=== PATIENT | female | born 1995 | race African-American/Black ===

== ENCOUNTER 2018-03-14 07:46 | Emergency (ER) | payer OTHER, SELFPAY ==
--- OUTSIDE RECORDS SUMMARY | 2018-03-14 07:48 | XMS REPORT ---
:1995 [facility] [address] [place] [address] Care Team Providers Name Role Phone Unavailable Unavailable Unavailable Problems This patient has no known problems. Allergies, Adverse Reactions, Alerts This patient has no known allergies or adverse reactions. Medications This patient has no known medications. Encounters Start End Encounter Admission Attending Care Care Encounter Date/Time Date/Time Type Type Clinicians Facility Department ID 2017-12-04 2017-12-06 Outpatient [facility] [id number] 00:00:00 00:00:00
[2018-03-14] MEDS ORDERED: NA CHLORIDE 0.9% 1,000 ML ONE (08:21)
[2018-03-14] MEDS ORDERED: ONDANSETRON 4 MG/2 ML VIAL ONE (08:21)
[2018-03-14 08:33] LABS: Absolute Monocytes 0.5 K/uL (0.1-1.3); Absolute Neutrophil 8.1 K/uL (1.8-8.0); Basophils % 0.2 % (0-1.3); Eosinophils % 1.1 % (0-4.4); Hematocrit 36.3 % (36.0-45.0); Lymphocytes % 10.2 % (15.3-44.8); MCH 26.4 pg (27.0-35.0); MCV 80.1 fL (80-100); MPV 8.8 fL (7.6-11.3); Monocytes % 5.1 % (3.3-12.3); RBC Red Blood Cell Count 4.53 M/uL (3.86-4.86)
[2018-03-14 08:47] LABS: ALT/SGPT 11 U/L (12-78); AST/SGOT 17 U/L (15-37); Albumin 3.8 g/dL (3.4-5.0); Alkaline Phosphatase 76 U/L (45-117); BUN Blood Urea Nitrogen 13 mg/dL (7-18); Bicarbonate 29 mmol/L (21-32); Bilirubin Direct 0.3 mg/dL (0-0.2); Bilirubin Total 1.1 mg/dL (0.2-1.0); Glucose Level 90 mg/dL (74-106); Lipase 113 U/L (73-393); Potassium 3.5 mmol/L (3.5-5.1); Protein, Total 8.2 g/dL (6.4-8.2); Sodium Level 139 mmol/L (136-145)
--- NOTE | 2018-03-14 10:40 | ER ---
Nurse's Notes [facility] Name: Roro Heredia Age: 22 yrs Sex: Female : 1995 Arrival Date: 03/14/2018 Time: 07:50 Bed 6 Private MD: None, None Diagnosis: Vomiting;Diarrhea, unspecified;Gastroenteritis Presentation: 03/14 08:05 Presenting complaint: Patient states: last night started vomiting, have vomited 3 times tw2 since, and 2 episodes of diarrhea, no abdominal pain. Transition of care: patient was not received from another setting of care. Onset of symptoms was March 14, 2018. Risk Assessment: Do you want to hurt yourself or someone else? Patient reports no desire to harm self or others. Initial Sepsis Screen: Does the patient meet any 2 criteria? No. Patient's initial sepsis screen is negative. Does the patient have a suspected source of infection? No. Patient's initial sepsis screen is negative. Care prior to arrival: None. 08:05 Method Of Arrival: Ambulatory tw2 08:05 Acuity: JULIET 3 tw2 Triage Assessment: 08:07 General: Appears in no apparent distress. Behavior is calm, cooperative, appropriate tw2 for age. Pain: Denies pain. GI: Reports dizziness Patient currently denies abdominal pain. 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 - Social history:: Smoking status: Patient/guardian denies using tobacco. - Ebola Screening: : Patient denies travel to an Ebola-affected area in the 21 days before illness onset. Screenin:07 Abuse screen: Denies threats or abuse. Nutritional screening: No deficits noted. tw2 Tuberculosis screening: No symptoms or risk factors identified. Fall Risk None identified. Assessment: 08:05 General: Appears in no apparent distress. uncomfortable, well developed, Behavior is sv calm, cooperative, appropriate for age. Pain: Denies pain. Neuro: Level of Consciousness is awake, alert, obeys commands, Oriented to person, place, time, situation, Moves all extremities. Full function Gait is steady, Speech is normal. Respiratory: Respiratory effort is even, unlabored, Respiratory pattern is regular, symmetrical. GI: Abdomen is flat, Patient currently denies abdominal pain. Derm: Skin is normal. Musculoskeletal: Range of motion: intact in all extremities. 09:07 Reassessment: Patient appears in no apparent distress at this time. No changes from tw2 previously documented assessment. Patient and/or family updated on plan of care and expected duration. Pain level reassessed. Patient is alert, oriented x 3, equal unlabored respirations, skin warm/dry/pink. 10:57 Reassessment: Patient appears in no apparent distress at this time. No changes from tw2 previously documented assessment. Patient and/or family updated on plan of care and expected duration. Pain level reassessed. Patient is alert, oriented x 3, equal unlabored respirations, skin warm/dry/pink. Vital Signs: 08:05 BP 106 / 76; Pulse 105; Resp 18; Temp 97.9(O); Pulse Ox 100% on R/A; Pain 0/10; tw2 09:07 BP 102 / 66; Pulse 74; Resp 18; Pulse Ox 99% on R/A; tw2 09:55 BP 105 / 78; Pulse 73; Resp 16; Pulse Ox 100% on R/A; tw2 10:57 BP 106 / 74; Pulse 85; Resp 17; Pulse Ox 100% on R/A; tw2 ED Course: 07:50 Patient arrived in ED. mr 07:50 None, None is Private Physician. mr 07:51 Dangelo Blair MD is Attending Physician. kdr 08:01 Shruti Concepcion, SARAH is Primary Nurse. sv 08:05 Triage completed. tw2 08:05 Arm band placed on. tw2 08:07 Placed in gown. Bed in low position. Pulse ox on. NIBP on. Warm blanket given. tw2 08:20 Initial lab(s) drawn, by de, sent to lab. Inserted saline lock: 20 gauge in right sv antecubital area, using aseptic technique. Blood collected. Flushed right antecubital with 5 ml normal saline. 08:22 Basic Metabolic Panel Sent. sv 10:57 No provider procedures requiring assistance completed. IV discontinued, intact, tw2 bleeding controlled, No redness/swelling at site. Pressure dressing applied. Administered Medications: 08:22 Drug: Zofran 4 mg Route: IVP; Site: right antecubital; sv 09:01 Follow up: Response: No adverse reaction sv 08:22 Drug: NS 0.9% 1000 ml Route: IV; Rate: 1 bolus; Site: right antecubital; sv 09:06 Follow up: Response: No adverse reaction; IV Status: Completed infusion; IV Intake: tw2 1000ml Intake: 09:06 IV: 1000ml; Total: 1000ml. tw2 Outcome: 10:39 Discharge ordered by . lizet 10:58 Discharged to home ambulatory. tw2 10:58 Condition: stable 10:58 Discharge instructions given to patient, Instructed on discharge instructions, follow up and referral plans. medication usage, Demonstrated understanding of instructions, follow-up care, medications, Prescriptions given X 2. 10:58 Patient left the ED. tw2 Signatures: Shruti Concepcion RN RN sv Rittger, Kevin, MD MD kdr Rivera, Mary mr Wise, Tara, RN RN tw2
--- NOTE | 2018-03-14 10:40 | EDPHYS ---
Physician Documentation [facility] Name: Roro Heredia Age: 22 yrs Sex: Female : 1995 Arrival Date: 03/14/2018 Time: 07:50 Bed 6 Private MD: None, None ED Physician Dangelo Blair HPI: 03/14 08:13 This 22 yrs old Black Female presents to ER via Ambulatory with complaints of Vomiting. kdr 08:13 The patient presents to the emergency department with nausea, that is mild, vomiting, kdr that is intermittent, described as undigested food, diarrhea, that is intermittent, abdominal pain, of the epigastric area and right upper quadrant, described as achy, dull, intermittent, and does not radiate. Onset: The symptoms/episode began/occurred last night. Possible causes: unknown. The symptoms are aggravated by food , The symptoms are alleviated by nothing. Associated signs and symptoms: Pertinent positives: abdominal pain, diarrhea, nausea, vomiting, Pertinent negatives: anorexia, belching, constipation, dysuria, fever, GI bleeding, hematuria, vaginal discharge. Severity of symptoms: At their worst the symptoms were mild moderate just prior to arrival, in the emergency department the symptoms have improved moderately. The patient has not experienced similar symptoms in the past. The patient has not recently seen a physician. 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 - Social history:: Smoking status: Patient/guardian denies using tobacco. - Ebola Screening: : Patient denies travel to an Ebola-affected area in the 21 days before illness onset. ROS: 08:13 Constitutional: Negative for fever, chills, and weight loss, Eyes: Negative for injury, kdr pain, redness, and discharge, ENT: Negative for injury, pain, and discharge, Neck: Negative for injury, pain, and swelling, Cardiovascular: Negative for chest pain, palpitations, and edema, Respiratory: Negative for shortness of breath, cough, wheezing, and pleuritic chest pain, Back: Negative for injury and pain, : Negative for injury, bleeding, discharge, and swelling, MS/Extremity: Negative for injury and deformity, Skin: Negative for injury, rash, and discoloration, Neuro: Negative for headache, weakness, numbness, tingling, and seizure activity. Psych: Negative for depression, anxiety, suicide ideation, homicidal ideation, and hallucinations, Allergy/Immunology: Negative for hives, rash, and allergies, Endocrine: Negative for neck swelling, polydipsia, polyuria, polyphagia, and marked weight changes, Hematologic/Lymphatic: Negative for swollen nodes, abnormal bleeding, and unusual bruising. 08:13 Abdomen/GI: Positive for abdominal pain, nausea, vomiting, and diarrhea, Negative for constipation, abdominal cramps, abdominal distension, anorexia, dysphagia, hematemesis, black/tarry stool, rectal pain, rectal bleeding, bowel incontinence. Exam: 08:13 Constitutional: This is a well developed, well nourished patient who is awake, alert, kdr and in no acute distress. Head/Face: Normocephalic, atraumatic. Eyes: Pupils equal round and reactive to light, extra-ocular motions intact. Lids and lashes normal. Conjunctiva and sclera are non-icteric and not injected. Cornea within normal limits. Periorbital areas with no swelling, redness, or edema. Neck: Trachea midline, no thyromegaly or masses palpated, and no cervical lymphadenopathy. Supple, full range of motion without nuchal rigidity, or vertebral point tenderness. No Meningismus. Chest/axilla: Normal chest wall appearance and motion. Nontender with no deformity. No lesions are appreciated. Cardiovascular: Regular rate and rhythm with a normal S1 and S2. No gallops, murmurs, or rubs. Normal PMI, no JVD. No pulse deficits. Respiratory: Lungs have equal breath sounds bilaterally, clear to auscultation and percussion. No rales, rhonchi or wheezes noted. No increased work of breathing, no retractions or nasal flaring. Abdomen/GI: Soft, non-tender, with normal bowel sounds. No distension or tympany. No guarding or rebound. No evidence of tenderness throughout. Back: No spinal tenderness. No costovertebral tenderness. Full range of motion. Skin: Warm, dry with normal turgor. Normal color with no rashes, no lesions, and no evidence of cellulitis. MS/ Extremity: Pulses equal, no cyanosis. Neurovascular intact. Full, normal range of motion. Neuro: Awake and alert, GCS 15, oriented to person, place, time, and situation. Cranial nerves II-XII grossly intact. Motor strength 5/5 in all extremities. Sensory grossly intact. Cerebellar exam normal. Normal gait. Psych: Awake, alert, with orientation to person, place and time. Behavior, mood, and affect are within normal limits. Vital Signs: 08:05 BP 106 / 76; Pulse 105; Resp 18; Temp 97.9(O); Pulse Ox 100% on R/A; Pain 0/10; tw2 09:07 BP 102 / 66; Pulse 74; Resp 18; Pulse Ox 99% on R/A; tw2 09:55 BP 105 / 78; Pulse 73; Resp 16; Pulse Ox 100% on R/A; tw2 10:57 BP 106 / 74; Pulse 85; Resp 17; Pulse Ox 100% on R/A; tw2 MDM: 08:13 Data reviewed: vital signs, nurses notes, lab test result(s). Counseling: I had a kdr detailed discussion with the patient and/or guardian regarding: the historical points, exam findings, and any diagnostic results supporting the discharge/admit diagnosis, lab results, the need for outpatient follow up. 10:39 Patient medically screened. kdr 03/14 08:12 Order name: Basic Metabolic Panel kdr 03/14 08:12 Order name: CBC with Diff; Complete Time: 10:05 kdr 03/14 08:12 Order name: Hepatic Function; Complete Time: 10:05 kdr 03/14 08:12 Order name: Lipase; Complete Time: 10:05 kdr 03/14 08:13 Order name: Basic Metabolic Panel; Complete Time: 10:05 EDMS 03/14 08:12 Order name: IV Saline Lock; Complete Time: 08:20 kdr 03/14 08:12 Order name: Labs collected and sent; Complete Time: 08:20 kdr Administered Medications: 08:22 Drug: Zofran 4 mg Route: IVP; Site: right antecubital; sv 09:01 Follow up: Response: No adverse reaction sv 08:22 Drug: NS 0.9% 1000 ml Route: IV; Rate: 1 bolus; Site: right antecubital; sv 09:06 Follow up: Response: No adverse reaction; IV Status: Completed infusion; IV Intake: tw2 1000ml Disposition: 03/14/18 10:39 Discharged to Home. Impression: Vomiting, Diarrhea, unspecified, Gastroenteritis. - Condition is Stable. - Discharge Instructions: Diarrhea, Adult, Nausea and Vomiting, Adult, [id number]. - Prescriptions for Zofran 4 mg Oral Tablet - take 1 tablet by ORAL route every 4-6 hours As needed; 16 tablet. Lomotil 2.5- 0.025 mg Oral Tablet - take 2 tablet by ORAL route once daily As needed; 20 tablet. - Medication Reconciliation Form, Thank You Letter, Work release form form. - Follow up: Private Physician; When: 2 - 3 days; Reason: If symptoms return, Further diagnostic work-up, Recheck today's complaints, Continuance of care, Re-evaluation by your physician. - Problem is new. - Symptoms are resolved. Signatures: Dispatcher [employer] Shruti Kay RN RN Dangelo Blair MD MD kdr Jo Ann Hernandez RN RN tw2 Corrections: (The following items were deleted from the chart) 10:58 10:39 03/14/2018 10:39 Discharged to Home. Impression: Vomiting; Diarrhea, unspecified; tw2 Gastroenteritis. Condition is Stable. Forms are Work release form, Medication Reconciliation Form, Thank You Letter, Antibiotic Education, Prescription Opioid Use. Follow up: Private Physician; When: 2 - 3 days; Reason: If symptoms return, Further diagnostic work-up, Recheck today's complaints, Continuance of care, Re-evaluation by your physician. Problem is new. Symptoms are resolved. kdr
== END 2018-03-14 10:58 | disposition home or self-care (01) ==
LOC: ER 07:46
DX: K52.9 Noninfective gastroenteritis and colitis, unspecified (principal)
CPT/HCPCS: 36415; 80048; 80076; 83690; 85025; 96361; 96374; 99284; J2405; J7030

== ENCOUNTER 2018-09-26 08:34 | Emergency (ER) | payer SELFPAY ==
--- OUTSIDE RECORDS SUMMARY | 2018-09-26 08:37 | XMS REPORT ---
:1995 [facility] Address [address] [place] [address] Care Team Providers Name Role Phone Unavailable Unavailable Unavailable Problems This patient has no known problems. Allergies, Adverse Reactions, Alerts This patient has no known allergies or adverse reactions. Medications This patient has no known medications. Encounters Start End Encounter Admission Attending Care Care Encounter Date/Time Date/Time Type Type Clinicians Facility Department ID 2017-12-04 2017-12-06 Outpatient [facility] [id number] 00:00:00 00:00:00
--- NOTE | 2018-09-26 08:51 | EDPHYS ---
Physician Documentation [facility] Name: Roro Heredia Age: 23 yrs Sex: Female : 1995 Arrival Date: 09/26/2018 Time: 08:39 Bed 19 Private MD: None, None ED Physician Omer Gross HPI: 09/26 09:05 This 23 yrs old Black Female presents to ER via Ambulatory with complaints of Eye kb Problem. 09:05 The patient is experiencing pain, The patient sustained None. to the right eye. Onset: kb The symptoms/episode began/occurred 2 day(s) ago. Duration: the symptoms are continuous. Aggravated by nothing. Alleviated by nothing. Associated signs and symptoms: Pertinent positives: None. Patient wears glasses. Severity of symptoms: At their worst the symptoms were mild moderate in the emergency department the symptoms are unchanged. The patient has not experienced similar symptoms in the past. The patient has not recently seen a physician. Pt reports stye to right lower eyelid that started 2 days ago. States it started draining yesterday. Reports she tried an old remedy using urine from a diaper to clear it up, but it hasn't worked yet. 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 tw2 Historical: - Allergies: 08:42 No Known Allergies; tw2 - Home Meds: 08:42 None [Active]; tw2 - PMHx: 08:42 None; tw2 - PSHx: 08:42 None; tw2 - Immunization history:: Adult Immunizations. - Social history:: Smoking status: . - Ebola Screening: : Patient denies travel to an Ebola-affected area in the 21 days before illness onset. ROS: 09:04 Constitutional: Negative for fever, chills, and weight loss, ENT: Negative for injury, kb pain, and discharge, Neck: Negative for injury, pain, and swelling, Cardiovascular: Negative for chest pain, palpitations, and edema, Respiratory: Negative for shortness of breath, cough, wheezing, and pleuritic chest pain, Abdomen/GI: Negative for abdominal pain, nausea, vomiting, diarrhea, and constipation, Back: Negative for injury and pain, MS/Extremity: Negative for injury and deformity, Skin: Negative for injury, rash, and discoloration, Neuro: Negative for headache, weakness, numbness, tingling, and seizure. 09:04 Eyes: Positive for pain, swelling, of the right lower eyelid. Exam: 09:04 Visual Acuity: I have reviewed the nursing documentation. Visual acuity is within kb normal limits. 09:04 Constitutional: This is a well developed, well nourished patient who is awake, alert, and in no acute distress. Head/Face: Normocephalic, atraumatic. Chest/axilla: Normal chest wall appearance and motion. Nontender with no deformity. No lesions are appreciated. Cardiovascular: Regular rate and rhythm with a normal S1 and S2. No gallops, murmurs, or rubs. Normal PMI, no JVD. No pulse deficits. Respiratory: Lungs have equal breath sounds bilaterally, clear to auscultation and percussion. No rales, rhonchi or wheezes noted. No increased work of breathing, no retractions or nasal flaring. Abdomen/GI: Soft, non-tender, with normal bowel sounds. No distension or tympany. No guarding or rebound. No evidence of tenderness throughout. Skin: Warm, dry with normal turgor. Normal color with no rashes, no lesions, and no evidence of cellulitis. MS/ Extremity: Pulses equal, no cyanosis. Neurovascular intact. Full, normal range of motion. Neuro: Awake and alert, GCS 15, oriented to person, place, time, and situation. Cranial nerves II-XII grossly intact. Motor strength 5/5 in all extremities. Sensory grossly intact. Cerebellar exam normal. Normal gait. 09:04 Eyes: Lids and lashes: stye, seen on the right lid. Vital Signs: 08:44 Pulse 89; Resp 14; Temp 97.9(TE); Pulse Ox 100% on R/A; Pain 6/10; ss 08:46 BP 108 / 72; tw2 Visual Acuity: 08:45 Left Eye Visual acuity 20/25, ; Right Eye Visual acuity 20/25, ; Both Eyes Visual tw2 acuity 20/15; With Lenses; MDM: 08:40 Patient medically screened. kb 08:49 Data reviewed: vital signs, nurses notes. Data interpreted: Pulse oximetry: on room air kb is 100 %. Interpretation: normal. Counseling: I had a detailed discussion with the patient and/or guardian regarding: the historical points, exam findings, and any diagnostic results supporting the discharge/admit diagnosis, the need for outpatient follow up, a family practitioner, to return to the emergency department if symptoms worsen or persist or if there are any questions or concerns that arise at home. 09/26 08:46 Order name: Visual Acuity; Complete Time: 08:46 tw2 Administered Medications: No medications were administered Disposition: 11:40 Co-signature as Attending Physician, Omer Gross MD. rn Disposition: 09/26/18 08:50 Discharged to Home. Impression: Hordeolum externum right lower eyelid. - Condition is Stable. - Discharge Instructions: Stye. - Prescriptions for Erythromycin 5 mg/gram (0.5 %) Ophthalmic Ointment - apply 1 centimeter by OPHTHALMIC route 2-3 times daily for 7 days; 1 tube. - Medication Reconciliation Form, Thank You Letter, Antibiotic Education, Prescription Opioid Use, Work release form, Family Work Release form. - Follow up: Emergency Department; When: As needed; Reason: Worsening of condition. Follow up: Private Physician; When: 2 - 3 days; Reason: Recheck today's complaints, Continuance of care, Re-evaluation by your physician. Signatures: Jenifer Hernandez, COIN PURSE ASSEMBLER-C COIN PURSE ASSEMBLER-Ckb Omer Gross MD MD rn Wise, Tara, RN RN tw2 Corrections: (The following items were deleted from the chart) 08:55 08:50 09/26/2018 08:50 Discharged to Home. Impression: Hordeolum externum right lower tw2 eyelid. Condition is Stable. Forms are Work release form, Family Work Release, Medication Reconciliation Form, Thank You Letter, Antibiotic Education, Prescription Opioid Use. Follow up: Emergency Department; When: As needed; Reason: Worsening of condition. Follow up: Private Physician; When: 2 - 3 days; Reason: Recheck today's complaints, Continuance of care, Re-evaluation by your physician. kb
--- NOTE | 2018-09-26 08:51 | ER ---
Nurse's Notes [facility] Name: Roro Heredia Age: 23 yrs Sex: Female : 1995 Arrival Date: 09/26/2018 Time: 08:39 Bed 19 Private MD: None, None Diagnosis: Hordeolum externum right lower eyelid Presentation: 09/26 08:43 Presenting complaint: Patient states: pain on my right eye lid that started 2 days ago. tw2 Transition of care: patient was not received from another setting of care. Onset of symptoms was September 26, 2018. Risk Assessment: Do you want to hurt yourself or someone else? Patient reports no desire to harm self or others. Initial Sepsis Screen: Does the patient meet any 2 criteria? No. Patient's initial sepsis screen is negative. Does the patient have a suspected source of infection? No. Patient's initial sepsis screen is negative. Care prior to arrival: None. 08:43 Acuity: JULIET 4 tw2 08:43 Method Of Arrival: Ambulatory tw2 Triage Assessment: 08:42 General: Appears in no apparent distress. Behavior is calm, cooperative, appropriate tw2 for age. Pain: Complains of pain in right eye. EENT: Reports pain in right eye. Neuro: Level of Consciousness is awake, alert, obeys commands, Oriented to person, place, time, situation. Cardiovascular: Patient's skin is warm and dry. Respiratory: Airway is patent Respiratory effort is even, unlabored, Respiratory pattern is regular, symmetrical. GI: No signs and/or symptoms were reported involving the gastrointestinal system. Musculoskeletal: Range of motion: intact in all extremities. 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 tw2 Historical: - Allergies: 08:42 No Known Allergies; tw2 - Home Meds: 08:42 None [Active]; tw2 - PMHx: 08:42 None; tw2 - PSHx: 08:42 None; tw2 - Immunization history:: Adult Immunizations. - Social history:: Smoking status: . - Ebola Screening: : Patient denies travel to an Ebola-affected area in the 21 days before illness onset. Screenin:41 Abuse screen: Denies threats or abuse. Nutritional screening: No deficits noted. tw2 Tuberculosis screening: No symptoms or risk factors identified. Fall Risk None identified. Assessment: 08:46 Reassessment: see triage assessment. tw2 08:55 Reassessment: Patient appears in no apparent distress at this time. tw2 Vital Signs: 08:44 Pulse 89; Resp 14; Temp 97.9(TE); Pulse Ox 100% on R/A; Pain 6/10; ss 08:46 BP 108 / 72; tw2 Visual Acuity: 08:45 Left Eye Visual acuity 20/25, ; Right Eye Visual acuity 20/25, ; Both Eyes Visual tw2 acuity 20/15; With Lenses; ED Course: 08:39 Patient arrived in ED. dp 08:39 None, None is Private Physician. dp 08:40 Jenifer Hernandez FNP-C [facility]. kb 08:40 Omer Gross MD is Attending Physician. kb 08:41 Jo Ann Hernandez, RN is Primary Nurse. tw2 08:42 Arm band placed on. tw2 08:43 Triage completed. tw2 08:43 Call light in reach. Adult w/ patient. tw2 08:55 No provider procedures requiring assistance completed. Patient did not have IV access tw2 during this emergency room visit. Administered Medications: No medications were administered Outcome: 08:50 Discharge ordered by MD. kb 08:55 Discharged to home ambulatory, with significant other. tw2 08:55 Condition: stable 08:55 Discharge instructions given to patient, significant other, Instructed on discharge instructions, follow up and referral plans. medication usage, Demonstrated understanding of instructions, follow-up care, medications, Prescriptions given X 1. 08:55 Patient left the ED. tw2 Signatures: Jenifer Hernandez FNP-C FNP-Ckb Smirch, Shelby, RN RN Jo Ann Hernandez RN RN tw2 Chandra Fisher
== END 2018-09-26 08:55 | disposition home or self-care (01) ==
LOC: ER 08:34
DX: H00.012 Hordeolum externum right lower eyelid (principal)
CPT/HCPCS: 99282

== ENCOUNTER 2018-10-17 09:12 | Emergency (ER) | payer SELFPAY ==
--- OUTSIDE RECORDS SUMMARY | 2018-10-17 09:15 | XMS REPORT ---
:1995 [facility] Address [address] [place] [address] Care Team Providers Name Role Phone Unavailable Unavailable Unavailable Problems This patient has no known problems. Allergies, Adverse Reactions, Alerts This patient has no known allergies or adverse reactions. Medications This patient has no known medications. Encounters Start End Encounter Admission Attending Care Care Encounter Date/Time Date/Time Type Type Clinicians Facility Department ID 2017-12-04 2017-12-06 Outpatient [facility] [id number] 00:00:00 00:00:00
[2018-10-17] MEDS ORDERED: ONDANSETRON 4 MG (ODT) TAB ONE (09:38)
--- NOTE | 2018-10-17 09:56 | ER ---
Nurse's Notes [facility] Name: Roro Heredia Age: 23 yrs Sex: Female : 1995 Arrival Date: 10/17/2018 Time: 09:13 Bed 13 Private MD: Diagnosis: Nausea with vomiting, unspecified;Diarrhea, unspecified Presentation: 10/17 09:16 Presenting complaint: Patient states: "I think I have a stomach virus. My kids had it ss so I think that is why I have it." Pt reports abd cramping, N/V/D that began last night. Transition of care: patient was not received from another setting of care. Onset of symptoms was October 16, 2018. Risk Assessment: Do you want to hurt yourself or someone else? Patient reports no desire to harm self or others. Initial Sepsis Screen: Does the patient meet any 2 criteria? No. Patient's initial sepsis screen is negative. Does the patient have a suspected source of infection? No. Patient's initial sepsis screen is negative. Care prior to arrival: None. 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 - Social history:: Smoking status: Patient/guardian denies using tobacco. - Ebola Screening: : Patient denies exposure to infectious person Patient denies travel to an Ebola-affected area in the 21 days before illness onset. Screenin:20 Abuse screen: Denies threats or abuse. Nutritional screening: No deficits noted. rb1 Tuberculosis screening: No symptoms or risk factors identified. Fall Risk None identified. Assessment: 09:20 General: Appears in no apparent distress. comfortable, Behavior is calm, cooperative. rb1 General: Pt. reports that her children have been sick with a stomach virus.. Pain: Complains of pain in abdomen. Neuro: Level of Consciousness is awake, alert, obeys commands, Oriented to person, place, time, situation. Cardiovascular: Capillary refill < 3 seconds is brisk in bilateral fingers. Respiratory: Airway is patent Respiratory effort is even, unlabored, Respiratory pattern is regular, symmetrical. GI: Abdomen is non-distended, Reports diarrhea, nausea, vomiting. : No signs and/or symptoms were reported regarding the genitourinary system. Derm: Skin is pink, warm \\T\\ dry. Musculoskeletal: Range of motion: intact in all extremities. 09:45 Reassessment: Patient appears in no apparent distress at this time. Gave the pt. a cup rb1 of water for the PO challenge. 10:06 Reassessment: Patient appears in no apparent distress at this time. Patient and/or rb1 family updated on plan of care and expected duration. Pain level reassessed. Patient is alert, oriented x 3, equal unlabored respirations, skin warm/dry/pink. Pt. tolerated PO challenge well. Vital Signs: 09:26 BP 114 / 79; Pulse 87; Resp 16; Temp 98.4(TE); Pulse Ox 100% on R/A; Height 5 ft. 3 in. ss (160.02 cm); Pain 6/10; 10:06 BP 110 / 75; Pulse 80; Resp 16; Temp 98.1(TE); Pulse Ox 100% on R/A; Pain 0/10; rb1 ED Course: 09:13 Patient arrived in ED. as 09:17 Jenifer Hernandez [facility]-C [facility]. kb 09:17 Omer Gross MD is Attending Physician. kb 09:20 Suzy Young, RN is Primary Nurse. rb1 09:20 Patient has correct armband on for positive identification. Bed in low position. Call rb1 light in reach. Side rails up X 1. Pulse ox on. NIBP on. 09:26 Triage completed. ss 09:26 Arm band placed on left wrist. ss 10:07 No provider procedures requiring assistance completed. Patient did not have IV access rb1 during this emergency room visit. Administered Medications: : Drug: Zofran 4 mg Route: PO; rb1 10:00 Follow up: Response: No adverse reaction; Nausea is decreased rb1 Outcome: :55 Discharge ordered by . kb 10:07 Discharged to home ambulatory. rb1 10:07 Condition: stable 10:07 Discharge instructions given to patient, Instructed on discharge instructions, follow up and referral plans. medication usage, Demonstrated understanding of instructions, follow-up care, medications, Prescriptions given X 2. 10:08 Patient left the ED. rb1 Signatures: Jenifer Hernandez, DARNELL-C DARNELL-Rosa Isela Sy Shelby, RN RN ss Suzy Young RN RN rb1
--- NOTE | 2018-10-17 09:56 | EDPHYS ---
Physician Documentation [facility] Name: Roro Heredia Age: 23 yrs Sex: Female : 1995 Arrival Date: 10/17/2018 Time: 09:13 Bed 13 Private MD: ED Physician Omer Gross HPI: 10/17 09:25 This 23 yrs old Black Female presents to ER via Unassigned with complaints of kb Nausea/Vomiting/Diarrhea, Abdominal Pain. 09:25 The patient presents to the emergency department with nausea, vomiting, diarrhea, kb abdominal pain. Onset: The symptoms/episode began/occurred yesterday. Possible causes: sick contacts, by family, daughter, son. The symptoms are aggravated by nothing. The symptoms are alleviated by nothing. Associated signs and symptoms: Pertinent positives: abdominal pain, diarrhea, nausea, vomiting. Severity of symptoms: At their worst the symptoms were moderate in the emergency department the symptoms are unchanged. The patient has not experienced similar symptoms in the past. The patient has not recently seen a physician. pt c/o n/v/d and generalized abd pain that started yesterday. States daughter started having the symptoms on Friday and was diagnosed with a virus on . Son started having same symptoms and was diagnosed with a virus on Friday.. 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 - Social history:: Smoking status: Patient/guardian denies using tobacco. - Ebola Screening: : Patient denies exposure to infectious person Patient denies travel to an Ebola-affected area in the 21 days before illness onset. ROS: 09:25 Constitutional: Negative for fever, chills, and weight loss, Neck: Negative for injury, kb pain, and swelling, Cardiovascular: Negative for chest pain, palpitations, and edema, Respiratory: Negative for shortness of breath, cough, wheezing, and pleuritic chest pain, Back: Negative for injury and pain, MS/Extremity: Negative for injury and deformity, Skin: Negative for injury, rash, and discoloration, Neuro: Negative for headache, weakness, numbness, tingling, and seizure. 09:25 Abdomen/GI: Positive for abdominal pain, nausea, vomiting, and diarrhea, Negative for abdominal distension, anorexia, dysphagia. Exam: 09:25 Constitutional: This is a well developed, well nourished patient who is awake, alert, kb and in no acute distress. Head/Face: Normocephalic, atraumatic. ENT: Nares patent. No nasal discharge, no septal abnormalities noted. Tympanic membranes are normal and external auditory canals are clear. Oropharynx with no redness, swelling, or masses, exudates, or evidence of obstruction, uvula midline. Mucous membranes moist. Neck: Trachea midline, no thyromegaly or masses palpated, and no cervical lymphadenopathy. Supple, full range of motion without nuchal rigidity, or vertebral point tenderness. No Meningismus. Chest/axilla: Normal chest wall appearance and motion. Nontender with no deformity. No lesions are appreciated. Cardiovascular: Regular rate and rhythm with a normal S1 and S2. No gallops, murmurs, or rubs. Normal PMI, no JVD. No pulse deficits. Respiratory: Lungs have equal breath sounds bilaterally, clear to auscultation and percussion. No rales, rhonchi or wheezes noted. No increased work of breathing, no retractions or nasal flaring. Abdomen/GI: Soft, non-tender, with normal bowel sounds. No distension or tympany. No guarding or rebound. No evidence of tenderness throughout. Skin: Warm, dry with normal turgor. Normal color with no rashes, no lesions, and no evidence of cellulitis. MS/ Extremity: Pulses equal, no cyanosis. Neurovascular intact. Full, normal range of motion. Neuro: Awake and alert, GCS 15, oriented to person, place, time, and situation. Cranial nerves II-XII grossly intact. Motor strength 5/5 in all extremities. Sensory grossly intact. Cerebellar exam normal. Normal gait. Vital Signs: 09:26 BP 114 / 79; Pulse 87; Resp 16; Temp 98.4(TE); Pulse Ox 100% on R/A; Height 5 ft. 3 in. ss (160.02 cm); Pain 6/10; 10:06 BP 110 / 75; Pulse 80; Resp 16; Temp 98.1(TE); Pulse Ox 100% on R/A; Pain 0/10; rb1 MDM: 09:17 Patient medically screened. kb 09:25 Data reviewed: vital signs, nurses notes. Data interpreted: Pulse oximetry: on room air kb is 100 %. Interpretation: normal. 09:42 Counseling: I had a detailed discussion with the patient and/or guardian regarding: the kb historical points, exam findings, and any diagnostic results supporting the discharge/admit diagnosis, the need for outpatient follow up, a family practitioner, to return to the emergency department if symptoms worsen or persist or if there are any questions or concerns that arise at home. 10/17 09:38 Order name: PO challenge; Complete Time: 09:45 kb Administered Medications: 09:26 Drug: Zofran 4 mg Route: PO; rb1 10:00 Follow up: Response: No adverse reaction; Nausea is decreased rb1 Disposition: 10:43 Co-signature as Attending Physician, Omer Gross MD. rn Disposition: 10/17/18 09:55 Discharged to Home. Impression: Nausea with vomiting, unspecified, Diarrhea, unspecified. - Condition is Stable. - Discharge Instructions: Food Choices to Help Relieve Diarrhea, Adult, Viral Gastroenteritis, Adult, Ypad-lf-Jeon. - Prescriptions for Bentyl 20 mg Oral Tablet - take 1 tablet by ORAL route every 6 hours As needed; 20 tablet. Zofran 4 mg Oral Tablet - take 1 tablet by ORAL route every 6 hours As needed; 20 tablet. - Medication Reconciliation Form, Thank You Letter, Antibiotic Education, Prescription Opioid Use, Work release form form. - Follow up: Private Physician; When: 2 - 3 days; Reason: Recheck today's complaints, Continuance of care, Re-evaluation by your physician. Follow up: Emergency Department; When: As needed; Reason: Worsening of condition. Signatures: Jenifer Hernandez, INSPECTOR FINISHING-C INSPECTOR FINISHING-Omer Vargas MD MD rn Smirch, Shelby, RN RN Suzy Beard RN RN rb1 Corrections: (The following items were deleted from the chart) 10:08 09:55 10/17/2018 09:55 Discharged to Home. Impression: Nausea with vomiting, rb1 unspecified; Diarrhea, unspecified. Condition is Stable. Discharge Instructions: Food Choices to Help Relieve Diarrhea, Adult, Viral Gastroenteritis, Adult, [id number]-Spyd. Prescriptions for Bentyl 20 mg Oral Tablet - take 1 tablet by ORAL route every 6 hours As needed; 20 tablet, Zofran 4 mg Oral Tablet - take 1 tablet by ORAL route every 6 hours As needed; 20 tablet. and Forms are Medication Reconciliation Form, Thank You Letter, Antibiotic Education, Prescription Opioid Use. Follow up: Private Physician; When: 2 - 3 days; Reason: Recheck today's complaints, Continuance of care, Re-evaluation by your physician. Follow up: Emergency Department; When: As needed; Reason: Worsening of condition. kb
== END 2018-10-17 10:08 | disposition home or self-care (01) ==
LOC: ER 09:12
DX: R11.2 Nausea with vomiting, unspecified (principal); R19.7 Diarrhea, unspecified
CPT/HCPCS: 99283

== ENCOUNTER 2018-12-19 07:46 | Emergency (ER) | payer SELFPAY ==
[2018-12-19] MEDS ORDERED: TETRACAINE HCL 0.5% 4ML OPTH ONE (08:10)
[2018-12-19] MEDS ORDERED: FLUORESCEIN SODIUM 1 MG/WRAP ONE (08:10)
--- NOTE | 2018-12-19 09:13 | ER ---
Nurse's Notes [facility] Name: Roro Heredia Age: 23 yrs Sex: Female : 1995 Arrival Date: 12/19/2018 Time: 07:48 Bed 19 Private MD: None, None Diagnosis: Conjunctivitis Presentation: 12/19 08:05 Presenting complaint: Patient states: left eye redness and drainage that began this aa5 morning. 08:05 Transition of care: patient was not received from another setting of care. Onset of aa5 symptoms was November 2018. Risk Assessment: Do you want to hurt yourself or someone else? Patient reports no desire to harm self or others. Initial Sepsis Screen: Does the patient meet any 2 criteria? No. Patient's initial sepsis screen is negative. Does the patient have a suspected source of infection? No. Patient's initial sepsis screen is negative. Care prior to arrival: None. 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 - Social history:: Smoking status: Patient/guardian denies using tobacco. - Ebola Screening: : No symptoms or risks identified at this time. - Family history:: not pertinent. Screenin:33 Abuse screen: Denies threats or abuse. Nutritional screening: No deficits noted. em Tuberculosis screening: No symptoms or risk factors identified. Fall Risk None identified. Assessment: 08:33 General: Appears in no apparent distress. comfortable, Behavior is calm, cooperative, em Denies fever. Pain: Denies pain. Neuro: Level of Consciousness is awake, alert, obeys commands, Oriented to person, place, time, situation. Cardiovascular: Capillary refill < 3 seconds Patient's skin is warm and dry. Respiratory: Airway is patent Respiratory effort is even, unlabored, Respiratory pattern is regular, symmetrical. GI: Abdomen is flat. EENT: Eyes with exudate noted from left eye Sclera/Cornea are reddened in left eye. Derm: Skin is intact, is healthy with good turgor, Skin is dry, Skin is normal, Skin temperature is warm. Musculoskeletal: Capillary refill < 3 seconds, Range of motion: intact in all extremities. 08:33 Reassessment: I agree with assessment completed by Trip Hanna LVN . aa5 Vital Signs: 08:07 BP 109 / 76; Pulse 76; Resp 18 S; Temp 98.1(O); Pulse Ox 100% on R/A; Pain 0/10; aa5 ED Course: 07:48 Patient arrived in ED. hb 07:49 None, None is Private Physician. mr 07:49 Triage completed. hb 07:50 John Sevilla MD is Attending Physician. bailee 08:05 Arm band placed on. aa5 08:10 Trip Hanna LVN is Primary Nurse. em 08:33 Patient has correct armband on for positive identification. Bed in low position. Call em light in reach. 08:59 Assist provider with eye exam of left eye. using slit lamp, Performed by John tang MD Patient tolerated well. 09:07 Tony Beard MD is Referral Physician. bailee 09:33 Patient did not have IV access during this emergency room visit. em Administered Medications: 08:59 Drug: Tetracaine Drops 0.5 % 1 drops Route: Ophthalmic; Site: left eye; hj 09:28 Drug: Tobramycin Ointment (0.3 %) 1 application Route: Ophthalmic; Site: left eye; em 09:32 Follow up: Response: No adverse reaction em 09:29 Drug: Motrin 600 mg Route: PO; em 09:32 Follow up: Response: No adverse reaction em Outcome: 09:07 Discharge ordered by . bailee 09:33 Discharged to home ambulatory. em 09:33 Condition: good 09:33 Discharge instructions given to patient, Instructed on discharge instructions, follow up and referral plans. medication usage, Demonstrated understanding of instructions, follow-up care, medications, Prescriptions given X 2. 09:35 Patient left the ED. em Signatures: John Sevilla MD MD cha Rivera, Mary mr HannaTrip LVN LVN em Kristie Taveras RN RN aa5 Dm Doran RN RN Rhiannon Mckeon RN RN Corrections: (The following items were deleted from the chart) 07:57 07:48 Presenting complaint: EMS states: Seizure x 2 since waking today at 0700. hb Caregiver administered 20 mg Valium OK prior to arrival. VS WNL, BGL 92 hb 07:57 07:48 Transition of care: patient was not received from another setting of care. [facility] 07:57 07:48 Onset of symptoms was December 19, 2018 [facility] 07:57 07:48 Risk Assessment: Do you want to hurt yourself or someone else? Patient reports no hb desire to harm self or others. hb 07:57 07:48 Initial Sepsis Screen: Does the patient meet any 2 criteria? No. Patient's hb initial sepsis screen is negative. Does the patient have a suspected source of infection? No. Patient's initial sepsis screen is negative. hb 07:57 07:48 Care prior to arrival: Medication(s) given: Valium 20 mg OK [facility] 07:57 07:48 Method Of Arrival: EMS: [facility] 07:57 07:48 Acuity: JULIET 3 hb hb 08:09 07:48 Arm band placed on aa5 aa5 14: 08:33 EENT: Eyes with exudate noted from left eye Reports em aa5 14:07 08:33 Derm: Skin is intact, is healthy with good turgor, Skin is pink, warm \T\ dry. em aa5
--- NOTE | 2018-12-19 09:15 | EDPHYS ---
Physician Documentation [facility] Name: Roro Heredia Age: 23 yrs Sex: Female : 1995 Arrival Date: 12/19/2018 Time: 07:48 Bed 19 Private MD: None, None ED Physician John Sevilla HPI: 12/19 09:04 This 23 yrs old Black Female presents to ER via Ambulatory with complaints of Eye bailee Problem. 09:04 This 23 yrs old Black Female presents to ER via Ambulatory with complaints of Eye bailee Problem. 09:04 Onset: The symptoms/episode began/occurred last night. Duration: the symptoms are bailee continuous. Aggravated by blinking, light, opening eye, pressure, Alleviated by covering eye. Associated signs and symptoms: Pertinent positives: None. Pertinent negatives: None. Severity of symptoms: At their worst the symptoms were mild moderate in the emergency department the symptoms are unchanged. The patient has not experienced similar symptoms in the past. 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 - Social history:: Smoking status: Patient/guardian denies using tobacco. - Ebola Screening: : No symptoms or risks identified at this time. - Family history:: not pertinent. ROS: 09:04 Constitutional: Negative for fever, chills, and weight loss, Eyes: Negative for injury, bailee pain, redness, and discharge, Neck: Negative for injury, pain, and swelling, Cardiovascular: Negative for chest pain, palpitations, and edema, Respiratory: Negative for shortness of breath, cough, wheezing, and pleuritic chest pain, Abdomen/GI: Negative for abdominal pain, nausea, vomiting, diarrhea, and constipation, Back: Negative for injury and pain, : Negative for injury, bleeding, discharge, and swelling, MS/Extremity: Negative for injury and deformity, Skin: Negative for injury, rash, and discoloration, Neuro: Negative for headache, weakness, numbness, tingling, and seizure, Psych: Negative for depression, anxiety, suicide ideation, homicidal ideation, and hallucinations, Allergy/Immunology: Negative for hives, rash, and allergies, Endocrine: Negative for neck swelling, polydipsia, polyuria, polyphagia, and marked weight changes, Hematologic/Lymphatic: Negative for swollen nodes, abnormal bleeding, and unusual bruising. 09:04 Eyes: Positive for discharge, itching, pain, redness. 09:04 ENT: Exam: 09:04 Constitutional: This is a well developed, well nourished patient who is awake, alert, bailee and in no acute distress. Head/Face: Normocephalic, atraumatic. ENT: Nares patent. No nasal discharge, no septal abnormalities noted. Tympanic membranes are normal and external auditory canals are clear. Oropharynx with no redness, swelling, or masses, exudates, or evidence of obstruction, uvula midline. Mucous membranes moist. Neck: Trachea midline, no thyromegaly or masses palpated, and no cervical lymphadenopathy. Supple, full range of motion without nuchal rigidity, or vertebral point tenderness. No Meningismus. Chest/axilla: Normal chest wall appearance and motion. Nontender with no deformity. No lesions are appreciated. Cardiovascular: Regular rate and rhythm with a normal S1 and S2. No gallops, murmurs, or rubs. Normal PMI, no JVD. No pulse deficits. Respiratory: Lungs have equal breath sounds bilaterally, clear to auscultation and percussion. No rales, rhonchi or wheezes noted. No increased work of breathing, no retractions or nasal flaring. Abdomen/GI: Soft, non-tender, with normal bowel sounds. No distension or tympany. No guarding or rebound. No evidence of tenderness throughout. Back: No spinal tenderness. No costovertebral tenderness. Full range of motion. Skin: Warm, dry with normal turgor. Normal color with no rashes, no lesions, and no evidence of cellulitis. MS/ Extremity: Pulses equal, no cyanosis. Neurovascular intact. Full, normal range of motion. Neuro: Awake and alert, GCS 15, oriented to person, place, time, and situation. Cranial nerves II-XII grossly intact. Motor strength 5/5 in all extremities. Sensory grossly intact. Cerebellar exam normal. Normal gait. Psych: Awake, alert, with orientation to person, place and time. Behavior, mood, and affect are within normal limits. 09:04 Eyes: Periorbital structures: appear normal, no acute changes, Pupils: no acute changes, equal, round, and reactive to light and accomodation, Extraocular movements: intact throughout, Conjunctiva: injected, Corneas: are normal, no acute changes, Sclera: injected, Anterior chamber: normal, no acute changes, Lids and lashes: appear normal, no acute changes. Vital Signs: 08:07 BP 109 / 76; Pulse 76; Resp 18 S; Temp 98.1(O); Pulse Ox 100% on R/A; Pain 0/10; aa5 MDM: 08:01 Patient medically screened. [facility] 09:07 Data reviewed: vital signs, nurses notes. [facility] 12/19 08:10 Order name: Eye Tray; Complete Time: 08:10 12/19 08:10 Order name: Fluoresene Opth strip; Complete Time: 08:59 Administered Medications: 08:59 Drug: Tetracaine Drops 0.5 % 1 drops Route: Ophthalmic; Site: left eye; 09:28 Drug: Tobramycin Ointment (0.3 %) 1 application Route: Ophthalmic; Site: left eye; em 09:32 Follow up: Response: No adverse reaction em 09:29 Drug: Motrin 600 mg Route: PO; em 09:32 Follow up: Response: No adverse reaction em Disposition: 12/19/18 09:07 Discharged to Home. Impression: Conjunctivitis. - Condition is Stable. - Discharge Instructions: Bacterial Conjunctivitis. - Prescriptions for Tobrex 0.3 % Ophthalmic ointment - apply 1 inch ribbon by OPHTHALMIC route 3 times per day; 3.5 gram. Ibuprofen 600 mg Oral Tablet - take 1 tablet by ORAL route every 6 hours As needed take with food; 20 tablet. - Medication Reconciliation Form, Thank You Letter, Antibiotic Education, Prescription Opioid Use, Work release form form. - Follow up: Tony Beard MD; When: 2 - 3 days; Reason: Recheck today's complaints, Continuance of care, Re-evaluation by your physician. - Problem is new. - Symptoms have improved. Signatures: John Sevilla MD MD cha Munoz, Edgar, AESTHETICS INSTRUCTOR AESTHETICS INSTRUCTOR em Kristie Taveras RN RN aa5 Dm Doran RN RN Corrections: (The following items were deleted from the chart) 09:35 09:07 12/19/2018 09:07 Discharged to Home. Impression: Conjunctivitis. Condition is em Stable. Forms are Medication Reconciliation Form, Thank You Letter, Antibiotic Education, Prescription Opioid Use. Follow up: Tony Beard; When: 2 - 3 days; Reason: Recheck today's complaints, Continuance of care, Re-evaluation by your physician. Problem is new. Symptoms have improved. bailee
[2018-12-19] MEDS ORDERED: IBUPROFEN 400 MG TAB ONE (09:24)
[2018-12-19] MEDS ORDERED: TOBRAMYCIN SULF 0.3% OPTH OINT ONE (09:24)
[2018-12-19] MEDS ORDERED: IBUPROFEN 200 MG TAB PO ONE (09:25)
== END 2018-12-19 09:35 | disposition home or self-care (01) ==
LOC: ER 07:46
DX: H10.9 Unspecified conjunctivitis (principal)
CPT/HCPCS: 99283

== ENCOUNTER 2019-03-12 15:30 | Emergency (ER) | payer SELFPAY ==
--- OUTSIDE RECORDS SUMMARY | 2019-03-12 15:32 | XMS REPORT ---
:1995 [facility] [address] [place] [address] Care Team Providers Name Role Phone Unavailable Unavailable Unavailable Problems This patient has no known problems. Allergies, Adverse Reactions, Alerts This patient has no known allergies or adverse reactions. Medications This patient has no known medications. Encounters Start End Encounter Admission Attending Care Care Encounter Date/Time Date/Time Type Type Clinicians Facility Department ID 2017-12-04 2017-12-06 Outpatient [facility] [id number] 00:00:00 00:00:00
[2019-03-12] MEDS ORDERED: HYDROCODONE/APAP 10/325 TAB ONE ×2 (16:34→18:59)
[2019-03-12] MEDS ORDERED: NA CHLORIDE 0.9% 500 ML ONE (16:50)
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
[2019-03-12 19:58] VITALS: O2SAT 100
[2019-03-12 20:01] VITALS: BP 104/70; TEMP 98.6
== END 2019-03-12 19:33 | disposition home or self-care (01) ==
LOC: ER 15:30
DX: S00.83XA Contusion of other part of head, initial encounter (principal); V49.40XA Driver injured in collision with unspecified motor vehicles in traffic accident, initial encounter
CPT/HCPCS: 36415; 70450; 70486; 71260; 72125; 74177; 76377; 84703; 96360; 99285; J7040; Q9967

== ENCOUNTER 2019-03-27 09:27 | Emergency (ER) | payer SELFPAY ==
--- OUTSIDE RECORDS SUMMARY | 2019-03-27 09:29 | XMS REPORT ---
:1995 [facility] Address [address] [place] [address] Care Team Providers Name Role Phone Unavailable Unavailable Unavailable Problems This patient has no known problems. Allergies, Adverse Reactions, Alerts This patient has no known allergies or adverse reactions. Medications This patient has no known medications. Encounters Start End Encounter Admission Attending Care Care Encounter Date/Time Date/Time Type Type Clinicians Facility Department ID 2017-12-04 2017-12-06 Outpatient [facility] [id number] 00:00:00 00:00:00
--- NOTE | 2019-03-27 09:58 | EDPHYS ---
Physician Documentation [facility] Name: Roro Heredia Age: 23 yrs Sex: Female : 1995 Arrival Date: 03/27/2019 Time: 09:29 Bed 7 Private MD: ED Physician Dangelo Blair HPI: 03/27 10:25 This 23 yrs old Black Female presents to ER via Ambulatory with complaints of Ear Pain. kdr 10:25 The patient presents with drainage, pain, mild, tenderness. The complaints affect the kdr left ear. Onset: The symptoms/episode began/occurred gradually, yesterday. Modifying factors: The symptoms are alleviated by nothing, the symptoms are aggravated by touching, The patient had some relief with a Q-tip but had a little drainage on the Q-tip and her pillow. Now still has mild discomfort and scant drainage. Associated signs and symptoms: The patient has no apparent associated signs or symptoms. Severity of symptoms: At their worst the symptoms were very mild in the emergency department the symptoms are unchanged. The patient has not experienced similar symptoms in the past. The patient has not recently seen a physician. 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 - Social history:: Smoking status: Patient/guardian denies using tobacco. - Ebola Screening: : No symptoms or risks identified at this time. ROS: 10:25 Constitutional: Negative for fever, chills, and weight loss, Eyes: Negative for injury, kdr pain, redness, and discharge, Neck: Negative for injury, pain, and swelling, Cardiovascular: Negative for chest pain, palpitations, and edema. 10:25 ENT: Positive for drainage from ear(s), ear pain, of the left ear, Negative for foreign body sensation, hearing loss, Teeth pain tinnitus, rhinorrhea, sinus congestion. Exam: 10:25 Constitutional: This is a well developed, well nourished patient who is awake, alert, kdr and in no acute distress. Head/Face: Normocephalic, atraumatic. Eyes: Pupils equal round and reactive to light, extra-ocular motions intact. Lids and lashes normal. Conjunctiva and sclera are non-icteric and not injected. Cornea within normal limits. Periorbital areas with no swelling, redness, or edema. Neck: Trachea midline, no thyromegaly or masses palpated, and no cervical lymphadenopathy. Supple, full range of motion without nuchal rigidity, or vertebral point tenderness. No Meningismus. 10:25 ENT: External ear(s): are unremarkable, Ear canal(s): bleeding, that is minimal, in the left canal, bloody discharge, is not appreciated, cerumen impaction, is not appreciated, erythema, that is minimal, of the left canal, purulent discharge, is not appreciated, swelling, that is minimal, TM's: are normal, no evidence of bulging, no dullness, no erythema, no hemotympanum, no rupture. Vital Signs: 09:41 BP 117 / 78; Pulse 80; Resp 16; Temp 97.4; Pulse Ox 100% ; Weight 71.67 kg; Height 5 hb ft. 2 in. (157.48 cm); Pain 5/10; 09:41 Body Mass Index 28.90 (71.67 kg, 157.48 cm) hb MDM: 09:56 Patient medically screened. kdr 10:25 Data reviewed: vital signs, nurses notes. Counseling: I had a detailed discussion with kdr the patient and/or guardian regarding: the historical points, exam findings, and any diagnostic results supporting the discharge/admit diagnosis, the need for outpatient follow up. Administered Medications: No medications were administered Disposition: 03/27/19 09:56 Discharged to Home. Impression: Otitis externa, Otitis media, unspecified, left ear. - Condition is Stable. - Discharge Instructions: Otitis Externa, [id number], Ear Drops, Adult, [id number]. - Prescriptions for Cortisporin- TC 3.3-3-10-0.5 mg/mL Otic Suspension - instill 4 drop by OTIC route every 6 hours; 1 bottle. - Medication Reconciliation Form, Thank You Letter, Antibiotic Education, Prescription Opioid Use, Work release form form. - Follow up: Private Physician; When: 2 - 3 days; Reason: If symptoms return, Further diagnostic work-up, Recheck today's complaints, Continuance of care, Re-evaluation by your physician. - Problem is new. - Symptoms have improved. Signatures: Ehsan Juan RN RN sg Dangelo Blair MD MD [facility] Rhiannon Mckeon RN RN Corrections: (The following items were deleted from the chart) 10:12 09:56 03/27/2019 09:56 Discharged to Home. Impression: Otitis externa; Otitis media, sg unspecified, left ear. Condition is Stable. Discharge Instructions: Otitis Externa, [id number]. Prescriptions for Cortisporin-TC 3.3-3-10-0.5 mg/mL Otic Suspension - instill 4 drop by OTIC route every 6 hours; 1 bottle. and Forms are Medication Reconciliation Form, Thank You Letter, Antibiotic Education, Prescription Opioid Use. Follow up: Private Physician; When: 2 - 3 days; Reason: If symptoms return, Further diagnostic work-up, Recheck today's complaints, Continuance of care, Re-evaluation by your physician. Problem is new. Symptoms have improved. kdr
--- NOTE | 2019-03-27 09:58 | ER ---
Nurse's Notes [facility] Name: Roro Heredia Age: 23 yrs Sex: Female : 1995 Arrival Date: 03/27/2019 Time: 09:29 Bed 7 Private MD: Diagnosis: Otitis externa;Otitis media, unspecified, left ear Presentation: 03/27 09:39 Presenting complaint: Left ear pain and bloody drainage from ear x 2 days. Denies hb fever/injury. Transition of care: patient was not received from another setting of care. Onset of symptoms was March 26, 2019. Risk Assessment: Do you want to hurt yourself or someone else? Patient reports no desire to harm self or others. Initial Sepsis Screen: Does the patient meet any 2 criteria? No. Patient's initial sepsis screen is negative. Does the patient have a suspected source of infection? No. Patient's initial sepsis screen is negative. Care prior to arrival: None. 09:39 Method Of Arrival: Ambulatory hb 09:39 Acuity: JULIET 4 hb Triage Assessment: 09:41 General: Appears in no apparent distress. Behavior is calm, cooperative. Pain: Pain hb currently is 5 out of 10 on a pain scale. EENT: Reports left ear pain + drainage . Neuro: Level of Consciousness is awake, alert, obeys commands, Oriented to person, place, time, situation. Cardiovascular: Capillary refill < 3 seconds Patient's skin is warm and dry. Respiratory: Airway is patent Respiratory effort is even, unlabored, Respiratory pattern is regular, symmetrical, Breath sounds are clear bilaterally. GI: No signs and/or symptoms were reported involving the gastrointestinal system. : No signs and/or symptoms were reported regarding the genitourinary system. Derm: Skin is pink, warm \T\ dry. Musculoskeletal: No signs and/or symptoms reported regarding the musculoskeletal system. 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 - Social history:: Smoking status: Patient/guardian denies using tobacco. - Ebola Screening: : No symptoms or risks identified at this time. Screenin:44 Abuse screen: Denies threats or abuse. Denies injuries from another. Nutritional hb screening: No deficits noted. Tuberculosis screening: No symptoms or risk factors identified. Fall Risk None identified. Assessment: :44 General: see triage assessment . hb Vital Signs: 09:41 BP 117 / 78; Pulse 80; Resp 16; Temp 97.4; Pulse Ox 100% ; Weight 71.67 kg; Height 5 hb ft. 2 in. (157.48 cm); Pain 5/10; 09:41 Body Mass Index 28.90 (71.67 kg, 157.48 cm) hb ED Course: 09:29 Patient arrived in ED. mr 09:37 Dangelo Blair MD is Attending Physician. kdr 09:39 Rhiannon Mckeon, RN is Primary Nurse. hb 09:40 Triage completed. hb 09:41 Arm band placed on. hb 09:44 Patient has correct armband on for positive identification. Bed in low position. Call hb light in reach. Side rails up X 1. 09:44 No provider procedures requiring assistance completed. Patient did not have IV access hb during this emergency room visit. Administered Medications: No medications were administered Outcome: 09:56 Discharge ordered by . kdr 10:09 Discharged to home ambulatory. hb 10:09 Condition: stable 10:09 Discharge instructions given to patient, Instructed on discharge instructions, follow up and referral plans. medication usage, Demonstrated understanding of instructions, follow-up care, medications, Prescriptions given X 1. 10:12 Patient left the ED. sg Signatures: Ehsan Juan RN RN Dangelo Blair MD MD kdr Rivera, Mary mr Rhiannon Mckeon, RN RN hb
[2019-03-27 10:19] VITALS: BP 117/78; TEMP 97.4; O2SAT 100
== END 2019-03-27 10:12 | disposition home or self-care (01) ==
LOC: ER 09:27
DX: H60.92 Unspecified otitis externa, left ear (principal); H66.92 Otitis media, unspecified, left ear
CPT/HCPCS: 99282

== ENCOUNTER 2019-05-20 10:04 | Emergency (ER) | payer SELFPAY ==
--- OUTSIDE RECORDS SUMMARY | 2019-05-20 10:05 | XMS REPORT ---
:1995 [facility] Address [address] [place] [address] Care Team Providers Name Role Phone Unavailable Unavailable Unavailable Problems This patient has no known problems. Allergies, Adverse Reactions, Alerts This patient has no known allergies or adverse reactions. Medications This patient has no known medications. Encounters Start End Encounter Admission Attending Care Care Encounter Date/Time Date/Time Type Type Clinicians Facility Department ID 2017-12-04 2017-12-06 [facility] [id number] 00:00:00 00:00:00
[2019-05-20] MEDS ORDERED: KETOROLAC 30 MG/ML INJ ONE (11:20)
[2019-05-20] MEDS ORDERED: AMOX/K CLAV 875 MG TAB ONE (11:20)
--- NOTE | 2019-05-20 11:42 | ER ---
Nurse's [facility] Name: Roro Heredia Age: 24 yrs Sex: Female : 1995 Arrival Date: 05/20/2019 Time: 10:05 Bed 11 Private MD: Diagnosis: Dental caries Presentation: 05/20 10:10 Presenting complaint: Patient states: dental pain x 2 days. Denies fever. Unable to get ss in with dentist until next Friday. Transition of care: patient was not received from another setting of care. Onset of symptoms was May 18, 2019. Risk Assessment: Do you want to hurt yourself or someone else? Patient reports no desire to harm self or others. Initial Sepsis Screen: Does the patient meet any 2 criteria? No. Patient's initial sepsis screen is negative. Does the patient have a suspected source of infection? No. Patient's initial sepsis screen is negative. Care prior to arrival: None. 10:10 Method Of Arrival: Ambulatory ss 10:10 Acuity: JULIET 5 ss Historical: - Allergies: 10:11 No Known Allergies; ss - Home Meds: 10:11 None [Active]; ss - PMHx: 10:11 None; ss - PSHx: 10:11 None; ss - Immunization history:: Adult Immunizations up to date. - Coronavirus screen:: The patient has NOT traveled to [place], [place], or [place] in the past 14 days. Proceed with normal triage process as indicated. - Social history:: Smoking status: Patient denies any tobacco usage or history of. - Ebola Screening: : Patient denies exposure to infectious person Patient denies travel to an Ebola-affected area in the 21 days before illness onset. Screenin:11 Abuse screen: Denies threats or abuse. Denies injuries from another. Nutritional ss screening: No deficits noted. Tuberculosis screening: Never had TB. Fall Risk None identified. No fall in past 12 months (0 pts). Assessment: 10:11 General: Appears uncomfortable, Behavior is calm, cooperative, Denies fever, feeling ss ill, fatigue, chills. Pain: Complains of pain in lower right second molar and lower right third molar Pain currently is 8 out of 10 on a pain scale. Quality of pain is described as aching, throbbing, Pain began 2-3 days ago. Is continuous. Neuro: Level of Consciousness is awake, alert, obeys commands, Oriented to person, place, time, situation. Cardiovascular: Pulses are palpable in right radial artery and left radial artery. Respiratory: Denies cough, shortness of breath. GI: Patient currently denies abdominal pain, diarrhea, nausea, vomiting. : No signs and/or symptoms were reported regarding the genitourinary system. EENT: Nares are clear Oral mucosa is moist. Throat is clear. Derm: Skin is intact, is healthy with good turgor, Skin is pink, warm \T\ dry. normal. Musculoskeletal: Circulation, motion, and sensation intact. Range of motion: intact in all extremities, Swelling absent. 11:45 Reassessment: Patient appears in no apparent distress at this time. Patient and/or ss family updated on plan of care and expected duration. Pain level reassessed. Patient is alert, oriented x 3, equal unlabored respirations, skin warm/dry/pink. Vital Signs: 10:09 BP 129 / 84; Pulse 97; Resp 14; Temp 97.9; Pulse Ox 100% on R/A; Weight 69.85 kg; ss Height 5 ft. 2 in. (157.48 cm); Pain 8/10; 10:09 Body Mass Index 28.17 (69.85 kg, 157.48 cm) ED Course: 10:05 Patient arrived in ED. ss 10:09 Arm band placed on left wrist. ss 10:10 Triage completed. ss 10:11 Patient has correct armband on for positive identification. Bed in low position. Call ss light in reach. 10:16 Saskia Vasquez FNP-C is [facility]. snw 10:16 Omer Gross MD is Attending Physician. snw 11:20 Leydi Dawson RN is Primary Nurse. ss 11:26 No provider procedures requiring assistance completed. Patient did not have IV access ss during this emergency room visit. Administered Medications: 11:20 Drug: TORadol 30 mg Route: IM; Site: left gluteus; ss 11:53 Follow up: Response: No adverse reaction; Pain is decreased; Medication administered at ss discharge. 11:20 Drug: Augmentin 875 mg Route: PO; ss 11:53 Follow up: Response: No adverse reaction; Medication administered at discharge. Outcome: 11:41 Discharge ordered by . snw 11:52 Discharged to home ambulatory. 11:52 Condition: good 11:52 Discharge instructions given to patient, family, Instructed on discharge instructions, follow up and referral plans. medication usage, Demonstrated understanding of instructions, follow-up care, medications, Prescriptions given X 2. 11:54 Patient left the ED. Signatures: Saskia Vasquez, BATTERY INSTALLER-C BATTERY INSTALLER-Csnw Leydi Dawson, RN RN
--- NOTE | 2019-05-20 11:42 | EDPHYS ---
Physician Documentation [facility] Name: Roro Heredia Age: 24 yrs Sex: Female : 1995 Arrival Date: 05/20/2019 Time: 10:05 Bed 11 Private MD: ED Physician Omer Gross HPI: 05/20 11:24 This 24 yrs old Black Female presents to ER via Ambulatory with complaints of Toothache.snw 11:24 The patient presents with pain, swelling. The problem is located in the lower right snw first molar (#30). Onset: The symptoms/episode began/occurred suddenly, 3 day(s) ago, and became worse today, using BC powder with initial relief. Duration: The symptoms are continuous, and are steadily getting worse. Associated signs and symptoms: The patient has no apparent associated signs or symptoms. Severity of symptoms: At their worst the symptoms were moderate. The patient has not experienced similar symptoms in the past. It is unknown whether or not the patient has recently seen a physician. will be seeing dentist Friday. Historical: - Allergies: 10:11 No Known Allergies; ss - Home Meds: 10:11 None [Active]; ss - PMHx: 10:11 None; ss - PSHx: 10:11 None; ss - Immunization history:: Adult Immunizations up to date. - Coronavirus screen:: The patient has NOT traveled to [place], [place], or [place] in the past 14 days. Proceed with normal triage process as indicated. - Social history:: Smoking status: Patient denies any tobacco usage or history of. - Ebola Screening: : Patient denies exposure to infectious person Patient denies travel to an Ebola-affected area in the 21 days before illness onset. ROS: 11:24 Constitutional: Negative for fever, chills, and weight loss, Eyes: Negative for injury, snw pain, redness, and discharge, Neck: Negative for injury, pain, and swelling, Cardiovascular: Negative for chest pain, palpitations, and edema, Respiratory: Negative for shortness of breath, cough, wheezing, and pleuritic chest pain, Abdomen/GI: Negative for abdominal pain, nausea, vomiting, diarrhea, and constipation, Back: Negative for injury and pain, : Negative for injury, bleeding, discharge, and swelling, MS/Extremity: Negative for injury and deformity, Skin: Negative for injury, rash, and discoloration, Neuro: Negative for headache, weakness, numbness, tingling, and seizure, Psych: Negative for depression, anxiety, suicide ideation, homicidal ideation, and hallucinations. 11:24 ENT: Positive for dental pain. Exam: 11:13 Constitutional: This is a well developed, well nourished patient who is awake, alert, snw and in no acute distress. Head/Face: Normocephalic, atraumatic. Eyes: Pupils equal round and reactive to light, extra-ocular motions intact. Lids and lashes normal. Conjunctiva and sclera are non-icteric and not injected. Cornea within normal limits. Periorbital areas with no swelling, redness, or edema. Neck: Trachea midline, no thyromegaly or masses palpated, and no cervical lymphadenopathy. Supple, full range of motion without nuchal rigidity, or vertebral point tenderness. No Meningismus. Chest/axilla: Normal chest wall appearance and motion. Nontender with no deformity. No lesions are appreciated. Cardiovascular: Regular rate and rhythm with a normal S1 and S2. No gallops, murmurs, or rubs. Normal PMI, no JVD. No pulse deficits. Respiratory: Lungs have equal breath sounds bilaterally, clear to auscultation and percussion. No rales, rhonchi or wheezes noted. No increased work of breathing, no retractions or nasal flaring. Abdomen/GI: Soft, non-tender, with normal bowel sounds. No distension or tympany. No guarding or rebound. No evidence of tenderness throughout. Back: No spinal tenderness. No costovertebral tenderness. Full range of motion. Skin: Warm, dry with normal turgor. Normal color with no rashes, no lesions, and no evidence of cellulitis. MS/ Extremity: Pulses equal, no cyanosis. Neurovascular intact. Full, normal range of motion. Neuro: Awake and alert, GCS 15, oriented to person, place, time, and situation. Cranial nerves II-XII grossly intact. Motor strength 5/5 in all extremities. Sensory grossly intact. Cerebellar exam normal. Normal gait. Psych: Awake, alert, with orientation to person, place and time. Behavior, mood, and affect are within normal limits. 11:13 ENT: External ear(s): are unremarkable, Nose: is normal, Mouth: Lips: normal, Oral mucosa: normal, Gums: normal with healthy appearance, Dental exam: dental caries, that is severe, diffusely, specifically in the lower right first molar (#30), cavity involves pulp. Vital Signs: 10:09 BP 129 / 84; Pulse 97; Resp 14; Temp 97.9; Pulse Ox 100% on R/A; Weight 69.85 kg; ss Height 5 ft. 2 in. (157.48 cm); Pain 8; 10:09 Body Mass Index 28.17 (69.85 kg, 157.48 cm) MDM: 10:47 Patient medically screened. snw 11:46 Data reviewed: vital signs, nurses notes. Data interpreted: Pulse oximetry: on room air snw is 100 %. Interpretation: normal. Counseling: I had a detailed discussion with the patient and/or guardian regarding: the historical points, exam findings, and any diagnostic results supporting the discharge/admit diagnosis, the presence of at least one elevated blood pressure reading (>120/80) during this emergency department visit, the need for outpatient follow up, to return to the emergency department if symptoms worsen or persist or if there are any questions or concerns that arise at home. Special discussion: I have referred the patient to see his PCP for further evaluation of high blood pressure. Based on the history and exam findings, there is no indication for further emergent testing or inpatient evaluation. I discussed with the patient/guardian the need to see a dentist for further evaluation of the symptoms. Administered Medications: 11:20 Drug: TORadol 30 mg Route: IM; Site: left gluteus; 11:53 Follow up: Response: No adverse reaction; Pain is decreased; Medication administered at discharge. 11:20 Drug: Augmentin 875 mg Route: PO; ss 11:53 Follow up: Response: No adverse reaction; Medication administered at discharge. Disposition: 15:51 Co-signature as Attending Physician, Omer Gross MD. rn Disposition: 05/20/19 11:41 Discharged to Home. Impression: Dental caries. - Condition is Stable. - Discharge Instructions: Dental Pain, Diet and Dental Disease. - Prescriptions for Augmentin 500- 125 mg Oral Tablet - take 1 tablet by ORAL route every 8 hours for 10 days; 30 tablet. Diclofenac Sodium 75 mg Oral Tablet Sustained Release - take 1 tablet by ORAL route 2 times per day; 30 tablet. - Work release form, Medication Reconciliation Form, Thank You Letter, Antibiotic Education, Prescription Opioid Use form. - Follow up: Emergency Department; When: As needed; Reason: Worsening of condition. Follow up: Private Physician; When: 2 - 3 days; Reason: Recheck today's complaints, Continuance of care, Re-evaluation by your physician. Signatures: Saskia Vasquez, DARNELL-C DORMITORY KEEPER-Csnw Omer Gross MD MD rn Leydi Dawson RN RN ss Corrections: (The following items were deleted from the chart) 11:54 11:41 05/20/2019 11:41 Discharged to Home. Impression: Dental caries. Condition is ss Stable. Forms are Medication Reconciliation Form, Thank You Letter, Antibiotic Education, Prescription Opioid Use. Follow up: Emergency Department; When: As needed; Reason: Worsening of condition. Follow up: Private Physician; When: 2 - 3 days; Reason: Recheck today's complaints, Continuance of care, Re-evaluation by your physician. snw
[2019-05-20 16:09] VITALS: BP 129/84; TEMP 97.9; O2SAT 100
== END 2019-05-20 11:54 | disposition home or self-care (01) ==
LOC: ER 10:04
DX: K02.9 Dental caries, unspecified (principal)
CPT/HCPCS: 96372; 99283

== ENCOUNTER 2019-06-19 12:42 | Emergency (ER) | payer SELFPAY ==
--- OUTSIDE RECORDS SUMMARY | 2019-06-19 12:45 | XMS REPORT ---
:1995 [facility] Address [address] [place] [address] Care Team Providers Name Role Phone Unavailable Unavailable Unavailable Problems This patient has no known problems. Allergies, Adverse Reactions, Alerts This patient has no known allergies or adverse reactions. Medications This patient has no known medications. Encounters Start End Encounter Admission Attending Care Care Encounter Date/Time Date/Time Type Type Clinicians Facility Department ID 2017-12-04 2017-12-06 [facility] [id number] 00:00:00 00:00:00
--- NOTE | 2019-06-19 13:55 | RAD REPORT ---
EXAM DESCRIPTION: RAD - Chest Single View - 06/19/2019 1:36 pm CLINICAL HISTORY: CHEST PAIN Chest pain. COMPARISON: CHEST PA AND LAT 2 VIEW dated 12/25/2006 FINDINGS: Portable technique limits examination quality. The lungs are grossly clear. The heart is normal in size. No displaced fractures. IMPRESSION: No acute intrathoracic process suspected.
--- NOTE | 2019-06-19 13:59 | ER ---
Nurse's Notes [facility] Name: Roro Heredia Age: 24 yrs Sex: Female : 1995 Arrival Date: 06/19/2019 Time: 12:46 Bed 28 Private MD: Diagnosis: Chest pain, unspecified Presentation: 12:51 Chief complaint: Patient states: pain in chest X 2 days, midsternal chest pain that iw causes nausea, intermittent, sharp and feels like there's something stuck. Coronavirus screen: The patient has NOT traveled to [place] in the past 14 days. Proceed with normal triage procedures. Ebola Screen: Patient negative for fever greater than or equal to 101.5 degrees Fahrenheit, and additional compatible Ebola Virus Disease symptoms Patient denies exposure to infectious person. Patient denies travel to an Ebola-affected area in the 21 days before illness onset. No symptoms or risks identified at this time. Initial Sepsis Screen: Does the patient meet any 2 criteria? No. Patient's initial sepsis screen is negative. Does the patient have a suspected source of infection? No. Patient's initial sepsis screen is negative. Risk Assessment: Do you want to hurt yourself or someone else? Patient reports no desire to harm self or others. 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 - Social history:: Smoking status: Patient denies any tobacco usage or history of. Screenin:15 Abuse screen: Denies threats or abuse. Denies injuries from another. Nutritional aj1 screening: No deficits noted. Tuberculosis screening: No symptoms or risk factors identified. 14:06 Fall Risk None identified. aj1 Assessment: 13:15 General: Appears in no apparent distress. comfortable, Behavior is calm, cooperative, aj1 appropriate for age. Pain: Complains of pain in chest Pain does not radiate. Pain currently is 5 out of 10 on a pain scale. Quality of pain is described as aching, Pain began today Alleviated by nothing. Aggravated by nothing. Neuro: Level of Consciousness is awake, alert, obeys commands, Oriented to person, place, time, situation. Cardiovascular: Reports chest pain, Heart tones S1 S2 present Patient's skin is warm and dry. Rhythm is sinus rhythm. Respiratory: Airway is patent Respiratory effort is even, unlabored, Respiratory pattern is regular, symmetrical, Breath sounds are clear bilaterally. GI: No signs and/or symptoms were reported involving the gastrointestinal system. : No signs and/or symptoms were reported regarding the genitourinary system. EENT: No signs and/or symptoms were reported regarding the EENT system. Derm: No signs and/or symptoms reported regarding the dermatologic system. Skin is pink, warm \T\ dry. normal. Musculoskeletal: No signs and/or symptoms reported regarding the musculoskeletal system. Circulation, motion, and sensation intact. 14:05 Reassessment: Patient appears in no apparent distress at this time. No changes from aj1 previously documented assessment. Patient and/or family updated on plan of care and expected duration. Pain level reassessed. Patient is alert, oriented x 3, equal unlabored respirations, skin warm/dry/pink. Vital Signs: 12:51 BP 119 / 89; Pulse 95; Resp 16; Pulse Ox 97% on R/A; Weight 73.48 kg; Height 5 ft. 2 iw in. (157.48 cm); Pain 0/10; 12:51 Body Mass Index 29.63 (73.48 kg, 157.48 cm) iw ED Course: 12:46 Patient arrived in ED. mr 12:48 Umesh Pacheco FNP-C is [facility]. la1 12:48 John Sevilla MD is Attending Physician. la1 12:53 Triage completed. iw 12:53 Arm band placed on. iw 13:07 Barbara Nicholas, SARAH is Primary Nurse. aj1 13:15 Patient has correct armband on for positive identification. Pulse ox on. NIBP on. aj1 13:15 No provider procedures requiring assistance completed. Patient maintains SpO2 aj1 saturation greater than 95% on room air. 13:37 Chest Single View XRAY In Process Unspecified. EDMS 14:05 Patient did not have IV access during this emergency room visit. aj1 Administered Medications: No medications were administered Outcome: 13:58 Discharge ordered by . la1 14:17 Discharged to home ambulatory. aj1 14:17 Condition: good 14:17 Discharge instructions given to patient, Instructed on discharge instructions, follow up and referral plans. Demonstrated understanding of instructions, follow-up care. 14:17 Patient left the ED. aj1 Signatures: Dispatcher [employer] Barbara Bar RN RN aj1 Mag Tucker Irene, RN RN iw Umesh Pacheco, CERTIFIED NUTRITIONIST-C CERTIFIED NUTRITIONIST-Cla1
--- NOTE | 2019-06-19 13:59 | EDPHYS ---
Physician Documentation [facility] Name: Roro Heredia Age: 24 yrs Sex: Female : 1995 Arrival Date: 06/19/2019 Time: 12:46 Bed 28 Private MD: GURPREET Physician John Sevilla HPI: 13:19 This 24 yrs old Black Female presents to ER via Ambulatory with complaints of Chest la1 Pain. 13:19 The patient or guardian reports chest pain that is located primarily in the substernal la1 area. The pain does not radiate. Associated signs and symptoms: Pertinent negatives: abdominal pain, cough. The chest pain is described as aching. Duration: The patient or guardian reports multiple episodes, that have now resolved, that are intermittent. Modifying factors: The symptoms are alleviated by nothing. the symptoms are aggravated by nothing. Severity of pain: At its worst the pain was mild. The patient has not experienced similar symptoms in the past. 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 - Social history:: Smoking status: Patient denies any tobacco usage or history of. ROS: 13:20 Constitutional: Negative for fever, chills, and weight loss, Eyes: Negative for injury, la1 pain, redness, and discharge, ENT: Negative for injury, pain, and discharge, Neck: Negative for injury, pain, and swelling. 13:20 Respiratory: Negative for shortness of breath, cough, wheezing, and pleuritic chest pain, Abdomen/GI: Negative for abdominal pain, nausea, vomiting, diarrhea, and constipation, Back: Negative for injury and pain, MS/Extremity: Negative for injury and deformity, Skin: Negative for injury, rash, and discoloration, Neuro: Negative for headache, weakness, numbness, tingling, and seizure, Endocrine: Negative for neck swelling, polydipsia, polyuria, polyphagia, and marked weight changes. 13:20 Cardiovascular: Positive for chest pain. Exam: 13:20 Constitutional: This is a well developed, well nourished patient who is awake, alert, la1 and in no acute distress. Head/Face: Normocephalic, atraumatic. Eyes: Pupils equal round and reactive to light, extra-ocular motions intact. Lids and lashes normal. Conjunctiva and sclera are non-icteric and not injected. Cornea within normal limits. Periorbital areas with no swelling, redness, or edema. ENT: Mucous membranes moist. Neck: Trachea midline, no thyromegaly or masses palpated, and no cervical lymphadenopathy. Supple, full range of motion without nuchal rigidity, or vertebral point tenderness. No Meningismus. Chest/axilla: Normal chest wall appearance and motion. Nontender with no deformity. No lesions are appreciated. Cardiovascular: Regular rate and rhythm with a normal S1 and S2. No gallops, murmurs, or rubs. Normal PMI, no JVD. No pulse deficits. Respiratory: Lungs have equal breath sounds bilaterally, clear to auscultation Back: No spinal tenderness. No costovertebral tenderness. Full range of motion. Skin: Warm, dry with normal turgor. Normal color with no rashes, no lesions, and no evidence of cellulitis. Vital Signs: 12:51 BP 119 / 89; Pulse 95; Resp 16; Pulse Ox 97% on R/A; Weight 73.48 kg; Height 5 ft. 2 iw in. (157.48 cm); Pain 0/10; 12:51 Body Mass Index 29.63 (73.48 kg, 157.48 cm) iw MDM: 12:55 Patient medically screened. la1 13:59 Data reviewed: nurses notes, EKG, radiologic studies, I have discussed the patient's la1 presentation/case with the attending Emergency Department Physician; and as a result, I will discharge patient. Data interpreted: Pulse oximetry: on room air is 97 %. Interpretation: normal. Counseling: I had a detailed discussion with the patient and/or guardian regarding: the historical points, exam findings, and any diagnostic results supporting the discharge/admit diagnosis, lab results, radiology results, the need for outpatient follow up, a family practitioner, to return to the emergency department if symptoms worsen or persist or if there are any questions or concerns that arise at home. 13:05 Order name: Chest Single View XRAY; Complete Time: 13:58 la1 13:05 Order name: EKG; Complete Time: 13:06 la1 13:05 Order name: EKG - Nurse/Tech; Complete Time: 13:58 la Administered Medications: No medications were administered Disposition: 06/19/19 13:58 Discharged to Home. Impression: Chest pain, unspecified. - Condition is Stable. - Discharge Instructions: Nonspecific Chest Pain, Chest Wall Pain. - Medication Reconciliation Form, Thank You Letter, Work release form form. - Follow up: Private Physician; When: 2 - 3 days; Reason: Recheck today's complaints, Re-evaluation by your physician. - Problem is new. - Symptoms are unchanged. Addendum: 06/20/2019 18:00 Co-signature as Attending Physician, John Sevilla MD I agree with the assessment and c latham plan of care. Signatures: Dispatcher [employer] EDBarbara Quintero RN RN aj1 John Sevilla MD MD cha Williams, Irene, RN RN iw Umesh Pacheco, RN EMBEDDED-C RN EMBEDDED-Cla1 Corrections: (The following items were deleted from the chart) 14:17 13:58 06/19/2019 13:58 Discharged to Home. Impression: Chest pain, unspecified. aj1 Condition is Stable. Forms are Medication Reconciliation Form, Thank You Letter, Antibiotic Education, Prescription Opioid Use. Follow up: Private Physician; When: 2 - 3 days; Reason: Recheck today's complaints, Re-evaluation by your physician. Problem is new. Symptoms are unchanged. la1
[2019-06-19 14:42] VITALS: BP 119/89; O2SAT 97
--- NOTE | 2019-06-21 15:39 | EKG ---
Test Date: 2019-06-19 Test Time: 13:38:26 Cash Van Salesperson: MARYT MEASUREMENT RESULTS: Intervals: Rate: 75 AR: 130 QRSD: 84 QT: 370 QTc: 413 [place]: P: 31 AR: 130 QRS: 37 T: 43 INTERPRETIVE STATEMENTS: Normal sinus rhythm Normal ECG No previous ECG available for comparison Electronically Signed On 06-21-19 15:38:13 HEATER HELPER by Mendez Graham
== END 2019-06-19 14:17 | disposition home or self-care (01) ==
LOC: ER 12:42
DX: R07.9 Chest pain, unspecified (principal)
CPT/HCPCS: 71045; 93005; 99284

== ENCOUNTER 2020-09-10 17:26 | Emergency (ER) | payer SELFPAY ==
--- OUTSIDE RECORDS SUMMARY | 2020-09-10 17:31 | XMS REPORT | Continuity of Care Document ---
:1995 Author Organization [facility] t Address [address] [place] [address] Care Team Providers Name Role Phone Unavailable Unavailable Unavailable Problems This patient has no known problems. Allergies, Adverse Reactions, Alerts This patient has no known allergies or adverse reactions. Medications This patient has no known medications. Procedures This patient has no known procedures. Encounters Start End Encounter Admission Attending Care Care Encounter Source Date/Time Date/Time Type Type Clinicians Facility Department ID 2017-12-04 2017-12-[address] [facility] [id number] [address] [place] [address] 00:00:00 00:00:00 [facility] Results This patient has no known results.
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
[2020-09-10] MEDS ORDERED: ACETAMINOPHEN 500 MG TAB ONE (18:01)
[2020-09-10 18:03] VITALS: BP 113/87; TEMP 98.7; O2SAT 100
== END 2020-09-10 17:50 | disposition home or self-care (01) ==
LOC: ER 17:26
DX: R51.9 Headache, unspecified (principal); V49.40XA Driver injured in collision with unspecified motor vehicles in traffic accident, initial encounter
CPT/HCPCS: 99283

== ENCOUNTER 2021-02-05 13:08 | Emergency (ER) | payer SELFPAY ==
[2021-02-05 14:20] LABS: Absolute Lymphocytes (CBC) 2.5 K/uL (0.7-4.9); Basophils % 0.5 % (0-1.3); Hematocrit 34.1 % (36.0-45.0); Lymphocytes % 20.1 % (15.3-44.8); MPV 8.8 fL (7.6-11.3); RBC Red Blood Cell Count 4.23 M/uL (3.86-4.86)
[2021-02-05 14:48] LABS: BUN Blood Urea Nitrogen 6 mg/dL (7-18); Bicarbonate 30 mmol/L (21-32); Glucose Level 90 mg/dL (74-106); HCG, Quantitative 48090 mIU/mL (1-3); Potassium 3.4 mmol/L (3.5-5.1); Sodium Level 137 mmol/L (136-145)
--- NOTE | 2021-02-05 15:02 | RAD REPORT ---
EXAM DESCRIPTION: US - Transvaginal OB - 02/05/2021 2:40 pm CLINICAL HISTORY: VAGINAL BLEEDING, COMPARISON: TRANSVAGINALOB dated 03/11/2010 FINDINGS: Uterine size is normal. Cervical canal appears closed. A single normal shaped gestational sac is present in the fundal portion of the endometrial cavity. Yolk sac is present. No intrauterine hematoma or mass. pole is identifiable. Yolk sac and crown-rump length measurements correspond to an 8 week 5 day age. Calculated PIEDAD is 09/12/2021. Heart rate is 166 BPM. Neither ovary was identifiable. No adnexal abnormality. IMPRESSION: Single 8 week 5 day IUP with heart rate 166 BPM. Cervical canal appears closed. No intrauterine hematoma, mass or other suspicious finding.
[2021-02-05 15:10] LABS: Urine Blood Trace-intact (Negative); Urine Glucose Negative (Negative); Urine Protein Negative (Negative); Urine Specific Gravity 1.015 (1.005-1.030); Urine pH 5.5 (5.0-7.0)
--- NOTE | 2021-02-05 15:17 | ER ---
Nurse's Notes [facility] Name: Roro Heredia Age: 25 yrs Sex: Female : 1995 Arrival Date: 02/05/2021 Time: 13:11 Bed 13 Private MD: Diagnosis: Threatened Presentation: 02/05 13:27 Chief complaint: Patient states: 8 weeks and vaginal spotting 3 days ago that aa5 resolved and came back today. Pt denies pain. Pt denies urinary symptoms. Coronavirus screen: At this time, the client does not indicate any symptoms associated with coronavirus-19. Ebola Screen: No symptoms or risks identified at this time. Initial Sepsis Screen: Does the patient meet any 2 criteria? No. Patient's initial sepsis screen is negative. Does the patient have a suspected source of infection? No. Patient's initial sepsis screen is negative. Risk Assessment: Do you want to hurt yourself or someone else? Patient reports no desire to harm self or others. Onset of symptoms was January 2021. 13:27 Method Of Arrival: Ambulatory aa5 13:27 Acuity: JULIET 3 aa5 Triage Assessment: 15:32 General: Appears in no apparent distress. Behavior is calm, cooperative, appropriate tc5 for age. Pain: Denies pain. : No deficits noted. 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 - Social history:: Smoking status: Patient denies any tobacco usage or history of. Screenin:32 Abuse screen: Denies threats or abuse. Denies injuries from another. Nutritional tc5 screening: No deficits noted. Tuberculosis screening: No symptoms or risk factors identified. Fall Risk None identified. Assessment: 15:32 Obstetrical Assessment: preg, spotting Friday and today, denies pain.. tc5 Vital Signs: 13:27 BP 100 / 76; Pulse 83; Resp 16 S; Temp 97.5(TE); Pulse Ox 100% on R/A; Weight 81.65 kg aa5 (R); 15:33 BP 120 / 71; Pulse 82; Resp 18; Pulse Ox 99% ; Pain 0/10; tc5 ED Course: 13:11 Patient arrived in ED. mr 13:27 Arm band placed on. aa5 13:28 Triage completed. aa5 13:33 Derik Rosario PA is PHCP. jr8 13:33 Everardo Crespo MD is Attending Physician. 8 13:41 Nel Vasquez, RN is Primary Nurse. tc5 13:55 Abo/rh Typing Sent. tc5 13:56 Inserted saline lock: 20 gauge in right antecubital area, using aseptic technique. tc5 Blood collected. 14:35 US Transvaginal Ob In Process Unspecified. EDMS 15:33 No provider procedures requiring assistance completed. tc5 15:33 IV discontinued, intact, bleeding controlled, No redness/swelling at site. Pressure tc5 dressing applied. Administered Medications: No medications were administered Point of Care Testing: Urine : 15:34 hCG Reading: Positive; Control Reading: Positive; tc5 Outcome: 15:16 Discharge ordered by . [facility] 15:33 Discharged to home ambulatory. tc5 15:33 Condition: stable 15:33 Discharge instructions given to patient. 15:34 Patient left the ED. tc5 Signatures: Dispatcher [employer] Mag Calderon mr TaverasKristie, RN RN aa5 Derik Rosario PA PA jr8 Nel Vasquez, SARAH RN tc5
--- NOTE | 2021-02-05 15:17 | EDPHYS ---
Physician Documentation [facility] Name: Roro Heredia Age: 25 yrs Sex: Female : 1995 Arrival Date: 02/05/2021 Time: 13:11 Bed 13 Private MD: ED Physician Everardo Crespo HPI: 02/05 14:34 This 25 yrs old Black Female presents to ER via Ambulatory with complaints of Vaginal jr8 Bleeding, + Preg <12wks. 14:34 The patient presents to the emergency department with vaginal bleeding, described as jr8 spotting. The estimated gestational age is 8 weeks. course: care: at a clinic, Leakage of Fluid: none appreciated, Ultrasound: the patient had an ultrasound, which was normal, Risk/complications: no obvious risks or complications are appreciated. Previous pregnancies: in previous pregnancies patient has had vaginal delivery, no complications. Associated signs and symptoms: The patient has no apparent associated signs or symptoms. The patient has experienced a previous episode. The patient has been recently seen by a physician:. Patient stated that she had light spotting that started a couple of days ago but had resolved. Now saw some mild spotting again today with wiping. Denies abdominal cramping/pain or urinary complaints . 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 - Social history:: Smoking status: Patient denies any tobacco usage or history of. ROS: 14:34 Eyes: Negative for injury, pain, redness, and discharge, ENT: Negative for injury, jr8 pain, and discharge, Neck: Negative for injury, pain, and swelling, Cardiovascular: Negative for chest pain, palpitations, and edema, Respiratory: Negative for shortness of breath, cough, wheezing, and pleuritic chest pain, Abdomen/GI: Negative for abdominal pain, nausea, vomiting, diarrhea, and constipation, Back: Negative for injury and pain, MS/Extremity: Negative for injury and deformity, Skin: Negative for injury, rash, and discoloration, Neuro: Negative for headache, weakness, numbness, tingling, and seizure. 14:34 : Positive for vaginal bleeding. Exam: 14:34 Constitutional: This is a well developed, well nourished patient who is awake, alert, jr8 and in no acute distress. Cardiovascular: Regular rate and rhythm with a normal S1 and S2. No gallops, murmurs, or rubs. Normal PMI, no JVD. No pulse deficits. Respiratory: Lungs have equal breath sounds bilaterally, clear to auscultation and percussion. No rales, rhonchi or wheezes noted. No increased work of breathing, no retractions or nasal flaring. Abdomen/GI: Soft, non-tender, with normal bowel sounds. No distension or tympany. No guarding or rebound. No evidence of tenderness throughout. Back: No spinal tenderness. No costovertebral tenderness. Full range of motion. Skin: Warm, dry with normal turgor. Normal color with no rashes, no lesions, and no evidence of cellulitis. MS/ Extremity: Pulses equal, no cyanosis. Neurovascular intact. Full, normal range of motion. Neuro: Awake and alert, GCS 15, oriented to person, place, time, and situation. Cranial nerves II-XII grossly intact. Motor strength 5/5 in all extremities. Sensory grossly intact. Vital Signs: 13:27 BP 100 / 76; Pulse 83; Resp 16 S; Temp 97.5(TE); Pulse Ox 100% on R/A; Weight 81.65 kg aa5 (R); 15:33 BP 120 / 71; Pulse 82; Resp 18; Pulse Ox 99% ; Pain 0/10; tc5 MDM: 13:34 Patient medically screened. [facility] 14:34 Data reviewed: vital signs, nurses notes, lab test result(s), radiologic studies, [facility] ultrasound. Data interpreted: Pulse oximetry: on room air is 100 %. Interpretation: normal. Counseling: I had a detailed discussion with the patient and/or guardian regarding: the historical points, exam findings, and any diagnostic results supporting the discharge/admit diagnosis, lab results, radiology results, the need for outpatient follow up, an OB/Gyne specialist. 02/05 13:33 Order name: Abo/rh Typing [facility] 02/05 13:33 Order name: Basic Metabolic Panel; Complete Time: 14:49 jr8 02/05 13:33 Order name: CBC with Diff; Complete Time: 14:33 jr8 02/05 13:33 Order name: Quantitative Hcg; Complete Time: 14:49 jr8 02/05 13:34 Order name: ABO/RH typing; Complete Time: 14:33 EDMS 02/05 15:09 Order name: Urine Dipstick-Ancillary; Complete Time: 15:15 EDMS 02/05 13:33 Order name: IV Saline Lock; Complete Time: 13:55 jr8 02/05 13:33 Order name: Labs collected and sent; Complete Time: 13:55 jr8 02/05 13:33 Order name: NPO; Complete Time: 13:56 jr8 02/05 13:33 Order name: Urine Dipstick-Ancillary (obtain specimen); Complete Time: 15:34 jr8 02/05 13:33 Order name: Urine Test (obtain specimen); Complete Time: 15:34 8 02/05 14:07 Order name: US Transvaginal Ob; Complete Time: 15:04 jr8 02/05 15:13 Order name: Urine --Ancillary (enter results); Complete Time: 15:32 bd 02/05 15:13 Order name: ABO/RH no charge; Complete Time: 15:15 EDMS Administered Medications: No medications were administered Point of Care Testing: Urine : 15:34 hCG Reading: Positive; Control Reading: Positive; tc5 Disposition: 02/06 14:21 Co-signature as Attending Physician, Everardo Crespo MD I agree with the assessment and sp3 plan of care. Disposition Summary: 02/05/21 15:16 Discharge Ordered Location: Home jr8 Problem: new jr8 Symptoms: have improved jr8 Condition: Stable jr8 Diagnosis - Threatened jr8 Followup: jr8 - With: Private Physician - When: 2 - 3 days - Reason: Recheck today's complaints, Continuance of care, Re-evaluation by your physician Discharge Instructions: - Discharge Summary Sheet jr8 - Threatened Miscarriage jr8 - Vaginal Bleeding During , First Trimester jr8 Forms: - Medication Reconciliation Form jr8 - Thank You Letter jr8 - Antibiotic Education jr8 - Prescription Opioid Use jr8 Signatures: Dispatcher [employer] EDKristie Callejas RN RN aa5 Derik Rosario PA PA jr8 Everardo Crespo, MD sp3
[2021-02-05 15:27] LABS: Urine Specific Gravity/Preg 1.015 (1.005-1.030)
[2021-02-05 15:47] VITALS: TEMP 97.5
[2021-02-05 15:48] VITALS: BP 120/71; O2SAT 99
== END 2021-02-05 15:34 | disposition home or self-care (01) ==
LOC: ER 13:08
DX: O20.0 Threatened abortion (principal)
CPT/HCPCS: 36415; 76817; 80048; 81003; 81025; 84702; 85025; 86900; 86901; 99284

== ENCOUNTER 2021-04-18 11:09 | Emergency (ER) | payer OTHER ==
--- OUTSIDE RECORDS SUMMARY | 2021-04-18 11:12 | XMS REPORT | Continuity of Care Document ---
:1995 Author Organization [facility] t Address [address] [place] [address] Care Team Providers Name Role Phone Srinath MARTINEZ Primary Care Physician Unavailable TED Attending Clinician Unavailable Ted ESPANA Attending Clinician Payers Payer Name Policy Type Policy Number Effective Date Expiration Date S christ[place] [employer] [id number] 2021 HEALTH 00:00:00 Advance Directives Directive Decision Effective Termination Comments Source Date Date Healthcare Agents on N/A Univ ersity FileNameRelationshipHealthcare [facility] Agent Medical RelationshipCommunicationElita Branch [facility] [phone] (Home) Problems Condition Condition Condition Status Onset Resolution Last Treating Co mments Source Name Details Category Date Date Treatment Clinician Date Obesity Obesity Disease Active 2020-04 Univers (BMI (BMI 1-05 ity of 30-39.9) 30-39.9) 00:00: [address] Anxiety Anxiety Disease Active 2018-04 Univers 1-25 ity of 00:00: [address] Branch Atypical Atypical Disease Active 2016-04 Overview: Un baldemar squamous squamous 0-06 Formattin ity of cells of cells of 00:00: g of this Jaden as undetermin undetermin 00 note Me dical ed ed might be Branch significan significan different ce (ASCUS) ce (ASCUS) from the on on original. Papanicola Papanicola Needs ou smear ou smear repeat of cervix of cervix colpo PP-see Shawanda note on 01/17/16 Sickle Sickle Disease Active Univers cell trait cell trait 7-13 it y of 00:00: [address] Multiparit Multiparit Disease Active 2016-0 U nivers y y 8-02 ity of 00:00: [address] Allergies, Adverse Reactions, Alerts Allergy Allergy Status Severity Reaction(s) Onset Inactive Treating Comm ents Source Name Type Date Date Clinician NO KNOWN Drug Active Univers ALLERGIE Class ity of S [facility] Social History Social Habit Start Date Stop Date Quantity Comments Source ASSERTION 2020-12-22 [facility] 00:00:[address] [facility] Exposure to Not sure [facility] SARS-CoV-2 [facility] (event) Branch Alcohol intake 2021-03-30 2021-03-30 Current [facility] 00:00:00 00:00:00 non-drinker of [facility] alcohol [place] (finding) Tobacco use and 2012-09-08 2012-09-08 Never used Universit y of exposure 00:00:00 00:00:[address] [facility] Sex Assigned At [birth year] Universit y of 00:00:00 00:00:[address] [facility] Smoking Status Start Date Stop Date Source Never smoker [facility] Medications Ordered Filled Start Stop Current Ordering Indication Dosage Frequency Signature Comments Components Source Medication Medication Date Date Medication? Clinician (SIG) Name Name metroNIDAZO 2020-04- Yes [id number] 500mg Take 1 Univers LE 500 mg 05-30 9109 tablet by ity of tablet 00:00: 05:59 mouth [place] 00 :00 every 12 Medical (twelve) Branch hours for 7 days. Do not drink alcohol while taking this medication . cephALEXin 2020-04- Yes [id number] 500mg Take 1 Univers 500 mg 05-30 capsule by ity of capsule 00:00: 05:59 mouth [place] 00 :00 every 6 Medical (six) Branch hours for 7 days. PNV 2020-04 Yes Take by Univers NO.95/FLYNN 0-21 mouth. ity of [place] 15:01: [place] FUM/FOLIC 29 Medical AC Branch ( ORAL) PNV 2020-04 Yes Take by Univers NO.95/FLYNN 0-21 mouth. ity of [place] 15:01: [place] FUM/FOLIC 29 Medical AC Branch ( ORAL) PNV 2020-04 Yes Take by Univers NO.95/FLYNN 0-21 mouth. ity of [place] 15:01: [place] FUM/FOLIC 29 Medical AC Branch ( ORAL) Immunizations Ordered Filled Immunization Date Status Comments Sourc e Immunization Name Name TDAP 2016-03-13 Completed University of 00:00:00 [place] [facility] TDAP 2016-03-13 Completed University of 00:00:00 [facility] [place] [facility] TDAP 2016-03-13 Completed University of 00:00:00 [facility] [place] [facility] TDAP 2013-10-21 Completed University of 00:00:00 [facility] [place] [facility] TDAP 2013-10-21 Completed University of 00:00:00 [facility] [place] [facility] TDAP 2013-10-21 Completed University of 00:00:[address] [facility] Influenza Virus 2013-01-06 Completed Universit y of Vaccine 00:00:[address] [facility] Influenza Virus 2013-01-06 Completed Universit y of Vaccine 00:00:00 [facility] Branch Influenza Virus 2013-01-06 Completed Universit y of Vaccine 00:00:00 [facility] [place] [facility] TDAP 2012-11-24 Completed University of 00:00:00 [facility] [place] [facility] TDAP 2012-11-24 Completed University of 00:00:00 [facility] Branch TDAP 2012-11-24 Completed University of 00:00:00 [facility] Branch Rubella 2012-09-08 Completed University of 00:00:00 [facility] Branch Rubella 2012-09-08 Completed University of 00:00:00 [facility] Branch Rubella 2012-09-08 Completed University of 00:00:00 [facility] Branch TDAP 2012-01-10 Completed University of 00:00:00 [facility] Branch TDAP 2012-01-10 Completed University of 00:00:[address] [facility] TDAP 2012-01-10 Completed University of 00:00:[address] [facility] Vital Signs Vital Name Observation Time Observation Value Comments Source Systolic blood 2021-03-29 22:17:00 111 mm[Hg] Univer sity of pressure [facility] Diastolic blood 2021-03-29 22:17:00 75 mm[Hg] Unive rsity of pressure [facility] Heart rate 2021-03-29 22:17:00 90 /min [facility] Body temperature 2021-03-29 22:17:00 36.72 Ocri [facility] Respiratory rate 2021-03-29 22:17:00 18 /min [facility] Body height 2021-03-29 22:17:00 162.6 cm [facility] Body weight 2021-03-29 22:17:00 77.168 kg [facility] BMI 2021-03-29 22:17:00 29.20 kg/m2 [facility] Procedures Procedure Date / Time Performed Performing Clinician Sourc e POCT URINALYSIS W/O 2021-03-29 00:00:00 Abbey Neff [facility] SPECIFIC GRAVITY [facility] Encounters Start End Encounter Admission Attending Care Care Encounter Source Date/Time Date/Time Type Type Clinicians Facility Department ID 2021-05-02 2021-05-02 Outpatient R [facility] [id number] Univers 13:30:00 13:30:00 [id number] ity [facility] 2021-05-02 2021-05-02 Outpatient P [facility] [id number] Univers 13:30:00 13:30:00 ity [facility] 2021-05-01 2021-05-01 Outpatient R FRANCK NEFFN [facility] [id number] Univers 16:00:00 16:00:00 [id number] ity [facility] 2021-05-01 2021-05-01 Outpatient R ABBEY NEFF [facility] [id number] Univers 16:00:00 16:00:00 ity [facility] 2021-04-16 2021-04-16 Telephone Abbey Neff [place] [id number] Univers 00:00:00 00:00:00 VENITA [id number] it y of WOMEN'S [id number] [facility] [id number] [place] [address] Branch 2021-03-29 2021-03-29 Outpatient R ABBEY NEFF [facility] [id number] Univers 16:00:00 16:56:21 ity [facility] 2021-03-29 2021-03-29 Routine Abbey Neff [facility] [id number] Univers 15:55:48 16:56:21 VENITA [id number] i ty of Visit WOMEN'S [id number] [facility] [id number] [address] 2021-03-07 2021-03-07 Telephone Abbey Neff [id number] [facility] 00:00:00 00:00:00 VENITA [id number] it y of WOMEN'S [id number] [facility] [id number] [address] 2017-12-04 2017-12-06 Outpatient [facility] [id number] [address] [place] [address] 00:00:00 00:00:00 [facility] Results Test Description Test Time Test Comments Results Result Comments Source POCT URINALYSIS W/O SPECIFIC GRAVITY 2021-03-29 22:16:00 Test Item Value Reference Range Interpretation Comme nts POCT PH U (test code = 3254) n/a 5-8 POCT U LEUK EST (test code = 3263) n/a Negative - Negative POCT U NIT (test code = 3262) n/a Negative - Negative POCT U PROT (test code = 3259) negative Negative - Negative POCT U GLU (test code = 3256) negative Negative - Negative POCT U KETONE (test code = 3258) n/a Negative - Negative POCT U BLD (test code = 3257) n/a Negative - Negative [facility]
--- NOTE | 2021-04-18 13:39 | EDPHYS ---
Physician Documentation [facility] Name: Roro Heredia Age: 26 yrs Sex: Female : 1995 Arrival Date: 04/18/2021 Time: 11:18 Bed Waiting Private MD: ED Physician Dangelo Blair HPI: 04/18 13:35 This 26 yrs old Black Female presents to ER via Unassigned with complaints of Cough, kb Sore Throat, 18 wks preg. 13:35 The patient or guardian reports cough. Onset: The symptoms/episode began/occurred 1 kb week(s) ago. Severity of symptoms: At their worst the symptoms were mild, in the emergency department the symptoms are unchanged. Modifying factors: The symptoms are alleviated by nothing, the symptoms are aggravated by nothing. Associated signs and symptoms: Pertinent positives: sore throat, Pertinent negatives: chest pain, diarrhea, ear ache, fever, nausea, rhinorrhea, vomiting. The patient has not experienced similar symptoms in the past. The patient has not recently seen a physician. Pt reports cough, sore throat and headache for a week. Denies fever. Everyone in household has similar symptoms. +covid exposure. 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 - Social history:: Smoking status: unknown. ROS: 13:35 Constitutional: Negative for fever, chills, and weight loss. kb 13:35 ENT: Positive for sore throat. 13:35 Respiratory: Positive for cough. 13:35 Neuro: Positive for headache. 13:35 All other systems are negative. Exam: 13:35 Constitutional: This is a well developed, well nourished patient who is awake, alert, kb and in no acute distress. Head/Face: Normocephalic, atraumatic. ENT: Moist Mucous membranes Cardiovascular: Regular rate and rhythm with a normal S1 and S2. No gallops, murmurs, or rubs. No pulse deficits. Respiratory: Respirations even and unlabored. No increased work of breathing. Talking in full sentences Skin: Warm, dry with normal turgor. Normal color. MS/ Extremity: Pulses equal, no cyanosis. Neurovascular intact. Full, normal range of motion. Neuro: Awake and alert, GCS 15, oriented to person, place, time, and situation. Moves all extremities. Normal gait. Psych: Awake, alert, with orientation to person, place and time. Behavior, mood, and affect are within normal limits. 13:35 ENT: External ear(s): are unremarkable, Ear canal(s): are normal, TM's: are normal, Posterior pharynx: is normal. Vital Signs: 13:35 BP 94 / 78; Pulse 85; Resp 18; Temp 98.4; Pulse Ox 100% ; Weight 77.11 kg; Height 5 ft. kb 4 in. (162.56 cm); 14:18 BP 94 / 78; Pulse 85; Resp 18; Temp 98.4; Pulse Ox 100% on R/A; Weight 77.11 kg (R); jl7 Height 5 ft. 4 in. (162.56 cm); 14:18 Body Mass Index 29.18 (77.11 kg, 162.56 cm) jl7 MDM: 13:37 Data reviewed: vital signs, nurses notes. Data interpreted: Pulse oximetry: on room air kb is 100 %. Interpretation: normal. Counseling: I had a detailed discussion with the patient and/or guardian regarding: the historical points, exam findings, and any diagnostic results supporting the discharge/admit diagnosis, the need for outpatient follow up, a family practitioner, to return to the emergency department if symptoms worsen or persist or if there are any questions or concerns that arise at home. ED course: Pt does not want to be tested for covid at this time due to delay in results. 13:38 Patient medically screened. kb 13:49 ED course: Pt changed her mind and would like to be swabbed for covid today. kb 04/18 13:49 Order name: COVID-19 SARS RT PCR (Document "Date of Onset" if Symptomatic); Complete kb Time: 15:29 Administered Medications: No medications were administered Disposition: 15:35 Co-signature as Attending Physician, aDngelo Blair MD I agree with the assessment and kdr plan of care. Disposition Summary: 04/18/21 13:38 Discharge Ordered Location: Home kb Condition: Stable kb Diagnosis - Acute upper respiratory infection, unspecified kb Followup: kb - With: Emergency Department - When: As needed - Reason: Worsening of condition Followup: kb - With: Private Physician - When: 2 - 3 days - Reason: Recheck today's complaints, Continuance of care, Re-evaluation by your physician Discharge Instructions: - Discharge Summary Sheet kb - Upper Respiratory Infection, Adult, [id number] kb - Viral Respiratory Infection, [id number] kb Forms: - Medication Reconciliation Form kb - Thank You Letter kb - Antibiotic Education kb - Prescription Opioid Use kb Signatures: Dispatcher [employer] EDMS Jenifer Hernandez, WOOD HEEL FLAP RUBBER-C WOOD HEEL FLAP RUBBER-Dangelo Rojas MD MD kdr Leal, Jahala RN RN jl7
--- NOTE | 2021-04-18 14:41 | ER ---
Nurse's Notes [facility] Name: Roro Heredia Age: 26 yrs Sex: Female : 1995 Arrival Date: 04/18/2021 Time: 11:18 Bed Waiting Private MD: Diagnosis: Acute upper respiratory infection, unspecified Presentation: 04/18 14:18 Chief complaint: Patient states: cough, sore throat x 1 week. Coronavirus screen: [facility] Vaccine status: Patient reports being unvaccinated. cough unrelated to allergies. Ebola Screen: No symptoms or risks identified at this time. Initial Sepsis Screen: Does the patient meet any 2 criteria? No. Patient's initial sepsis screen is negative. Does the patient have a suspected source of infection? No. Patient's initial sepsis screen is negative. Risk Assessment: Do you want to hurt yourself or someone else? Patient reports no desire to harm self or others. Onset of symptoms was April 11, 2021. 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 - Social history:: Smoking status: unknown. Vital Signs: 13:35 BP 94 / 78; Pulse 85; Resp 18; Temp 98.4; Pulse Ox 100% ; Weight 77.11 kg; Height 5 ft. kb 4 in. (162.56 cm); 14:18 BP 94 / 78; Pulse 85; Resp 18; Temp 98.4; Pulse Ox 100% on R/A; Weight 77.11 kg (R); jl7 Height 5 ft. 4 in. (162.56 cm); 14:18 Body Mass Index 29.18 (77.11 kg, 162.56 cm) jl7 ED Course: 11:18 Patient arrived in ED. as 13:35 [facility] kb 13:35 Dangelo Blair MD is Attending Physician. kb 14:20 Triage completed. jl7 14:20 Arm band placed on right wrist. jl7 14:21 COVID swab sent to lab. jl7 14:39 Walter Thomson, RN is Primary Nurse. jl7 14:40 Patient did not have IV access during this emergency room visit. jl7 Administered Medications: No medications were administered Outcome: 13:38 Discharge ordered by . kb 14:40 Discharged to home ambulatory. jl7 14:40 Condition: stable 14:40 Discharge instructions given to patient, family, Instructed on discharge instructions, follow up and referral plans. Demonstrated understanding of instructions, follow-up care. 14:40 Patient left the ED. jl7 Signatures: Jenifer Hernandez, OIL FIELD EQUIPMENT MECHANIC SUPERVISOR-C OIL FIELD EQUIPMENT MECHANIC SUPERVISOR-Rosa Isela Sy as Walter Thomson, RN RN jl7
[2021-04-18 14:51] VITALS: BP 94/78; TEMP 98.4; O2SAT 100
== END 2021-04-18 14:40 | disposition home or self-care (01) ==
LOC: ER 11:09
DX: O98.512 Other viral diseases complicating pregnancy, second trimester (principal); U07.1 COVID-19; O99.512 Diseases of the respiratory system complicating pregnancy, second trimester; J98.8 Other specified respiratory disorders
CPT/HCPCS: 99281; U0003

== ENCOUNTER 2022-01-03 12:01 | Emergency (ER) | payer OTHER ==
--- OUTSIDE RECORDS SUMMARY | 2022-01-03 12:09 | XMS REPORT | Continuity of Care Document ---
:1995 Author Organization [facility] t Address [address] [place] [address] Care Team Providers Name Role Phone MARTINEZNAVEED Primary Care Physician Unavailable ABBEY NEFF Attending Clinician Unavailable TALHA SOMERS Attending Clinician Unavailable Talha Somers MD Attending Clinician Manolo Dixon NP Attending Clinician MANOLO DIXON Attending Clinician Unavailable Abbey Neff MD Attending Clinician Pob, [facility] Attending Clinician Unavailable Doctor Unassigned, [place] Attending Clinician Unavailable TALHA SOMERS Admitting Clinician Unavailable Talha Somers MD Admitting Clinician Payers Payer Name Policy Type Policy Number Effective Date Expiration Date Norberto LIGHTS [id number] 2015 HEALTH 00:00:00 Problems Condition Condition Condition Status Onset Resolution Last Treating Co mments Source Name Details Category Date Date Treatment Clinician Date Normal Normal Disease Active Univers labor labor 5-15 ity of 00:00: [place] [address] Medical Branch Positive Positive Disease Active Unive rs GBS test GBS test 5-15 ity of 00:00: [place] [address] Medical Branch Depression Depression Disease Active U nivers affecting affecting 4-28 [place] third 00 Medica l trimester, trimester, Br anch antepartum antepartum Noncomplia Noncomplia Disease Active 2022-0 U nivers nt nt 4-04 ity of 00:00: [place] patient in patient in 00 Me dical third third Branch trimester trimester Anxiety Anxiety Disease Active 2018-04 Univers 1-25 ity of 00:00: [place] 00 [facility] 38 weeks 38 weeks Disease Active 2017-0 Unive rs gestation gestation 1-28 ity of of of 00:00: [place] 00 [facility] 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 hospital by vaginal by vaginal delivery delivery Multiparit Multiparit Disease Active 2015-0 U nivers y y 8-02 ity of 00:00: [place] 00 [facility] Supervisio Supervisio Disease Active 2015-0 U nivers n of high n of high 8-02 ity of risk risk 00:00: [place] 00 [facility] in second in second Bran ch trimester trimester Allergies, Adverse Reactions, Alerts Allergy Allergy Status Severity Reaction(s) Onset Inactive Treating Comm ents Source Name Type Date Date Clinician NO KNOWN Drug Active Univers ALLERGIE Class ity of S [facility] Social History Social Habit Start Date Stop Date Quantity Comments Source ASSERTION 2020-12-22 University of 00:00:00 [facility] Alcohol intake 2021-09-04 2021-09-04 Current University of 00:00:00 00:00:00 non-drinker of [facility] alcohol Branch (finding) Exposure to 2021-08-23 2021-09-02 Not sure [facility] SARS-CoV-2 00:00:00 05:11:00 [facility] (event) [place] Tobacco use and 2012-09-08 2012-09-08 Never used Universit y of exposure 00:00:00 00:00:00 [facility] Sex [birth year] Universit y of 00:00:00 00:00:00 [facility] Smoking Status Start Date Stop Date Source Never smoker [facility] Medications Ordered Filled Start Stop Current Ordering Indication Dosage Frequency Signature Comments Components Source Medication Medication Date Date Medication? Clinician (SIG) Name Name Yes [id number] 1{tbl} Take 1 U nivers vitamin 5-16 tablet by ity of w/FA tablet 00:00: mouth [place] 00 daily. Medical Branch docusate Yes [id number] 200mg Take 2 Un bal[place] 100 mg 5-16 capsules ity of capsule 00:00: by mouth [place] 00 once daily Medical as needed Branch for Constipati on. ferrous Yes [id number] 325mg Take 1 Uni vers sulfate 325 5-16 tablet by ity of mg (65 mg 00:00: mouth 2 [place] iron) 00 (two) Medical tablet times Branch daily. ibuprofen Yes [id number] 600mg Take 1 U nivers 600 mg 5-16 tablet by ity of tablet 00:00: mouth [place] 00 every 6 Medical (six) Branch hours as needed (Pain). Take with food or milk. Yes [id number] 1{tbl} Take 1 U nivers vitamin 5-16 tablet by ity of w/FA tablet 00:00: mouth [place] 00 daily. Medical Branch docusate Yes [id number] 200mg Take 2 Un [place] 100 mg 5-16 capsules ity of capsule 00:00: by mouth [place] 00 once daily Medical as needed Branch for Constipati on. ferrous Yes [id number] 325mg Take 1 Uni vers sulfate 325 5-16 tablet by ity of mg (65 mg 00:00: mouth 2 [place] iron) 00 (two) Medical tablet times Branch daily. ibuprofen Yes [id number] 600mg Take 1 U nivers 600 mg 5-16 tablet by ity of tablet 00:00: mouth [place] 00 every 6 Medical (six) Branch hours as needed (Pain). Take with food or milk. rho(D) Yes 300ug 300 mcg, Univer s immune 5-15 Intramuscu ity of globulin 08:56: lar, ONCE, [place] (RHOGAM) 41 For 1 Medical syringe 300 dose, Branch mcg Conditiona l, Routine witch Gasper 0 Yes Topical, Un [place] (TUCKS) 50 5-15 Q4HPRN, ity of % topical 08:56: [place] pad 40 on [place] [facility] 09/02/21 at Branch 0356, Until Discontinu ed, Routine, rectal/hem orrhoidal pain HYDROcodone 0 Yes 1{tbl} 1 tablet, Univers -acetaminop 5-15 Oral, ity of hen (NORCO 08:56: Q6HPRN, [place] 5) 5-325 mg 40 Starting Medi jayleen tablet 1 on [place] [facility] tablet 09/02/21 at 0356, Until Discontinu ed, Routine, Pain (scale 7-10) ibuprofen Yes 600mg 600 mg, Univ ers (IBU) 5-15 Oral, ity of tablet 600 08:56: Q6HPRN, [place] mg 40 Starting Medical on [place] [facility] 09/02/21 at 0356, Until Discontinu ed, Routine, Pain (scale 4-6) acetaminoph 0 Yes 650mg 650 mg, Un baldem[place] en 5-15 Oral, ity of (TYLENOL) 08:56: Q6HPRN, [place] tablet 650 40 Starting Medic al mg on [place] [facility] 09/02/21 at 0356, Until Discontinu ed, Routine, Pain (scale 1-3) diphenhydrA Yes 25mg 25 mg, Univ ers MINE 5-15 Oral, ity of (BENADRYL) 08:56: Q6HPRN, [place] tablet 25 40 Starting Medica l mg on [place] [facility] 09/02/21 at 0356, Until Discontinu ed, Routine, Sleep, Itching ondansetron 0 Yes 4mg 4 mg, Slow Univers (ZOFRAN 5-15 IV Push, ity of (PF)) 08:56: Q8HPRN, [place] injection 4 40 Starting Medi jayleen mg on [place] [facility] 09/02/21 at 0356, Until Discontinu ed, Routine, Nausea and Vomiting (N/V) simethicone 2022-0 Yes 160mg 160 mg, Un [place] (GAS RELIEF 5-15 Oral, ity of (SIMETHICON 08:56: PC+HSPRN, [place] E)) 40 Starting Medical chewable on [place] tablet 160 09/02/21 at mg 0356, Until Discontinu ed, Routine, Gas docusate Yes 200mg 200 mg, Unive rs (COLACE) 5-15 Oral, ity of capsule 200 08:56: QDAILYPRN, [place] mg 40 Starting Medical on [place] [facility] 09/02/21 at 0356, Until Discontinu ed, Routine, Constipati on magnesium Yes 30mL 30 mL, Univer s hydroxide 5-15 Oral, ity of (MILK OF 08:56: QDAILYPRN, [place] MAGNESIA) 40 Starting Medica l 400 mg/5 mL on [place] [facility] suspension 09/02/21 at 30 mL 0356, Until Discontinu ed, Routine, Constipati on benzocaine- Yes Topical, Un [place] menthol 5-15 PRN, ity of (DERMOPLAST 08:56: [place] 20-0.5 % 40 on [place] [facility] topical 09/02/21 at Branch spray 0356, Until Discontinu ed, Routine, Perineum discomfort oxytocin 2021- No 300mL/h 300 mL/hr, Univers (PITOCIN) 09-02-15 IV ity of 30 units in 08:28: 08:56 Infusion, [place] NS 500 mL 55 :42 SEE-INSTRU Medi jayleen IV infusion CTIONS, Branc h Starting on 09/02/[address] at 300 mL/hr for 1 hr then 150 mL/hr for 1 hr. & nbsp; For post delivery uterotonic
D5W-LR IV 2021- No 1000mL at 125 Uni vers infusion 09-02 05-15 mL/hr, IV ity o f 1,000 mL 08:15: 08:56 Infusion, [place] 00 :42 CONTINUOUS Medical , Starting Branch on 09/02/21 at 0315, Until 09/02/21 at 0356, Routine FENTanyl PF 2021- No 50ug 50 mcg, Un [place] (SUBLIMAZE 5-15 05-15 Slow IV ity o f (PF)) 08:10: 08:12 Push, [place] injection 00 :00 ONCE, 1 Medical 50 mcg dose, On Branch 09/02/21 at 0315, Routine Yes 1{packe Take 1 Univers vit 4-07 t} Packet by ity of 33-iron-fol 00:00: mouth [place] ic-dha 00 daily. Medical (SELECT-OB Branch + DHA) 29 mg iron-1 mg -250 mg combo pack ferrous Yes 1{capsu Take 1 Univers fumarate-b1 4-07 le} capsule by it y of 2-vitamic 00:00: mouth [place] C-folic 00 daily with Medica l acid breakfast. Branch (FEROCON) 110-0.5 mg capsule Yes [id number] 1{packe Take 1 Univers vit 4-07 t} Packet by ity of 33-iron-fol 00:00: mouth [place] ic-dha 00 daily. Medical (SELECT-OB Branch + DHA) 29 mg iron-1 mg -250 mg combo pack ferrous Yes 1{capsu Take 1 Univers fumarate-b1 4-07 le} capsule by it y of 2-vitamic 00:00: mouth [place] C-folic 00 daily with Medica l acid breakfast. Branch (FEROCON) 110-0.5 mg capsule Yes [id number] 1{packe Take 1 Univers vit 4-07 t} Packet by ity of 33-iron-fol 00:00: mouth [place] ic-dha 00 daily. Medical (SELECT-OB Branch + DHA) 29 mg iron-1 mg -250 mg combo pack ferrous Yes 1{capsu Take 1 Univers fumarate-b1 4-07 le} capsule by it y of 2-vitamic 00:00: mouth [place] C-folic 00 daily with Medica l acid breakfast. Branch (FEROCON) 110-0.5 mg capsule Yes [id number] 1{packe Take 1 Univers vit 4-07 t} Packet by ity of 33-iron-fol 00:00: mouth [place] ic-dha 00 daily. Medical (SELECT-OB Branch + DHA) 29 mg iron-1 mg -250 mg combo pack ferrous Yes [id number] 1{capsu Take 1 Univers fumarate-b1 4-07 le} capsule by it y of 2-vitamic 00:00: mouth [place] C-folic 00 daily with Medica l acid breakfast. Branch (FEROCON) 110-0.5 mg capsule Yes [id number] 1{packe Take 1 Univers vit 4-07 t} Packet by ity of 33-iron-fol 00:00: mouth [place] ic-dha 00 daily. Medical (SELECT-OB Branch + DHA) 29 mg iron-1 mg -250 mg combo pack ferrous Yes [id number] 1{capsu Take 1 Univers fumarate-b1 4-07 le} capsule by it y of 2-vitamic 00:00: mouth [place] C-folic 00 daily with Medica l acid breakfast. Branch (FEROCON) 110-0.5 mg capsule Yes [id number] 1{packe Take 1 Univers vit 4-07 t} Packet by ity of 33-iron-fol 00:00: mouth [place] ic-dha 00 daily. Medical (SELECT-OB Branch + DHA) 29 mg iron-1 mg -250 mg combo pack ferrous Yes [id number] 1{capsu Take 1 Univers fumarate-b1 4-07 le} capsule by it y of 2-vitamic 00:00: mouth [place] C-folic 00 daily with Medica l acid breakfast. Branch (FEROCON) 110-0.5 mg capsule Yes [id number] 1{packe Take 1 Univers vit 4-07 t} Packet by ity of 33-iron-fol 00:00: mouth [place] ic-dha 00 daily. Medical (SELECT-OB Branch + DHA) 29 mg iron-1 mg -250 mg combo pack ferrous Yes [id number] 1{capsu Take 1 Univers fumarate-b1 4-07 le} capsule by it y of 2-vitamic 00:00: mouth [place] C-folic 00 daily with Medica l acid breakfast. Branch (FEROCON) 110-0.5 mg capsule 2021- No [id number] 1{packe Take 1 Univers vit 4-07 05-16 t} Packet by ity of 33-iron-fol 00:00: 00:00 [place] ic-dha 00 :00 daily. Medical (SELECT-OB Branch + DHA) 29 mg iron-1 mg -250 mg combo pack ferrous 2021- No [id number] 1{capsu Take 1 Univers fumarate-b1 07-26-16 le} capsule by i ty of 2-vitamic 00:00: 00:00 mouth [place] C-folic 00 :00 daily with Medica l acid breakfast. Branch (FEROCON) 110-0.5 mg capsule cephALEXin 2021- No [id number] 500mg Take 1 Univers 500 mg 07-26 capsule by ity of capsule 00:00: 04:59 mouth [place] 00 :00 every 6 Medical (six) Branch hours for 7 days. cephALEXin 2021- No [id number] 500mg Take 1 Univers 500 mg 07-26 capsule by ity of capsule 00:00: 04:59 mouth [place] 00 :00 every 6 Medical (six) Branch hours for 7 days. cephALEXin 2021- No [id number] 500mg Take 1 Univers 500 mg 07-26 capsule by ity of capsule 00:00: 04:59 mouth [place] 00 :00 every 6 Medical (six) Branch hours for 7 days. PNV 2021- No Take by Univers [email or web address] 2-11 02-11 mouth. ity o f US 15:45: 00:00 [place] FUM/FOLIC 54 :00 Medical AC Branch ( ORAL) PNV 2021- No Take by Univers [email or web address] 2-11 02-11 mouth. ity o f US 15:45: 00:00 [place] FUM/FOLIC 54 :00 Medical AC Branch ( ORAL) PNV 2021- No Take by Univers [email or web address] 2-11 02-11 mouth. ity o f US 15:45: 00:00 [place] FUM/FOLIC 54 :00 Medical AC Branch ( ORAL) Yes [id number] 1{tbl} Take 1 U nivers 78-iron-fol 2-11 tablet by ity of ate 1-dha 00:00: mouth [place] 18 mg 00 daily. Medical iron-1 mg Branch -300 mg Cap Yes [id number] 1{tbl} Take 1 U nivers 78-iron-fol 2-11 tablet by ity of ate 00:00: mouth [place] 18 mg 00 daily. Medical iron-1 mg Branch -300 mg Cap Yes [id number] 1{tbl} Take 1 U nivers 78-iron-fol 2-11 tablet by ity of ate 00:00: mouth [place] 18 mg 00 daily. Medical iron-1 mg Branch -300 mg Cap Yes [id number] 1{tbl} Take 1 U nivers 78-iron-fol 2-11 tablet by ity of ate 00:00: mouth [place] 18 mg 00 daily. Medical iron-1 mg Branch -300 mg Cap Yes [id number] 1{tbl} Take 1 U nivers 78-iron-fol 2-11 tablet by ity of ate 00:00: mouth [place] 18 mg 00 daily. Medical iron-1 mg Branch -300 mg Cap Yes [id number] 1{tbl} Take 1 U nivers 78-iron-fol 2-11 tablet by ity of ate 00:00: mouth [place] 18 mg 00 daily. Medical iron-1 mg Branch -300 mg Cap 2021- No [id number] 1{tbl} Take 1 Univers 78-iron-fol 2-11 08-03 tablet by it y of ate 00:00: 00:00 mouth [place] 18 mg 00 :00 daily. Medical iron-1 mg Branch -300 mg Cap terconazole 2021- No [id number] 1{appli Insert 1 Univers 0.8 % 2-06-05 cator} Applicator ity o f vaginal 00:00: 05:59 into [place] cream 00 :00 vagina at Medical bedtime Branch for 3 days. cephALEXin Yes 500mg Take 500 Un baldemar 500 mg 2-09 mg by ity of capsule 00:00: mouth [place] 00 every 6 Medical (six) Branch hours. metroNIDAZO Yes TAKE 1 Univ ers LE 500 mg 2-09 TABLET BY ity o f tablet 00:00: MOUTH 00 EVERY 12 Medical HOURS FOR Branch 7 DAYS. DO NOT DRINK ALCOHOL WHILE TAKING THIS MEDICATION cephALEXin 2022-0 Yes 500mg Take 500 Un [place]dem[place] 500 mg 2-09 mg by ity of capsule 00:00: mouth [place] 00 every 6 Medical (six) Branch hours. metroNIDAZO 2021-0 Yes TAKE 1 Univ ers LE 500 mg 2-09 TABLET BY ity o f tablet 00:00: MOUTH [place] 00 EVERY 12 Medical HOURS FOR Branch 7 DAYS. DO NOT DRINK ALCOHOL WHILE TAKING THIS MEDICATION cephALEXin 2021-0 Yes 500mg Take 500 Un [place] 500 mg 2-09 mg by ity of capsule 00:00: mouth [place] 00 every 6 Medical (six) Branch hours. metroNIDAZO 0 Yes TAKE 1 Univ ers LE 500 mg 2-09 TABLET BY ity o f tablet 00:00: MOUTH [place] 00 EVERY 12 Medical HOURS FOR Branch 7 DAYS. DO NOT DRINK ALCOHOL WHILE TAKING THIS MEDICATION cephALEXin 0 Yes 500mg Take 500 Un [place]dem[place] 500 mg 2-09 mg by ity of capsule 00:00: mouth [place] 00 every 6 Medical (six) Branch hours. metroNIDAZO 2021-0 Yes TAKE 1 Univ ers LE 500 mg 2-09 TABLET BY ity o f tablet 00:00: MOUTH [place] 00 EVERY 12 Medical HOURS FOR Branch 7 DAYS. DO NOT DRINK ALCOHOL WHILE TAKING THIS MEDICATION cephALEXin 2021- No 500mg Take 500 U nivers 500 mg - 04-07 mg by ity of capsule 00:00: 00:00 mouth [place] 00 :00 every 6 Medical (six) Branch hours. metroNIDAZO 2021-2021- No TAKE 1 Uni vers LE 500 mg - 04-07 TABLET BY ity of tablet 00:00: 00:00 MOUTH [place] 00 :00 EVERY 12 Medical HOURS FOR Branch 7 DAYS. DO NOT DRINK ALCOHOL WHILE TAKING THIS MEDICATION cephALEXin 2020-04- No [id number] 500mg Take 1 Univers 500 mg 04-29 capsule by ity of capsule 00:00: 05:59 mouth [place] 00 :00 every 6 Medical (six) Branch hours for 7 days. metroNIDAZO 2020-04- No [id number] 500mg Take 1 Univers LE 500 mg 04-25 tablet by ity of tablet 00:00: 05:59 mouth [place] 00 :00 every 12 Medical (twelve) Branch hours for 7 days. metroNIDAZO 2020-04- No [id number] 500mg Take 1 Univers LE 500 mg 04-25 tablet by ity of tablet 00:00: 05:59 mouth [place] 00 :00 every 12 Medical ([facility]) Branch hours for 7 days. Immunizations Ordered Filled Immunization Date Status Comments [facility] Immunization Name Name TD 2016-03-13 Completed University of 00:00:00 [facility] TDAP 2016-03-13 Completed University of 00:00:00 [facility] TDAP 2016-03-13 Completed University of 00:00:00 [facility] TDAP 2016-03-13 Completed University of 00:00:00 [facility] TDAP 2016-03-13 Completed University of 00:00:00 [facility] TDAP 2016-03-13 Completed University of 00:00:00 [facility] TDAP 2016-03-13 Completed University of 00:00:00 [facility] TDAP 2016-03-13 Completed University of 00:00:00 [facility] TDAP 2016-03-13 Completed University of 00:00:00 [facility] TDAP 2016-03-13 Completed University of 00:00:00 [facility] TDAP 2016-03-13 Completed University of 00:00:00 [facility] TDAP 2016-03-13 Completed University of 00:00:00 [facility] TDAP 2016-03-13 Completed University of 00:00:00 [facility] TDAP 2016-03-13 Completed University of 00:00:00 [facility] TDAP 2016-03-13 Completed University of 00:00:00 [facility] TDAP 2013-10-21 Completed University of 00:00:00 [facility] TDAP 2013-10-21 Completed University of 00:00:00 [facility] TDAP 2013-10-21 Completed University of 00:00:00 [facility] TDAP 2013-10-21 Completed University of 00:00:00 [facility] TDAP 2013-10-21 Completed University of 00:00:00 [facility] TDAP 2013-10-21 Completed University of 00:00:00 [facility] TDAP 2013-10-21 Completed University of 00:00:00 [facility] TDAP 2013-10-21 Completed University of 00:00:00 [facility] TDAP 2013-10-21 Completed University of 00:00:00 [facility] TDAP 2013-10-21 Completed University of 00:00:00 [facility] TDAP 2013-10-21 Completed University of 00:00:00 [facility] TDAP 2013-10-21 Completed University of 00:00:00 [facility] Branch TDAP 2013-10-21 Completed University of 00:00:00 [facility] Branch TDAP 2013-10-21 Completed University of 00:00:00 [facility] TDAP 2013-10-21 Completed University of 00:00:00 [facility] Influenza Virus 2013-01-06 Completed Universit y of Vaccine 00:00:00 [facility] Influenza Virus 2013-01-06 Completed Universit y of Vaccine 00:00:00 [facility] Influenza Virus 2013-01-06 Completed Universit y of Vaccine 00:00:00 [facility] Influenza Virus 2013-01-06 Completed Universit y of Vaccine 00:00:00 [facility] Influenza Virus 2013-01-06 Completed Universit y of Vaccine 00:00:00 [facility] Influenza Virus 2013-01-06 Completed Universit y of Vaccine 00:00:00 [facility] Influenza Virus 2013-01-06 Completed Universit y of Vaccine 00:00:00 [facility] Influenza Virus 2013-01-06 Completed Universit y of Vaccine 00:00:00 [facility] Influenza Virus 2013-01-06 Completed Universit y of Vaccine 00:00:00 [facility] Influenza Virus 2013-01-06 Completed Universit y of Vaccine 00:00:00 [facility] Influenza Virus 2013-01-06 Completed Universit y of Vaccine 00:00:00 [facility] Influenza Virus 2013-01-06 Completed Universit y of Vaccine 00:00:00 [facility] Influenza Virus 2013-01-06 Completed Universit y of Vaccine 00:00:00 [facility] Influenza Virus 2013-01-06 Completed Universit y of Vaccine 00:00:00 [facility] Influenza Virus 2013-01-06 Completed Universit y of Vaccine 00:00:00 [facility] TDAP 2012-11-24 Completed University of 00:00:00 [facility] TDAP 2012-11-24 Completed University of 00:00:00 [facility] TDAP 2012-11-24 Completed University of 00:00:00 [facility] TDAP 2012-11-24 Completed University of 00:00:00 [facility] TDAP 2012-11-24 Completed University of 00:00:00 [facility] TDAP 2012-11-24 Completed University of 00:00:00 [place] [facility] TDAP 2012-11-24 Completed University of 00:00:00 [place] [facility] TDAP 2012-11-24 Completed University of 00:00:00 [place] [facility] TDAP 2012-11-24 Completed University of 00:00:00 [place] [facility] TDAP 2012-11-24 Completed University of 00:00:00 [place] [facility] TDAP 2012-11-24 Completed University of 00:00:00 [place] [facility] TDAP 2012-11-24 Completed University of 00:00:00 [place] [facility] TDAP 2012-11-24 Completed University of 00:00:00 [place] [facility] TDAP 2012-11-24 Completed University of 00:00:00 [place] [facility] TDAP 2012-11-24 Completed University of 00:00:00 [place] [facility] Rubella 2012-09-08 Completed University of 00:00:00 [place] [facility] Rubella 2012-09-08 Completed University of 00:00:00 [place] [facility] Rubella 2012-09-08 Completed University of 00:00:00 [place] [facility] Rubella 2012-09-08 Completed University of 00:00:00 [place] [facility] Rubella 2012-09-08 Completed University of 00:00:00 [place] [facility] Rubella 2012-09-08 Completed University of 00:00:00 [place] [facility] Rubella 2012-09-08 Completed University of 00:00:00 [place] [facility] Rubella 2012-09-08 Completed University of 00:00:00 [place] [facility] Rubella 2012-09-08 Completed University of 00:00:00 [place] [facility] Rubella 2012-09-08 Completed University of 00:00:00 [place] [facility] Rubella 2012-09-08 Completed University of 00:00:00 [place] [facility] Rubella 2012-09-08 Completed University of 00:00:00 [place] [facility] Rubella 2012-09-08 Completed University of 00:00:00 [place] [facility] Rubella 2012-09-08 Completed University of 00:00:00 [place] [facility] Rubella 2012-09-08 Completed University of 00:00:00 [place] [facility] TDAP 2012-01-10 Completed University of 00:00:00 [place] [facility] TDAP 2012-01-10 Completed University of 00:00:00 [place] [facility] TDAP 2012-01-10 Completed University of 00:00:00 [facility] TDAP 2012-01-10 Completed University of 00:00:00 [place] [facility] TDAP 2012-01-10 Completed University of 00:00:00 [place] [facility] TDAP 2012-01-10 Completed University of 00:00:00 [place] [facility] TDAP 2012-01-10 Completed University of 00:00:00 [place] [facility] TDAP 2012-01-10 Completed University of 00:00:00 [place] [facility] TDAP 2012-01-10 Completed University of 00:00:00 [place] [facility] TDAP 2012-01-10 Completed University of 00:00:00 [place] [facility] TDAP 2012-01-10 Completed University of 00:00:00 [place] [facility] TDAP 2012-01-10 Completed University of 00:00:00 [place] [facility] TDAP 2012-01-10 Completed University of 00:00:00 [place] [facility] TDAP 2012-01-10 Completed University of 00:00:00 [facility] TDAP 2012-01-10 Completed University of 00:00:00 [facility] Vital Signs Vital Name Observation Time Observation Value Comments Source Systolic blood 2021-09-03 12:23:00 121 mm[Hg] Univer sity of pressure [facility] Diastolic blood 2021-09-03 12:23:00 80 mm[Hg] Unive rsity of [facility] Heart rate 2021-09-03 12:23:00 83 /min [facility] Body temperature 2021-09-03 12:23:00 36.56 Cori [facility] Respiratory rate 2021-09-03 12:23:00 18 /min [facility] Oxygen saturation in 2021-09-03 12:23:00 100 /min [facility] Arterial blood by [facility] Pulse oximetry Branch Body height 2021-09-02 10:12:00 157.5 cm [facility] Body weight 2021-09-02 10:12:00 76.295 kg [facility] BMI 2021-09-02 10:12:00 30.76 kg/m2 [facility] Systolic blood 2021-08-27 19:39:00 109 mm[Hg] Univer sity of pressure [facility] Diastolic blood 2021-08-27 19:39:00 75 mm[Hg] Unive rsity of pressure [place] [facility] Heart rate 2021-08-27 19:39:00 86 /min [facility]i ty [facility] [place] [facility] Body temperature 2021-08-27 19:39:00 36.78 Cori Univ ersity of [place] [facility] Respiratory rate 2021-08-27 19:39:00 16 /min Univ ersity of [place] [facility] Body height 2021-08-27 19:39:00 157.5 cm [facility] [place] [facility] Body weight 2021-08-27 19:39:00 79.742 kg [facility] [place] [facility] BMI 2021-08-27 19:39:00 32.15 kg/m2 [facility] [place] [facility] Systolic blood 2021-08-16 19:34:00 120 mm[Hg] Univer sity of pressure [place] [facility] Branch Diastolic blood 2021-08-16 19:34:00 80 mm[Hg] [facility] Heart rate 2021-08-16 19:34:00 100 /min [facility] Body temperature 2021-08-16 19:34:00 36.83 Cori [facility] Respiratory rate 2021-08-16 19:34:00 18 /min [facility] Body height 2021-08-16 19:34:00 162.6 cm [facility] Body weight 2021-08-16 19:34:00 79.153 kg [facility] BMI 2021-08-16 19:34:00 29.95 kg/m2 [facility] Systolic blood 2021-08-02 20:47:00 105 mm[Hg] [facility] Diastolic blood 2021-08-02 20:47:00 69 mm[Hg] [facility] Heart rate 2021-08-02 20:47:00 99 /min [facility] Body temperature 2021-08-02 20:47:00 36.72 Cori [facility] Respiratory rate 2021-08-02 20:47:00 18 /min [facility] Body height 2021-08-02 20:47:00 157.5 cm [facility] Body weight 2021-08-02 20:47:00 78.16 kg [facility] BMI 2021-08-02 20:47:00 31.52 kg/m2 [facility] Heart rate 2021-07-26 17:00:00 86 /min [facility] Branch Oxygen saturation in 2021-07-26 17:00:00 99 /min [facility] of Arterial blood by [facility] Pulse oximetry Branch Systolic blood 2021-07-26 15:12:00 120 mm[Hg] [facility] Diastolic blood 2021-07-26 15:12:00 72 mm[Hg] [facility] Body temperature 2021-07-26 15:12:00 36.78 Cori [facility] Respiratory rate 2021-07-26 15:12:00 16 /min [facility] Body weight 2021-07-26 14:59:00 78.926 kg [facility] BMI 2021-07-26 14:59:00 31.83 kg/m2 [facility] Systolic blood 2021-07-20 21:40:00 113 mm[Hg] [facility] Diastolic blood 2021-07-20 21:40:00 74 mm[Hg] [facility] Heart rate 2021-07-20 21:40:00 128 /min [facility] Respiratory rate 2021-07-20 21:40:00 18 /min Univ [facility] Branch Body height 2021-07-20 21:40:00 157.5 cm [facility] Body weight 2021-07-20 21:40:00 78.926 kg [facility] BMI 2021-07-20 21:40:00 31.83 kg/m2 [facility] Branch Systolic blood 2021-06-01 21:23:00 107 mm[Hg] [facility] Diastolic blood 2021-06-01 21:23:00 69 mm[Hg] [facility]ity [facility] Branch Heart rate 2021-06-01 21:23:00 97 /min [facility] Body temperature 2021-06-01 21:23:00 36.89 Cori [facility] Respiratory rate 2021-06-01 21:23:00 18 /min [facility] Body height 2021-06-01 21:23:00 162.6 cm [facility] Body weight 2021-06-01 21:23:00 76.204 kg [facility] BMI 2021-06-01 21:23:00 28.84 kg/m2 [facility] Procedures Procedure Date / Time Performing Clinician Source Performed CBC WITH DIFF 2021-09-03 08:39:00 Talha Somers [facility] VENOUS CORD GAS 2021-09-02 08:28:00 Talha Somers [facility] CBC WITH DIFF 2021-09-02 08:24:00 Talha Somers [facility] RUBELLA SCREEN IGG 2021-09-02 08:23:00 Talha Somers [facility] HEPATITIS B SURFACE 2021-09-02 08:23:00 Talha Somers [facility] ADC OR ABEL ONLY - RPR 2021-09-02 08:23:00 Talha Somers Un [facility] HIV 1/2 AG-AB WITH REFLEX 2021-09-02 08:23:00 Talha Somers Un [facility] COVID-19 (ID NOW RAPID 2021-09-02 08:23:00 Talha Somers [facility] TESTING) Medical [place] [facility] ONLY COVID 2021-09-02 08:23:00 Talha Somers [facility] HB ABO GROUPING 2021-09-02 08:00[facility] IMMUNE GLOBULIN 2021-09-02 08:00:00 Talha Somers [facility] POCT URINALYSIS W/O 2021-08-27 00:00:00 Manolo Dixon [facility] SPECIFIC GRAVITY [facility] ASSIGNMENT OF BENEFITS 2021-08-10 16:45:24 Doctor [facility], [facility] POCT URINALYSIS W/O 2021-08-02 00:00:00 Abbey Neff [facility] HIV 1/2 AG-AB WITH REFLEX 2021-07-26 16:16:00 Abbey Neff [facility] COVID-19 (ID NOW RAPID 2021-07-26 16:16:00 Abbey Neff [facility] TESTING) Medical Branch CBC WITH DIFF 2021-07-26 16:15:00 Fish Abbey [facility] URINALYSIS 2021-07-26 16:15:00 Fish [facility] HB ABO GROUPING 2021-07-26 16:15:00 Ted [facility] ADC CLC OR LCC ONLY - WET 2021-07-26 16:15:00 Abbey Neff [facility] POCT URINALYSIS W/O 2021-07-20 21:41:00 Manolo Dixon [facility] POCT URINALYSIS W/O 2021-06-01 00:00:00 Abbey Neff [facility] Encounters Start End Encounter Admission Attending Care Care Encounter Source Date/Time Date/Time Type Type Clinicians Facility Department ID 2021-07-26 Outpatient P [facility] NEL [id number] Univers 13:44:50 ity of [facility] 2021-09-06 2021-09-06 Outpatient R TED ABBEY [facility] [id number] Univers 13:00:00 13:00:00 [id number] it[facility] of [facility] 2021-09-06 2021-09-06 Outpatient R ABBEY NEFF [facility] [id number] Univers 13:00:00 13:00:00 it[facility] of [facility] 2021-09-06 2021-09-06 1.2.840.1 1.2.840.114 [id number] Univers 00:00:00 00:00:00 Encounter [id number] ity of 3[place]104.2.[place][id number] [facility] 2021-09-02 2021-09-03 Inpatient X TALHA SOMERS [facility] NEL [id number] Univers 02:41:00 18:05:00 ity [facility] 2021-09-02 2021-09-03 [facility] Talha Somers [facility] 1.2.840.114 [id number] Univers 02:41:00 18:05:00 Encounter Ar DOSS 350.1.13.10 ity [facility] 4.2.7.2.686 [facility] [id number] [place] [id number] Branch 2021-08-27 2021-08-27 Routine Trirachel [facility] 1.2.840.114 [id number] Univers 14:00:00 14:54:41 Manolo NATHAN 350.1.13.10 i ty of Visit [facility]OMEN'S 4.2.7.[address] [facility] [id number] [facility] CLINIC 134 Branch 2021-08-27 2021-08-27 Outpatient R MANOLO DIXON [facility] [place] [facility] [id number] Univers 14:00:00 14:54:41 MANOLO DIXON marielle [facility] 2021-08-27 2021-08-27 Outpatient R MANOLO DIXON [facility] B [id number] Univers 14:00:00 14:00:00 [facility] 2021-08-22 2021-08-22 Outpatient R MANOLO DIXON [facility] B [id number] Univers 11:00:00 11:00:00 [facility]IXON 22 0504 [facility] 2021-08-22 2021-08-22 Outpatient R MANOLO DIXON [facility] [place] B [id number] Univers 11:00:00 11:00:[address] [facility] 2021-08-16 2021-08-16 Outpatient R ABBEY NEFF [facility] [id number] Univers 13:45:00 14:47:34 [facility] 2021-08-16 2021-08-16 Routine Abbey Neff 1.2.840.114 [id number] Univers 13:45:00 14:47:34 VENITA 350.1.13.10 i ty [place] [id number] [address] 2021-08-16 2021-08-16 Outpatient R ABBEY NEFF [facility] [id number] Univers 13:45:00 13:45:00 [id number] ity of [facility] 2021-08-10 2021-08-10 Transfer Knitter Milvia, Heather Lab Main [facility] 1.2.8 40.114 [id number] Univers 11:45:00 12:00:00 Visit Abbey Neff 350.1.13.10 ity [facility] [place] [id number] [address] 2021-08-10 2021-08-10 Outpatient R [facility] [id number] Univers 11:45:00 11:45:00 [id number] ity of [facility] 2021-08-10 2021-08-10 Outpatient R ABBEY NEFF [facility] [id number] Univers 11:45:00 11:45:00 ity [facility] 2021-08-10 2021-08-10 Orders Doctor NITHYA 1.2.840.114 [id number] Univers 00:00:00 00:00:00 Only Unassigned, ADA 350.1.13.10 ity [facility] [place] [facility] 4.2.7.2.686 Jaden as [id number] [address] 2021-08-02 2021-08-02 Outpatient R ABBEY NEFF [facility] [id number] Univers 15:15:00 16:09:15 ity of [facility] 2021-08-02 2021-08-02 Routine Abbey Neff [facility] KALYN 1.2.840.114 [id number] Univers 15:15:00 16:09:15 VENITA 350.1.13.10 i ty [place] [id number] [address] 2021-08-02 2021-08-02 Outpatient R ABBEY NEFF [facility] [id number] Univers 15:15:00 15:15:00 [id number] ity of [facility] 2021-07-27 2021-07-27 Telephone Abbey Neff [facility] 1.2.840.11 [id number] Univers 00:00:00 00:00:00 VENITA 350.1.13.10 it y [place]2.[place] [facility] [id number] [address] 2021-07-26 2021-07-26 Outpatient P ABBEY NEFF [facility] NEL [id number] Univers 10:08:00 12:30:00 ity of [facility] 2021-07-26 2021-07-26 [facility] Talha Somers Ar [facility] 1.2.840.114 [id number] Univers 10:08:00 12:30:00 Encounter Abbey Neff SELAM 350.1.13.10 ity [facility] 4.2.7.2.686 [facility] [id number] [address] 2021-07-26 2021-07-26 Telephone Abbey Neff [facility] 1.2.840.11 [id number] Univers 00:00:00 00:00:00 VENITA 350.1.13.10 it [place] [id number] [address] 2021-07-20 2021-07-20 Outpatient R MANOLO DIXON [facility] B [id number] Univers 16:30:00 16:51:55 MANOLO DIXON ity [facility] 2021-07-20 2021-07-20 Routine Sebastian NYSORIN [facility]C[place] 1.2.840.114 [id number] Univers 16:30:00 16:51:55 Manolo NATHAN 350.1.13.10 i ty of Visit [place] 4[place]2.7.2.686 [place] [facility] [id number] [address] 2021-07-20 2021-07-20 Outpatient R MANOLO DIXON [facility] B [id number] Univers 16:30:00 16:30:00 KATELYNMARKO MANOLO 22 0401 ity [facility] 2021-07-18 2021-07-18 Outpatient R MANOLO DIXON [facility] B [id number] Univers 14:30:00 14:30:00 KATELYNMARKO MANOLO 22 0330 ity [facility] 2021-07-18 2021-07-18 Outpatient R MANOLO DIXON [facility] B [id number] Univers 14:30:00 14:30:00 CARLOSLAWGALMANOLO ZHU [facility] 2021-06-27 2021-06-27 Outpatient R MANOLO DIXON [facility] B [id number] Univers 14:00:00 14:00:00 KATELYNMARKOMANOLO 22 0309 [facility] 2021-06-27 2021-06-27 Outpatient R MANOLO DIXON [facility] B [id number] Univers 14:00:00 14:00:00 CARLOSLAWGALMANOLO ZHU [facility] 2021-06-26 2021-06-26 Outpatient R ABBEY NEFF [facility] [id number] Univers 16:15:00 16:15:00 ity [facility] 2021-06-06 2021-06-06 [facility] 1.2.840.11 [id number] Univers 00:00:00 00:00:00 VENITA 350.1.13.10 it [place] [id number] [address] 2021-06-01 2021-06-01 Routine TdeAbbey [facility] 1.2.840.114 [id number] Univers 15:00:00 15:53:36 [place] 350.1.13.10 ity of [place].2.[place] [id number] [place] dical [address] 2021-02-27 2021-02-27 Case Abbey Neff [facility] 1.2.840.114 [id number] Univers 00:00:00 00:00:00 Management VENITA 350.1.13.10 [place] [id number] [facility] jayleen [address] Branch 2021-02-23 2021-02-23 Case Abbey Neff [facility] 1.2.840.114 [id number] Univers 00:00:00 00:00:00 Management SELAM 350.1.13.10 ity of [place] 4.2.7.2.686 Jadencarroll butcher [facility] [id number] [place] dical NAL 134 Branch [facility] 2017-12-04 2017-12-06 Outpatient [facility] [id number] [address] [place] [address] 00:00:00 00:00:00 [facility] Results Test Description Test Time Test Comments Results Result Comments Source CBC with Differential 2021-09-03 09:17:16 Test Item Value Reference Range Interpretation Comme nts WBC (test code = 6690-2) See_Comment H [A utomated message] The system which ge nerated this result transmit tato reference range: 4.30 - 1 1.10 10*3/?L. The reference r zoltan was not used to interpr et this result as normal/abnor mal. RBC (test code = 789-8) See_Comment [Au tomated message] The system which ge nerated this result transmit tato reference range: 3.93 - 5 .25 10*6/?L. The reference r zoltan was not used to interpr et this result as normal/abnor mal. HGB (test code = 718-7) 10.1 g/dL 11.6-15.0 L HCT (test code = 4544-3) 31.3 % 35.7-45.2 L MCV (test code = 787-2) 79.4 fL 80.6-95.5 L MCH (test code = 785-6) 25.6 pg 25.9-32.8 L MCHC (test code = 786-4) 32.3 g/dL 31.6-35.1 RDW-SD (test code = 45841-9) 50.6 fL 39.0-49.9 H RDW-CV (test code = 788-0) 17.5 % 12.0-15.5 H PLT (test code = 777-3) See_Comment [Au tomated message] The system which ge nerated this result transmit tato reference range: 166 - 35 8 10*3/?L. The reference range was not used to interpret th is result as normal/abnormal . MPV (test code = 80711-7) 11.7 fL 9.5-12.9 NRBC/100 WBC (test code = See_Comment [ Automated message] The 4015551100) system which ge nerated this result transmit tato reference range: 0.0 - 10 .0 /100 WBCs. The reference r zoltan was not used to interpr et this result as normal/abnor mal. NRBC x10^3 (test code = <0.01 See_Comment [Au tomated message] The 7098727708) system which ge nerated this result transmit tato reference range: 10*3/?L. The reference range was not u sed to interpret this result as normal/abnormal . GRAN MAT (NEUT) % (test code 64.6 % = 770-8) IMM GRAN % (test code = 0.40 % 7903012482) LYMPH % (test code = 736-9) 25.3 % MONO % (test code = 5905-5) 7.5 % EOS % (test code = 713-8) 1.7 % BASO % (test code = 706-2) 0.5 % GRAN MAT x10^3(ANC) (test 7.51 10*3/uL 1.88-7.09 H code = 7362705020) IMM GRAN x10^3 (test code = 0.05 10*3/uL 0.00-0.06 5607535531) LYMPH x10^3 (test code = 2.95 10*3/uL 1.32-3.29 731-0) MONO x10^3 (test code = 0.87 10*3/uL 0.33-0.92 742-7) EOS x10^3 (test code = 0.20 10*3/uL 0.03-0.39 711-2) BASO x10^3 (test code = 0.06 10*3/uL 0.01-0.07 704-7) Lab Interpretation (test Abnormal code = 82606-0) [facility] - [id number] 03:59:13 Test Item Value Reference Range Interpretation Comments RPR (Qualitative) (test code = Nonreactive Nonreactive 94994-4) Lab Interpretation (test code = Normal 48161-4) [facility] System[facility] Screen (JERSON) [id number] 18:51:00 Test Item Value Reference Range Interpretation Comments Rubella screen IgG Positive Negative (test code = 3506684148) GLADYS (test code = GLADYS) Positive - Indicates the patient was exposed to Rubella through infection or vaccination.Negative - Indicates the patient could be susceptible to Rubella infection.Equivocal - A second specimen should be sent. [facility] System[facility]atitis B Surface [id number] 17:05:37 Test Item Value Reference Range Interpretation Comments HBsAg Semi-Quantitative (test code = Negative Negative 5195-3) [facility]2 AG-AB WITH [id number] 11:27:21 Test Item Value Reference Range Interpretation Comments HIV Negative Negative Semi-quantitative (test code = 70906-5) GLADYS (test code = Non-reactive for HIV-1 GLADYS) antigen and HIV-1/HIV-2 antibodies. ?No laboratory evidence of HIV infection. ?Repeat in 2-4 weeks if acute HIV infection is suspected. [facility] System[facility] (D) IMMUNE [id number] 09:09:42 Test Item Value Reference Range Interpretation Comments RHIG CANDIDATE? No- see comment Patient i s not a (test code = candidate for R [facility]- 5055) Patient is Rh Positive.Perfor med at [facility] Laboratory Services - [facility] Blood Vdrg765 [address]Toll Free: [phone] A No. [id number] [facility] SystemType and Screen - ONCE [id number] 09:08:33 Test Item Value Reference Range Interpretation Comments ABO & RH (test code B Positive Performe d at [facility] = 20) Laboratory Serv ices - [facility] Blood Bank1 [address] [id number] Free: [phone] A No. [id number] IAT (test code = Negative Performed a t [facility] 1185) Laboratory Serv [facility] Blood Bank[address] [place] [address]Ynoh Free: [phone] A No. [id number] [facility] SystemVENOUS CORD [id number] 08:51:38 Test Item Value Reference Range Interpretation Comments VENOUS BASE EXCESS, CORD mEq/L (test code = 7747044334) VENOUS PH, CORD (test 7.25-7.45 L code = 7045345478) VENOUS PC02, CORD (test See_Comment H [Au tomated message] code = 7899404661) The syste m which generated this result transmitted ref erence range: 27 - 49 mmHg. The reference r zoltan was not used to interpret this result as normal/abnor mal. VENOUS PO2, CORD (test See_Comment [Aut omated message] code = 0423277590) The syste m which generated this result transmitted ref erence range: 17 - 41 mmHg. The reference r zoltan was not used to interpret this result as normal/abnor mal. VENOUS BICARBONATE, CORD See_Comment [A utomated message] (test code = 2330690891) The system which generated this result transmitted ref erence range: 12 - 29 mEq/L. The reference r zoltan was not used to interpret this result as normal/abnor mal. Lab Interpretation (test Abnormal code = 87393-9) [facility] SystemARTERIAL CORD [id number] 08:48:28 Test Item Value Reference Range Interpretation Comments BASE EXCESS, CORD mEq/L (test code = 2184338298) AC PH, CORD (BEAKER) 7.18-7.38 (test code = 8605548474) PC02, CORD (test code See_Comment [Auto mated message] The = 3084033161) system which g enerated this result transmit tato reference range : 32 - 66 mmHg. The refer ence range was not used to interpret this result as normal/abnormal . PO2, CORD (test code See_Comment [Autom ated message] The = 9468138130) system which g enerated this result transmit tato reference range : 10 - 30 mmHg. The refer ence range was not used to interpret this result as normal/abnormal . BICARBONATE, CORD See_Comment [Automate d message] The (test code = system which ge nerated this 0124711814) result transmit tato reference range : 17 - 27 mEq/L. The refe rence range was not used to interpret this result as normal/abnormal . [facility] with [id number] 08:33:11 Test Item Value Reference Range Interpretation Comments WBC (test code = See_Comment H [Automated 6690-2) message] The sy stem which generated this result transmitted reference range : 4.30 - 11.10 10*3/?L. The reference range was not used to interpret this result as normal/abnormal . RBC (test code = See_Comment [Automated 789-8) message] The sy stem which generated this result transmitted reference range : 3.93 - 5.25 10*6/?L. The reference range was not used to interpret this result as normal/abnormal . HGB (test code = 10.9 g/dL 11.6-15.0 L 718-7) HCT (test code = 34.1 % 35.7-45.2 L 4544-3) MCV (test code = 78.8 fL 80.6-95.5 L 787-2) MCH (test code = 25.2 pg 25.9-32.8 L 785-6) MCHC (test code = 32.0 g/dL 31.6-35.1 786-4) RDW-SD (test code = 49.8 fL 39.0-49.9 73486-4) RDW-CV (test code = 17.4 % 12.0-15.5 H 788-0) PLT (test code = See_Comment [Automated 777-3) message] The sy stem which generated this result transmitted reference range : 166 - 358 10*3/ ?L. The reference r zoltan was not used to interpret this result as normal/abnormal . MPV (test code = 11.3 fL 9.5-12.9 27903-9) NRBC/100 WBC (test See_Comment [Automat ed code = 7331832981) message] The system which generated this result transmitted reference range : 0.0 - 10.0 /100 WBCs. The refer ence range was not u sed to interpret th is result as normal/abnormal . NRBC x10^3 (test code <0.01 See_Comment [Auto mated = 3957765589) message] The s ystem which generated this result transmitted reference range : 10*3/?L. The reference range was not used to interpret this result as normal/abnormal . GRAN MAT (NEUT) % 72.5 % (test code = 770-8) IMM GRAN % (test code 0.40 % = 4447962824) LYMPH % (test code = 16.7 % 736-9) MONO % (test code = 9.4 % 5905-5) EOS % (test code = 0.8 % 713-8) BASO % (test code = 0.2 % 706-2) GRAN MAT x10^3(ANC) 8.85 10*3/uL 1.88-7.09 H (test code = 4110706387) IMM GRAN x10^3 (test 0.05 10*3/uL 0.00-0.06 code = 7121266805) LYMPH x10^3 (test code 2.03 10*3/uL 1.32-3.29 = 731-0) MONO x10^3 (test code 1.14 10*3/uL 0.33-0.92 H = 742-7) EOS x10^3 (test code = 0.10 10*3/uL 0.03-0.39 711-2) BASO x10^3 (test code <0.03 0.01-0.07 = 704-7) Lab Interpretation Abnormal (test code = 86023-2) [facility] URINALYSIS W/O SPECIFIC [id number] 19:39:00 Test Item Value Reference Range Interpretation Comments POCT PH U (test code = 3254) n/a 5-8 POCT U LEUK EST (test code = n/a Negative - Negative 3263) POCT U NIT (test code = 3262) N/A Negative - Negative POCT U PROT (test code = 3259) negative Negative - Negative POCT U GLU (test code = 3256) negative Negative - Negative POCT U KETONE (test code = 3258) n/a Negative - Negative POCT U BLD (test code = 3257) n/a Negative - Negative [facility] URINALYSIS W/O SPECIFIC [id number] 20:47:00 Test Item Value Reference Range Interpretation Comments POCT PH U (test code = 3254) n/a 5-8 POCT U LEUK EST (test code = n/a Negative - Negative 3263) POCT U NIT (test code = 3262) n/a Negative - Negative POCT U PROT (test code = 3259) negative Negative - Negative POCT U GLU (test code = 3256) negative Negative - Negative POCT U KETONE (test code = 3258) n/a Negative - Negative POCT U BLD (test code = 3257) n/a Negative - Negative [facility] AG-AB WITH [id number] 17:26:44 Test Item Value Reference Range Interpretation Comments HIV Negative Negative Semi-quantitative (test code = 95780-2) GLADYS (test code = Non-reactive for HIV-1 GLADYS) antigen and HIV-1/HIV-2 antibodies. ?No laboratory evidence of HIV infection. ?Repeat in 2-4 weeks if acute HIV infection is suspected. [facility] SystemPRENATAL WORKUP, BLOOD [id number] 17:01:59 Test Item Value Reference Range Interpretation Comments ABO & RH (test code B Positive Performe d at [facility] = 20) Laboratory Serv [facility] Blood Bank1 [address] [place] [address] Free: [phone] A No. [id number] IAT (test code = Negative Performed a t [facility] 1185) Laboratory [facility] Blood Bank1 [address] [place] [address] Free: [phone] A No. [id number] [facility] SystemCBC WITH [id number] 16:30:16 Test Item Value Reference Range Interpretation Comments WBC (test code = See_Comment [Automated 8690-2) message] The sy stem which generated this result transmitted reference range : 4.30 - 11.10 10*3/?L. The reference range was not used to interpret this result as normal/abnormal . RBC (test code = See_Comment L [Automated 059-8) message] The sy stem which generated this result transmitted reference range : 3.93 - 5.25 10*6/?L. The reference range was not used to interpret this result as normal/abnormal . HGB (test code = 9.1 g/dL 11.6-15.0 L 718-7) HCT (test code = 28.8 % 35.7-45.2 L 4544-3) MCV (test code = 77.4 fL 80.6-95.5 L 787-2) MCH (test code = 24.5 pg 25.9-32.8 L 785-6) MCHC (test code = 31.6 g/dL 31.6-35.1 786-4) RDW-SD (test code = 38.5 fL 39.0-49.9 L 41887-9) RDW-CV (test code = 13.7 % 12.0-15.5 788-0) PLT (test code = See_Comment [Automated 777-3) message] The sy stem which generated this result transmitted reference range : 166 - 358 10*3/ ?L. The reference r zoltan was not used to interpret this result as normal/abnormal . MPV (test code = 10.3 fL 9.5-12.9 14522-2) NRBC/100 WBC (test See_Comment [Automat ed code = [id number]) message] The system which generated this result transmitted reference range : 0.0 - 10.0 /100 WBCs. The refer ence range was not u sed to interpret th is result as normal/abnormal . NRBC x10^3 (test code <0.01 See_Comment [Auto mated = [id number]) message] The s ystem which generated this result transmitted reference range : 10*3/?L. The reference range was not used to interpret this result as normal/abnormal . GRAN MAT (NEUT) % 73.8 % (test code = 770-8) IMM GRAN % (test code 0.70 % = 6149526273) LYMPH % (test code = 16.9 % 736-9) MONO % (test code = 6.7 % 5905-5) EOS % (test code = 1.6 % 713-8) BASO % (test code = 0.3 % 706-2) GRAN MAT x10^3(ANC) 7.66 10*3/uL 1.88-7.09 H (test code = 4474087492) IMM GRAN x10^3 (test 0.07 10*3/uL 0.00-0.06 H code = 0837705271) LYMPH x10^3 (test code 1.75 10*3/uL 1.32-3.29 = 731-0) MONO x10^3 (test code 0.69 10*3/uL 0.33-0.92 = 742-7) EOS x10^3 (test code = 0.17 10*3/uL 0.03-0.39 711-2) BASO x10^3 (test code 0.03 10*3/uL 0.01-0.07 = 704-7) Lab Interpretation Abnormal (test code = 97449-4) [facility] URINALYSIS W/O SPECIFIC [id number] 21:41:00 Test Item Value Reference Range Interpretation Comments POCT PH U (test code = 3254) n/a 5-8 POCT U LEUK EST (test code = n/a Negative - Negative 3263) POCT U NIT (test code = 3262) n/a Negative - Negative POCT U PROT (test code = 3259) negative Negative - Negative POCT U GLU (test code = 3256) negative Negative - Negative POCT U KETONE (test code = 3258) n/a Negative - Negative POCT U BLD (test code = 3257) n/a Negative - Negative Lab Interpretation (test code = Normal 34856-0) [facility] URINALYSIS W/O SPECIFIC [id number] 21:23:00 Test Item Value Reference Range Interpretation Comments POCT PH U (test code = 3254) N/A 5-8 POCT U LEUK EST (test code = N/A Negative - Negative 3263) POCT U NIT (test code = 3262) N/A Negative - Negative POCT U PROT (test code = 3259) Negative Negative - Negative POCT U GLU (test code = 3256) Negative Negative - Negative POCT U KETONE (test code = 3258) N/A Negative - Negative POCT U BLD (test code = 3257) N/A Negative - Negative [facility]
[2022-01-03 15:03] LABS: Urine Blood 2+ (Negative); Urine Glucose Negative (Negative); Urine Protein Negative (Negative); Urine pH 5.5 (5.0-7.0)
--- NOTE | 2022-01-03 15:31 | ER ---
Nurse's Notes [facility] Name: Roro Heredia Age: 26 yrs Sex: Female : 1995 Arrival Date: 01/03/2022 Time: 12:03 Bed 10 Private MD: Diagnosis: Diarrhea, unspecified Presentation: 01/03 12:12 Chief complaint: Patient states: last night i started having real bad diarrhea and tw2 today if i try to drink it upsets my stomach. when i tried to get my kids up for school this morning i started feeling week and my head started hurting. Coronavirus screen: diarrhea, fatigue, Client presents with at least one sign or symptom that may indicate coronavirus-19. Standard/surgical mask placed on the client. Provider contacted for isolation considerations. Ebola Screen: Patient denies travel to an Ebola-affected area in the 21 days before illness onset. Initial Sepsis Screen: Does the patient meet any 2 criteria? HR > 90 bpm. No. Patient's initial sepsis screen is negative. Does the patient have a suspected source of infection? No. Patient's initial sepsis screen is negative. Risk Assessment: Do you want to hurt yourself or someone else? Patient reports no desire to harm self or others. Onset of symptoms was January 03, 2022. 12:12 Method Of Arrival: Ambulatory tw2 12:12 Acuity: JULIET 3 tw2 Triage Assessment: 12:16 General: Appears in no apparent distress. Behavior is calm, cooperative, appropriate tw2 for age. Pain: Denies pain. Neuro: Reports headache. Respiratory: Airway is patent Respiratory effort is even, unlabored, Respiratory pattern is regular, symmetrical. GI: Reports diarrhea. 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 - Social history:: Smoking status: . Screenin:17 Abuse screen: Denies threats or abuse. Nutritional screening: No deficits noted. tw2 Tuberculosis screening: No symptoms or risk factors identified. Fall Risk None identified. Assessment: 14:30 General: Appears in no apparent distress. comfortable, Behavior is calm, cooperative, kb3 Received care of pt from [facility]. Pt is aAO x4. Reports diarrhea x4 episodes that began last night with associated nausea after eating. Denies abdominal pain. Denies vomiting.. 14:30 Pain: Denies pain. GI: Bowel sounds present X 4 quads. Abd is soft and non tender kb3 Reports diarrhea. Vital Signs: 12:12 BP 117 / 75; Pulse 96; Resp 17; Temp 98.2(TE); Pulse Ox 98% on R/A; Weight 77.11 kg tw2 (R); Height 5 ft. 2 in. (157.48 cm); Pain 0/10; 12:12 Body Mass Index 31.09 (77.11 kg, 157.48 cm) tw2 ED Course: 12:03 Patient arrived in ED. mr 12:15 Triage completed. tw2 12:16 Arm band placed on. tw2 12:23 Simon High is PHCP. jl9 12:23 John Sevilla MD is Attending Physician. jl9 14:30 Patient has correct armband on for positive identification. Bed in low position. Call kb3 light in reach. Side rails up X 1. 14:30 No provider procedures requiring assistance completed. Patient did not have IV access kb3 during this emergency room visit. 14:48 Vania Leone, RN is Primary Nurse. kb3 15:20 SARS-COV-2 RT PCR (Document "Date of Onset" if Symptomatic) Sent. kb3 Administered Medications: No medications were administered Medication: 14:30 VIS not applicable for this client. kb3 Outcome: 15:30 Discharge ordered by . [email or web address] 15:55 Discharged to home ambulatory. kb3 15:55 Condition: stable 15:55 Discharge instructions given to patient, Instructed on discharge instructions, follow up and referral plans. medication usage, Demonstrated understanding of instructions, follow-up care, medications, Prescriptions given X 2. 15:56 Patient left the ED. kb3 Signatures: Mag Tucker Jo Ann Hernandez RN RN tw2 Simon High jl9 Vania Leone, RN RN kb3
--- NOTE | 2022-01-03 15:31 | EDPHYS ---
Physician Documentation [facility] Name: Roro Heredia Age: 26 yrs Sex: Female : 1995 Arrival Date: 01/03/2022 Time: 12:03 Bed 10 Private MD: ED Physician John Sevilla HPI: 01/03 15:09 This 26 yrs old Black Female presents to ER via Ambulatory with complaints of weakness jl9 and nausea only when eating. Patient reports 4 episoded of diarrhea since yesterday. . 15:09 Onset: The symptoms/episode began/occurred yesterday. The symptoms do not radiate. jl9 Associated signs and symptoms: Pertinent positives: nausea. Modifying factors: the symptoms are aggravated by food. The patient has not experienced similar symptoms in the past. 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 - Social history:: Smoking status: . ROS: 15:10 Constitutional: Negative for fever, chills, and weight loss, Eyes: Negative for injury, jl9 pain, redness, and discharge, ENT: Negative for injury, pain, and discharge, Neck: Negative for injury, pain, and swelling, Cardiovascular: Negative for chest pain, palpitations, and edema, Respiratory: Negative for shortness of breath, cough, wheezing, and pleuritic chest pain. 15:10 Back: Negative for injury and pain, : Negative for injury, bleeding, discharge, and swelling, MS/Extremity: Negative for injury and deformity, Skin: Negative for injury, rash, and discoloration, Neuro: Negative for headache, weakness, numbness, tingling, and seizure, Psych: Negative for depression, anxiety, suicide ideation, homicidal ideation, and hallucinations, Allergy/Immunology: Negative for hives, rash, and allergies, Endocrine: Negative for neck swelling, polydipsia, polyuria, polyphagia, and marked weight changes, Hematologic/Lymphatic: Negative for swollen nodes, abnormal bleeding, and unusual bruising. 15:10 Abdomen/GI: Positive for nausea. Exam: 15:11 Constitutional: This is a well developed, well nourished patient who is awake, alert, jl9 and in no acute distress. Head/Face: Normocephalic, atraumatic. Eyes: Pupils equal round and reactive to light, extra-ocular motions intact. Lids and lashes normal. Conjunctiva and sclera are non-icteric and not injected. Cornea within normal limits. Periorbital areas with no swelling, redness, or edema. ENT: Mucous membranes moist. Neck: Trachea midline, no thyromegaly or masses palpated, and no cervical lymphadenopathy. Supple, full range of motion without nuchal rigidity, or vertebral point tenderness. No Meningismus. Chest/axilla: Normal chest wall appearance and motion. Nontender with no deformity. No lesions are appreciated. Cardiovascular: Regular rate and rhythm with a normal S1 and S2. No gallops, murmurs, or rubs. Normal PMI, no JVD. No pulse deficits. Respiratory: Lungs have equal breath sounds bilaterally, clear to auscultation and percussion. No rales, rhonchi or wheezes noted. No increased work of breathing, no retractions or nasal flaring. Abdomen/GI: Soft, non-tender, with normal bowel sounds. No distension or tympany. No guarding or rebound. No evidence of tenderness throughout. Back: No spinal tenderness. No costovertebral tenderness. Full range of motion. Skin: Warm, dry with normal turgor. Normal color with no rashes, no lesions, and no evidence of cellulitis. MS/ Extremity: Pulses equal, no cyanosis. Neurovascular intact. Full, normal range of motion. Neuro: Awake and alert, GCS 15, oriented to person, place, time, and situation. Cranial nerves II-XII grossly intact. Motor strength 5/5 in all extremities. Sensory grossly intact. Cerebellar exam normal. Normal gait. Psych: Awake, alert, with orientation to person, place and time. Behavior, mood, and affect are within normal limits. Vital Signs: 12:12 BP 117 / 75; Pulse 96; Resp 17; Temp 98.2(TE); Pulse Ox 98% on R/A; Weight 77.11 kg tw2 (R); Height 5 ft. 2 in. (157.48 cm); Pain 0/10; 12:12 Body Mass Index 31.09 (77.11 kg, 157.48 cm) tw2 MDM: 14:13 Patient medically screened. jl9 15:11 Data reviewed: vital signs, nurses notes. jl9 15:32 Counseling: I had a detailed discussion with the patient and/or guardian regarding: the jl9 historical points, exam findings, and any diagnostic results supporting the discharge/admit diagnosis, lab results, the need for outpatient follow up, to return to the emergency department if symptoms worsen or persist or if there are any questions or concerns that arise at home, Patient states she would not like to wait for her other diagnostics and would like to leave. Patient agrees to follow up with PCP in 1-2 days. Patient non-toxic appearing and denies any current pain. . 01/03 12:24 Order name: SARS-COV-2 RT PCR (Document "Date of Onset" if Symptomatic) [facility] 01/03 15:03 Order name: Urine Dipstick-Ancillary; Complete Time: 15:09 [facility] 01/03 12:24 Order name: Urine Dipstick-Ancillary (obtain specimen); Complete Time: 15:07 [facility] 01/03 12:24 Order name: Urine Test (obtain specimen); Complete Time: 15:07 [facility] 01/03 15:04 Order name: Urine --Ancillary (enter results) eb Administered Medications: No medications were administered Disposition Summary: 01/03/22 15:30 Discharge Ordered Location: Home jl9 Condition: Stable jl9 Diagnosis - Diarrhea, unspecified jl9 Followup: jl9 - With: Private Physician - When: 1 - 2 days - Reason: Recheck today's complaints, Continuance of care, Re-evaluation by your physician Discharge Instructions: - Discharge Summary Sheet jl9 - Diarrhea, Adult, [id number] jl9 Forms: - Medication Reconciliation Form jl9 - Thank You Letter jl9 - Antibiotic Education jl9 - Prescription Opioid Use jl9 Prescriptions: - dicyclomine 10 mg Oral Capsule - take 1 capsule by ORAL route 4 times per day As needed; 12 capsule; Refills: 0, jl9 Product Selection Permitted - ondansetron 8 mg Oral tablet,disintegrating - take 1 tablet by ORAL route every 8 hours As needed; 20 tablet; Refills: 0, jl9 Product Selection Permitted Signatures: Dispatcher [employer] Jo Ann Krishna RN RN tw2 Simon High jl9 Corrections: (The following items were deleted from the chart) 15:33 15:09 This 26 yrs old Black Female presents to ER via Ambulatory with complaints of jl9 weakness and naseaa only when eating. . jl9
[2022-01-04 18:10] VITALS: BP 117/75; TEMP 98.2; O2SAT 98
== END 2022-01-03 15:56 | disposition home or self-care (01) ==
LOC: ER 12:01
DX: R19.7 Diarrhea, unspecified (principal); R53.1 Weakness; Z20.822 Contact with and (suspected) exposure to COVID-19
CPT/HCPCS: 81025; 81003; 99283; U0003

== ENCOUNTER 2022-07-04 08:08 | Emergency (ER) | payer OTHER ==
[2022-07-04 08:26] LABS: Urine Blood Negative (Negative); Urine Glucose Negative (Negative); Urine Protein Negative (Negative); Urine Specific Gravity 1.015 (1.005-1.030); Urine pH 6.5 (5.0-7.0)
[2022-07-04] MEDS ORDERED: NA CHLORIDE 0.9% 1,000 ML ONE (08:34)
[2022-07-04] MEDS ORDERED: ACETAMINOPHEN 500 MG TAB ONE (08:34)
[2022-07-04 08:36] LABS: Urine Bacteria <20 /HPF (<20); Urine Mucus Slight /HPF (None Seen); Urine RBC <5 /HPF (None Seen)
[2022-07-04 08:37] LABS: Absolute Lymphocytes (CBC) 2.2 K/uL (0.7-4.9); Hematocrit 33.1 % (36.0-45.0); MCV 79.8 fL (80-100); MPV 8.7 fL (7.6-11.3); RBC Red Blood Cell Count 4.14 M/uL (3.86-4.86)
[2022-07-04 08:40] LABS: Urine Specific Gravity/Preg 1.015 (1.005-1.030)
[2022-07-04 08:49] LABS: Potassium 3.5 mmol/L (3.5-5.1)
--- NOTE | 2022-07-04 11:19 | ER ---
Nurse's Notes [facility] Name: Roro Heredia Age: 27 yrs Sex: Female : 1995 Arrival Date: 07/04/2022 Time: 08:11 Bed 5 Private MD: Diagnosis: Headache Presentation: 07/04 08:20 Chief complaint: Patient states: intermittent headache x 2 days, sensitivity to light ph and sound. Pt reports that she is approx 20 weeks . Denies N/V. Coronavirus screen: Vaccine status: Patient reports being unvaccinated. Ebola Screen: No symptoms or risks identified at this time. Initial Sepsis Screen: Does the patient meet any 2 criteria? No. Patient's initial sepsis screen is negative. Does the patient have a suspected source of infection? No. Patient's initial sepsis screen is negative. Risk Assessment: Do you want to hurt yourself or someone else? Patient reports no desire to harm self or others. Onset of symptoms was July 04, 2022. 08:20 Method Of Arrival: Ambulatory ph 08:20 Acuity: JULIET 3 ph Triage Assessment: 08:24 General: Appears in no apparent distress. comfortable, well groomed, Behavior is calm, ph cooperative, appropriate for age, Denies fever, chills. Pain: Complains of pain in top of head, left side of the back of head and right side of the back of head. Neuro: Level of Consciousness is awake, alert, obeys commands, Oriented to person, place, time, situation, Reports headache. Cardiovascular: Capillary refill < 3 seconds in bilateral fingers Patient's skin is warm and dry. Respiratory: Airway is patent Respiratory effort is even, unlabored. Derm: Skin is intact, is healthy with good turgor, Skin is pink, warm \T\ dry. Musculoskeletal: Circulation, motion, and sensation intact. Range of motion: intact in all extremities. ORDER TRACER: 08:27 Verified ph Historical: - Allergies: 08:22 No Known Allergies; ph - Home Meds: 08:22 None [Active]; ph - PMHx: 08:22 None; ph - Immunization history:: Adult Immunizations unknown. - Social history:: Smoking status: Patient denies any tobacco usage or history of. Patient/guardian denies using alcohol. Screenin:25 [facility] ED Fall Risk Assessment (Adult) History of falling in the last 3 months, ph including since admission No falls in past 3 months (0 pts) Confusion or Disorientation No (0 pts) Intoxicated or Sedated No (0 pts) Impaired Gait No (0 pts) Mobility Assist Device Used No (0 pt) Altered Elimination No (0 pt). [facility] ED Fall Risk Assessment (Adult) Score/Fall Risk Level 0 - 2 = Low Risk Oriented to surroundings, Maintained a safe environment, Hourly rounding (assess needs \T\ fall precautionary measures) done. Abuse screen: Denies threats or abuse. Denies injuries from another. Nutritional screening: No deficits noted. Tuberculosis screening: No symptoms or risk factors identified. Assessment: 08:30 General: SEE TRIAGE ASSESSMENT. ph 09:24 Reassessment: Patient appears in no apparent distress at this time. Patient and/or ph family updated on plan of care and expected duration. Pain level reassessed. Patient is alert, oriented x 3, equal unlabored respirations, skin warm/dry/pink. Pt states that headache is improving, VSS. Vital Signs: 08:20 BP 94 / 71; Pulse 61; Resp 18; Temp 97.9; Pulse Ox 97% on R/A; Weight 83.46 kg; Height ph 5 ft. 5 in. ; 08:37 BP 93 / 63; Pulse 80; Resp 18; Pulse Ox 99% ; ko1 09:23 BP 93 / 75; Pulse 76; Resp 18; Pulse Ox 100% on R/A; ph 09:54 BP 94 / 57; Pulse 85; Pulse Ox 100% ; ko1 10:58 BP 106 / 56; Pulse 78; Pulse Ox 100% ; ko1 08:20 Body Mass Index 30.62 (83.46 kg, 165.1 cm) ph Vitals: 09:23 Heart Tones 146 bpm. ED Course: 08:11 Patient arrived in ED. rg4 08:13 Jenifer Hernandez FNP-C [facility]. kb 08:13 Dangelo Blair MD is Attending Physician. kb 08:19 Shannon Monk, SARAH is Primary Nurse. ph 08:22 Triage completed. ph 08:22 Arm band placed on Patient placed in an exam room, on a stretcher. ph 08:23 Patient has correct armband on for positive identification. Bed in low position. Call ph light in reach. Pulse ox on. NIBP on. Door closed. Noise minimized. Lights dimmed. Warm blanket given. 08:25 Inserted saline lock: 20 gauge in right antecubital area, using aseptic technique. ko1 Blood collected. 08:28 Urine Microscopic Only Sent. ko1 08:28 Basic Metabolic Panel Sent. ko1 08:28 CBC with Diff Sent. ko1 08:36 Urine --Ancillary (enter results) Sent. ko1 09:25 No provider procedures requiring assistance completed. ph Administered Medications: :32 Drug: NS 0.9% IV 1000 ml Route: IV; Rate: 1000 ml; Site: right antecubital; ph 08:32 Drug: Acetaminophen PO 1000 mg Route: PO; ph Medication: 08: VIS not applicable for this client. ph Outcome: 11:19 Discharge ordered by . kb Signatures: Jenifer Hernandez, EXTRUSION PRESS SUPERVISOR-C EXTRUSION PRESS SUPERVISOR-Shannon Martin RN RN Kym Ramirez rg4 Marlena Carrillo, SARAH RN ko1
--- NOTE | 2022-07-04 11:19 | EDPHYS ---
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 - Social history:: Smoking status: Patient denies any tobacco usage or history of. Patient/guardian denies using alcohol. ROS: 08:33 Constitutional: Negative for fever, chills, and weight loss. kb 08:33 Abdomen/GI: Positive for nausea. 08:33 Neuro: Positive for headache. 08:33 All other systems are negative. Exam: 08:33 Constitutional: This is a well developed, well nourished patient who is awake, alert, kb and in no acute distress. Head/Face: Normocephalic, atraumatic. Eyes: Pupils equal round and reactive to light, extra-ocular motions intact. Lids and lashes normal. Conjunctiva and sclera are non-icteric and not injected. Cornea within normal limits. Periorbital areas with no swelling, redness, or edema. ENT: Moist Mucous membranes Cardiovascular: Regular rate and rhythm with a normal S1 and S2. No gallops, murmurs, or rubs. No pulse deficits. Respiratory: Respirations even and unlabored. No increased work of breathing. Talking in full sentences Abdomen/GI: Soft, non-tender. No distention Skin: Warm, dry with normal turgor. Normal color. MS/ Extremity: Pulses equal, no cyanosis. Neurovascular intact. Full, normal range of motion. Neuro: Awake and alert, GCS 15, oriented to person, place, time, and situation. Moves all extremities. Normal gait. Vital Signs: 08:20 BP 94 / 71; Pulse 61; Resp 18; Temp 97.9; Pulse Ox 97% on R/A; Weight 83.46 kg; Height ph 5 ft. 5 in. ; 08:37 BP 93 / 63; Pulse 80; Resp 18; Pulse Ox 99% ; ko1 09:23 BP 93 / 75; Pulse 76; Resp 18; Pulse Ox 100% on R/A; ph 09:54 BP 94 / 57; Pulse 85; Pulse Ox 100% ; ko1 10:58 BP 106 / 56; Pulse 78; Pulse Ox 100% ; ko1 08:20 Body Mass Index 30.62 (83.46 kg, 165.1 cm) ph MDM: 08:14 Patient medically screened. kb 08:34 Data reviewed: vital signs, nurses notes. kb 07/04 08:22 Order name: Urine Dipstick-Ancillary (obtain specimen); Complete Time: 08:28 kb 07/04 08:22 Order name: IV Start; Complete Time: 08:28 kb 07/04 08:22 Order name: Urine Microscopic Only; Complete Time: 08:43 kb 07/04 08:33 Order name: Urine --Ancillary (enter results); Complete Time: 08:43 bd 07/04 08:22 Order name: CBC with Diff; Complete Time: 08:51 kb 07/04 08:22 Order name: Basic Metabolic Panel; Complete Time: 08:51 kb 07/04 08:22 Order name: FHT's; Complete Time: 09:22 kb 07/04 08:26 Order name: Urine Dipstick-Ancillary; Complete Time: 08:31 EDMS Administered Medications: 08:32 Drug: NS 0.9% IV 1000 ml Route: IV; Rate: 1000 ml; Site: right antecubital; ph 08:32 Drug: Acetaminophen PO 1000 mg Route: PO; ph Disposition Summary: 07/04/22 11:19 Discharge Ordered Location: Home kb Condition: Stable kb Diagnosis - Headache kb Followup: kb - With: Emergency Department - When: As needed - Reason: Worsening of condition Followup: kb - With: Private Physician - When: 2 - 3 days - Reason: Recheck today's complaints, Continuance of care, Re-evaluation by your physician Forms: - Medication Reconciliation Form kb - Thank You Letter kb - Antibiotic Education kb - Prescription Opioid Use kb Signatures: Dispatcher [employer] EDMS Jenifer Hernandez FNP-C FNP-Ckb Hall, Patricia, RN RN ph
[2022-07-04 15:44] VITALS: TEMP 97.9
[2022-07-04 15:46] VITALS: O2SAT 100
[2022-07-04 15:49] VITALS: BP 106/56
== END 2022-07-04 11:25 | disposition home or self-care (01) ==
LOC: ER 08:08
DX: O99.352 Diseases of the nervous system complicating pregnancy, second trimester (principal); R51.9 Headache, unspecified; Z3A.20 20 weeks gestation of pregnancy
CPT/HCPCS: 85025; 80048; 36415; 81025; 96360; 99284; J7030; 81003; 81015

== ENCOUNTER → 2023-05-16 | Emergency (ER) | payer OTHER, SELFPAY ==
[2023-05-16 19:19] LABS: Specific Gravity 1.013 (1.005-1.030)
[2023-05-16 19:22] LABS: Specific Gravity 1.013 (1.005-1.030); Urine Bacteria <20 /HPF (<20); Urine Bilirubin NEGATIVE (Negative); Urine Blood Negative (Negative); Urine Clarity Turbid (Clear); Urine Color Colorless (Yellow); Urine Glucose NEGATIVE (Negative); Urine Protein NEGATIVE (Negative); Urine RBC <5 /HPF (None Seen); Urine Urobilinogen Normal (Normal); Urine pH 6.5 (5.0-7.0)
--- NOTE | 2023-05-16 19:43 | ER ---
Nurse's Notes [facility] Name: Roro Heredia Age: 28 yrs Sex: Female : 1995 Arrival Date: 05/16/2023 Time: 18:16 Bed 11 Private MD: Diagnosis: Vaginitis, vulvitis and vulvovaginitis in diseases classified elsewhere Presentation: 05/16 18:42 Chief complaint: Patient states: have been having thick and clear vaginal discharge x rv 2days. denies other symptoms. no fever. no urinary symptoms. Coronavirus screen: At this time, the client does not indicate any symptoms associated with coronavirus-19. Ebola Screen: No symptoms or risks identified at this time. Initial Sepsis Screen: Does the patient meet any 2 criteria? No. Patient's initial sepsis screen is negative. Does the patient have a suspected source of infection? No. Patient's initial sepsis screen is negative. Risk Assessment: Do you want to hurt yourself or someone else? Patient reports no desire to harm self or others. Onset of symptoms was May 16, 2023. 18:42 Method Of Arrival: Ambulatory rv 18:42 Acuity: JULIET 4 rv Triage Assessment: 18:46 General: Appears in no apparent distress. Behavior is calm, cooperative. Pain: Denies rv pain. Neuro: Level of Consciousness is awake, alert, obeys commands, Oriented to person, place, time, situation. Cardiovascular: Capillary refill < 3 seconds Patient's skin is warm and dry. Respiratory: Airway is patent Respiratory effort is even, unlabored. GI: No signs and/or symptoms were reported involving the gastrointestinal system. : Reports thick and clear vaginal discharge. Derm: Skin is intact. 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 - Social history:: Smoking status: Patient denies any tobacco usage or history of. Screenin:15 [facility] ED Fall Risk Assessment (Adult) History of falling in the last 3 months, rv including since admission No falls in past 3 months (0 pts) Score/Fall Risk Level 0 - 2 = Low Risk Oriented to surroundings, Maintained a safe environment, Educated pt \T\ family on fall prevention, incl call for assistance when getting out of bed, Assessed \T\ reinforced patient's understanding of fall precautions. Abuse screen: Denies threats or abuse. Denies injuries from another. Nutritional screening: No deficits noted. Tuberculosis screening: No symptoms or risk factors identified. Assessment: 20:02 Reassessment: No changes from previously documented assessment. Patient and/or family toni9 updated on plan of care and expected duration. Pain level reassessed. Patient is alert, oriented x 3, equal unlabored respirations, skin warm/dry/pink. Vital Signs: 18:42 BP 126 / 88; Pulse 85; Resp 17; Temp 98.1; Pulse Ox 100% ; Weight 82.55 kg; Height 5 rv ft. 6 in. ; Pain 0/10; 18:42 Body Mass Index 29.38 (82.55 kg, 167.64 cm) rv 18:42 Pain Scale: Adult rv ED Course: 18:32 Patient arrived in ED. ae5 18:44 Axel Quick MD is Attending Physician. sp4 18:46 Triage completed. rv 18:46 Arm band placed on right wrist. rv 19:02 John Palacios PA is PHCP. cp 19:15 Patient has correct armband on for positive identification. Client placed on continuous rv cardiac and pulse oximetry monitoring. NIBP monitoring applied. 19:15 No provider procedures requiring assistance completed. Patient did not have IV access rv during this emergency room visit. Administered Medications: No medications were administered Medication: 19:15 VIS not applicable for this client. rv Outcome: 19:42 Discharge ordered by MD. cp 20:02 Discharged to home ambulatory, mb9 20:02 Condition: stable 20:02 Discharge instructions given to patient, Instructed on discharge instructions, follow up and referral plans. Demonstrated understanding of instructions, follow-up care, medications, Prescriptions given X 1, 20:02 Patient left the ED. mb9 Signatures: John Palacios PA PA cp Vicente, Ronaldo, RN RN rv Mag Carlton RN RN mb9 Axel Quick MD MD sp4 Vani Carrasquillo ae5
--- NOTE | 2023-05-16 19:43 | EDPHYS ---
Physician Documentation [facility] Name: Roro Heredia Age: 28 yrs Sex: Female : 1995 Arrival Date: 05/16/2023 Time: 18:16 Bed 11 Private MD: ED Physician Axel Quick HPI: 05/16 18:44 This 28 yrs old Black Female presents to ER via Unassigned with complaints of Vaginal sp4 Discharge. 18:45 The patient presents with vaginal discharge, that is white discharge. cp 18:45 Onset: The symptoms/episode began/occurred 2 day(s) ago. cp 18:45 Associated signs and symptoms: Pertinent negatives: diarrhea, dysuria, fever, vaginal cp bleeding, vomiting, abdominal pain. The patient is sexually active. The patient's method of control includes nothing. Patient reports she has been taking prescribed antibiotic for past 7 days and in the past has been treated for yeast infection after taking antibiotics. 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 - Social history:: Smoking status: Patient denies any tobacco usage or history of. ROS: 18:50 : Positive for vaginal discharge, Negative for urinary symptoms, vaginal bleeding, cp 18:50 Constitutional: Negative for fever, cp 18:50 Abdomen/GI: Negative for abdominal pain, nausea, vomiting, and diarrhea, 18:50 Skin: Negative for rash, 18:50 All other systems are negative, Exam: 19:00 Constitutional: The patient appears in no acute distress, alert, awake, comfortable, cp non-toxic, well developed, well nourished, 19:00 Head/Face: Normocephalic, atraumatic. cp 19:00 Eyes: Periorbital structures: appear normal, Conjunctiva: normal, no exudate, no injection, Sclera: no appreciated abnormality, Lids and lashes: appear normal, bilaterally, 19:00 Chest/axilla: Inspection: normal, 19:00 Cardiovascular: Rate: normal, 19:00 Respiratory: the patient does not display signs of respiratory distress, Respirations: normal, no use of accessory muscles, no retractions, labored breathing, is not present, 19:00 Abdomen/GI: Inspection: abdomen appears normal, Palpation: abdomen is soft and non-tender, in all quadrants, 19:00 Back: pain, is absent, ROM is normal, 19:00 : Pelvic Exam: The exam is refused by the patient/guardian. The risks and consequences are understood by the patient, Sexual behavior: the patient is sexually active, Vital Signs: 18:42 BP 126 / 88; Pulse 85; Resp 17; Temp 98.1; Pulse Ox 100% ; Weight 82.55 kg; Height 5 rv ft. 6 in. ; Pain 0/10; 18:42 Body Mass Index 29.38 (82.55 kg, 167.64 cm) rv 18:42 Pain Scale: Adult rv MDM: 18:46 Patient medically screened. sp4 19:42 Data reviewed: vital signs, nurses notes, lab test result(s), and as a result, I will cp discharge patient. 19:42 Differential diagnosis: pelvic inflammatory disease, urinary tract infection, cp vaginosis, . Counseling: I had a detailed discussion with the patient and/or guardian regarding the historical points, exam findings, and any diagnostic results supporting the discharge/admit diagnosis, lab results, to return to the emergency department if symptoms worsen or persist or if there are any questions or concerns that arise at home. 05/16 18:45 Order name: Urinalysis W/Microscopic; Complete Time: 19:44 sp4 05/16 18:45 Order name: Test, Urine; Complete Time: 19:44 sp4 Administered Medications: No medications were administered Disposition: 19:47 Co-signature as Attending Physician, Axel Quick MD I agree with the assessment sp4 and plan of care. I reviewed the patient's care provided by the Advanced Practice Provider and agree with the diagnosis and treatment plan. Disposition Summary: 05/16/23 19:42 Discharge Ordered Notes: Location: Home cp Problem: new cp Symptoms: are unchanged cp Condition: Stable cp Diagnosis - Vaginitis, vulvitis and vulvovaginitis in diseases classified elsewhere cp Followup: cp - With: Private Physician - When: 2 - 3 days - Reason: Worsening of condition Discharge Instructions: - Discharge Summary Sheet cp - Vaginitis cp Forms: - Medication Reconciliation Form cp - Thank You Letter cp - Antibiotic Education cp - Prescription Opioid Use cp - Patient Portal Instructions cp - Leadership Thank You Letter cp Prescriptions: - Diflucan 150 mg Oral tablet - take 1 tablet ORAL route as directed As needed take 1 tablet immediately, then cp take second tablet 2 days later; 2 tablet; Refills: 0, Product Selection Permitted Signatures: Dispatcher [employer] EDMS oJhn Palacios PA PA cp Vicente, Ronaldo, RN RN Axel Guaman MD MD sp4 Corrections: (The following items were deleted from the chart) 19:03 18:46 Pelvic Exam Setup ordered. sp4 cp
[2023-05-16 21:27] VITALS: BP 126/88; TEMP 98.1; O2SAT 100
== END ==
LOC: ER 18:16
DX: N89.8 Other specified noninflammatory disorders of vagina (principal); N77.1 Vaginitis, vulvitis and vulvovaginitis in diseases classified elsewhere
CPT/HCPCS: 81001; 81025

== ENCOUNTER 2024-02-13 08:14 | Emergency (ER) | payer SELFPAY ==
[2024-02-13] MEDS ORDERED: ONDANSETRON 4 MG (ODT) TAB ONE (08:41)
--- NOTE | 2024-02-13 08:47 | ER ---
Nurse's Notes [facility] Name: Rachelle Heredia Age: 28 yrs Sex: Female : 1995 Arrival Date: 02/13/2024 Time: 08:14 Bed 13 Private MD: Diagnosis: Nausea with vomiting, unspecified;Diarrhea, unspecified Presentation: 02/12 08:31 Chief complaint: Patient states: n/v/d since yesterday. states her son has been sick kc6 with the same thing since Friday. Coronavirus screen: At this time, the client does not indicate any symptoms associated with coronavirus-19. Ebola Screen: No symptoms or risks identified at this time. Initial Sepsis Screen: Does the patient meet any 2 criteria? No. Patient's initial sepsis screen is negative. Does the patient have a suspected source of infection? No. Patient's initial sepsis screen is negative. Risk Assessment: Do you want to hurt yourself or someone else? Patient reports no desire to harm self or others. Onset of symptoms was February 12, 2024. 08:31 Method Of Arrival: Ambulatory [facility] 08:31 Acuity: JULIET 3 6 Triage Assessment: 08:32 General: Appears in no apparent distress. comfortable, well groomed, well developed, 6 Behavior is calm, cooperative, appropriate for age. Pain: Denies pain. EENT: No signs and/or symptoms were reported regarding the EENT system. Neuro: Level of Consciousness is awake, alert, obeys commands, Oriented to person, place, time, situation, Appropriate for age. Cardiovascular: Capillary refill < 3 seconds. Respiratory: Airway is patent Trachea midline Respiratory effort is even, unlabored, Respiratory pattern is regular, symmetrical. GI: Abdomen is round non-distended, Reports diarrhea, nausea, vomiting, Patient currently denies abdominal pain. : No signs and/or symptoms were reported regarding the genitourinary system. Urine is clear. Derm: No signs and/or symptoms reported regarding the dermatologic system. Skin is intact, is healthy with good turgor, Skin is pink, warm \T\ dry. Musculoskeletal: No signs and/or symptoms reported regarding the musculoskeletal system. Circulation, motion, and sensation intact. Capillary refill < 3 seconds, Range of motion: intact in all extremities. 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 - Infectious Disease History:: Denies. - Social history:: Smoking status: Patient denies any tobacco usage or history of. Screenin:34 [facility] ED Fall Risk Assessment (Adult) History of falling in the last 3 months, kc6 including since admission No falls in past 3 months (0 pts) Confusion or Disorientation No (0 pts) Intoxicated or Sedated No (0 pts) Impaired Gait No (0 pts) Mobility Assist Device Used No (0 pt) Altered Elimination No (0 pt) Score/Fall Risk Level 0 - 2 = Low Risk Oriented to surroundings. Abuse screen: Denies threats or abuse. Denies injuries from another. Nutritional screening: No deficits noted. Tuberculosis screening: No symptoms or risk factors identified. Assessment: 08:33 Reassessment: please see triage. kc6 Vital Signs: 08:31 BP 108 / 73; Pulse 84; Resp 18 S; Temp 98.2(O); Pulse Ox 98% on R/A; Weight 81.19 kg kc6 (R); Height 5 ft. 2 in. (R); Pain 0/10; 08:31 Body Mass Index 32.74 (81.19 kg, 157.48 cm) kc6 08:31 Pain Scale: Adult kc ED Course: 08:16 Patient arrived in ED. ra3 08:21 Shruti Samano MD is Attending Physician. sd2 08:23 Jayshree Tejada, SARAH is Primary Nurse. kc6 08:32 Triage completed. kc6 08:32 Arm band placed on. kc6 08:33 Patient maintains SpO2 saturation greater than 95% on room air. kc6 08:34 Patient has correct armband on for positive identification. Bed in low position. Call kc6 light in reach. Side rails up X 1. Pulse ox on. NIBP on. Door closed. Noise minimized. Pillow given. 08:57 No provider procedures requiring assistance completed. Patient did not have IV access kc during this emergency room visit. Administered Medications: 08:45 Drug: Ondansetron Oral Disintegrating Tablet Oral Disintegrating Tablet 4 mg PO once kc6 Route: PO; 08:55 Follow up: Response: No adverse reaction kc6 Medication: 08:57 VIS not applicable for this client. kc6 Outcome: 08:47 Discharge ordered by . sd2 08:57 Discharged to home ambulatory, kc6 08:57 Condition: good 08:57 Discharge instructions given to patient, Instructed on discharge instructions, follow up and referral plans. medication usage, Demonstrated understanding of instructions, follow-up care, medications, Prescriptions given X 1, 08:57 Patient left the ED. kc6 Signatures: Shruti Samano MD MD sd2 Jayshree Tejada RN RN kc6 Layla Wu ra3
--- NOTE | 2024-02-13 08:47 | EDPHYS ---
Physician Documentation [facility] Name: Rachelle Heredia Age: 28 yrs Sex: Female : 1995 Arrival Date: 02/13/2024 Time: 08:14 Bed 13 Private MD: ED Physician Shruti Samano HPI: 02/12 08:43 This 28 yrs old Black Female presents to ER via Ambulatory with complaints of sd2 Vomiting/Diarrhea - stomach pain. 08:43 28 yo F presents with CC of GI upset with vomiting x2 and diarrhea starting yesterday. sd2 Her son has been home with her for similar symptoms and diagnosed with a stomach virus. NBNB emesis and diarrhea. Took Pepto-Bismol with some relief. Able to tolerate fluids. Denies abdominal pain. . 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 - Infectious Disease History:: Denies. - Social history:: Smoking status: Patient denies any tobacco usage or history of. ROS: 08:43 Constitutional: Negative for fever, chills, and weight loss, Eyes: Negative for injury, sd2 pain, redness, and discharge, Cardiovascular: Negative for chest pain, palpitations, and edema, Respiratory: Negative for shortness of breath, cough, wheezing. 08:43 : Negative for dysuria, urinary frequency, hesitancy, urgency and hematuria. MS/Extremity: Negative for injury and deformity, Skin: Negative for injury, rash, and discoloration, 08:43 Abdomen/GI: Positive for nausea, vomiting, and diarrhea, Negative for abdominal pain, Exam: 08:43 Constitutional: This is a well developed, well nourished patient who is awake, alert, sd2 and in no acute distress. Head/Face: Normocephalic, atraumatic. Eyes: EOMI, normal conjunctiva bilaterally Chest/axilla: Normal chest wall appearance and motion. Nontender with no deformity. Cardiovascular: Regular rate and rhythm with a normal S1 and S2. No gallops, murmurs, or rubs. 2+ distal pulses. Respiratory: Lungs have equal breath sounds bilaterally, clear to auscultation and percussion. No rales, rhonchi or wheezes noted. No increased work of breathing, no retractions or nasal flaring. Abdomen/GI: Soft, non-tender, with normal bowel sounds. No guarding or rebound. No evidence of tenderness throughout. Back: No spinal tenderness. No costovertebral tenderness. Full range of motion. Skin: Warm, dry with normal turgor. Normal color with no rashes, no lesions, and no evidence of cellulitis. MS/ Extremity: Pulses equal, no cyanosis. Neurovascular intact. Full, normal range of motion. Psych: Awake, alert, with orientation to person, place and time. Behavior, mood, and affect are within normal limits. Vital Signs: 08:31 BP 108 / 73; Pulse 84; Resp 18 S; Temp 98.2(O); Pulse Ox 98% on R/A; Weight 81.19 kg kc6 (R); Height 5 ft. 2 in. (R); Pain 0/10; 08:31 Body Mass Index 32.74 (81.19 kg, 157.48 cm) kc6 08:31 Pain Scale: Adult kc6 MDM: 08:40 Medical Screening Exam initiated sd2 08:43 Differential diagnosis: Nonspecific abd pain, gastritis, cholecystitis, pancreatitis, sd2 appendicitis, diverticulitis, viral gastroenteritis, gastroenteritis, among others. Data reviewed: vital signs, nurses notes. I considered the following discharge prescriptions or medication management in the emergency department Medications were administered in the Emergency Department. See MAR. Counseling: I had a detailed discussion with the patient and/or guardian regarding the historical points, exam findings, and any diagnostic results supporting the discharge/admit diagnosis, the need for outpatient follow up, to return to the emergency department if symptoms worsen or persist or if there are any questions or concerns that arise at home. ED course: Discussed symptoms and likely GE picked up from her son with the same symptoms. No clinical signs of dehydration. Benign abdominal exam and no pain. Able to tolerate PO. Denies any chance of or urinary symptoms. Therefore, discussed continued supportive care with patient and outpatient follow up as needed with strict return precautions. No indications for further emergent workup at this time. Pt comfortable with plan and verbalizes understanding. . Administered Medications: 08:45 Drug: Ondansetron Oral Disintegrating Tablet Oral Disintegrating Tablet 4 mg PO once kc6 Route: PO; 08:55 Follow up: Response: No adverse reaction kc6 Disposition Summary: 02/13/24 08:47 Discharge Ordered Problem: new sd2 Symptoms: have improved sd2 Condition: Stable sd2 Diagnosis - Nausea with vomiting, unspecified sd2 - Diarrhea, unspecified sd2 Followup: sd2 - With: Private Physician - When: 2 - 3 days - Reason: Recheck today's complaints, Continuance of care, Re-evaluation by your physician Discharge Instructions: - Discharge Summary Sheet sd2 - Diarrhea, Adult sd2 - Nausea and Vomiting, Adult, [id number] sd2 Forms: - Medication Reconciliation Form sd2 - Antibiotic Education sd2 - Prescription Opioid Use sd2 - Patient Portal Instructions sd2 - Leadership Thank You Letter sd2 - Work release form kc6 Prescriptions: - ondansetron 4 mg Oral Tablet,disintegrating - take 1 tablet ORAL route every 4-6 hours As needed; 15 tablet; Refills: 0, sd2 Product Selection Permitted Signatures: Shruti Samano MD MD sd2 Jayshree Tejada RN RN kc6
[2024-02-13 19:24] VITALS: BP 108/73; TEMP 98.2; O2SAT 98
== END 2024-02-13 08:57 | disposition home or self-care (01) ==
LOC: ER 08:14
DX: R11.2 Nausea with vomiting, unspecified (principal); R19.7 Diarrhea, unspecified
CPT/HCPCS: 99283; Q0162

== ENCOUNTER 2024-03-14 05:39 | Emergency (ER) | payer SELFPAY ==
--- OUTSIDE RECORDS SUMMARY | 2024-03-14 05:44 | XMS REPORT | Continuity of Care Document ---
Author Name Unknown Address [address] [place] [address] [facility] Address [address] [place] [address] Care Team Providers Care Presentation Specialist Name Role Phone Patric Carreon Primary Care Physician Un available SO MANLEY Attending Clinician Unavailable SO MANLEY Attending Clinician Unavailable MANOLO DIXON Attending Clinician UnavailMANOLO Carlisle Attending Clinician UnavailSo Valle MD Attending Clinician [phone] Estefanía Naranjo MD Attending Clinician [phone] ESTEFANÍA NARANJO Attending Clinician Unavailable ESTEFANÍA NARANJO Attending Clinician Unavailable Ultrasound, [facility] Attending Clinician UnavailAnastasiya Zhang MD Attending Clinician [phone] ANASTASIYA LEZAMA Attending Clinician Unavailable Doctor Unassigned, [place] Attending Clinician U alekseyailstefan Pob, [facility] Attending Clinician UnavailRose Yeboah Attending Clinician UnavailOTF Dupree Attending Clinician Unavail able ABBEY JEAN Attending Clinician Unavailable TALHA SOMERS Attending Clinician Unavailable Talha Somers MD Attending Clinician [phone] Abbey Jean MD Attending Clinician [phone] Yasmin Pérez MD Attending Clinician + YASMIN PÉREZ Attending Clinician Unav ailable Nurse, [facility] Attending Clinician Unavailable SHEREE MIGUEL Attending Clinician Unavail able SO MANLEY Admitting Clinician Unavailable Estefanía Naranjo MD Admitting Clinician ESTEFANÍA NARANJO Admitting Clinician Unavailable TALHA SOMERS Admitting Clinician Unavailable Talha Somers MD Admitting Clinician [phone] Payers Payer Name Policy Type Policy Number Effective Date Expirati on Date Source [facility] [id number] 2015 00:00:00 2022 00:00:00 [employer] [id number] 2017 00:00:00 Problems Condition Name Condition Details Condition Category Status Onset Date Resolution Date Last Treatment Date Treating Clinician Comments Source 23 weeks gestation of 23 weeks gestation of Disease Active - 00:00: 00 [facility] IUFD at 20 weeks or more of gestation IUFD at 20 weeks or more of gestation Disease Active -29 00:00: 00 [facility] Alpha thalassemi a silent carrier Alpha thalassemi a silent carrier Disease Active 3-14 00:00: 00 [facility] Screening declined by patient Screening declined by patient Disease Active 1-31 00:00: 00 [facility] Zellweger' s syndrome Zellweger' s syndrome Disease Active 2021-04 2-20 00:00: 00 [facility] 9 weeks gestation of 9 weeks gestation of Disease Active 2021-04 2-20 00:00: 00 [facility] Normal labor Normal labor Disease Active 5-15 00:00: 00 [facility] Positive GBS test Positive GBS test Disease Active 5-15 00:00: 00 [facility] Depression affecting in third trimester, antepartum Depression affecting in third trimester, antepartum Disease Active - 00:00: 00 [facility] Noncomplia nt patient in third trimester Noncomplia nt patient in third trimester Disease Active 4-04 00:00: 00 [facility] Anxiety Anxiety Disease Active 2018-04 00:00: 00 [facility] 38 weeks gestation of 38 weeks gestation of Disease Active 1- 00:00: 00 [facility] Atypical squamous cells of undetermin ed significan ce (ASCUS) on Papanicola ou smear of cervix Atypical squamous cells of undetermin ed significan ce (ASCUS) on Papanicola ou smear of cervix Disease Active 2016-04 0-06 00:00: 00 Overview: Formattin g of this note might be different from the original. Needs repeat colpo PP-see [place] note on 01/17/16 [facility] Sickle cell trait Sickle cell trait Disease Active 10-31 00:00: 00 [facility] Missed menses Missed menses Disease Active 10-28 00:00: 00 [facility] Obesity in Obesity in Disease Active 10-28 00:00: 00 [facility] Liveborn , of samuels , born in hospital by vaginal delivery Liveborn , of samuels , born in hospital by vaginal delivery Disease Active 05-19 00:00: 00 [facility] Multiparit y Multiparit y Disease Active 11-20 00:00: 00 [facility] Supervisio n of other high risk pregnancie s, first trimester Supervisio n of other high risk pregnancie s, first trimester Disease Active 11-20 00:00: 00 [facility] with inconclusi ve viability, single or unspecifie d fetus with inconclusi ve viability, single or unspecifie d fetus Disease Active 11-20 00:00: 00 [facility] Allergies, Adverse Reactions, Alerts Allergy Name Allergy Type Status Severity Reaction(s) Onset Date Inactive Date Treating Clinician Comments Source NO KNOWN ALLERGIE S Drug Class Active [facility] Social History Social Habit Start Date Stop Date Quantity Comments Source ASSERTION 2022-02-17 00:00:00 [facility] to SARS-CoV-2 (event) 2022-07-19 00:00:00 2022-07-29 13:54:00 Not sure [facility] History of Social function 2021-08-16 00:00:00 2021-08-16 00:00:00 [facility] Alcohol intake 2021-03-30 00:00:00 2021-03-30 00:00:00 Current non-drinker of alcohol (finding) [facility] Tobacco use and exposure 2012-09-08 00:00:00 2012-09-08 00:00:00 Smokeless tobacco non-user [facility] Sex Assigned At 1995 00:00:00 1995 00:00:00 [facility] Smoking Status Start Date Stop Date Source Never smoked tobacco [facility] Medications Ordered Medication Name Filled Medication Name Start Date Stop Date Current Medication? Ordering Clinician Indication Dosage Frequency Signature (SIG) Comments Components Source rho(D) immune globulin (RHOGAM) syringe 300 mcg 07-18 15:33: 32 Yes 300ug 300 mcg, Intramuscu lar, ONCE, For 1 dose, Conditiona l, Routine [facility] human papillomav vac,9-luz(P F) (GARDASIL-9 ) syringe 0.5 mL 07-18 15:33: 26 Yes .5mL 0.5 mL, Intramuscu lar, ONCE-PRIOR TO DISCHARGE, 1 dose, Starting on Liz 07/18/22 at 1033, Until Discontinu ed, Routine, Give vaccine prior to discharge [facility] HYDROcodone -acetaminop hen (NORCO 5) 5-325 mg tablet 1 tablet 07-18 15:33: 26 Yes 1{tbl} 1 tablet, Oral, Q6HPRN, Starting on Liz 07/18/22 at 1033, Until Discontinu ed, Routine, Pain (scale 7-10) [facility] ibuprofen (IBU) tablet 600 mg 07-18 15:33: 26 Yes 600mg 600 mg, Oral, Q6HPRN, Starting on Liz 07/18/22 at 1033, Until Discontinu ed, Routine, Pain (scale 4-6) [facility] acetaminoph en (TYLENOL) tablet 650 mg 07-18 15:33: 26 Yes 650mg 650 mg, Oral, Q6HPRN, Starting on Fri07/18/22 at 1033, Until Discontinu ed, Routine, Pain (scale 1-3) [facility] diphenhydrA MINE (BENADRYL) tablet 25 mg 07-18 15:33: 26 Yes 25mg 25 mg, Oral, Q6HPRN, Starting on Fri07/18/22 at 1033, Until Discontinu ed, Routine, Sleep, Itching [facility] ondansetron (ZOFRAN (PF)) injection 4 mg 07-18 15:33: 26 Yes 4mg 4 mg, Slow IV Push, Q8HPRN, Starting on Fri07/18/22 at 1033, Until Discontinu ed, Routine, Nausea and Vomiting (N/V) [facility] simethicone (GAS RELIEF (SIMETHICON E)) chewable tablet 160 mg 07-18 15:33: 26 Yes 160mg 160 mg, Oral, PC+HSPRN, Starting on Fri07/18/22 at 1033, Until Discontinu ed, Routine, Gas [facility] docusate (COLACE) capsule 200 mg 07-18 15:33: 26 Yes 200mg 200 mg, Oral, QDAILYPRN, Starting on Fri07/18/22 at 1033, Until Discontinu ed, Routine, Constipati on [facility] magnesium hydroxide (MILK OF MAGNESIA) 400 mg/5 mL suspension 30 mL 07-18 15:33: 26 Yes 30mL 30 mL, Oral, QDAILYPRN, Starting on Fri07/18/22 at 1033, Until Discontinu ed, Routine, Constipati on [facility] benzocaine- menthol (DERMOPLAST ) 20-0.5 % topical spray 07-18 15:33: 26 Yes Topical, PRN, Starting on Fri07/18/22 at 1033, Until Discontinu ed, Routine, Perineum discomfort [facility] ibuprofen (IBU) tablet 600 mg 07-18 14:28: 10 07-18 15:33 :30 No 600mg 600 mg, Oral, Q6HPRN, Starting on Fri07/18/22 at 0928, Until Fri07/18/22 at 1033, Routine, Pain (scale 1-3) 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
Lock out Interval: 10 Minutes
Basal Rate: 0 mg/hr
F our Hour Dose Limit: 32 mg
Intr avenous, 30 mL, CONTINUOUS , Starting on Fri07/18/22 at 0115, Until Fri07/18/22 at 1033 [facility] morpHINE 2 mg/mL LOAD & RESCUE INJECTION SYRG 07-18 05:02: 15 07-18 15:33 :30 No Slow IV Push, Routine [facility] miSOPROStoL (CYTOTEC) tablet 400 mcg 07-18 04:45: 00 07-18 11:56 :00 No 400ug 400 mcg, Vaginal, Q3H FEED, 4 doses, First dose (after last modificati on) on Fri07/17/22 at 2345, Last dose on Fri07/18/22 at 0845, Routine [facility] butorphanol (STADOL) injection 1 mg 07-18 04:30: 00 07-18 03:35 :00 No 1mg 1 mg, IV Push, ONCE, 1 dose, On Fri07/17/22 at 2330, Routine [facility] D5W-LR IV infusion 1,000 mL 07-18 00:35: 36 07-18 15:33 :30 No 1000mL at 1-125 mL/hr, IV Infusion, TITRATE, Starting on Fri07/17/22 at 1935, Until Fri07/18/22 at 1033, Routine [facility] ibuprofen 600 mg tablet 07-18 00:00: 00 Yes [id number] 600mg Take 1 tablet by mouth every 6 (six) hours as needed for Pain (scale 4-6). [facility] acetaminoph en 325 mg tablet 3-30 00:00: 00 07-18 04:59 :00 No [id number] 650mg Take 2 tablets by mouth every 6 (six) hours as needed for Pain (scale 1-3). [facility] vit 33-iron-fol ic-dha (SELECT-OB + DHA) 29 mg iron-1 mg -250 mg combo pack 1-31 00:00: 00 08-04 00:00 :00 No [id number] 1{packe t} Take 1 Packet by mouth in the morning. [facility] vitamin w/FA tablet 2021-04- 00:00: 00 08-04 00:00 :00 No [id number] 1{tbl} Take 1 tablet by mouth in the morning. [facility] docusate 100 mg capsule 09-03 00:00: 00 08-04 00:00 :00 No [id number] 200mg Take 2 capsules by mouth once daily as needed for Constipati on. [facility] ferrous sulfate 325 mg (65 mg iron) tablet 09-03 00:00: 00 08-04 00:00 :00 No [id number] 325mg Take 1 tablet by mouth 2 (two) times daily. [facility] vitamin w/FA tablet 09-03 00:00: 00 04-09 00:00 :00 No [id number] 1{tbl} Take 1 tablet by mouth daily. [facility] ibuprofen 600 mg tablet 16 00:00: 00 04-09 00:00 :00 No [id number] 600mg Take 1 tablet by mouth every 6 (six) hours as needed (Pain). Take with food or milk. [facility] rho(D) immune globulin (RHOGAM) syringe 300 mcg 15 08:56: 41 Yes 300ug 300 mcg, Intramuscu lar, ONCE, For 1 dose, Conditiona l, Routine [facility] [place] Gas[place] (TUCKS) 50 % topical pad 09-02 08:56: 40 Yes Topical, Q4HPRN, Starting on 09/02/21 at 0356, Until Discontinu ed, Routine, rectal/hem orrhoidal pain [facility] HYDROcodone -acetaminop hen (NORCO 5) 5-325 mg tablet 1 tablet 09-02 08:56: 40 Yes 1{tbl} 1 tablet, Oral, Q6HPRN, Starting on 09/02/21 at 0356, Until Discontinu ed, Routine, Pain (scale 7-10) [facility] ibuprofen (IBU) tablet 600 mg 09-02 08:56: 40 Yes 600mg 600 mg, Oral, Q6HPRN, Starting on 09/02/21 at 035, Until Discontinu ed, Routine, Pain (scale 4-6) [facility] acetaminoph en (TYLENOL) tablet 650 mg 09-02 08:56: 40 Yes 650mg 650 mg, Oral, Q6HPRN, Starting on 09/02/21 at 035, Until Discontinu ed, Routine, Pain (scale 1-3) [facility] diphenhydrA MINE (BENADRYL) tablet 25 mg 09-02 08:56: 40 Yes 25mg 25 mg, Oral, Q6HPRN, Starting on Fri09/02/21 at 035, Until Discontinu ed, Routine, Sleep, Itching [facility] ondansetron (ZOFRAN (PF)) injection 4 mg 09-02 08:56: 40 Yes 4mg 4 mg, Slow IV Push, Q8HPRN, Starting on Fri09/02/21 at 035, Until Discontinu ed, Routine, Nausea and Vomiting (N/V) [facility] simethicone (GAS RELIEF (SIMETHICON E)) chewable tablet 160 mg 09-02 08:56: 40 Yes 160mg 160 mg, Oral, PC+HSPRN, Starting on Fri09/02/21 at 0356, Until Discontinu ed, Routine, Gas [facility] docusate (COLACE) capsule 200 mg 09-02 08:56: 40 Yes 200mg 200 mg, Oral, QDAILYPRN, Starting on 09/02/21 at 0356, Until Discontinu ed, Routine, Constipati on [facility] magnesium hydroxide (MILK OF MAGNESIA) 400 mg/5 mL suspension 30 mL 09-02 08:56: 40 Yes 30mL 30 mL, Oral, QDAILYPRN, Starting on 09/02/21 at 0356, Until Discontinu ed, Routine, Constipati on [facility] benzocaine- menthol (DERMOPLAST ) 20-0.5 % topical spray 09-02 08:56: 40 Yes Topical, PRN, Starting on 09/02/21 at 0356, Until Discontinu ed, Routine, Perineum discomfort [facility] oxytocin (PITOCIN) 30 units in NS 500 mL IV infusion 09-02 08:28: 55 09-02 08:56 :42 No 300mL/h 300 mL/hr, IV Infusion, SEE-INSTRU CTIONS, Starting on Fri09/02/[address] art at 300 mL/hr for 1 hr then 150 mL/hr for 1 hr. & nbsp; For post delivery uterotonic
[facility] D5W-LR IV infusion 1,000 mL 09-02 08:15: 00 09-02 08:56 :42 No 1000mL at 125 mL/hr, IV Infusion, CONTINUOUS , Starting on Fri09/02/21 at 0315, Until 09/02/21 at 0356, Routine [facility] FENTanyl PF (SUBLIMAZE (PF)) injection 50 mcg 09-02 08:10: 00 09-02 08:12 :00 No 50ug 50 mcg, Slow IV Push, ONCE, 1 dose, On 09/02/21 at 0315, Routine [facility] vit 33-iron-fol ic-dha (SELECT-OB + DHA) 29 mg iron-1 mg -250 mg combo pack 07-26 00:00: 00 09-03 00:00 :00 No [id number] 1{packe t} Take 1 Packet by mouth daily. [facility] ferrous fumarate-b1 2-vitamic C-folic acid (FEROCON) 110-0.5 mg capsule 07-26 00:00: 00 09-03 00:00 :00 No [id number] 1{capsu le} Take 1 capsule by mouth daily with breakfast. [facility] cephALEXin 500 mg capsule 07-26 00:00: 00 08-03 04:59 :00 No [id number] 500mg Take 1 capsule by mouth every 6 (six) hours for 7 days. [facility] PNV NO.95/FLYNN US FUM/FOLIC AC ( ORAL) 06-01 15:45: 54 06-01 00:00 :00 No Take by mouth. [facility] 78-iron-fol ate 1-dha 18 mg iron-1 mg -300 mg Cap 06-01 00:00: 00 08-03 00:00 :00 No [id number] 1{tbl} Take 1 tablet by mouth daily. [facility] terconazole 0.8 % vaginal cream 06-01 00:00: 00 06-05 05:59 :00 No [id number] 1{appli cator} Insert 1 Applicator into vagina at bedtime for 3 days. [facility] cephALEXin 500 mg capsule 05-30 00:00: 00 07-26 00:00 :00 No 500mg Take 500 mg by mouth every 6 (six) hours. [facility] metroNIDAZO LE 500 mg tablet 05-30 00:00: 00 07-26 00:00 :00 No TAKE 1 TABLET BY MOUTH EVERY 12 HOURS FOR 7 DAYS. DO NOT DRINK ALCOHOL WHILE TAKING THIS MEDICATION [facility] cephALEXin 500 mg capsule 2020-04 00:00: 00 03-07 05:59 :00 No [id number] 500mg Take 1 capsule by mouth every 6 (six) hours for 7 days. [facility] metroNIDAZO LE 500 mg tablet 2020-04 00:00: 00 03-03 05:59 :00 No [id number] 500mg Take 1 tablet by mouth every 12 (twelve) hours for 7 days. [facility] Immunizations Ordered Immunization Name Filled Immunization Name Date Status Comments Source TDAP 2016-03-13 00:00:00 Completed [facility] TDAP 2016-03-13 00:00:00 Completed [facility] TDAP 2016-03-13 00:00:00 Completed [facility] TDAP 2016-03-13 00:00:00 Completed [facility] TDAP 2016-03-13 00:00:00 Completed [facility] TDAP 2016-03-13 00:00:00 Completed [facility] TDAP 2016-03-13 00:00:00 Completed [facility] TDAP 2016-03-13 00:00:00 Completed [facility] TDAP 2016-03-13 00:00:00 Completed [facility] TDAP 2016-03-13 00:00:00 Completed [facility] TDAP 2016-03-13 00:00:00 Completed [facility] TDAP 2016-03-13 00:00:00 Completed [facility] TDAP 2016-03-13 00:00:00 Completed [facility] TDAP 2016-03-13 00:00:00 Completed [facility] TDAP 2016-03-13 00:00:00 Completed [facility] TDAP 2016-03-13 00:00:00 Completed [facility] TDAP 2016-03-13 00:00:00 Completed [facility] TDAP 2016-03-13 00:00:00 Completed [facility] TDAP 2016-03-13 00:00:00 Completed [facility] TDAP 2016-03-13 00:00:00 Completed [facility] TDAP 2016-03-13 00:00:00 Completed [facility] TDAP 2016-03-13 00:00:00 Completed [facility] TDAP 2016-03-13 00:00:00 Completed [facility] TDAP 2016-03-13 00:00:00 Completed [facility] TDAP 2016-03-13 00:00:00 Completed [facility] TDAP 2016-03-13 00:00:00 Completed [facility] TDAP 2016-03-13 00:00:00 Completed [facility] TDAP 2016-03-13 00:00:00 Completed [facility] TDAP 2016-03-13 00:00:00 Completed [facility] TDAP 2016-03-13 00:00:00 Completed [facility] TDAP 2016-03-13 00:00:00 Completed [facility] TDAP 2016-03-13 00:00:00 Completed [facility] TDAP 2013-10-21 00:00:00 Completed [facility] TDAP 2013-10-21 00:00:00 Completed [facility] TDAP 2013-10-21 00:00:00 Completed [facility] TDAP 2013-10-21 00:00:00 Completed [facility] TDAP 2013-10-21 00:00:00 Completed [facility] TDAP 2013-10-21 00:00:00 Completed [facility] TDAP 2013-10-21 00:00:00 Completed [facility] TDAP 2013-10-21 00:00:00 Completed [facility] TDAP 2013-10-21 00:00:00 Completed [facility] TDAP 2013-10-21 00:00:00 Completed [facility] TDAP 2013-10-21 00:00:00 Completed [facility] TDAP 2013-10-21 00:00:00 Completed [facility] TDAP 2013-10-21 00:00:00 Completed [facility] TDAP 2013-10-21 00:00:00 Completed [facility] TDAP 2013-10-21 00:00:00 Completed [facility] TDAP 2013-10-21 00:00:00 Completed [facility] TDAP 2013-10-21 00:00:00 Completed [facility] TDAP 2013-10-21 00:00:00 Completed [facility] TDAP 2013-10-21 00:00:00 Completed [facility] TDAP 2013-10-21 00:00:00 Completed [facility] TDAP 2013-10-21 00:00:00 Completed [facility] TDAP 2013-10-21 00:00:00 Completed [facility] TDAP 2013-10-21 00:00:00 Completed [facility] TDAP 2013-10-21 00:00:00 Completed [facility] TDAP 2013-10-21 00:00:00 Completed [facility] TDAP 2013-10-21 00:00:00 Completed [facility] TDAP 2013-10-21 00:00:00 Completed [facility] TDAP 2013-10-21 00:00:00 Completed [facility] TDAP 2013-10-21 00:00:00 Completed [facility] TDAP 2013-10-21 00:00:00 Completed [facility] TDAP 2013-10-21 00:00:00 Completed [facility] TDAP 2013-10-21 00:00:00 Completed [facility] Influenza Virus Vaccine 2013-01-06 00:00:00 Completed [facility] Influenza Virus Vaccine 2013-01-06 00:00:00 Completed [facility] Influenza Virus Vaccine 2013-01-06 00:00:00 Completed [facility] Influenza Virus Vaccine 2013-01-06 00:00:00 Completed [facility] Influenza Virus Vaccine 2013-01-06 00:00:00 Completed [facility] Influenza Virus Vaccine 2013-01-06 00:00:00 Completed [facility] Influenza Virus Vaccine 2013-01-06 00:00:00 Completed [facility] Influenza Virus Vaccine 2013-01-06 00:00:00 Completed [facility] Influenza Virus Vaccine 2013-01-06 00:00:00 Completed [facility] Influenza Virus Vaccine 2013-01-06 00:00:00 Completed [facility] Influenza Virus Vaccine 2013-01-06 00:00:00 Completed [facility] Influenza Virus Vaccine 2013-01-06 00:00:00 Completed [facility] Influenza Virus Vaccine 2013-01-06 00:00:00 Completed [facility] Influenza Virus Vaccine 2013-01-06 00:00:00 Completed [facility] Influenza Virus Vaccine 2013-01-06 00:00:00 Completed [facility] Influenza Virus Vaccine 2013-01-06 00:00:00 Completed [facility] Influenza Virus Vaccine 2013-01-06 00:00:00 Completed [facility] Influenza Virus Vaccine 2013-01-06 00:00:00 Completed [facility] Influenza Virus Vaccine 2013-01-06 00:00:00 Completed [facility] Influenza Virus Vaccine 2013-01-06 00:00:00 Completed [facility] Influenza Virus Vaccine 2013-01-06 00:00:00 Completed [facility] Influenza Virus Vaccine 2013-01-06 00:00:00 Completed [facility] Influenza Virus Vaccine 2013-01-06 00:00:00 Completed [facility] Influenza Virus Vaccine 2013-01-06 00:00:00 Completed [facility] Influenza Virus Vaccine 2013-01-06 00:00:00 Completed [facility] Influenza Virus Vaccine 2013-01-06 00:00:00 Completed [facility] Influenza Virus Vaccine 2013-01-06 00:00:00 Completed [facility] Influenza Virus Vaccine 2013-01-06 00:00:00 Completed [facility] Influenza Virus Vaccine 2013-01-06 00:00:00 Completed [facility] Influenza Virus Vaccine 2013-01-06 00:00:00 Completed [facility] Influenza Virus Vaccine 2013-01-06 00:00:00 Completed [facility] Influenza Virus Vaccine 2013-01-06 00:00:00 Completed [facility] TDAP 2012-11-24 00:00:00 Completed [facility] TDAP 2012-11-24 00:00:00 Completed [facility] TDAP 2012-11-24 00:00:00 Completed [facility] TDAP 2012-11-24 00:00:00 Completed [facility] TDAP 2012-11-24 00:00:00 Completed [facility] TDAP 2012-11-24 00:00:00 Completed [facility] TDAP 2012-11-24 00:00:00 Completed [facility] TDAP 2012-11-24 00:00:00 Completed [facility] TDAP 2012-11-24 00:00:00 Completed [facility] TDAP 2012-11-24 00:00:00 Completed [facility] TDAP 2012-11-24 00:00:00 Completed [facility] TDAP 2012-11-24 00:00:00 Completed [facility] TDAP 2012-11-24 00:00:00 Completed [facility] TDAP 2012-11-24 00:00:00 Completed [facility] TDAP 2012-11-24 00:00:00 Completed [facility] TDAP 2012-11-24 00:00:00 Completed [facility] TDAP 2012-11-24 00:00:00 Completed [facility] TDAP 2012-11-24 00:00:00 Completed [facility] TDAP 2012-11-24 00:00:00 Completed [facility] TDAP 2012-11-24 00:00:00 Completed [facility] TDAP 2012-11-24 00:00:00 Completed [facility] TDAP 2012-11-24 00:00:[facility] [facility] 2012-11-24 00:00:00 Completed [facility] TDAP 2012-11-24 00:00:00 Completed [facility] TDAP 2012-11-24 00:00:00 Completed [facility] TDAP 2012-11-24 00:00:00 Completed [facility] TDAP 2012-11-24 00:00:00 Completed [facility] TDAP 2012-11-24 00:00:00 Completed [facility] TDAP 2012-11-24 00:00:00 Completed [facility] TDAP 2012-11-24 00:00:00 Completed [facility] TDAP 2012-11-24 00:00:00 Completed [facility] TDAP 2012-11-24 00:00:00 Completed [facility] Rubella 2012-09-08 00:00:00 Completed [facility] 2012-09-08 00:00:00 Completed [facility] 2012-09-08 00:00:00 Completed [facility] 2012-09-08 00:00:00 Completed [facility] Rubella 2012-09-08 00:00:00 Completed [facility] 2012-09-08 00:00:00 Completed [facility] Rub[facility] 2012-09-08 00:00:00 Completed [facility] 2012-09-08 00:00:00 Completed [facility] Rubella 2012-09-08 00:00:00 Completed [facility] Rub[facility] 2012-09-08 00:00:00 Completed [facility] Rub[facility] 2012-09-08 00:00:00 Completed [facility] Rubella 2012-09-08 00:00:00 Completed [facility] Rubella 2012-09-08 00:00:00 Completed [facility] Rubella 2012-09-08 00:00:00 Completed [facility] Rubella 2012-09-08 00:00:00 Completed [facility] Rubella 2012-09-08 00:00:00 Completed [facility] Rubella 2012-09-08 00:00:00 Completed [facility] Rubella 2012-09-08 00:00:00 Completed [facility] Rubella 2012-09-08 00:00:00 Completed [facility] Rubella 2012-09-08 00:00:00 Completed [facility] Rubella 2012-09-08 00:00:00 Completed [facility] Rubella 2012-09-08 00:00:00 Completed [facility] Rubella 2012-09-08 00:00:00 Completed [facility] Rubella 2012-09-08 00:00:00 Completed [facility] Rubella 2012-09-08 00:00:00 Completed [facility] Rubella 2012-09-08 00:00:00 Completed [facility] Rubella 2012-09-08 00:00:00 Completed [facility] Rubella 2012-09-08 00:00:00 Completed [facility] Rubella 2012-09-08 00:00:00 Completed [facility] Rubella 2012-09-08 00:00:00 Completed [facility] Rubella 2012-09-08 00:00:00 Completed [facility] Rubella 2012-09-08 00:00:00 Completed [facility] TDAP 2012-01-10 00:00:00 Completed [facility] TDAP 2012-01-10 00:00:00 Completed [facility] TDAP 2012-01-10 00:00:00 Completed [facility] TDAP 2012-01-10 00:00:00 Completed [facility] TDAP 2012-01-10 00:00:00 Completed [facility] TDAP 2012-01-10 00:00:00 Completed [facility] TDAP 2012-01-10 00:00:00 Completed [facility] TDAP 2012-01-10 00:00:00 Completed [facility] TDAP 2012-01-10 00:00:00 Completed [facility] TDAP 2012-01-10 00:00:00 Completed [facility] TDAP 2012-01-10 00:00:00 Completed [facility] TDAP 2012-01-10 00:00:00 Completed [facility] TDAP 2012-01-10 00:00:00 Completed [facility] TDAP 2012-01-10 00:00:00 Completed [facility] TDAP 2012-01-10 00:00:00 Completed [facility] TDAP 2012-01-10 00:00:00 Completed [facility] TDAP 2012-01-10 00:00:00 Completed [facility] TDAP 2012-01-10 00:00:00 Completed [facility] TDAP 2012-01-10 00:00:00 Completed [facility] TDAP 2012-01-10 00:00:00 Completed [facility] TDAP 2012-01-10 00:00:00 Completed [facility] TDAP 2012-01-10 00:00:00 Completed [facility] TDAP 2012-01-10 00:00:00 Completed [facility] TDAP 2012-01-10 00:00:00 Completed [facility] TDAP 2012-01-10 00:00:00 Completed [facility] TDAP 2012-01-10 00:00:00 Completed [facility] TDAP 2012-01-10 00:00:00 Completed [facility] TDAP 2012-01-10 00:00:00 Completed [facility] TDAP 2012-01-10 00:00:00 Completed [facility] TDAP 2012-01-10 00:00:00 Completed [facility] TDAP 2012-01-10 00:00:00 Completed [facility] TDAP 2012-01-10 00:00:00 Completed [facility] TDAP Unknown Completed [facility] Influenza Virus Vaccine Unknown Completed [facility] Rubella Unknown Completed [facility] TDAP Unknown Completed [facility] Influenza Virus Vaccine Unknown Completed [facility] Rubella Unknown Completed [facility] Vital Signs Vital Name Observation Time Observation Value Comments S ource Systolic blood pressure 2022-07-31 16:43:00 115 mm[Hg] [facility] Diastolic blood pressure 2022-07-31 16:43:00 59 mm[Hg] [facility] Heart rate 2022-07-31 16:43:00 75 /min [facility] Respiratory rate 2022-07-31 16:43:00 18 /min [facility] Body height 2022-07-31 16:43:[address] [facility] Body weight 2022-07-31 16:43:[address] [facility] BMI 2022-07-31 16:43:00 30.90 kg/m2 [facility] Systolic blood pressure 2022-07-18 13:30:00 103 mm[Hg] [facility] Diastolic blood pressure 2022-07-18 13:30:00 63 mm[Hg] [facility] Heart rate 2022-07-18 13:30:00 72 /min [facility] Body temperature 2022-07-18 13:30:00 37.39 Cori [facility] Respiratory rate 2022-07-18 13:30:00 18 /min [facility] Oxygen saturation in Arterial blood by Pulse oximetry 2022-07-18 13:30:00 100 /min [facility] Body height 2022-07-17 23:22:[address] [facility] Body weight 2022-07-17 23:22:00 83 kg [facility] BMI 2022-07-17 23:22:00 33.46 kg/m2 [facility] Systolic blood pressure 2022-07-01 21:22:00 101 mm[Hg] [facility] Diastolic blood pressure 2022-07-01 21:22:00 67 mm[Hg] [facility] Heart rate 2022-07-01 21:22:00 84 /min [facility] Body temperature 2022-07-01 21:22:00 36.78 Cori [facility] Respiratory rate 2022-07-01 21:22:00 16 /min [facility] Body height 2022-07-01 21:22:[address] [facility] Body weight 2022-07-01 21:22:[address] [facility] BMI 2022-07-01 21:22:00 33.73 kg/m2 [facility] Systolic blood pressure 2022-05-21 19:04:00 112 mm[Hg] [facility] Diastolic blood pressure 2022-05-21 19:04:00 73 mm[Hg] [facility] Heart rate 2022-05-21 19:04:00 91 /min [facility] Body temperature 2022-05-21 19:04:00 36.72 Cori [facility] Respiratory rate 2022-05-21 19:04:00 16 /min [facility] Body height 2022-05-21 19:04:[address] [facility] Body weight 2022-05-21 19:04:[address] [facility] BMI 2022-05-21 19:04:00 33.86 kg/m2 [facility] Oxygen saturation in Arterial blood by Pulse oximetry 2022-05-21 19:04:00 100 /min [facility] Systolic blood pressure 2022-04-23 19:13:00 111 mm[Hg] [facility] Diastolic blood pressure 2022-04-23 19:13:00 76 mm[Hg] [facility] Heart rate 2022-04-23 19:13:00 73 /min [facility] Body temperature 2022-04-23 19:13:00 37 Cori [facility] Respiratory rate 2022-04-23 19:13:00 18 /min [facility] Body height 2022-04-23 19:13:00 157.5 cm [facility] Body weight 2022-04-23 19:13:00 85.73 kg [facility] BMI 2022-04-23 19:13:00 34.57 kg/m2 [facility] Systolic blood pressure 2022-04-09 18:56:00 104 mm[Hg] [facility] Diastolic blood pressure 2022-04-09 18:56:00 71 mm[Hg] [facility] Heart rate 2022-04-09 18:56:00 79 /min [facility] Body temperature 2022-04-09 18:56:00 36.72 Cori [facility] Respiratory rate 2022-04-09 18:56:00 16 /min [facility] Body height 2022-04-09 18:56:00 157.5 cm [facility] Body weight 2022-04-09 18:56:[address] [facility] BMI 2022-04-09 18:56:00 34.39 kg/m2 [facility] Oxygen saturation in Arterial blood by Pulse oximetry 2022-04-09 18:56:00 100 /min [facility] Systolic blood pressure 2021-09-03 12:23:00 121 mm[Hg] [facility] Diastolic blood pressure 2021-09-03 12:23:00 80 mm[Hg] [facility] Heart rate 2021-09-03 12:23:00 83 /min [facility] Body temperature 2021-09-03 12:23:00 36.56 Cori [facility] Respiratory rate 2021-09-03 12:23:00 18 /min [facility] Oxygen saturation in Arterial blood by Pulse oximetry 2021-09-03 12:23:00 100 /min [facility] Body height 2021-09-02 10:12:00 157.5 cm [facility] Body weight 2021-09-02 10:12:00 76.295 kg [facility] BMI 2021-09-02 10:12:00 30.76 kg/m2 [facility] Systolic blood pressure 2021-08-27 19:39:00 109 mm[Hg] [facility] Diastolic blood pressure 2021-08-27 19:39:00 75 mm[Hg] [facility] Heart rate 2021-08-27 19:39:00 86 /min [facility] Body temperature 2021-08-27 19:39:00 36.78 Cori [facility] Respiratory rate 2021-08-27 19:39:00 16 /min [facility] Body height 2021-08-27 19:39:00 157.5 cm [facility] Body weight 2021-08-27 19:39:[address] [facility] BMI 2021-08-27 19:39:00 32.15 kg/m2 [facility] Systolic blood pressure 2021-08-16 19:34:00 120 mm[Hg] [facility] Diastolic blood pressure 2021-08-16 19:34:00 80 mm[Hg] [facility] Heart rate 2021-08-16 19:34:00 100 /min [facility] Body temperature 2021-08-16 19:34:00 36.83 Cori [facility] Respiratory rate 2021-08-16 19:34:00 18 /min [facility] Body height 2021-08-16 19:34:00 162.6 cm [facility] Body weight 2021-08-16 19:34:00 79.153 kg [facility] BMI 2021-08-16 19:34:00 29.95 kg/m2 [facility] Systolic blood pressure 2021-08-02 20:47:00 105 mm[Hg] [facility] Diastolic blood pressure 2021-08-02 20:47:00 69 mm[Hg] [facility] Heart rate 2021-08-02 20:47:00 99 /min [facility] Body temperature 2021-08-02 20:47:00 36.72 Cori [facility] Respiratory rate 2021-08-02 20:47:00 18 /min [facility] Body height 2021-08-02 20:47:00 157.5 cm [facility] 2021-08-02 20:47:00 78.16 kg [facility] BMI 2021-08-02 20:47:00 31.52 kg/m2 [facility] Heart rate 2021-07-26 17:00:00 86 /min [facility] Oxygen saturation in Arterial blood by Pulse oximetry 2021-07-26 17:00:00 99 /min [facility] Systolic blood pressure 2021-07-26 15:12:00 120 mm[Hg] [facility] Diastolic blood pressure 2021-07-26 15:12:00 72 mm[Hg] [facility] Body temperature 2021-07-26 15:12:00 36.78 Cori [facility] Respiratory rate 2021-07-26 15:12:00 16 /min [facility] Body weight 2021-07-26 14:59:[address] [facility] BMI 2021-07-26 14:59:00 31.83 kg/m2 [facility] Systolic blood pressure 2021-07-20 21:40:00 113 mm[Hg] [facility] Diastolic blood pressure 2021-07-20 21:40:00 74 mm[Hg] [facility] Heart rate 2021-07-20 21:40:00 128 /min [facility] Respiratory rate 2021-07-20 21:40:00 18 /min [facility] Body height 2021-07-20 21:40:00 157.5 cm [facility] Body weight 2021-07-20 21:40:[address] [facility] BMI 2021-07-20 21:40:00 31.83 kg/m2 [facility] Systolic blood pressure 2021-06-01 21:23:00 107 mm[Hg] [facility] Diastolic blood pressure 2021-06-01 21:23:00 69 mm[Hg] [facility] Heart rate 2021-06-01 21:23:00 97 /min [facility] Body temperature 2021-06-01 21:23:00 36.89 Cori [facility] Respiratory rate 2021-06-01 21:23:00 18 /min [facility] Body height 2021-06-01 21:23:[address] [facility] Body weight 2021-06-01 21:23:[address] [facility] BMI 2021-06-01 21:23:00 28.84 kg/m2 [facility] Procedures Procedure Date / Time Performed Performing Clinician Source CBC WITH DIFF 2022-07-18 03:31:00 Carrie Gresham [facility] PROTHROMBIN TIME / INR 2022-07-18 01:27:00 Bong Xavier [facility] ACTIVATED PARTIAL THRMPLAS LORNA 2022-07-18 01:27:00 Nevaeh Xavier [facility] FIBRINOGEN 2022-07-18 01:27:00 Nevaeh Xavier [facility] HEPATITIS B SURFACE ANTIGEN 2022-07-18 01:27:00 Nevaeh Xavier [facility] HB ABO GROUPING 2022-07-18 01:27:00 Nevaeh Xavier [facility] RHO (D) IMMUNE GLOBULIN 2022-07-18 01:27:00 Sonja Falk [facility] SYPHILIS IGG/IGM 2022-07-18 01:27:00 [facility]h [facility] TRIMESTER ULTRASOUND 2022-07-17 19:41:00 Manolo Dixon [facility] PATIENT FINANCIAL POLICY 2022-07-01 21:17:48 Doctor Unassigned, [place] [facility] POCT URINALYSIS W/O SPECIFIC GRAVITY 2022-07-01 00:00:00 [facility] 2022-04-26 16:07:45 Docto r Unassigned, [place] [facility] POCT URINALYSIS W/O SPECIFIC GRAVITY 2022-04-23 00:00:00 Manolo Dixon [facility] ASSIGNMENT OF BENEFITS 2022-04-09 18:39:36 Docto r Unassigned, [place] [facility] POCT TEST 2022-04-09 00:00:00 [facility] WITH DIFF 2021-09-03 08:39:[address] [facility] VENOUS CORD GAS 2021-09-02 08:28:00 [facility]FF 2021-09-02 08:24:[address] [facility] RUBELLA SCREEN IGG 2021-09-02 08:23:00 [facility] SURFACE ANTIGEN 2021-09-02 [facility] - [facility] 2021-09-02 08:23:00 Erin Somers [facility] HIV 1/2 AG-AB WITH REFLEX 2021-09-02 08:23:00 Erin Somers [facility] COVID-19 (ID NOW RAPID TESTING) 2021-09-02 08:23:00 Talha Somers [facility] LAB ONLY COVID INTERPRETATION 2021-09-02 08:23:00 Talha Somers [facility] HB ABO GROUPING 2021-09-02 08:00:00 [facility] IMMUNE GLOBULIN 2021-09-02 08:[facility] W/O SPECIFIC GRAVITY 2021-08-27 00:00:00 [facility]EF[facility] 2021-08-10 16:45:24 Docto r Unassigned, [place] [facility] POCT URINALYSIS W/O SPECIFIC GRAVITY 2021-08-02 00:00:00 Fish, Abbey [facility] HIV 1/2 AG-AB WITH REFLEX 2021-07-26 16:16:00 Fish, [place] emanuel [facility] COVID-19 (ID NOW RAPID TESTING) 2021-07-26 16:16:00 Fish, [facility] CBC WITH DIFF 2021-07-26 16:15:00 Fish, Abbey [facility] URINALYSIS 2021-07-26 16:15:00 Fish, Abbey [facility] HB ABO GROUPING 2021-07-26 16:15:00 Fish, [facility] ADC CLC OR LCC ONLY - WET PREP 2021-07-26 16:15:00 Ted [facility] POCT URINALYSIS W/O SPECIFIC GRAVITY 2021-07-20 21:41:00 Manolo Dixon [facility] POCT URINALYSIS W/O SPECIFIC GRAVITY 2021-06-01 00:00:00 Ted [facility] Encounters Start Date/Time End Date/Time Encounter Type Admission Type Attending [facility] Care Facility Care Department Encounter ID Source 2021-07-26 13:44:50 Outpatient SO KHAN SHANNON [facility] NEL [id number] [facility] 2022-07-31 11:45:00 2022-07-31 11:48:42 Outpatient R MANOLO DIXON CHERYAL [facility] [id number] [facility] 2022-07-31 11:45:00 2022-07-31 11:48:42 Routine Visit Manolo Dixon [facility] [id number] 350.1.13.10 4.2.7.2.686 [id number] [facility] 2022-07-29 15:00:00 2022-07-29 15:00:00 Outpatient R MANOLO DIXON CHERYAL [facility] [id number] [facility] 2022-07-17 17:57:00 2022-07-18 12:55:00 Hospital Encounter AbdulazizSo Naranjo, [facility] 1.840.114 350.1.13.10 4.2.7.2.686 [id number] [facility] 2022-07-17 17:57:00 2022-07-18 12:55:00 Inpatient P DARYL NARANJOMICHAEL NARANJO, [facility] NEL [id number] [facility] 2022-07-17 14:45:00 2022-07-17 15:45:00 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7.2.686 [id number] [facility] 2022-07-01 16:30:00 2022-07-01 16:37:01 Outpatient R MANOLO DIXON CHERYAL [facility] [id number] [facility] 2022-07-01 16:30:00 2022-07-01 16:37:01 Routine Visit Manolo Dixon [facility] 1.840.114 350.1.13.10 4.2.7.2.686 [id number] [facility] 2022-07-01 00:00:00 2022-07-01 00:00:00 Orders Only Doctor Unassigned, [place] [facility] 1.2840.114 350.1.13.10 4.2.7.2.686 [id number] [facility] 2022-06-28 13:45:00 2022-06-28 13:45:00 Outpatient R MANOLO DIXON CHERYAL [facility] [id number] [facility] 2022-06-21 10:15:00 2022-06-21 10:15:00 Outpatient P [facility] [id number] [facility] 2022-06-18 13:00:00 2022-06-18 13:00:00 Outpatient R CARLOSMANOLO GONZALES CHERYAL [facility] [id number] [facility] 2022-05-21 13:00:00 2022-05-21 13:25:38 Routine Visit Sebastian [facility] 1.0.114 350.1.13.10 4.2.7.2.686 [id number] [facility] 2022-05-21 13:00:00 2022-05-21 13:25:38 Outpatient R MANOLO DIXON CHERYAL [facility] [id number] [facility] 2022-05-21 00:00:00 2022-05-21 00:00:00 Letter (Out) Se[facility] 1.20.114 350.1.13.10 4.2.7.2.686 [id number] [facility] 2022-05-08 00:00:00 2022-05-08 00:00:00 Telephone Sebastian [facility] 1.2840.114 350.1.13.10 4.2.7.2.686 [id number] [facility] 2022-05-03 00:00:00 2022-05-03 00:00:00 Telephone Manolo Dixon [facility] 1.2.840.114 350.1.13.10 4.2.7.2.686 [id number] [facility] 2022-05-02 00:00:00 2022-05-02 00:00:00 Telephone Manolo Dixon [facility] 1.20.114 350.1.13.10 4.2.7.2.686 [id number] [facility] 2022-04-26 12:45:00 2022-04-26 13:00:00 Fire Truck Driver Visit Pob, Adc Lab Main Manolo Dixon [facility] 1.20.114 350.1.13.10 4.2.7.2.686 [id number] [facility] 2022-04-26 11:15:00 2022-04-26 11:39:04 [facility] [id number] 2022-04-26 11:15:00 2022-04-26 11:39:04 Telemedici ne Visit Rose Simon Cheryal [facility] 1.2.114 350.1.13.10 4.2.7.2.686 [id number] [facility] 2022-04-26 00:00:00 2022-04-26 00:00:00 Orders Only Doctor Unassigned, [place] [facility] 1.2.840.114 350.1.13.10 4.2.7.2.686 [id number] [facility] 2022-04-23 13:15:00 2022-04-23 13:36:40 [facility] [id number] [facility] 2022-04-23 13:15:00 2022-04-23 13:36:40 [facility] 1.2.840.114 350.1.13.10 4.2.7.2.686 [id number] [facility] 2022-04-10 09:30:00 2022-04-10 09:30:00 Outpatient R OTF NÚÑEZ [facility] [id number] [facility] 2022-04-09 13:00:00 2022-04-09 13:20:19 Out[facility] [id number] [facility] 2022-04-09 13:00:00 2022-04-09 13:20:19 [facility] 1.2.840.114 350.1.13.10 4.2.7.2.686 [id number] [facility] 2022-04-09 00:00:00 2022-04-09 00:00:00 Orders Only Doctor Unassigned, [place] [facility] 1.2.840.114 350.1.13.10 4.2.7.2.686 [id number] [facility] 2022-04-09 00:00:00 2022-04-09 00:00:00 [facility] 1.2.840.114 350.1.13.10 4.2.7.2.686 [id number] [facility] 2021-09-06 13:00:00 2021-09-06 13:00:00 Outpatient R ABBEY JEAN [facility] [facility] [id number] [facility] 2021-09-06 00:00:00 2021-09-06 00:00:00 Encounter 1.2.840.1 07166.1.1 3.104.2.7 [id number] 1.2840.114 350.1.13.10 4.2.7.2.696 [id number] [facility] 2021-09-02 02:41:00 2021-09-03 18:05:00 Inpatient X TALHA SOMERS [facility] NEL [id number] [facility] 2021-09-02 02:41:00 2021-09-03 18:05:00 Hospital Encounter Talha Somers [facility] 1.2840.114 350.1.13.10 4.2.7.2.686 [id number] [facility] 2021-08-27 14:00:00 2021-08-27 14:54:41 Outpatient R MANOLO DIXON CHERYAL [facility] [id number] [facility] 2021-08-27 14:00:00 2021-08-27 14:54:41 Routine Visit Manolo Dixon [facility] 1.2840.114 350.1.13.10 4.2.7.2.686 [id number] [facility] 2021-08-22 11:00:00 2021-08-22 11:00:00 Outpatient R MANOLO DIXON CHERYAL [facility] [id number] [facility] 2021-08-16 13:45:00 2021-08-16 14:47:34 Outpatient R ABBEY JEAN [facility] [id number] [facility] 2021-08-16 13:45:00 2021-08-16 14:47:34 Routine Visit Abbey Jean [facility] 1.2840.114 350.1.13.10 4.2.7.2.686 [id number] [facility] 2021-08-10 11:45:00 2021-08-10 12:00:00 Fire Truck Driver Visit Milvia, [facility] Abbey [facility] 1.840.114 350.1.13.10 4.2.7.2.686 [id number] [facility] 2021-08-10 11:45:00 2021-08-10 11:45:00 Outpatient R ABBEY JEAN [facility] [id number] [facility] 2021-08-10 00:00:00 2021-08-10 00:00:00 Orders Only Doctor Unassigned, [place] [facility] 1.840.114 350.1.13.10 4.2.7.2.686 [id number] [facility] 2021-08-02 15:15:00 2021-08-02 16:09:15 Outpatient R ABBEY JEAN [facility] [id number] [facility] 2021-08-02 15:15:00 2021-08-02 16:09:15 Routine Visit Abbey Jean [facility] 1.840.114 350.1.13.10 4.2.7.2.686 [id number] [facility] 2021-07-27 00:00:00 2021-07-27 00:00:00 Telephone Abbey Jean [facility] 1.2.114 350.1.13.10 4.2.7.2.686 [id number] [facility] 2021-07-26 10:08:00 2021-07-26 12:30:00 Outpatient P ABBEY JEAN [facility] NEL [id number] [facility] 2021-07-26 10:08:00 2021-07-26 12:30:00 Hospital Encounter Talha Somers Megan [facility] 1.2.840.114 350.1.13.10 4.2.7.2.686 [id number] [facility] 2021-07-26 00:00:00 2021-07-26 00:00:00 Telephone Jose Jeann [facility] 1.2.840.114 350.1.13.10 4.2.7.2.686 [id number] [facility] 2021-07-20 16:30:00 2021-07-20 16:51:55 Outpatient R MANOLO DIXON CHERYAL [facility] [id number] [facility] 2021-07-20 16:30:00 2021-07-20 16:51:55 Routine Visit Manolo Dixon [facility] 1.2.840.114 350.1.13.10 4.2.7.2.686 [id number] [facility] 2021-07-18 14:30:00 2021-07-18 14:30:00 Outpatient MANOLO CAO CHERYAL [facility] [id number] [facility] 2021-06-27 14:00:00 2021-06-27 14:00:00 Outpatient R MANOLO DIXON CHERYAL [facility] [id number] [facility] 2021-06-26 16:15:00 2021-06-26 16:15:00 Outpatient ABBEY TIMMONS [facility] [id number] [facility] 2021-06-12 08:15:00 2021-06-12 08:15:00 Outpatient R ABBEY JEAN [facility] [id number] [facility] 2021-06-06 00:00:00 2021-06-06 00:00:00 Telephone Abbey Jean [facility] 1.2840.114 350.1.13.10 4.2.7.2.686 [id number] 134 [id number] [facility] 2021-06-01 15:00:00 2021-06-01 15:53:36 Outpatient R ABBEY JEAN [facility] [id number] [facility] 2021-06-01 15:00:00 2021-06-01 15:53:36 Routine Visit Jose Jeann [facility] 1..840.114 350.1.13.10 4.2.7.2.686 [id number] 134 [id number] [facility] 2021-05-30 00:00:00 2021-05-30 00:00:00 Telephone Abbey Jean [facility] 1.2840.114 350.1.13.10 4.2.7.2.686 [id number] 134 [id number] [facility] 2021-05-15 16:15:00 2021-05-15 16:15:00 Outpatient R ABBEY JEAN [facility] [id number] [facility] 2021-05-09 14:30:00 2021-05-09 15:30:00 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, [facility] Yasmin Krishnan [facility] 1..840.114 350.1.13.10 4.2.7.2.686 [id number] [facility] 2021-05-09 14:30:00 2021-05-09 14:30:00 Outpatient P YASMIN KRISHNAN [facility] [id number] [facility] 2021-05-02 13:30:00 2021-05-02 13:30:00 Outpatient P [facility] [id number] [facility] 2021-05-01 16:00:00 2021-05-01 16:00:00 Outpatient R ABBEY JEAN [facility] [id number] [facility] 2021-04-19 16:00:00 2021-04-19 16:00:00 Outpatient R ABBEY JEAN [facility] [id number] [facility] 2021-04-16 00:00:00 2021-04-16 00:00:00 Patient Secure Msg Doctor Unassigned, [place] [facility] 1.0.114 350.1.13.10 4.2.7.2.686 [id number] 134 [id number] [facility] 2021-04-16 00:00:00 2021-04-16 00:00:00 Telephone eTd Abbey [facility] 1..114 350.1.13.10 4.2.7.2.686 [id number] 134 [id number] [facility] 2021-03-29 16:00:00 2021-03-29 16:56:21 Outpatient R ABBEY JEAN [facility] [id number] [facility] 2021-03-29 15:55:48 2021-03-29 16:56:21 Routine Visit Ted Abbey [facility] 1.0.114 350.1.13.10 4.2.7.2.686 [id number] [facility] 2021-03-29 16:00:00 2021-03-29 16:00:00 Outpatient R ABBEY JEAN [facility] [id number] [facility] 2021-03-09 00:00:00 2021-03-09 00:00:00 Orders Only Doctor Unassigned, [place] [facility] 1.2840.114 350.1.13.10 4.2.7.2.686 [id number] [facility] 2021-03-07 00:00:00 2021-03-07 00:00:00 Telephone Abbey Jean [facility] 1.2840.114 350.1.13.10 4.2.7.2.686 [id number] [facility] 2021-03-01 13:00:40 2021-03-01 13:46:57 Routine Visit Abbey Jean [facility] 1.2840.114 350.1.13.10 4.2.7.2.686 [id number] [facility] 2021-03-01 13:00:00 2021-03-01 13:46:57 Outpatient R ABBEY JEAN [facility] [id number] [facility] 2021-03-01 00:00:00 2021-03-01 00:00:00 Letter (Out) Nurse, Daily [facility] 1.0.114 350.1.13.10 4.2.7.2.686 [id number] 134 [id number] [facility] 2021-02-27 00:00:00 2021-02-27 00:00:00 Case Management Abbey Jean [facility] 1.2840.114 350.1.13.10 4.2.7.2.686 [id number] [facility] 2021-02-26 11:00:00 2021-02-26 11:00:00 Outpatient R ABBEY JEAN [facility] [id number] [facility] 2021-02-26 10:25:15 2021-02-26 10:40:15 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 Truck Driver Visit Pob, [facility] Main Abbey Jean [facility] 1.2840.114 350.1.13.10 4.2.7.2.686 [id number] [facility] [id number] [facility] 2021-02-26 00:00:00 2021-02-26 00:00:00 Telephone Abbey Jean [facility] 1.2.840.114 350.1.13.10 4.2.7.2.686 [id number] 134 [id number] [facility] 2021-02-23 10:53:48 2021-02-23 12:23:35 Routine Visit Abbey Jean [facility] 1.2.840.114 350.1.13.10 4.2.7.2.686 [id number] 134 [id number] [facility] 2021-02-23 10:45:00 2021-02-23 12:23:35 Outpatient R ABBEY JEAN [facility] [id number] [facility] 2021-02-23 00:00:00 2021-02-23 00:00:00 Telephone [facility] 1.2840.114 350.1.13.10 4.2.7.2.686 [id number] 134 [id number] [facility] 2021-02-23 00:00:00 2021-02-23 00:00:00 Orders Only Doctor Unassigned, [place] [facility] 1.2.840.114 350.1.13.10 4.2.7.2.686 [id number] [facility] 2021-02-23 00:00:00 2021-02-23 00:00:00 Case Management Abbey Jean [facility] 1.2840.114 350.1.13.10 4.2.7.2.686 [id number] 134 [id number] [facility] 2021-02-08 14:39:11 2021-02-08 15:51:23 Initial Visit Abbey Jean [facility] 1.2840.114 350.1.13.10 4.2.7.2.686 [id number] 134 [id number] [facility] 2021-02-08 14:30:00 2021-02-08 15:51:23 Outpatient ABBEY TIMMONS [facility] [id number] [facility] 2021-02-08 14:30:00 2021-02-08 15:51:23 Outpatient ABBEY TIMMONS [facility] [id number] [facility] 2021-02-08 00:00:00 2021-02-08 00:00:00 Orders Only Doctor Unassigned, [place] [facility] 1.2.840.114 350.1.13.10 4.2.7.2.686 [id number] [id number] [facility] 2021-01-25 09:45:00 2021-01-25 09:45:00 Outpatient SHEREE HOLLEY [facility] [id number] [facility] 2021-01-25 09:45:00 2021-01-25 09:45:00 Outpatient SHEREE HOLLEY [facility] [id number] [facility] 2017-12-04 00:00:00 2017-12-06 00:00:00 Outpatient [facility] [id number] [facility] Results Test Description Test Time Test Comments Results Result Co mments Source [facility] - SYPHIL[facility] [id number] 16:04:47* Test Item Value Reference Range Interpretation Comme nts Syphilis IgG/IgM (test code = 19765-9) Non-reactive Non-reactive GLADYS (test code = GLADYS) Non-reactive - No serologic evidence of T. pallidum infection. Cannot exclude incubating or early syphilis. Submit a second specimen in 2-4 weeks if syphilis is clinically suspected. Equivocal - Further testing to follow. Reactive - Further testing to follow. Lab Interpretation (test code = 80301-9) Normal [facility] WITH [id number] 03:56:31* Test Item Value Reference Range Interpretation Comme nts WBC (test code = 6690-2) 11.13 See_Comment H [Automated messa ge] The system which generated this result transmitted reference range: 4.30 - 11.10 10*3/?L. The reference range was not used to interpret this result as normal/abnormal. RBC (test code = 789-8) 3.93 See_Comment [Automated [place] ge] The system which generated this result transmitted reference range: 3.93 - 5.25 10*6/?L. The reference range was not used to interpret this result as normal/abnormal. HGB (test code = 718-7) 10.5 g/dL 11.6-15.0 L HCT (test code = 4544-3) 31.1 % 35.7-45.2 L MCV (test code = 787-2) 79.1 fL 80.6-95.5 L MCH (test code = 785-6) 26.7 pg 25.9-32.8 MCHC (test code = 786-4) 33.8 g/dL 31.6-35.1 RDW-SD (test code = 10152-5) 37.6 fL 39.0-49.9 L RDW-CV (test code = 788-0) 13.2 % 12.0-15.5 PLT (test code = 777-3) 288 See_Comment [Automated [place] ge] The system which generated this result transmitted reference range: 166 - 358 10*3/?L. The reference range was not used to interpret this result as normal/abnormal. MPV (test code = 46815-5) 11.0 fL 9.5-12.9 NRBC/100 WBC (test code = 5587954451) 0.0 See_Comment [Automated [employer] ssage] The system which generated this result transmitted reference range: 0.0 - 10.0 /100 WBCs. The reference range was not used to interpret this result as normal/abnormal. NRBC x10^3 (test code = 8328678930) See_Comment [Automated [place] ge] The system which generated this result transmitted reference range: 10*3/?L. The reference range was not used to interpret this result as normal/abnormal. GRAN MAT (NEUT) % (test code = 770-8) 65.5 % IMM GRAN % (test code = 8005773414) 0.60 % LYMPH % (test code = 736-9) 26.3 % MONO % (test code = 5905-5) 5.8 % EOS % (test code = 713-8) 1.6 % BASO % (test code = 706-2) 0.2 % GRAN MAT x10^3(ANC) (test code = 7545155956) 7.28 10*3/uL 1.88-7.09 H IMM GRAN x10^3 (test code = 8378782125) 0.07 10*3/uL 0.00-0.06 H LYMPH x10^3 (test code = 731-0) 2.93 10*3/uL 1.32-3.29 MONO x10^3 (test code = 742-7) 0.65 10*3/uL 0.33-0.92 EOS x10^3 (test code = 711-2) 0.18 10*3/uL 0.03-0.39 BASO x10^3 (test code = 704-7) 0.01-0.07 Lab Interpretation (test code = 08377-3) Abnormal [facility] Surface [id number] 03:38:08 * Test Item Value Reference Range Interpretation Comme [facility] HBsAg Semi-Quantitative (irina t code = 5195-3) 0.15 Negative [facility] WestProthrombin Time / [id number] 02:11:18* Test Item Value Reference Range Interpretation Comme nts PROTIME PATIENT (test code = 5964-2) 11.1 See_Comment [Automated [place] Better[employer]] The system which generated this result transmitted reference range: 10.1 - 12.6 Seconds. The reference range was not used to interpret this result as normal/abnormal. INR (test code = 6301-6) 1.0 Normal INR <1.1; Warfarin Therapeutic range 2.0 to 3.0 or 2.5 to 3.5, depending upon the indications. Lab Interpretation (test code = 56691-9) Normal [facility] WestaPTT2023-03-30 02:11:18* Test Item Value Reference Range Interpretation Comme nts APTT Patient (test code = 3173-2) 25 See_Comment L [Automated [place] ge] The system which generated this result transmitted reference range: 26 - 36 Seconds. The reference range was not used to interpret this result as normal/abnormal. Lab Interpretation (test code = 76564-2) Abnormal [facility] WestFIBRINOGEN2023-03-30 02:11:18* Test Item Value Reference Range Interpretation Comme nts Fibrinogen (test code = 7581662029) 383 mg/dL 167-453 Lab Interpretation (test cod e = 45294-2) Normal [facility] WestType and Screen - ONCE [id number] 01:35:00 * Test Item Value Reference Range Interpretation Comme nts ABO & RH (test code = 20) B POSITIVE IAT (test code = 1185) Negative [facility] WestPOMI URINALYSIS W/O SPECIFIC [id number] 21:21:00* Test Item Value Reference Range Interpretation Comme nts POCT PH U (test code = 3254) n/a 5-8 POCT U LEUK EST (test code = 3263) n/a Negative - Negative POCT U NIT (test code = 3262) n/a Negative - Negati ve POCT U PROT (test code = 3259) negative Negative - Negat oracio POCT U GLU (test code = 3256) negative Negative - Negati ve POCT U KETONE (test code = 3258) n/a Negative - Neg ative POCT U BLD (test code = 3257) n/a Negative - Negati ve [facility] URINALYSIS W/O SPECIFIC [id number] 19:11:00* Test Item Value Reference Range Interpretation Comme nts POCT PH U (test code = 3254) n/a 5-8 POCT U LEUK EST (test code = 3263) n/a Negative - Negative POCT U NIT (test code = 3262) n/a Negative - Negati ve POCT U PROT (test code = 3259) negative Negative - Negat oracio POCT U GLU (test code = 3256) negative Negative - Negati ve POCT U KETONE (test code = 3258) n/a Negative - Neg ative POCT U BLD (test code = 3257) n/a Negative - Negati ve [facility] WestPOCT [id number] 19:18:00* Test Item Value Reference Range Interpretation Comme nts POCT PREG (test code = 1605) Positive On board controls acceptable with C Line (test code = 3574) Yes POCT PREG LOT # (test code = 3575) POCT PREG TEST DATE ( test code = 3576) [facility] with [id number] 09:17:16* Test Item Value Reference Range Interpretation Comme nts WBC (test code = 6690-2) See_Comment H [Automated messa ge] The system which generated this result transmitted reference range: 4.30 - 11.10 10*3/?L. The reference range was not used to interpret this result as normal/abnormal. RBC (test code = 789-8) See_Comment [Automated messa ge] The system which generated this result transmitted reference range: 3.93 - 5.25 10*6/?L. The reference range was not used to interpret this result as normal/abnormal. HGB (test code = 718-7) 10.1 g/dL 11.6-15.0 L HCT (test code = 4544-3) 31.3 % 35.7-45.2 L MCV (test code = 787-2) 79.4 fL 80.6-95.5 L MCH (test code = 785-6) 25.6 pg 25.9-32.8 L MCHC (test code = 786-4) 32.3 g/dL 31.6-35.1 RDW-SD (test code = 63937-2) 50.6 fL 39.0-49.9 H RDW-CV (test code = 788-0) 17.5 % 12.0-15.5 H PLT (test code = 777-3) See_Comment [Automated messa ge] The system which generated this result transmitted reference range: 166 - 358 10*3/?L. The reference range was not used to interpret this result as normal/abnormal. MPV (test code = 21101-8) 11.7 fL 9.5-12.9 NRBC/100 WBC (test code = 2803136051) See_Comment [Automated me ssage] The system which generated this result transmitted reference range: 0.0 - 10.0 /100 WBCs. The reference range was not used to interpret this result as normal/abnormal. NRBC x10^3 (test code = 4885506618) <0.01 See_Comment [Automated messa ge] The system which generated this result transmitted reference range: 10*3/?L. The reference range was not used to interpret this result as normal/abnormal. GRAN MAT (NEUT) % (test code = 770-8) 64.6 % IMM GRAN % (test code = 3063715101) 0.40 % LYMPH % (test code = 736-9) 25.3 % MONO % (test code = 5905-5) 7.5 % EOS % (test code = 713-8) 1.7 % BASO % (test code = 706-2) 0.5 % GRAN MAT x10^3(ANC) (test code = 3048090676) 7.51 10*3/uL 1.88-7.09 H IMM GRAN x10^3 (test code = 3052736124) 0.05 10*3/uL 0.00-0.06 LYMPH x10^3 (test code = 731-0) 2.95 10*3/uL 1.32-3.29 MONO x10^3 (test code = 742-7) 0.87 10*3/uL 0.33-0.92 EOS x10^3 (test code = 711-2) 0.20 10*3/uL 0.03-0.39 BASO x10^3 (test code = 704-7) 0.06 10*3/uL 0.01-0.07 Lab Interpretation (test code = 32487-5) Abnormal [facility] OR ABEL ONLY - [id number] 03:59:13* Test Item Value Reference Range Interpretation Comme nts RPR (Qualitative) (test code = 57014-1) Nonreactive Nonreactive Lab Interpretation (test cod e = 43172-4) Normal [facility] West[facility]ella Screen (JERSON) [id number] 18:51:00 * Test Item Value Reference Range Interpretation Comme nts Rubella screen IgG (test code = 5601945131) Positive Negative GLADYS (test code = GLADYS) Positive - Indicat es the patient was exposed to Rubella through infection or vaccination.Negative - Indicates the patient could be susceptible to Rubella infection.Equivocal - A second specimen should be sent. [facility] WestHepatitis B Surface [id number] 17:05:37 * Test Item Value Reference Range Interpretation Comme nts HBsAg Semi-Quantitative (irina t code = 5195-3) Negative Negative [facility] WestHIV 1/2 AG-AB WITH [id number] 11:27:21* Test Item Value Reference Range Interpretation Comme nts HIV Semi-quantitative (test code = 25338-6) Negative Negative GLADYS (test code = GLADYS) Non-reactive for HIV-1 antigen and HIV-1/HIV-2 antibodies. ?No laboratory evidence of HIV infection. ?Repeat in 2-4 weeks if acute HIV infection is suspected. [facility] WestRHO (D) IMMUNE [id number] 09:09:42* Test Item Value Reference Range Interpretation Comme nts RHIG CANDIDATE? (test code = 5055) No- see comment Patient is not a candidate for RhIg- Patient is Rh Positive.Performed at [facility] Laboratory Services - [facility] Blood [address] [place] [address] Free: [phone] No. [id number] [facility] WestType and Screen - ONCE [id number] 09:08:33 * Test Item Value Reference Range Interpretation Comme nts ABO & RH (test code = 20) B Positive Performed at [facility] Laboratory [facility] Blood [address] Free: [phone] No. [id number] IAT (test code = 1185) Negative Performed at [facility] Laboratory [facility] Blood [address] [place], [place] [address]Toll Free: [phone] No. [id number] [facility] WestVENOUS CORD [id number] 08:51:38* Test Item Value Reference Range Interpretation Comme nts VENOUS BASE EXCESS, CORD (test code = 5075598449) mEq/L VENOUS PH, CORD (test code = 1016771156) 7.25-7.45 L VENOUS PC02, CORD (test code = 3207089093) See_Comment H [Automated me ssage] The system which generated this result transmitted reference range: 27 - 49 mmHg. The reference range was not used to interpret this result as normal/abnormal. VENOUS PO2, CORD (test code = 6747018548) See_Comment [Automated me ssage] The system which generated this result transmitted reference range: 17 - 41 mmHg. The reference range was not used to interpret this result as normal/abnormal. VENOUS BICARBONATE, CORD (test code = 3240145384) See_Comment [Automa tato message] The system which generated this result transmitted reference range: 12 - 29 mEq/L. The reference range was not used to interpret this result as normal/abnormal. Lab Interpretation (test code = 80448-7) Abnormal [facility] WestARTERIAL CORD [id number] 08:48:28* Test Item Value Reference Range Interpretation Comme nts BASE EXCESS, CORD (test code = 5352229027) mEq/L AC PH, CORD (BEAKER) (test code = 0183355079) 7.18-7.38 PC02, CORD (test code = 0241200147) See_Comment [Automated messa ge] The system which generated this result transmitted reference range: 32 - 66 mmHg. The reference range was not used to interpret this result as normal/abnormal. PO2, CORD (test code = 1410082069) See_Comment [Automated messa ge] The system which generated this result transmitted reference range: 10 - 30 mmHg. The reference range was not used to interpret this result as normal/abnormal. BICARBONATE, CORD (test code = 8054746191) See_Comment [Automated messa ge] The system which generated this result transmitted reference range: 17 - 27 mEq/L. The reference range was not used to interpret this result as normal/abnormal. [facility] with [id number] 08:33:11* Test Item Value Reference Range Interpretation Comme nts WBC (test code = 6690-2) See_Comment H [Automated messa ge] The system which generated this result transmitted reference range: 4.30 - 11.10 10*3/?L. The reference range was not used to interpret this result as normal/abnormal. RBC (test code = 789-8) See_Comment [Automated messa ge] The system which generated this result transmitted reference range: 3.93 - 5.25 10*6/?L. The reference range was not used to interpret this result as normal/abnormal. HGB (test code = 718-7) 10.9 g/dL 11.6-15.0 L HCT (test code = 4544-3) 34.1 % 35.7-45.2 L MCV (test code = 787-2) 78.8 fL 80.6-95.5 L MCH (test code = 785-6) 25.2 pg 25.9-32.8 L MCHC (test code = 786-4) 32.0 g/dL 31.6-35.1 RDW-SD (test code = 47472-8) 49.8 fL 39.0-49.9 RDW-CV (test code = 788-0) 17.4 % 12.0-15.5 H PLT (test code = 777-3) See_Comment [Automated messa ge] The system which generated this result transmitted reference range: 166 - 358 10*3/?L. The reference range was not used to interpret this result as normal/abnormal. MPV (test code = 03922-9) 11.3 fL 9.5-12.9 NRBC/100 WBC (test code = [id number]) See_Comment [Automated [employer] ssage] The system which generated this result transmitted reference range: 0.0 - 10.0 /100 WBCs. The reference range was not used to interpret this result as normal/abnormal. NRBC x10^3 (test code = [id number]) <0.01 See_Comment [Automated messa ge] The system which generated this result transmitted reference range: 10*3/?L. The reference range was not used to interpret this result as normal/abnormal. GRAN MAT (NEUT) % (test code = 770-8) 72.5 % IMM GRAN % (test code = 4115299238) 0.40 % LYMPH % (test code = 736-9) 16.7 % MONO % (test code = 5905-5) 9.4 % EOS % (test code = 713-8) 0.8 % BASO % (test code = 706-2) 0.2 % GRAN MAT x10^3(ANC) (test code = 3545971616) 8.85 10*3/uL 1.88-7.09 H IMM GRAN x10^3 (test code = 4181543163) 0.05 10*3/uL 0.00-0.06 LYMPH x10^3 (test code = 731-0) 2.03 10*3/uL 1.32-3.29 MONO x10^3 (test code = 742-7) 1.14 10*3/uL 0.33-0.92 H EOS x10^3 (test code = 711-2) 0.10 10*3/uL 0.03-0.39 BASO x10^3 (test code = 704-7) <0.03 0.01-0.07 Lab Interpretation (test code = 02437-0) Abnormal [facility] URINALYSIS W/O SPECIFIC [id number] 19:39:00* Test Item Value Reference Range Interpretation Comme nts POCT PH U (test code = 3254) n/a 5-8 POCT U LEUK EST (test code = 3263) n/a Negative - Negative POCT U NIT (test code = 3262) N/A Negative - Negati ve POCT U PROT (test code = 3259) negative Negative - Negat oracio POCT U GLU (test code = 3256) negative Negative - Negati ve POCT U KETONE (test code = 3258) n/a Negative - Neg ative POCT U BLD (test code = 3257) n/a Negative - Negati ve [facility] URINALYSIS W/O SPECIFIC [id number] 20:47:00* Test Item Value Reference Range Interpretation Comme nts POCT PH U (test code = 3254) n/a 5-8 POCT U LEUK EST (test code = 3263) n/a Negative - Negative POCT U NIT (test code = 3262) n/a Negative - Negati ve POCT U PROT (test code = 3259) negative Negative - Negat oracio POCT U GLU (test code = 3256) negative Negative - Negati ve POCT U KETONE (test code = 3258) n/a Negative - Neg ative POCT U BLD (test code = 3257) n/a Negative - Negati ve [facility] /2 AG-AB WITH [id number] 17:26:44* Test Item Value Reference Range Interpretation Comme nts HIV Semi-quantitative (test code = 08139-1) Negative Negative GLADYS (test code = GLADYS) Non-reactive for HIV-1 antigen and HIV-1/HIV-2 antibodies. ?No laboratory evidence of HIV infection. ?Repeat in 2-4 weeks if acute HIV infection is suspected. [facility] [id number] 17:01:59 * Test Item Value Reference Range Interpretation Comme nts ABO & RH (test code = 20) B Positive Performed at [facility] Laboratory [facility] [address] [place], [place] [id number] Free: [phone] No. [id number] IAT (test code = 1185) Negative Performed at [facility] Laboratory [facility] [address] [place], [place] [id number] Free: [phone] No. [id number] [facility] WITH [id number] 16:30:16* Test Item Value Reference Range Interpretation Comme nts WBC (test code = 6690-2) See_Comment [Automated messa ge] The system which generated this result transmitted reference range: 4.30 - 11.10 10*3/?L. The reference range was not used to interpret this result as normal/abnormal. RBC (test code = 789-8) See_Comment L [Automated messa ge] The system which generated this result transmitted reference range: 3.93 - 5.25 10*6/?L. The reference range was not used to interpret this result as normal/abnormal. HGB (test code = 718-7) 9.1 g/dL 11.6-15.0 L HCT (test code = 4544-3) 28.8 % 35.7-45.2 L MCV (test code = 787-2) 77.4 fL 80.6-95.5 L MCH (test code = 785-6) 24.5 pg 25.9-32.8 L MCHC (test code = 786-4) 31.6 g/dL 31.6-35.1 RDW-SD (test code = 77158-1) 38.5 fL 39.0-49.9 L RDW-CV (test code = 788-0) 13.7 % 12.0-15.5 PLT (test code = 777-3) See_Comment [Automated messa ge] The system which generated this result transmitted reference range: 166 - 358 10*3/?L. The reference range was not used to interpret this result as normal/abnormal. MPV (test code = 07436-5) 10.3 fL 9.5-12.9 NRBC/100 WBC (test code = 4787125341) See_Comment [Automated [employer] ssage] The system which generated this result transmitted reference range: 0.0 - 10.0 /100 WBCs. The reference range was not used to interpret this result as normal/abnormal. NRBC x10^3 (test code = 6112552372) <0.01 See_Comment [Automated messa ge] The system which generated this result transmitted reference range: 10*3/?L. The reference range was not used to interpret this result as normal/abnormal. GRAN MAT (NEUT) % (test code = 770-8) 73.8 % IMM GRAN % (test code = 0214945953) 0.70 % LYMPH % (test code = 736-9) 16.9 % MONO % (test code = 5905-5) 6.7 % EOS % (test code = 713-8) 1.6 % BASO % (test code = 706-2) 0.3 % GRAN MAT x10^3(ANC) (test code = 7605895661) 7.66 10*3/uL 1.88-7.09 H IMM GRAN x10^3 (test code = 2360657594) 0.07 10*3/uL 0.00-0.06 H LYMPH x10^3 (test code = 731-0) 1.75 10*3/uL 1.32-3.29 MONO x10^3 (test code = 742-7) 0.69 10*3/uL 0.33-0.92 EOS x10^3 (test code = 711-2) 0.17 10*3/uL 0.03-0.39 BASO x10^3 (test code = 704-7) 0.03 10*3/uL 0.01-0.07 Lab Interpretation (test code = 72445-0) [facility]normal [facility] SPECIFIC [id number] 21:41:00* Test Item Value Reference Range Interpretation Comme nts POCT PH U (test code = 3254) n/a 5-8 POCT U LEUK EST (test code = 3263) n/a Negative - Negative POCT U NIT (test code = 3262) n/a Negative - Negati ve POCT U PROT (test code = 3259) negative Negative - Negat oracio POCT U GLU (test code = 3256) negative Negative - Negati ve POCT U KETONE (test code = 3258) n/a Negative - Neg ative POCT U BLD (test code = 3257) n/a Negative - Negati ve Lab Interpretation (test cod e = 11462-6) Normal [facility] W/O SPECIFIC [id number] 21:23:00* Test Item Value Reference Range Interpretation Comme nts POCT PH U (test code = 3254) N/A 5-8 POCT U LEUK EST (test code = 3263) N/A Negative - Negative POCT U NIT (test code = 3262) N/A Negative - Negati ve POCT U PROT (test code = 3259) Negative Negative - Negat oracio POCT U GLU (test code = 3256) Negative Negative - Negati ve POCT U KETONE (test code = 3258) N/A Negative - Neg ative POCT U BLD (test code = 3257) N/A Negative - Negati ve [facility]
[2024-03-14] MEDS ORDERED: ACETAMINOPHEN 500 MG TAB ONE (06:14)
[2024-03-14 07:04] LABS: SARS-CoV-2 Antigen CONTROL BLUE LINE VIS/BG OK; SARS-CoV-2 Antigen Rapid Res Negative (Negative)
--- NOTE | 2024-03-14 07:15 | EDPHYS ---
Physician Documentation [facility] Name: Roro Heredia Age: 28 yrs Sex: Female : 1995 Arrival Date: 03/14/2024 Time: 05:39 Bed 7 Private MD: ED Physician Vini Boland HPI: 03/14 06:10 This 28 yrs old Black Female presents to ER via Ambulatory with complaints of Flu rt Symptoms, Cough, Congestion. 06:10 Patient presents to the ED with cough, congestion starting last night. The patient has rt a son who has similar symptoms. Denies other acute complaints at this time, symptoms are mild in severity, no other aggravating or elevating factors.. LAPEL PADDER: 06:08 unknown al5 Historical: - Allergies: 06:08 No Known Allergies; al5 - PMHx: 06:08 None; al5 - PSHx: 06:08 None; al5 - Immunization history:: Adult Immunizations up to date. - Infectious Disease History:: Denies. - Social history:: Smoking status: Patient denies any tobacco usage or history of. - Family history:: not pertinent. ROS: 07:16 Constitutional: Negative for fever, chills, and weight loss, Cardiovascular: Negative rt for chest pain, palpitations, and edema, Abdomen/GI: Negative for abdominal pain, nausea, vomiting, diarrhea, and constipation, MS/Extremity: Negative for injury and deformity, Skin: Negative for injury, rash, and discoloration, Neuro: Negative for headache, weakness, numbness, tingling, and seizure, 07:16 ENT: Positive for rhinorrhea, sore throat, 07:16 Respiratory: Positive for cough, Negative for shortness of breath, Exam: 07:16 Constitutional: This is a well developed, well nourished patient who is awake, alert, rt and in no acute distress. Head/Face: Normocephalic, atraumatic. Chest/axilla: Normal chest wall appearance and motion. Nontender with no deformity. No lesions are appreciated. Cardiovascular: Regular rate and rhythm with a normal S1 and S2. No gallops, murmurs, or rubs. Normal PMI, no JVD. No pulse deficits. Respiratory: Lungs have equal breath sounds bilaterally, clear to auscultation and percussion. No rales, rhonchi or wheezes noted. No increased work of breathing, no retractions or nasal flaring. Abdomen/GI: Soft, non-tender, with normal bowel sounds. No distension or tympany. No guarding or rebound. No evidence of tenderness throughout. Skin: Warm, dry with normal turgor. Normal color with no rashes, no lesions, and no evidence of cellulitis. MS/ Extremity: Pulses equal, no cyanosis. Neurovascular intact. Full, normal range of motion. Neuro: Awake and alert, GCS 15, oriented to person, place, time, and situation. Cranial nerves II-XII grossly intact. Motor strength 5/5 in all extremities. Sensory grossly intact. Cerebellar exam normal. Normal gait. Vital Signs: 06:06 BP 128 / 85; Pulse 88; Resp 16; Temp 98; Pulse Ox 98.7% on R/A; Weight 85.73 kg; Height al5 5 ft. 2 in. ; 06:06 Body Mass Index 34.57 (85.73 kg, 157.48 cm) al5 MDM: 05:52 Medical Screening Exam initiated rt 07:16 Differential Diagnosis: Other Flu, strep, URI. Data reviewed: vital signs, nurses rt notes, lab test result(s). I considered the following discharge prescriptions or medication management in the emergency department Medications were administered in the Emergency Department. See MAR. Test considered but Not performed: X-ray: Clear breath sounds, low suspicion for pneumonia, x-rays not indicated. Counseling: I had a detailed discussion with the patient and/or guardian regarding the historical points, exam findings, and any diagnostic results supporting the discharge/admit diagnosis, lab results, the need for outpatient follow up, to return to the emergency department if symptoms worsen or persist or if there are any questions or concerns that arise at home. Response to treatment: the patient's symptoms have markedly improved after treatment. 07:18 ED course: Patient's son with similar symptoms very similar timeframe tested positive rt for influenza A during this visit, suspect that patient has the same illness, just too soon show positive, will treat patient as if she will flu positive.. 03/14 06:04 Order name: Influenza Screen (a \T\ B); Complete Time: 07:08 rt 03/14 06:04 Order name: SARS RAPID; Complete Time: 07:08 rt 03/14 06:04 Order name: Strep; Complete Time: 07:08 rt 03/14 07:08 Order name: Throat Culture EDMS Administered Medications: 06:18 Drug: Acetaminophen PO 1000 mg PO once Route: PO; bm8 06:58 Follow up: Response: No adverse reaction; Pain is decreased al5 Disposition Summary: 03/14/24 07:15 Discharge Ordered Notes: Location: Home rt Problem: new rt Symptoms: have improved rt Condition: Stable rt Diagnosis - Influenza due to identified novel influenza A virus rt Followup: rt - With: Private Physician - When: 2 - 3 days - Reason: Discharge Instructions: - Discharge Summary Sheet rt - Influenza, Adult, [id number] rt Forms: - Work release form rt - Medication Reconciliation Form rt - Antibiotic Education rt - Prescription Opioid Use rt - Patient Portal Instructions rt - Leadership Thank You Letter rt Signatures: Dispatcher [employer] EDMS Vini Boland MD MD rt Scotty Milan RN RN bm8 Samantha Bell RN RN al5 Corrections: (The following items were deleted from the chart) 06:04 06:04 Influenza Screen (A \T\ B)+BA.LAB.BRZ ordered. EDMS EDMS 06:04 06:04 SARS-COV-2 Antigen Rapid+I.LAB.BRZ ordered. EDMS EDMS 06:04 06:04 Group A Streptococcus Rapid Sc+BA.LAB.BRZ ordered. EDMS EDMS
--- NOTE | 2024-03-14 07:15 | ER ---
Nurse's Notes [facility] Name: Roro Heredia Age: 28 yrs Sex: Female : 1995 Arrival Date: 03/14/2024 Time: 05:39 Bed 7 Private MD: Diagnosis: Influenza due to identified novel influenza A virus Presentation: 03/14 06:06 Chief complaint: Patient states: c/o cough, sore throat, congestion since last night. al5 son and aunt are sick with the same symptoms. Coronavirus screen: congestion, cough unrelated to allergies, runny nose, sore throat. Ebola Screen: No symptoms or risks identified at this time. Resp Distress? No respiratory distress is noted at this time. Initial Sepsis Screen: Does the patient meet any 2 criteria? No. Patient's initial sepsis screen is negative. Does the patient have a suspected source of infection? No. Patient's initial sepsis screen is negative. Risk Assessment: Do you want to hurt yourself or someone else? Patient reports no desire to harm self or others. Onset of symptoms was March 13, 2024. 06:06 Method Of Arrival: Ambulatory al5 06:06 Acuity: JULIET 3 al5 Triage Assessment: 06:08 General: Appears in no apparent distress. uncomfortable, Behavior is calm, cooperative. al5 Pain: Denies pain. EENT: Reports nasal congestion cough, sore throat. Neuro: Level of Consciousness is awake, alert, obeys commands, Oriented to person, place, time, situation. Cardiovascular: Capillary refill < 3 seconds Patient's skin is warm and dry. Respiratory: Airway is patent Respiratory effort is even, unlabored, Respiratory pattern is regular, symmetrical, Breath sounds are clear bilaterally. GI: No signs and/or symptoms were reported involving the gastrointestinal system. : No signs and/or symptoms were reported regarding the genitourinary system. Derm: Skin is intact, is healthy with good turgor, Skin is pink, warm \T\ dry. normal. Musculoskeletal: No signs and/or symptoms reported regarding the musculoskeletal system. 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 - Infectious Disease History:: Denies. - Social history:: Smoking status: Patient denies any tobacco usage or history of. - Family history:: not pertinent. Screenin:10 [facility] ED Fall Risk Assessment (Adult) History of falling in the last 3 months, al5 including since admission No falls in past 3 months (0 pts) Confusion or Disorientation No (0 pts) Intoxicated or Sedated No (0 pts) Impaired Gait No (0 pts) Mobility Assist Device Used No (0 pt) Altered Elimination No (0 pt) Score/Fall Risk Level 0 - 2 = Low Risk Oriented to surroundings, Maintained a safe environment, Hourly rounding (assess needs \T\ fall precautionary measures) done. Abuse screen: Denies threats or abuse. Denies injuries from another. Nutritional screening: No deficits noted. Tuberculosis screening: No symptoms or risk factors identified. Assessment: 06:09 Reassessment: see triage assessment. al5 07:50 Neuro: Level of Consciousness is awake, alert, obeys commands, Oriented to person, aa5 place, time, situation. Respiratory: Airway is patent Respiratory effort is even, unlabored, Respiratory pattern is regular, symmetrical. Derm: Skin is dry, Skin is normal, Skin temperature is warm. Vital Signs: 06:06 BP 128 / 85; Pulse 88; Resp 16; Temp 98; Pulse Ox 98.7% on R/A; Weight 85.73 kg; Height al5 5 ft. 2 in. ; 06:06 Body Mass Index 34.57 (85.73 kg, 157.48 cm) al5 ED Course: 05:42 Patient arrived in ED. gm2 05:44 Vini Boland MD is Attending Physician. rt 06:06 Samantha Bell, SARAH is Primary Nurse. al5 06:08 Triage completed. al5 06:09 Arm band placed on right wrist. Patient placed in the treatment room, on a stretcher. al5 06:10 Patient has correct armband on for positive identification. Bed in low position. Call al5 light in reach. Side rails up X 1. Provided Education on: plan of care. 06:10 No provider procedures requiring assistance completed. Patient did not have IV access al5 during this emergency room visit. 07:04 Attending Physician role handed off by Vini Boland MD ec2 07:04 Ryan Moreno MD is Attending Physician. ec2 07:07 Attending Physician role handed off by Ryan Moreno MD ec2 07:07 Vini Boland MD is Attending Physician. ec2 Administered Medications: 06:18 Drug: Acetaminophen PO 1000 mg PO once Route: PO; bm8 06:58 Follow up: Response: No adverse reaction; Pain is decreased al5 Medication: 06:10 VIS not applicable for this client. al5 Outcome: 07:15 Discharge ordered by MD. rt 07:50 Discharged to home ambulatory, aa5 07:50 Condition: stable 07:50 Discharge instructions given to patient, Instructed on discharge instructions, follow up and referral plans. Demonstrated understanding of instructions, follow-up care, 07:51 Patient left the ED. aa5 Signatures: Kristie Taveras, RN RN aa5 Vini Boland MD MD rt Ryan Moreno MD MD ec2 Cathy Walton 2 Scotty Milan RN RN bm8 Samantha Bell RN RN al5
[2024-03-14 08:25] VITALS: BP 128/85; TEMP 98
== END 2024-03-14 07:51 | disposition home or self-care (01) ==
LOC: ER 05:39
DX: J10.1 Influenza due to other identified influenza virus with other respiratory manifestations (principal); Z11.52 Encounter for screening for COVID-19
CPT/HCPCS: 36415; 87070; 87081; 87804; 87811; 99283

== ENCOUNTER 2024-04-05 10:45 | Emergency (ER) | payer SELFPAY ==
--- OUTSIDE RECORDS SUMMARY | 2024-04-05 10:49 | XMS REPORT | Continuity of Care Document ---
Author Name Unknown Address [address] [facility] [address] [place] [address] [facility] thconnect Address [address] [facility] [address] [place] [address] Care Team Providers Care Payroll Benefits Administrator Name Role Phone Patric Carreon Primary Care Physician Un available SO MANLEY Attending Clinician Unavailable SO MANLEY Attending Clinician Unavailable MANOLO DIXON Attending Clinician UnavailMANOLO Carlisle Attending Clinician UnavailSo Valle MD Attending Clinician [phone] Estefanía Naranjo MD Attending Clinician [phone] ESTEFANÍA NARANJO Attending Clinician Unavailable ESTEFANÍA NARANJO Attending Clinician Unavailable Ultrasound, Ang-Mfm Attending Clinician UnavailAnastasiya Zhang MD Attending Clinician [phone] ANASTASIYA LEZAMA Attending Clinician Unavailable Doctor Unassigned, [place] Attending Clinician U navailable Pob, [facility] Main Attending Clinician UnavailRose Yeboah Attending Clinician UnavailOTF Dupree Attending Clinician Unavail able ABBEY JEAN Attending Clinician Unavailable TALHA SOMERS Attending Clinician Unavailable Talha Somers MD Attending Clinician [phone] Abbey Jean MD Attending Clinician [phone] Yasmin Pérez MD Attending Clinician + YASMIN PÉREZ Attending Clinician Unav ailable Nurse, [facility] Attending Clinician Unavailable SHEREE MIGUEL Attending Clinician Unavail able SO MANLEY Admitting Clinician Unavailable Estefanía Naranjo MD Admitting Clinician ESTEFANÍA NARANJO Admitting Clinician Unavailable TALHA SOMERS Admitting Clinician Unavailable Talha Somers MD Admitting Clinician [phone] Payers Payer Name Policy Type Policy Number Effective Date Expirati on Date Source [facility] [id number] 2015 00:00:00 2022 00:00:00 [employer] [id number] 2017 00:00:00 Problems Condition Name Condition Details Condition Category Status Onset Date Resolution Date Last Treatment Date Treating Clinician Comments Source 23 weeks gestation of 23 weeks gestation of Disease Active 3-29 00:00: 00 [facility] IUFD at 20 weeks or more of gestation IUFD at 20 weeks or more of gestation Disease Active 3-29 00:00: 00 [facility] Alpha thalassemi a silent carrier Alpha thalassemi a silent carrier Disease Active 3-14 00:00: 00 [facility] Screening declined by patient Screening declined by patient Disease Active 1-31 00:00: 00 [facility] Zellweger' s syndrome Zellweger' s syndrome Disease Active 2021-04 2-20 00:00: 00 [facility] 9 weeks gestation of 9 weeks gestation of Disease Active 2021-04 2-20 00:00: 00 [facility] Normal labor Normal labor Disease Active 5-15 00:00: 00 [facility] Positive GBS test Positive GBS test Disease Active 5-15 00:00: 00 [facility] Depression affecting in third trimester, antepartum Depression affecting in third trimester, antepartum Disease Active 4-28 00:00: 00 [facility] Noncomplia nt patient in third trimester Noncomplia nt patient in third trimester Disease Active 4-04 00:00: 00 [facility] Anxiety Anxiety Disease Active 2018-04 1- 00:00: 00 [facility] 38 weeks gestation of 38 weeks gestation of Disease Active 1 00:00: 00 [facility] Atypical squamous cells of undetermin ed significan ce (ASCUS) on Papanicola ou smear of cervix Atypical squamous cells of undetermin ed significan ce (ASCUS) on Papanicola ou smear of cervix Disease Active 2016-04 0- 00:00: 00 Overview: Formattin g of this note might be different from the original. Needs repeat colpo PP-see [place] note on 01/17/16 [facility] Sickle cell trait Sickle cell trait Disease Active 10-31 00:00: 00 [facility] Missed menses Missed menses Disease Active 10-28 00:00: 00 [facility] Obesity in Obesity in Disease Active 10-28 00:00: 00 [facility] Liveborn infant, of samuels , born in hospital by vaginal delivery Liveborn , of samuels , born in hospital by vaginal delivery Disease Active 05-19 00:00: 00 [facility] Multiparit y Multiparit y Disease Active 11-20 00:00: 00 [facility] Supervisio n of other high risk pregnancie s, first trimester Supervisio n of other high risk pregnancie s, first trimester Disease Active 11-20 00:00: 00 [facility] with inconclusi ve viability, single or unspecifie d fetus with inconclusi ve viability, single or unspecifie d fetus Disease Active 11-20 00:00: 00 [facility] Allergies, Adverse Reactions, Alerts Allergy Name Allergy Type Status Severity Reaction(s) Onset Date Inactive Date Treating Clinician Comments Source NO KNOWN ALLERGIE S Drug Class Active [facility] Social History Social Habit Start Date Stop Date Quantity Comments Source ASSERTION 2022-02-17 00:00:00 [facility] to SARS-CoV-2 (event) 2022-07-19 00:00:00 2022-07-29 13:54:00 Not sure [facility] History of Social function 2021-08-16 00:00:00 2021-08-16 00:00:00 [facility] Alcohol intake 2021-03-30 00:00:00 2021-03-30 00:00:00 Current non-drinker of alcohol (finding) [facility] Tobacco use and exposure 2012-09-08 00:00:00 2012-09-08 00:00:00 Smokeless tobacco non-user [facility] Sex Assigned At 1995 00:00:00 1995 00:00:00 [facility] Smoking Status Start Date Stop Date Source Never smoked tobacco [facility] Medications Ordered Medication Name Filled Medication Name Start Date Stop Date Current Medication? Ordering Clinician Indication Dosage Frequency Signature (SIG) Comments Components Source rho(D) immune globulin (RHOGAM) syringe 300 mcg 07-18 15:33: 32 Yes 300ug 300 mcg, Intramuscu lar, ONCE, For 1 dose, Conditiona l, Routine [facility] human papillomav vac,9-luz(P F) (GARDASIL-9 ) syringe 0.5 mL 07-18 15:33: 26 Yes .5mL 0.5 mL, Intramuscu lar, ONCE-PRIOR TO DISCHARGE, 1 dose, Starting on Liz 07/18/22 at 1033, Until Discontinu ed, Routine, Give vaccine prior to discharge [facility] HYDROcodone -acetaminop hen (NORCO 5) 5-325 mg tablet 1 tablet 07-18 15:33: 26 Yes 1{tbl} 1 tablet, Oral, Q6HPRN, Starting on Liz 07/18/22 at 1033, Until Discontinu ed, Routine, Pain (scale 7-10) [facility] ibuprofen (IBU) tablet 600 mg 07-18 15:33: 26 Yes 600mg 600 mg, Oral, Q6HPRN, Starting on Liz 07/18/22 at 1033, Until Discontinu ed, Routine, Pain (scale 4-6) [facility] acetaminoph en (TYLENOL) tablet 650 mg 07-18 15:33: 26 Yes 650mg 650 mg, Oral, Q6HPRN, Starting on Fri07/18/22 at 1033, Until Discontinu ed, Routine, Pain (scale 1-3) [facility] diphenhydrA MINE (BENADRYL) tablet 25 mg 07-18 15:33: 26 Yes 25mg 25 mg, Oral, Q6HPRN, Starting on Fri07/18/22 at 1033, Until Discontinu ed, Routine, Sleep, Itching [facility] ondansetron (ZOFRAN (PF)) injection 4 mg 07-18 15:33: 26 Yes 4mg 4 mg, Slow IV Push, Q8HPRN, Starting on Fri07/18/22 at 1033, Until Discontinu ed, Routine, Nausea and Vomiting (N/V) [facility] simethicone (GAS RELIEF (SIMETHICON E)) chewable tablet 160 mg 07-18 15:33: 26 Yes 160mg 160 mg, Oral, PC+HSPRN, Starting on Fri07/18/22 at 1033, Until Discontinu ed, Routine, Gas [facility] docusate (COLACE) capsule 200 mg 07-18 15:33: 26 Yes 200mg 200 mg, Oral, QDAILYPRN, Starting on Fri07/18/22 at 1033, Until Discontinu ed, Routine, Constipati on [facility] magnesium hydroxide (MILK OF MAGNESIA) 400 mg/5 mL suspension 30 mL 07-18 15:33: 26 Yes 30mL 30 mL, Oral, QDAILYPRN, Starting on Fri07/18/22 at 1033, Until Discontinu ed, Routine, Constipati on [facility] benzocaine- menthol (DERMOPLAST ) 20-0.5 % topical spray 07-18 15:33: 26 Yes Topical, PRN, Starting on Fri07/18/22 at 1033, Until Discontinu ed, Routine, Perineum discomfort [facility] ibuprofen (IBU) tablet 600 mg 07-18 14:28: 10 07-18 15:33 :30 No 600mg 600 mg, Oral, Q6HPRN, Starting on Fri07/18/22 at 0928, Until Fri07/18/22 at 1033, Routine, Pain (scale 1-3) [facility] morpHINE 30 mg/30 mL (fixed dose) [employer]ESS [employer]INEER injection 07-18 06:15: 00 07-18 15:33 :30 No Patient Bolus Dose: 1 mg
Lock out Interval: 10 Minutes
Basal Rate: 0 mg/hr
F our Hour Dose Limit: 32 mg
Intr avenous, 30 mL, CONTINUOUS , Starting on Fri07/18/22 at 0115, Until Fri07/18/22 at 1033 [facility] morpHINE 2 mg/mL LOAD & RESCUE INJECTION SYRG 07-18 05:02: 15 07-18 15:33 :30 No Slow IV Push, Routine [facility] miSOPROStoL (CYTOTEC) tablet 400 mcg 07-18 04:45: 00 07-18 11:56 :00 No 400ug 400 mcg, Vaginal, Q3H FEED, 4 doses, First dose (after last modificati on) on Fri07/17/22 at 2345, Last dose on Fri07/18/22 at 0845, Routine [facility] butorphanol (STADOL) injection 1 mg 07-18 04:30: 00 07-18 03:35 :00 No 1mg 1 mg, IV Push, ONCE, 1 dose, On Fri07/17/22 at 2330, [facility] 1,000 mL 07-18 00:35: 36 07-18 15:33 :30 No 1000mL at 1-125 mL/hr, IV Infusion, TITRATE, Starting on Fri07/17/22 at 1935, Until Fri07/18/22 at 1033, Routine [facility] ibuprofen 600 mg tablet 07-18 00:00: 00 Yes [id number] 600mg Take 1 tablet by mouth every 6 (six) hours as needed for Pain (scale 4-6). [facility] acetaminoph en 325 mg tablet 3-30 00:00: 00 07-18 04:59 :00 No [id number] 650mg Take 2 tablets by mouth every 6 (six) hours as needed for Pain (scale 1-3). [facility] vit 33-iron-fol ic-dha (SELECT-OB + DHA) 29 mg iron-1 mg -250 mg combo pack 1-31 00:00: 00 08-04 00:00 :00 No [id number] 1{packe t} Take 1 Packet by mouth in the morning. [facility] vitamin w/FA tablet 2021-04 00:00: 00 08-04 00:00 :00 No [id number] 1{tbl} Take 1 tablet by mouth in the morning. [facility] docusate 100 mg capsule 09-03 00:00: 00 08-04 00:00 :00 No [id number] 200mg Take 2 capsules by mouth once daily as needed for Constipati on. [facility] ferrous sulfate 325 mg (65 mg iron) tablet 09-03 00:00: 00 08-04 00:00 :00 No [id number] 325mg Take 1 tablet by mouth 2 (two) times daily. [facility] vitamin w/FA tablet 09-03 00:00: 00 04-09 00:00 :00 No [id number] 1{tbl} Take 1 tablet by mouth daily. [facility] ibuprofen 600 mg tablet 16 00:00: 00 04-09 00:00 :00 No [id number] 600mg Take 1 tablet by mouth every 6 (six) hours as needed (Pain). Take with food or milk. [facility] rho(D) immune globulin (RHOGAM) syringe 300 mcg 15 08:56: 41 Yes 300ug 300 mcg, Intramuscu lar, ONCE, For 1 dose, Conditiona l, Routine [facility] witch Gasper (TUCKS) 50 % topical pad 09-02 08:56: 40 Yes Topical, Q4HPRN, Starting on 09/02/21 at 0356, Until Discontinu ed, Routine, rectal/hem orrhoidal pain [facility] HYDROcodone -acetaminop hen (NORCO 5) 5-325 mg tablet 1 tablet 09-02 08:56: 40 Yes 1{tbl} 1 tablet, Oral, Q6HPRN, Starting on Fri09/02/21 at 0356, Until Discontinu ed, Routine, Pain (scale 7-10) [facility] ibuprofen (IBU) tablet 600 mg 09-02 08:56: 40 Yes 600mg 600 mg, Oral, Q6HPRN, Starting on 09/02/21 at 035, Until Discontinu ed, Routine, Pain (scale 4-6) [facility] acetaminoph en (TYLENOL) tablet 650 mg 09-02 08:56: 40 Yes 650mg 650 mg, Oral, Q6HPRN, Starting on Fri09/02/21 at 0356, Until Discontinu ed, Routine, Pain (scale 1-3) [facility] diphenhydrA MINE (BENADRYL) tablet 25 mg 09-02 08:56: 40 Yes 25mg 25 mg, Oral, Q6HPRN, Starting on Fri09/02/21 at 035, Until Discontinu ed, Routine, Sleep, Itching [facility] ondansetron (ZOFRAN (PF)) injection 4 mg 09-02 08:56: 40 Yes 4mg 4 mg, Slow IV Push, Q8HPRN, Starting on Fri09/02/21 at 035, Until Discontinu ed, Routine, Nausea and Vomiting (N/V) [facility] simethicone (GAS RELIEF (SIMETHICON E)) chewable tablet 160 mg 09-02 08:56: 40 Yes 160mg 160 mg, Oral, PC+HSPRN, Starting on Fri09/02/21 at 0356, Until Discontinu ed, Routine, Gas [facility] docusate (COLACE) capsule 200 mg 09-02 08:56: 40 Yes 200mg 200 mg, Oral, QDAILYPRN, Starting on 09/02/21 at 0356, Until Discontinu ed, Routine, Constipati on [facility] magnesium hydroxide (MILK OF MAGNESIA) 400 mg/5 mL suspension 30 mL 09-02 08:56: 40 Yes 30mL 30 mL, Oral, QDAILYPRN, Starting on 09/02/21 at 0356, Until Discontinu ed, Routine, Constipati on [facility] benzocaine- menthol (DERMOPLAST ) 20-0.5 % topical spray 09-02 08:56: 40 Yes Topical, PRN, Starting on 09/02/21 at 0356, Until Discontinu ed, Routine, Perineum discomfort [facility] oxytocin (PITOCIN) 30 units in NS 500 mL IV infusion 09-02 08:28: 55 09-02 08:56 :42 No 300mL/h 300 mL/hr, IV Infusion, SEE-INSTRU CTIONS, Starting on Fri09/02/[address] at 300 mL/hr for 1 hr then 150 mL/hr for 1 hr. & nbsp; For post delivery uterotonic
[facility] D5W-LR IV infusion 1,000 mL 09-02 08:15: 00 09-02 08:56 :42 No 1000mL at 125 mL/hr, IV Infusion, CONTINUOUS , Starting on Fri09/02/21 at 0315, Until [place] 09/02/21 at 0356, Routine [facility] FENTanyl PF (SUBLIMAZE (PF)) injection 50 mcg 09-02 08:10: 00 09-02 08:12 :00 No 50ug 50 mcg, Slow IV Push, ONCE, 1 dose, On [place] 09/02/21 at 0315, Routine [facility] vit 33-iron-fol ic-dha (SELECT-OB + DHA) 29 mg iron-1 mg -250 mg combo pack 07-26 00:00: 00 09-03 00:00 :00 No [id number] 1{packe t} Take 1 Packet by mouth daily. [facility] ferrous fumarate-b1 2-vitamic C-folic acid (FEROCON) 110-0.5 mg capsule 07-26 00:00: 00 09-03 00:00 :00 No [id number] 1{capsu le} Take 1 capsule by mouth daily with breakfast. [facility] cephALEXin 500 mg capsule 07-26 00:00: 00 08-03 04:59 :00 No [id number] 500mg Take 1 capsule by mouth every 6 (six) hours for 7 days. [facility] PNV NO.95/FLYNN US FUM/FOLIC AC ( ORAL) 06-01 15:45: 54 06-01 00:00 :00 No Take by mouth. [facility] 78-iron-fol ate 1-dha 18 mg iron-1 mg -300 mg Cap 06-01 00:00: 00 08-03 00:00 :00 No [id number] 1{tbl} Take 1 tablet by mouth daily. [facility] terconazole 0.8 % vaginal cream 06-01 00:00: 00 06-05 05:59 :00 No [id number] 1{appli cator} Insert 1 Applicator into vagina at bedtime for 3 days. [facility] cephALEXin 500 mg capsule 05-30 00:00: 00 07-26 00:00 :00 No 500mg Take 500 mg by mouth every 6 (six) hours. [facility] metroNIDAZO LE 500 mg tablet 05-30 00:00: 00 07-26 00:00 :00 No TAKE 1 TABLET BY MOUTH EVERY 12 HOURS FOR 7 DAYS. DO NOT DRINK ALCOHOL WHILE TAKING THIS MEDICATION [facility] cephALEXin 500 mg capsule 2020-04 00:00: 00 03-07 05:59 :00 No [id number] 500mg Take 1 capsule by mouth every 6 (six) hours for 7 days. [facility] metroNIDAZO LE 500 mg tablet 2020-04 00:00: 00 03-03 05:59 :00 No [id number] 500mg Take 1 tablet by mouth every 12 (twelve) hours for 7 days. [facility] Immunizations Ordered Immunization Name Filled Immunization Name Date Status Comments Source TDAP 2016-03-13 00:00:00 [facility] TDAP 2016-03-13 00:00:00 [facility]pleted [facility] TDAP 2016-03-13 00:00:00 [facility]pleted [facility] TDAP 2016-03-13 00:00:00 [facility]pleted [facility] TDAP 2016-03-13 00:00:00 Completed [facility] TDAP 2016-03-13 00:00:00 [facility]pleted [facility] TDAP 2016-03-13 00:00:00 [facility]pleted [facility] TDAP 2016-03-13 00:00:00 [facility]pleted [facility] TDAP 2016-03-13 00:00:00 [facility]pleted [facility] TDAP 2016-03-13 00:00:00 Completed [facility] TDAP 2016-03-13 00:00:00 Completed [facility] TDAP 2016-03-13 00:00:00 Completed [facility] TDAP 2016-03-13 00:00:00 Completed [facility] TDAP 2016-03-13 00:00:00 Completed [facility] TDAP 2016-03-13 00:00:00 Completed [facility] TDAP 2016-03-13 00:00:00 Completed [facility] TDAP 2016-03-13 00:00:00 Completed [facility] TDAP 2016-03-13 00:00:00 Completed [facility] TDAP 2016-03-13 00:00:00 Completed [facility] TDAP 2016-03-13 00:00:00 Completed [facility] TDAP 2016-03-13 00:00:00 Completed [facility] TDAP 2016-03-13 00:00:00 Completed [facility] TDAP 2016-03-13 00:00:00 Completed [facility] TDAP 2016-03-13 00:00:00 Completed [facility] TDAP 2016-03-13 00:00:00 Completed [facility] TDAP 2016-03-13 00:00:00 Completed [facility] TDAP 2016-03-13 00:00:00 Completed [facility] TDAP 2016-03-13 00:00:00 Completed [facility] TDAP 2016-03-13 00:00:00 Completed [facility] TDAP 2016-03-13 00:00:00 Completed [facility] TDAP 2016-03-13 00:00:00 Completed [facility] TDAP 2016-03-13 00:00:00 Completed [facility] TDAP 2013-10-21 00:00:00 Completed [facility] TDAP 2013-10-21 00:00:00 Completed [facility] TDAP 2013-10-21 00:00:00 Completed [facility] TDAP 2013-10-21 00:00:00 Completed [facility] TDAP 2013-10-21 00:00:00 Completed [facility] TDAP 2013-10-21 00:00:00 Completed [facility] TDAP 2013-10-21 00:00:00 Completed [facility] TDAP 2013-10-21 00:00:00 Completed [facility] TDAP 2013-10-21 00:00:00 Completed [facility] TDAP 2013-10-21 00:00:00 Completed [facility] TDAP 2013-10-21 00:00:00 Completed [facility] TDAP 2013-10-21 00:00:00 Completed [facility] TDAP 2013-10-21 00:00:00 Completed [facility] TDAP 2013-10-21 00:00:00 Completed [facility] TDAP 2013-10-21 00:00:00 Completed [facility] TDAP 2013-10-21 00:00:00 Completed [facility] TDAP 2013-10-21 00:00:00 Completed [facility] TDAP 2013-10-21 00:00:00 Completed [facility] TDAP 2013-10-21 00:00:00 Completed [facility] TDAP 2013-10-21 00:00:00 Completed [facility] TDAP 2013-10-21 00:00:00 Completed [facility] TDAP 2013-10-21 00:00:00 Completed [facility] TDAP 2013-10-21 00:00:00 Completed [facility] TDAP 2013-10-21 00:00:00 Completed [facility] TDAP 2013-10-21 00:00:00 Completed [facility] TDAP 2013-10-21 00:00:00 Completed [facility] TDAP 2013-10-21 00:00:00 Completed [facility] TDAP 2013-10-21 00:00:00 [facility]pleted [facility] TDAP 2013-10-21 00:00:00 [facility]pleted [facility] TDAP 2013-10-21 00:00:00 [facility]pleted [facility] TDAP 2013-10-21 00:00:00 Completed [facility] TDAP 2013-10-21 00:00:00 [facility]pleted [facility] Influenza Virus Vaccine 2013-01-06 00:00:00 Completed [facility] Influenza Virus Vaccine 2013-01-06 00:00:00 Completed [facility] Influenza Virus Vaccine 2013-01-06 00:00:00 Completed [facility] Influenza Virus Vaccine 2013-01-06 00:00:00 Completed [facility] Influenza Virus Vaccine 2013-01-06 00:00:00 Completed [facility] Influenza Virus Vaccine 2013-01-06 00:00:00 Completed [facility] Influenza Virus Vaccine 2013-01-06 00:00:00 [facility]pleted [facility] Influenza Virus Vaccine 2013-01-06 00:00:00 Completed [facility] Influenza Virus Vaccine 2013-01-06 00:00:00 Completed [facility] Influenza Virus Vaccine 2013-01-06 00:00:00 [facility]pleted [facility] Influenza Virus Vaccine 2013-01-06 00:00:00 [facility]pleted [facility] Influenza Virus Vaccine 2013-01-06 00:00:00 [facility]pleted [facility] Influenza Virus Vaccine 2013-01-06 00:00:00 [facility]pleted [facility] Influenza Virus Vaccine 2013-01-06 00:00:00 Completed [facility] Influenza Virus Vaccine 2013-01-06 00:00:00 Completed [facility] Influenza Virus Vaccine 2013-01-06 00:00:00 [facility]pleted [facility] Influenza Virus Vaccine 2013-01-06 00:00:00 [facility]pleted [facility] Influenza Virus Vaccine 2013-01-06 00:00:00 [facility]pleted [facility] Influenza Virus Vaccine 2013-01-06 00:00:00 [facility]pleted [facility] Influenza Virus Vaccine 2013-01-06 00:00:00 [facility]pleted [facility] Influenza Virus Vaccine 2013-01-06 00:00:00 [facility]pleted [facility] Influenza Virus Vaccine 2013-01-06 00:00:00 [facility]pleted [facility] Influenza Virus Vaccine 2013-01-06 00:00:00 Completed [facility] Influenza Virus Vaccine 2013-01-06 00:00:00 Completed [facility] Influenza Virus Vaccine 2013-01-06 00:00:00 [facility]pleted [facility] Influenza Virus Vaccine 2013-01-06 00:00:00 [facility]pleted [facility] Influenza Virus Vaccine 2013-01-06 00:00:00 Completed [facility] Influenza Virus Vaccine 2013-01-06 00:00:00 [facility]pleted [facility] Influenza Virus Vaccine 2013-01-06 00:00:00 [facility]pleted [facility] Influenza Virus Vaccine 2013-01-06 00:00:00 [facility]pleted [facility] Influenza Virus Vaccine 2013-01-06 00:00:00 [facility]pleted [facility] Influenza Virus Vaccine 2013-01-06 00:00:00 [facility]pleted [facility] TDAP 2012-11-24 00:00:00 [facility]pleted [facility] TDAP 2012-11-24 00:00:00 [facility]pleted [facility] TDAP 2012-11-24 00:00:00 [facility]pleted [facility] TDAP 2012-11-24 00:00:00 Completed [facility] TDAP 2012-11-24 00:00:00 Completed [facility] TDAP 2012-11-24 00:00:00 [facility]pleted [facility] TDAP 2012-11-24 00:00:00 [facility]pleted [facility] TDAP 2012-11-24 00:00:00 Completed [facility] TDAP 2012-11-24 00:00:00 Completed [facility] TDAP 2012-11-24 00:00:00 Completed [facility] TDAP 2012-11-24 00:00:00 Completed [facility] TDAP 2012-11-24 00:00:00 Completed [facility] TDAP 2012-11-24 00:00:00 Completed [facility] TDAP 2012-11-24 00:00:00 Completed [facility] TDAP 2012-11-24 00:00:00 Completed [facility] TDAP 2012-11-24 00:00:00 Completed [facility] TDAP 2012-11-24 00:00:00 Completed [facility] TDAP 2012-11-24 00:00:00 Completed [facility] TDAP 2012-11-24 00:00:00 Completed [facility] TDAP 2012-11-24 00:00:00 Completed [facility] TDAP 2012-11-24 00:00:00 Completed [facility] TDAP 2012-11-24 00:00:00 Completed [facility] TDAP 2012-11-24 00:00:00 Completed [facility] TDAP 2012-11-24 00:00:00 Completed [facility] TDAP 2012-11-24 00:00:00 Completed [facility] TDAP 2012-11-24 00:00:00 Completed [facility] TDAP 2012-11-24 00:00:00 Completed [facility] TDAP 2012-11-24 00:00:00 Completed [facility] TDAP 2012-11-24 00:00:00 Completed [facility] TDAP 2012-11-24 00:00:00 Completed [facility] TDAP 2012-11-24 00:00:00 [facility]pleted [facility] TDAP 2012-11-24 00:00:00 Completed [facility] Rubella 2012-09-08 00:00:00 Completed [facility] Rubella 2012-09-08 00:00:00 Completed [facility] Rubella 2012-09-08 00:00:00 Completed [facility] Rubella 2012-09-08 00:00:00 Completed [facility] Rubella 2012-09-08 00:00:00 Completed [facility] Rubella 2012-09-08 00:00:00 Completed [facility] Rubella 2012-09-08 00:00:00 Completed [facility] 2012-09-08 00:00:00 Completed [facility] 2012-09-08 00:00:00 Completed [facility] 2012-09-08 00:00:00 Completed [facility] 2012-09-08 00:00:00 Completed [facility] 2012-09-08 00:00:00 Completed [facility] 2012-09-08 00:00:00 Completed [facility] 2012-09-08 00:00:00 Completed [facility] 2012-09-08 00:00:00 Completed [facility] 2012-09-08 00:00:00 Completed [facility] 2012-09-08 00:00:00 Completed [facility] 2012-09-08 00:00:00 Completed [facility] 2012-09-08 00:00:00 Completed [facility] 2012-09-08 00:00:00 Completed [facility] 2012-09-08 00:00:00 Completed [facility] 2012-09-08 00:00:00 Completed [facility] 2012-09-08 00:00:00 Completed [facility] 2012-09-08 00:00:00 Completed [facility] 2012-09-08 00:00:00 Completed [facility] 2012-09-08 00:00:00 Completed [facility] 2012-09-08 00:00:00 Completed [facility] 2012-09-08 00:00:00 Completed [facility] 2012-09-08 00:00:00 Completed [facility] 2012-09-08 00:00:00 Completed [facility] 2012-09-08 00:00:00 Completed [facility] 2012-09-08 00:00:00 Completed [facility] 2012-01-10 00:00:00 Completed [facility] 2012-01-10 00:00:00 Completed [facility] 2012-01-10 00:00:00 Completed [facility] 2012-01-10 00:00:00 Completed [facility] 2012-01-10 00:00:00 Completed [facility] 2012-01-10 00:00:00 Completed [facility] 2012-01-10 00:00:00 Completed [facility] 2012-01-10 00:00:00 Completed [facility] 2012-01-10 00:00:00 Completed [facility] 2012-01-10 00:00:00 Completed [facility] 2012-01-10 00:00:00 Completed [facility] 2012-01-10 00:00:00 Completed [facility] 2012-01-10 00:00:00 Completed [facility] 2012-01-10 00:00:00 Completed [facility] 2012-01-10 00:00:00 Completed [facility] 2012-01-10 00:00:00 Completed [facility] 2012-01-10 00:00:00 Completed [facility] 2012-01-10 00:00:00 Completed [facility] 2012-01-10 00:00:00 Completed [facility] 2012-01-10 00:00:00 Completed [facility] 2012-01-10 00:00:00 Completed [facility] 2012-01-10 00:00:00 Completed [facility] 2012-01-10 00:00:00 Completed [facility] 2012-01-10 00:00:00 Completed [facility] 2012-01-10 00:00:00 Completed [facility] 2012-01-10 00:00:00 Completed [facility] 2012-01-10 00:00:00 Completed [facility] 2012-01-10 00:00:00 Completed [facility] 2012-01-10 00:00:00 Completed [facility] 2012-01-10 00:00:00 Completed [facility] 2012-01-10 00:00:00 Completed [facility] 2012-01-10 00:00:00 Completed [facility] Unknown Completed [facility] Influenza Virus Vaccine Unknown Completed [facility] Unknown Completed [facility] Unknown Completed [facility] Influenza Virus Vaccine Unknown Completed [facility] Unknown Completed [facility] Vital Signs Vital Name Observation Time Observation Value Comments S ource Systolic blood pressure 2022-07-31 16:43:00 115 mm[Hg] [facility] Diastolic blood pressure 2022-07-31 16:43:00 59 mm[Hg] [facility] Heart rate 2022-07-31 16:43:00 75 /[facility] Respiratory rate 2022-07-31 16:43:00 18 /min [facility] Body height 2022-07-31 16:43:00 162.6 cm [facility] Body weight 2022-07-31 16:43:00 81.647 kg [facility] BMI 2022-07-31 16:43:00 30.90 kg/m2 [facility] Systolic blood pressure 2022-07-18 13:30:00 103 mm[Hg] [facility] Diastolic blood pressure 2022-07-18 13:30:00 63 mm[Hg] [facility] Heart rate 2022-07-18 13:30:00 72 /min [facility] Body temperature 2022-07-18 13:30:00 37.39 [facility] Respiratory rate 2022-07-18 13:30:00 18 /min [facility] Oxygen saturation in Arterial blood by Pulse oximetry 2022-07-18 13:30:00 100 /min [facility] Body height 2022-07-17 23:22:00 157.5 cm [facility] Body weight 2022-07-17 23:22:00 83 kg [facility] BMI 2022-07-17 23:22:00 33.46 kg/m2 [facility] Systolic blood pressure 2022-07-01 21:22:00 101 mm[Hg] [facility] Diastolic blood pressure 2022-07-01 21:22:00 67 mm[Hg] [facility] Heart rate 2022-07-01 21:22:00 84 /min [facility] Body temperature 2022-07-01 21:22:00 36.78 [facility] Respiratory rate 2022-07-01 21:22:00 16 /min [facility] Body height 2022-07-01 21:22:00 157.5 cm [facility] Body weight 2022-07-01 21:22:00 83.643 kg [facility] BMI 2022-07-01 21:22:00 33.73 kg/m2 [facility] Systolic blood pressure 2022-05-21 19:04:00 112 mm[Hg] [facility] Diastolic blood pressure 2022-05-21 19:04:00 73 mm[Hg] [facility] Heart rate 2022-05-21 19:04:00 91 /min [facility] Body temperature 2022-05-21 19:04:00 36.72 [facility] Respiratory rate 2022-05-21 19:04:00 16 /min [facility] Body height 2022-05-21 19:04:00 157.5 cm [facility] Body weight 2022-05-21 19:04:00 83.961 kg [facility] BMI 2022-05-21 19:04:00 33.86 kg/m2 [facility] Oxygen saturation in Arterial blood by Pulse oximetry 2022-05-21 19:04:00 100 /min [facility] Systolic blood pressure 2022-04-23 19:13:00 111 mm[Hg] [facility] Diastolic blood pressure 2022-04-23 19:13:00 76 mm[Hg] [facility] Heart rate 2022-04-23 19:13:00 73 /min [facility] Body temperature 2022-04-23 19:13:00 37 [facility] Respiratory rate 2022-04-23 19:13:00 18 /min [facility] Body height 2022-04-23 19:13:00 157.5 cm Univ [facility] Body weight 2022-04-23 19:13:00 85.73 kg Univ [facility] BMI 2022-04-23 19:13:00 34.57 kg/m2 [facility] Systolic blood pressure 2022-04-09 18:56:00 104 mm[Hg] [facility] Diastolic blood pressure 2022-04-09 18:56:00 71 mm[Hg] [facility] Heart rate 2022-04-09 18:56:00 79 /min [facility] Body temperature 2022-04-09 18:56:00 36.72 [facility] Respiratory rate 2022-04-09 18:56:00 16 /min [facility] Body height 2022-04-09 18:56:00 157.5 cm Univ [facility] Body weight 2022-04-09 18:56:00 85.276 kg [facility] BMI 2022-04-09 18:56:00 34.39 kg/m2 [facility] Oxygen saturation in Arterial blood by Pulse oximetry 2022-04-09 18:56:00 100 /min [facility] Systolic blood pressure 2021-09-03 12:23:00 121 mm[Hg] [facility] Diastolic blood pressure 2021-09-03 12:23:00 80 mm[Hg] [facility] Heart rate 2021-09-03 12:23:00 83 /min [facility] Body temperature 2021-09-03 12:23:00 36.56 [facility] Respiratory rate 2021-09-03 12:23:00 18 /min [facility] Oxygen saturation in Arterial blood by Pulse oximetry 2021-09-03 12:23:00 100 /min [facility] Body height 2021-09-02 10:12:00 157.5 cm [facility] 2021-09-02 10:12:00 76.295 kg Univ [facility] BMI 2021-09-02 10:12:00 30.76 kg/m2 [facility] Systolic blood pressure 2021-08-27 19:39:00 109 mm[Hg] [facility] Diastolic blood pressure 2021-08-27 19:39:00 75 mm[Hg] [facility] Heart rate 2021-08-27 19:39:00 86 /min [facility] Body temperature 2021-08-27 19:39:00 36.78 [facility] Respiratory rate 2021-08-27 19:39:00 16 /min [facility] Body height 2021-08-27 19:39:00 157.5 cm Univ [facility] Body weight 2021-08-27 19:39:00 79.742 kg Univ [facility] BMI 2021-08-27 19:39:00 32.15 kg/m2 [facility] Systolic blood pressure 2021-08-16 19:34:00 120 mm[Hg] [facility] Diastolic blood pressure 2021-08-16 19:34:00 80 mm[Hg] [facility] Heart rate 2021-08-16 19:34:00 100 /min [facility] Body temperature 2021-08-16 19:34:00 36.83 [facility] Respiratory rate 2021-08-16 19:34:00 18 /min [facility] Body height 2021-08-16 19:34:00 162.6 cm [facility] 2021-08-16 19:34:00 79.153 kg Univ [facility] BMI 2021-08-16 19:34:00 29.95 kg/m2 [facility] Systolic blood pressure 2021-08-02 20:47:00 105 mm[Hg] [facility] Diastolic blood pressure 2021-08-02 20:47:00 69 mm[Hg] [facility] Heart rate 2021-08-02 20:47:00 99 /min [facility] Body temperature 2021-08-02 20:47:00 36.72 [facility] Respiratory rate 2021-08-02 20:47:00 18 /min [facility] Body height 2021-08-02 20:47:00 157.5 cm Univ [facility] Body weight 2021-08-02 20:47:00 78.16 kg Univ [facility] BMI 2021-08-02 20:47:00 31.52 kg/m2 [facility] Heart rate 2021-07-26 17:00:00 86 /min [facility] Oxygen saturation in Arterial blood by Pulse oximetry 2021-07-26 17:00:00 99 /min [facility] Systolic blood pressure 2021-07-26 15:12:00 120 mm[Hg] [facility] Diastolic blood pressure 2021-07-26 15:12:00 72 mm[Hg] [facility] Body temperature 2021-07-26 15:12:00 36.78 [facility] Respiratory rate 2021-07-26 15:12:00 16 /min [facility] Body weight 2021-07-26 14:59:00 78.926 kg [facility] BMI 2021-07-26 14:59:00 31.83 kg/m2 [facility] Systolic blood pressure 2021-07-20 21:40:00 113 mm[Hg] [facility] Diastolic blood pressure 2021-07-20 21:40:00 74 mm[Hg] [facility] Heart rate 2021-07-20 21:40:00 128 /min [facility] Respiratory rate 2021-07-20 21:40:00 18 /min [facility] Body height 2021-07-20 21:40:00 157.5 cm Univ [facility] Body weight 2021-07-20 21:40:00 78.926 kg [facility] BMI 2021-07-20 21:40:00 31.83 kg/m2 [facility] Systolic blood pressure 2021-06-01 21:23:00 107 mm[Hg] [facility] Diastolic blood pressure 2021-06-01 21:23:00 69 mm[Hg] [place] [facility] Heart rate 2021-06-01 21:23:00 97 /min [facility] Body temperature 2021-06-01 21:23:00 36.89 [facility] Respiratory rate 2021-06-01 21:23:00 18 /min [facility] Body height 2021-06-01 21:23:00 162.6 cm [facility] Body weight 2021-06-01 21:23:00 76.204 kg [facility] BMI 2021-06-01 21:23:00 28.84 kg/m2 [facility] Procedures Procedure Date / Time Performed Performing Clinician Source CBC WITH DIFF 2022-07-18 03:31:00 Carrie Gresham [facility] PROTHROMBIN TIME / INR 2022-07-18 01:27:00 Bong [facility] ACTIVATED PARTIAL THRMPLAS LORNA 2022-07-18 01:27:00 Nevaeh [facility] FIBRINOGEN 2022-07-18 01:27:00 Nevaeh Xavier [facility] HEPATITIS B SURFACE ANTIGEN 2022-07-18 01:27:00 Nevaeh [facility] HB ABO GROUPING 2022-07-18 01:27:00 Nevaeh Xavier [facility] RHO (D) IMMUNE GLOBULIN 2022-07-18 01:27:00 Sonja [facility] SYPHILIS IGG/IGM 2022-07-18 01:27:00 [facility]IME[facility] ULTRASOUND 2022-07-17 19:41:00 Manolo Dixon [facility] PATIENT FINANCIAL POLICY 2022-07-01 21:17:48 Doctor Unassigned, [facility] POCT URINALYSIS W/O SPECIFIC GRAVITY 2022-07-01 00:00:00 [facility] 2022-04-26 16:07:45 Docto r Unassigned, [facility] POCT URINALYSIS W/O SPECIFIC GRAVITY 2022-04-23 00:00:00 [facility] 2022-04-09 18:39:36 Docto r Unassigned, [facility] POCT TEST 2022-04-09 00:00:00 [facility]FF 2021-09-03 08:39:00 Dev [facility] VENOUS CORD GAS 2021-09-02 08:28:00 Dev [facility] CBC WITH DIFF 2021-09-02 08:24:00 Dev [facility] RUBELLA SCREEN IGG 2021-09-02 08:23:00 [facility] HEPATIT[facility] SURFACE ANTIGEN 2021-09-02 08:23[facility]00 [facility] - RPR 2021-09-02 08:23:00 Erin Somers [facility] HIV 1/2 AG-AB WITH REFLEX 2021-09-02 08:23:00 Erin Somers [facility] COVID-19 (ID NOW RAPID TESTING) 2021-09-02 08:23:00 Talha Somers [facility] LAB ONLY COVID INTERPRETATION 2021-09-02 08:23:00 [facility] 2021-09-02 08:00:00 Dev [facility] RHO (D) IMMUNE GLOBULIN 2021-09-02 08:00:00 Dev [facility] POCT URINALYSIS W/O SPECIFIC GRAVITY 2021-08-27 00:00:00 [facility] 2021-08-10 16:45:24 Docto r Unassigned, [facility] POCT URINALYSIS W/O SPECIFIC GRAVITY 2021-08-02 00:00:00 Fish, [facility] HIV 1/2 AG-AB WITH REFLEX 2021-07-26 16:16:00 Fish, Me [facility] COVID-19 (ID NOW RAPID TESTING) 2021-07-26 16:16:00 Fish, [facility] CBC WITH DIFF 2021-07-26 16:15:00 Fish, Abbey [facility] URINALYSIS 2021-07-26 16:15:00 Fish, Abbey [facility] HB ABO GROUPING 2021-07-26 16:15:00 Fish, Abbey [facility] ADC CLC OR LCC ONLY - WET PREP 2021-07-26 16:15:00 Ted [facility] POCT URINALYSIS W/O SPECIFIC GRAVITY 2021-07-20 21:41:00 Manolo [facility] POCT URINALYSIS W/O SPECIFIC GRAVITY 2021-06-01 00:00:00 Ted [facility] Encounters Start Date/Time End Date/Time Encounter Type Admission Type Attending [facility] Care Facility Care Department Encounter ID Source 2021-07-26 13:44:50 Outpatient P SO MANLEY SHANNON [facility] NEL [id number] [facility] 2022-07-31 11:45:00 2022-07-31 11:48:42 Outpatient R MANOLO DIXON [facility]ERY[facility] [id number] [facility] 2022-07-31 11:45:00 2022-07-31 11:48:42 Routine [facility] 1.2.840.114 350.1.13.10 4.2.7.2.686 [id number] [facility] 2022-07-29 15:00:00 2022-07-29 15:00:00 Outpatient R MANOLO DIXON 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 [id number] [facility] 2022-07-09 00:00:00 2022-07-09 00:00:00 Patient Secure Msg Doctor Unassigned, [place] [facility] HEADER UP [facility] 1.84.114 350.1.13.10 4.2.7.2.686 [id number] [facility] 2022-07-01 16:30:00 2022-07-01 16:37:01 Outpatient R MANOLO DIXON [facility] [id number] [facility] 2022-07-01 16:30:00 2022-07-01 16:37:01 Routine Visit [facility] 1..114 350.1.13.10 4.2.7.2.686 [id number] [facility] 2022-07-01 00:00:00 2022-07-01 00:00:00 Orders Only Doctor Unassigned, [facility] 1.2840.114 350.1.13.10 4.2.7.2.686 [id number] [facility] 2022-06-28 13:45:00 2022-06-28 13:45:00 Outpatient R MANOLO DIXON [facility] [id number] [facility] 2022-06-21 10:15:00 2022-06-21 10:15:[address] [facility] [id number] [facility] 2022-06-18 13:00:00 2022-06-18 13:00:00 Outpatient R MANOLO DIXON [facility] [id number] [facility] 2022-05-21 13:00:00 2022-05-21 13:25:38 Routine Visit Manolo Dixon [facility] 1.20.114 350.1.13.10 4.2.7.2.686 [id number] [facility] 2022-05-21 13:00:00 2022-05-21 13:25:38 Outpatient R MANOLO DIXON [facility]ERY[facility] [id number] [facility] 2022-05-21 00:00:00 2022-05-21 00:00:00 Letter (Out) Manolo Dixon [facility] 1.20.114 350.1.13.10 4.2.7.2.686 [id number] [facility] 2022-05-08 00:00:00 2022-05-08 00:00:00 [facility] 1.2840.114 350.1.13.10 4.2.7.2.686 [id number] [facility] 2022-05-03 00:00:00 2022-05-03 00:00:[address] [facility] 1.2.840.114 350.1.13.10 4.2.7.2.686 [id number] [facility] 2022-05-02 00:00:00 2022-05-02 00:00:[address] 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 [id number] [facility] 2022-04-26 11:15:00 2022-04-26 11:39:04 Telemedici ne Visit Rose Simon Cheryal [facility] HEADER UP [facility] 1.2.840.114 350.1.13.10 4.2.7.2.686 [id number] [facility] 2022-04-26 00:00:00 2022-04-26 00:00:00 Orders Only Doctor Unassigned, [place] [facility] 1.2.840.114 350.1.13.10 4.2.7.2.686 [id number] [facility] 2022-04-23 13:15:00 2022-04-23 13:36:40 Outpatient R MANOLO DIXON [facility]ERY[facility] [id number] [facility] 2022-04-23 13:15:00 2022-04-23 13:36:40 [facility] 1.2.840.114 350.1.13.10 4.2.7.2.686 [id number] [facility] 2022-04-10 09:30:00 2022-04-10 09:30:00 Outpatient R OTF NÚÑEZ [facility] [id number] [facility] 2022-04-09 13:00:00 2022-04-09 13:20:19 Outpatient R [facility] [id number] [facility] 2022-04-09 13:00:00 2022-04-09 13:20:19 [facility] 1.2.840.114 350.1.13.10 4.2.7.2.686 [id number] [facility] 2022-04-09 00:00:00 2022-04-09 00:00:00 Orders Only Doctor Unassigned, [place] [facility] 1.2.840.114 350.1.13.10 4.2.7.2.686 [id number] [facility] 2022-04-09 00:00:00 2022-04-09 00:00:00 [facility] 1.2.840.114 350.1.13.10 4.2.7.2.686 [id number] [facility] 2021-09-06 13:00:00 2021-09-06 13:00:00 Outpatient R ABBEY JEAN [facility] [id number] [facility] 2021-09-06 00:00:00 2021-09-06 00:00:00 Encounter 1.2.840.1 [id number] [id number] 1.2.840.114 350.1.13.10 4.2.7.2.696 [id number] [facility] 2021-09-02 02:41:00 2021-09-03 18:05:00 Inpatient X TALHA SOMERS [facility] NEL [id number] [facility] 2021-09-02 02:41:00 2021-09-03 18:05:00 Hospital Encounter Talha Somers [facility] 1.2.840.114 350.1.13.10 4.2.7.2.686 [id number] [facility] 2021-08-27 14:00:00 2021-08-27 14:54:41 Outpatient R MANOLO DIXON [facility] [id number] [facility] 2021-08-27 14:00:00 2021-08-27 14:54:41 Routine Visit Manolo Dixon [facility] 1.2.840.114 350.1.13.10 4.2.7.2.686 [id number] [facility] 2021-08-22 11:00:00 2021-08-22 11:00:00 Outpatient R MANOLO DIXON [facility]ERYAL [facility] [id number] [facility] 2021-08-16 13:45:00 2021-08-16 14:47:34 Outpatient R ABBEY JEAN [facility] [id number] [facility] 2021-08-16 13:45:00 2021-08-16 14:47:34 Routine Visit Abbey Jean 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 [id number] [facility] 2021-08-10 00:00:00 2021-08-10 00:00:00 Orders Only Doctor Unassigned, [place] [facility] 1..114 350.1.13.10 4.2.7.2.686 [id number] [facility] 2021-08-02 15:15:00 2021-08-02 16:09:15 Outpatient R ABBEY JEAN [facility] [id number] [facility] 2021-08-02 15:15:00 2021-08-02 16:09:15 Routine Visit Abbey Jean [facility] 1..114 350.1.13.10 4.2.7.2.686 [id number] [facility] 2021-07-27 00:00:00 2021-07-27 00:00:[address] [facility] 1.114 350.1.13.10 4.2.7.2.686 [id number] [facility] 2021-07-26 10:08:00 2021-07-26 12:30:00 [facility] [id number] 2021-07-26 10:08:00 2021-07-26 12:30:00 Hospital Encounter Talha Somers Megan [facility] 1.2.840.114 350.1.13.10 4.2.7.2.686 [id number] [facility] 2021-07-26 00:00:00 2021-07-26 00:00:[address] [facility] 1.2.840.114 350.1.13.10 4.2.7.2.686 [id number] 134 [id number] [facility] 2021-07-20 16:30:00 2021-07-20 16:51:55 Outpatient R MANOLO DIXON CHERYAL [facility] [id number] [facility] 2021-07-20 16:30:00 2021-07-20 16:51:55 Routine Visit Manolo Dixon [facility] 1.2.840.114 350.1.13.10 4.2.7.2.686 [id number] 134 [id number] [facility] 2021-07-18 14:30:00 2021-07-18 14:30:00 Outpatient R MANOLO DIXON [facility]ERYAL [facility] [id number] [facility] 2021-06-27 14:00:00 2021-06-27 14:00:00 Outpatient R MANOLO DIXON [facility]ERYAL [facility] [id number] [facility] 2021-06-26 16:15:00 2021-06-26 16:15:[address] [facility] [id number] [facility] 2021-06-12 08:15:00 2021-06-12 08:15:[address] [facility] [id number] [facility] 2021-06-06 00:00:00 2021-06-06 00:00:00 Telephone Abbey Jean [facility] 1.2840.114 350.1.13.10 4.2.7.2.686 [id number] 134 [id number] [facility] 2021-06-01 15:00:00 2021-06-01 15:53:36 Outpatient R ABBEY JEAN [facility] [id number] [facility] 2021-06-01 15:00:00 2021-06-01 15:53:36 Routine Visit Ted Abbey [facility] 1..840.114 350.1.13.10 4.2.7.2.686 [id number] 134 [id number] [facility] 2021-05-30 00:00:00 2021-05-30 00:00:00 Telephone Abbey Jean [facility] 1.2840.114 350.1.13.10 4.2.7.2.686 [id number] 134 [id number] [facility] 2021-05-15 16:15:00 2021-05-15 16:15:00 Outpatient R ABBEY JEAN 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 [id number] [facility] 2021-05-02 13:30:00 2021-05-02 13:30:[address] [facility] [id number] [facility] 2021-05-01 16:00:00 2021-05-01 16:00:00 Outpatient R ABBEY JEAN [facility] [id number] [facility] 2021-04-19 16:00:00 2021-04-19 16:00:00 Outpatient R ABBEY JEAN [facility] [id number] [facility] 2021-04-16 00:00:00 2021-04-16 00:00:00 Patient Secure Msg Doctor Unassigned, G[place] [facility] 1..114 350.1.13.10 4.2.7.2.686 [id number] 134 [id number] [facility] 2021-04-16 00:00:00 2021-04-16 00:00:[address] [facility] 1.114 350.1.13.10 4.2.7.2.686 [id number] 134 [id number] [facility] 2021-03-29 16:00:00 2021-03-29 16:56:21 Outpatient R ABBEY JEAN [facility] [id number] [facility] 2021-03-29 15:55:48 2021-03-29 16:56:21 Routine Visit Ted Abbey [facility] 1.114 350.1.13.10 4.2.7.2.686 [id number] 134 [id number] [facility] 2021-03-29 16:00:00 2021-03-29 16:00:00 Outpatient R ABBEY JEAN [facility] [id number] [facility] 2021-03-09 00:00:00 2021-03-09 00:00:00 Orders Only Doctor Unassigned, [place] [facility] 1..114 350.1.13.10 4.2.7.2.686 [id number] [facility] 2021-03-07 00:00:00 2021-03-07 00:00:[address] [facility] 1.2840.114 350.1.13.10 4.2.7.2.686 [id number] 134 [id number] [facility] 2021-03-01 13:00:40 2021-03-01 13:46:57 Routine Visit Abbey Jean [facility] 1.0.114 350.1.13.10 4.2.7.2.686 [id number] 134 [id number] [facility] 2021-03-01 13:00:00 2021-03-01 13:46:57 Outpatient R ABBEY JEAN [facility] [id number] [facility] 2021-03-01 00:00:00 2021-03-01 00:00:00 Letter (Out) Nurse, [facility] 1.0.114 350.1.13.10 4.2.7.2.686 [id number] 134 [id number] [facility] 2021-02-27 00:00:00 2021-02-27 00:00:00 Case Management Ted Abbey [facility] 1.2840.114 350.1.13.10 4.2.7.2.686 [id number] 134 [id number] [facility] 2021-02-26 11:00:00 2021-02-26 11:00:00 Outpatient R TED ABBEY 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 1.2840.114 350.1.13.10 4.2.7.2.686 [id number] 134 [id number] [facility] 2021-02-23 10:53:48 2021-02-23 12:23:35 Routine Visit Abbey Jean [facility] 1.2840.114 350.1.13.10 4.2.7.2.686 [id number] 134 [id number] [facility] 2021-02-23 10:45:00 2021-02-23 12:23:35 Outpatient R ABBEY JEAN [facility] [id number] [facility] 2021-02-23 00:00:00 2021-02-23 00:00:00 Telephone Ted [facility] 1.2840.114 350.1.13.10 4.2.7.2.686 [id number] 134 [id number] [facility] 2021-02-23 00:00:00 2021-02-23 00:00:00 Orders Only Doctor Unassigned, [place] [facility] 1.2.840.114 350.1.13.10 4.2.7.2.686 [id number] [facility] 2021-02-23 00:00:00 2021-02-23 00:00:00 Case Management Abbey Jean [facility] 1.2840.114 350.1.13.10 4.2.7.2.686 [id number] 134 [id number] [facility] 2021-02-08 14:39:11 2021-02-08 15:51:23 Initial Visit Ted Abbey [facility] 1.2840.114 350.1.13.10 4.2.7.2.686 [id number] 134 [id number] [facility] 2021-02-08 14:30:00 2021-02-08 15:51:[address] [facility] [id number] [facility] 2021-02-08 14:30:00 2021-02-08 15:51:[address] [facility] [id number] [facility] 2021-02-08 00:00:00 2021-02-08 00:00:00 Orders Only Doctor Unassigned, [place] [facility] 1.2.840.114 350.1.13.10 4.2.7.2.686 [id number] [id number] [facility] 2021-01-25 09:45:00 2021-01-25 09:45:[address] [facility] [id number] [facility] 2021-01-25 09:45:00 2021-01-25 09:45:[address] [facility] [id number] [facility] 2017-12-04 00:00:00 2017-12-06 00:00:00 Outpatient [facility] H[facility] [id number] [facility] Results Test Description Test Time Test Comments Results Result Co mments Source [facility] SYPHILIS IGG/[id number] 16:04:47* Test Item Value Reference Range Interpretation Comme nts Syphilis IgG/IgM (test code = 61886-7) Non-reactive Non-reactive GLADYS (test code = GLADYS) Non-reactive - No serologic evidence of T. pallidum infection. Cannot exclude incubating or early syphilis. Submit a second specimen in 2-4 weeks if syphilis is clinically suspected. Equivocal - Further testing to follow. Reactive - Further testing to follow. Lab Interpretation (test code = 56880-5) Normal [facility] WITH [id number] 03:56:31* Test Item Value Reference Range Interpretation Comme nts WBC (test code = 6690-2) 11.13 See_Comment H [Automated messa ge] The system which generated this result transmitted reference range: 4.30 - 11.10 10*3/?L. The reference range was not used to interpret this result as normal/abnormal. RBC (test code = 789-8) 3.93 See_Comment [Automated Tradeshifta ge] The system which generated this result [...] 33.8 g/dL 31.6-35.1 RDW-SD (test code = 83580-7) 37.6 fL 39.0-49.9 L RDW-CV (test code = 788-0) 13.2 % 12.0-15.5 PLT (test code = 777-3) 288 See_Comment [Automated Tradeshifta ge] The system which generated this result transmitted reference range: 166 - 358 10*3/?L. The reference range was not used to interpret this result as normal/abnormal. MPV (test code = 77900-5) 11.0 fL 9.5-12.9 NRBC/100 WBC (test code = 4326117662) 0.0 See_Comment [Automated Timeful ssage] The system which generated this result transmitted reference range: 0.0 - 10.0 /100 WBCs. The reference range was not used to interpret this result as normal/abnormal. NRBC x10^3 (test code = 4854298413) See_Comment [Automated Tradeshifta ge] The system which generated this result transmitted reference range: 10*3/?L. The reference range was not used to interpret this result as normal/abnormal. GRAN MAT (NEUT) % (test code = 770-8) 65.5 % IMM GRAN % (test code = 9495051869) 0.60 % LYMPH % (test code = 736-9) 26.3 % MONO % (test code = 5905-5) 5.8 % EOS % (test code = 713-8) 1.6 % BASO % (test code = 706-2) 0.2 % GRAN MAT x10^3(ANC) (test code = 1957343791) 7.28 10*3/uL 1.88-7.09 H IMM GRAN x10^3 (test code = 9448833054) 0.07 10*3/uL 0.00-0.06 H LYMPH x10^3 (test code = 731-0) 2.93 10*3/uL 1.32-3.29 MONO x10^3 (test code = 742-7) 0.65 10*3/uL 0.33-0.92 EOS x10^3 (test code = 711-2) 0.18 10*3/uL 0.03-0.39 BASO x10^3 (test code = 704-7) 0.01-0.07 Lab Interpretation (test code = 34802-8) Abnormal [facility] Surface [id number] 03:38:08 * Test Item Value Reference Range Interpretation Comme nts HBsAg Semi-Quantitative (irina t code = 5195-3) 0.15 Negative [facility] HospitalProthrombin Time / [id number] 02:11:18* Test Item Value Reference Range Interpretation Comme nts PROTIME PATIENT (test code = 5964-2) 11.1 See_Comment [Automated Tradeshifta NVELO] The system which generated this result transmitted reference range: 10.1 - 12.6 Seconds. The reference range was not used to interpret this result as normal/abnormal. INR (test code = 6301-6) 1.0 Normal INR <1.1; Warfarin Therapeutic range 2.0 to 3.0 or 2.5 to 3.5, depending upon the indications. Lab Interpretation (test code = 05616-5) Normal [facility] HospitalaPTT2023-03-30 02:11:18* Test Item Value Reference Range Interpretation Comme nts APTT Patient (test code = 3173-2) 25 See_Comment L [Automated Tradeshifta NVELO] The system which generated this result transmitted reference range: 26 - 36 Seconds. The reference range was not used to interpret this result as normal/abnormal. Lab Interpretation (test code = 28046-4) Abnormal [facility] HospitalFIBRINOGEN2023-03-30 02:11:18* Test Item Value Reference Range Interpretation Comme nts Fibrinogen (test code = 4371020298) 383 mg/dL 167-453 Lab Interpretation (test cod e = 20072-8) Normal [facility] HospitalType and Screen - ONCE [id number] 01:35:00 * Test Item Value Reference Range Interpretation Comme nts ABO & RH (test code = 20) B POSITIVE IAT (test code = 1185) Negative [facility] URINALYSIS W/O SPECIFIC [id number] 21:21:00* Test Item Value Reference Range Interpretation [...] = 3257) n/a Negative - Negati ve [facility] URINALYSIS W/O SPECIFIC [id number] 19:11:00* Test Item Value Reference Range Interpretation [...] = 3257) n/a Negative - Negati ve [facility] [id number] 19:18:00* Test Item Value Reference Range Interpretation Comme nts POCT PREG (test code = 1605) Positive On board controls acceptable with C Line (test code = 3574) Yes POCT PREG LOT # (test code = 3575) POCT PREG TEST DATE ( test code = 3576) [facility] with Mxuccmvjvuea3722-83-14 09:17:16* Test Item Value Reference Range Interpretation [...] 32.3 g/dL 31.6-35.1 RDW-SD (test code = 35544-7) 50.6 fL 39.0-49.9 H RDW-CV (test code = 788-0) 17.5 % 12.0-15.5 H PLT (test code = 777-3) See_Comment [Automated messa ge] The system which generated this result transmitted reference range: 166 - 358 10*3/?L. The reference range was not used to interpret this result as normal/abnormal. MPV (test code = 40988-5) 11.7 fL 9.5-12.9 NRBC/100 WBC (test code = 7851739183) See_Comment [Automated Timeful ssage] The system which generated this result transmitted reference range: 0.0 - 10.0 /100 WBCs. The reference range was not used to interpret this result as normal/abnormal. NRBC x10^3 (test code = 4208972409) <0.01 See_Comment [Automated messa ge] The system which generated this result transmitted reference range: 10*3/?L. The reference range was not used to interpret this result as normal/abnormal. GRAN MAT (NEUT) % (test code = 770-8) 64.6 % IMM GRAN % (test code = 1693319499) 0.40 % LYMPH % (test code = 736-9) 25.3 % MONO % (test code = 5905-5) 7.5 % EOS % (test code = 713-8) 1.7 % BASO % (test code = 706-2) 0.5 % GRAN MAT x10^3(ANC) (test code = 1154607419) 7.51 10*3/uL 1.88-7.09 H IMM GRAN x10^3 (test code = 3465627324) 0.05 10*3/uL 0.00-0.06 LYMPH x10^3 (test code = 731-0) 2.95 10*3/uL 1.32-3.29 MONO x10^3 (test code = 742-7) 0.87 10*3/uL 0.33-0.92 EOS x10^3 (test code = 711-2) 0.20 10*3/uL 0.03-0.39 BASO x10^3 (test code = 704-7) 0.06 10*3/uL 0.01-0.07 Lab Interpretation (test code = 56705-4) Abnormal [facility] OR ABEL ONLY - [id number] 03:59:13* Test Item Value Reference Range Interpretation Comme nts RPR (Qualitative) (test code = 24574-7) Nonreactive Nonreactive Lab Interpretation (test cod e = 39738-9) Normal [facility] HospitalRubella Screen (JERSON) [id number] 18:51:00 * Test Item Value Reference Range Interpretation Comme nts Rubella screen IgG (test code = 8226082110) Positive Negative GLADYS (test code = GLADYS) Positive - Indicat es the patient was exposed to Rubella through infection or vaccination.Negative - Indicates the patient could be susceptible to Rubella infection.Equivocal - A second specimen should be sent. [facility] HospitalHepatitis B Surface [id number] 17:05:37 * Test Item Value Reference Range Interpretation Comme nts HBsAg Semi-Quantitative (irina t code = 5195-3) Negative Negative [facility] HospitalHIV 1/2 AG-AB WITH [id number] 11:27:21* Test Item Value Reference Range Interpretation Comme nts HIV Semi-quantitative (test code = 58266-1) Negative Negative GLADYS (test code = GLADYS) Non-reactive for HIV-1 antigen and HIV-1/HIV-2 antibodies. ?No laboratory evidence of HIV infection. ?Repeat in 2-4 weeks if acute HIV infection is suspected. [facility] HospitalRHO (D) IMMUNE [id number] 09:09:42* Test Item Value Reference Range Interpretation Comme nts RHIG CANDIDATE? (test code = 5055) No- see comment Patient is not a candidate for RhIg- Patient is Rh Positive.Performed at [facility] Laboratory Services - [facility] Blood [address] [place] [address] Free: [phone] No. [id number] [facility] HospitalType and Screen - ONCE [id number] 09:08:33 * Test Item Value Reference Range Interpretation Comme [facility] ABO & RH (test code = 20) B Positive Performed at [facility] Laboratory [facility] Blood [place] [address]Toll Free: [phone] No. [id number] IAT (test code = 1185) Negative Performed at [facility] Laboratory [facility] - [facility] Blood [place] [address]Toll Free: [phone] No. [id number] [facility] HospitalVENOUS CORD [id number] 08:51:38* Test Item Value Reference Range Interpretation Comme nts VENOUS BASE EXCESS, CORD (test code = 3540011235) mEq/L VENOUS PH, CORD (test code = 8170907368) 7.25-7.45 L VENOUS PC02, CORD (test code = 0579215918) See_Comment H [Automated me ssage] The system which generated this result transmitted reference range: 27 - 49 mmHg. The reference range was not used to interpret this result as normal/abnormal. VENOUS PO2, CORD (test code = 7911327193) See_Comment [Automated me ssage] The system which generated this result transmitted reference range: 17 - 41 mmHg. The reference range was not used to interpret this result as normal/abnormal. VENOUS BICARBONATE, CORD (test code = 6985153019) See_Comment [Automa tato message] The system which generated this result transmitted reference range: 12 - 29 mEq/L. The reference range was not used to interpret this result as normal/abnormal. Lab Interpretation (test code = 14751-5) Abnormal [facility] HospitalARTERIAL CORD [id number] 08:48:28* Test Item Value Reference Range Interpretation Comme nts BASE EXCESS, CORD (test code = 1972618807) mEq/L AC PH, CORD (BEAKER) (test code = 3069541186) 7.18-7.38 PC02, CORD (test code = 3897098002) See_Comment [Automated messa ge] The system which generated this result transmitted reference range: 32 - 66 mmHg. The reference range was not used to interpret this result as normal/abnormal. PO2, CORD (test code = 6868844877) See_Comment [Automated messa ge] The system which generated this result transmitted reference range: 10 - 30 mmHg. The reference range was not used to interpret this result as normal/abnormal. BICARBONATE, CORD (test code = 4426081417) See_Comment [Automated messa ge] The system which generated this result transmitted reference range: 17 - 27 mEq/L. The reference range was not used to interpret this result as normal/abnormal. [facility] HospitalCB with Mpfsdpzrmxru2076-99-89 08:33:11* Test Item Value Reference Range Interpretation [...] 32.0 g/dL 31.6-35.1 RDW-SD (test code = 24470-9) 49.8 fL 39.0-49.9 RDW-CV (test code = 788-0) 17.4 % 12.0-15.5 H PLT (test code = 777-3) See_Comment [Automated messa ge] The system which generated this result transmitted reference range: 166 - 358 10*3/?L. The reference range was not used to interpret this result as normal/abnormal. MPV (test code = 33650-9) 11.3 fL 9.5-12.9 NRBC/100 WBC (test code = 2283444449) See_Comment [Automated Timeful ssage] The system which generated this result transmitted reference range: 0.0 - 10.0 /100 WBCs. The reference range was not used to interpret this result as normal/abnormal. NRBC x10^3 (test code = 1606321489) <0.01 See_Comment [Automated messa ge] The system which generated this result transmitted reference range: 10*3/?L. The reference range was not used to interpret this result as normal/abnormal. GRAN MAT (NEUT) % (test code = 770-8) 72.5 % IMM GRAN % (test code = 8364156108) 0.40 % LYMPH % (test code = 736-9) 16.7 % MONO % (test code = 5905-5) 9.4 % EOS % (test code = 713-8) 0.8 % BASO % (test code = 706-2) 0.2 % GRAN MAT x10^3(ANC) (test code = 1727399611) 8.85 10*3/uL 1.88-7.09 H IMM GRAN x10^3 (test code = 4302995501) 0.05 10*3/uL 0.00-0.06 LYMPH x10^3 (test code = 731-0) 2.03 10*3/uL 1.32-3.29 MONO x10^3 (test code = 742-7) 1.14 10*3/uL 0.33-0.92 H EOS x10^3 (test code = 711-2) 0.10 10*3/uL 0.03-0.39 BASO x10^3 (test code = 704-7) <0.03 0.01-0.07 Lab Interpretation (test code = 84480-4) Abnormal [facility] URINALYSIS W/O SPECIFIC [id number] 19:39:00* Test Item Value Reference Range Interpretation [...] = 3257) n/a Negative - Negati ve [facility] URINALYSIS W/O SPECIFIC [id number] 20:47:00* Test Item Value Reference Range Interpretation [...] = 3257) n/a Negative - Negati ve [facility] HospitalHIV 1/2 AG-AB WITH [id number] 17:26:44* Test Item Value Reference Range Interpretation Comme nts HIV Semi-quantitative (test code = 74556-6) Negative Negative GLADYS (test code = GLADYS) Non-reactive for HIV-1 antigen and HIV-1/HIV-2 antibodies. ?No laboratory evidence of HIV infection. ?Repeat in 2-4 weeks if acute HIV infection is suspected. [facility] HospitalPRENATAL WORKUP, BLOOD [id number] 17:01:59 * Test Item Value Reference Range Interpretation Comme nts ABO & RH (test code = 20) B Positive Performed at [facility] Laboratory [facility] Blood [address] [place], [place] [address]Toll Free: [phone] No. [id number] IAT (test code = 1185) Negative Performed at [facility] Laboratory [facility] Blood [address] [place], [place] [address]Toll Free: [phone] No. [id number] [facility] HospitalCBC WITH [id number] 16:30:16* Test Item Value Reference Range Interpretation [...] 31.6 g/dL 31.6-35.1 RDW-SD (test code = 24716-4) 38.5 fL 39.0-49.9 L RDW-CV (test code = 788-0) 13.7 % 12.0-15.5 PLT (test code = 777-3) See_Comment [Automated messa ge] The system which generated this result transmitted reference range: 166 - 358 10*3/?L. The reference range was not used to interpret this result as normal/abnormal. MPV (test code = 25237-8) 10.3 fL 9.5-12.9 NRBC/100 WBC (test code = 2884224947) See_Comment [Automated me ssage] The system which generated this result transmitted reference range: 0.0 - 10.0 /100 WBCs. The reference range was not used to interpret this result as normal/abnormal. NRBC x10^3 (test code = 2863586963) <0.01 See_Comment [Automated messa ge] The system which generated this result transmitted reference range: 10*3/?L. The reference range was not used to interpret this result as normal/abnormal. GRAN MAT (NEUT) % (test code = 770-8) 73.8 % IMM GRAN % (test code = 4037766353) 0.70 % LYMPH % (test code = 736-9) 16.9 % MONO % (test code = 5905-5) 6.7 % EOS % (test code = 713-8) 1.6 % BASO % (test code = 706-2) 0.3 % GRAN MAT x10^3(ANC) (test code = 6440022205) 7.66 10*3/uL 1.88-7.09 H IMM GRAN x10^3 (test code = 0361578455) 0.07 10*3/uL 0.00-0.06 H LYMPH x10^3 (test code = 731-0) 1.75 10*3/uL 1.32-3.29 MONO x10^3 (test code = 742-7) 0.69 10*3/uL 0.33-0.92 EOS x10^3 (test code = 711-2) 0.17 10*3/uL 0.03-0.39 BASO x10^3 (test code = 704-7) 0.03 10*3/uL 0.01-0.07 Lab Interpretation (test code = 97950-1) Abnormal [facility]PO[facility]INAL[facility]IS W/O SPECIFIC [id number] 21:41:00* Test Item Value Reference Range Interpretation [...] ve Lab Interpretation (test cod e = 48704-0) Normal [facility] HospitalPOAK URINALYSIS W/O SPECIFIC [id number] 21:23:00* Test Item Value Reference Range Interpretation [...] = 3257) N/A Negative - Negati ve [facility]
[2024-04-05] MEDS ORDERED: KETOROLAC 30 MG/ML INJ ONE (11:06)
[2024-04-05] MEDS ORDERED: NA CHLORIDE 0.9% 1,000 ML ONE (11:06)
[2024-04-05] MEDS ORDERED: ONDANSETRON 4 MG/2 ML VIAL ONE (11:06)
[2024-04-05 11:14] LABS: Specific Gravity 1.018 (1.005-1.030)
[2024-04-05 11:15] LABS: Specific Gravity 1.018 (1.005-1.030); Urine Bacteria None Seen /HPF (<20); Urine Bilirubin NEGATIVE (Negative); Urine Blood Negative (Negative); Urine Clarity Extremely Turbid (Clear); Urine Color Light-Yellow (Yellow); Urine Culture Reflex Order NOT NEEDED; Urine Glucose NEGATIVE (Negative); Urine Ketones NEGATIVE (Negative); Urine Microscopic Reflex YN ORDER UMIC; Urine Mucus Slight /HPF (None Seen); Urine Nitrite NEGATIVE (Negative); Urine Protein NEGATIVE (Negative); Urine RBC <5 /HPF (None Seen); Urine Urobilinogen Normal (Normal); Urine WBC <5 /HPF (<5); Urine pH 5.5 (5.0-7.0)
[2024-04-05 11:28] LABS: Absolute Basophils 0.1 K/uL (0-0.5); Absolute Eosinophils 0.2 K/uL (0-0.5); Absolute Monocytes 0.6 K/uL (0.1-1.3); Absolute Neutrophil 6.6 K/uL (1.8-8.0); Basophils % 0.5 % (0-1.3); Eosinophils % 1.8 % (0-4.4); Hematocrit 36.3 % (36.0-45.0); Hemoglobin 11.7 g/dL (12.0-15.0); Lymphocytes % 21.1 % (15.3-44.8); MCH 26.5 pg (27.0-35.0); MCHC 32.2 g/dL (32.0-36.0); MCV 82.4 fL (80-100); MPV 9.3 fL (7.6-11.3); Monocytes % 6.4 % (3.3-12.3); Neutrophils % 70.2 % (41.7-73.7); Platelets 332 thou/uL (152-406); Red Cell Distribution Width 14.6 % (12.1-15.2)
[2024-04-05 11:44] LABS: AST/SGOT 15 U/L (15-37); Albumin 3.4 g/dL (3.4-5.0); Albumin/Globulin Ratio 0.8 (1.1-1.8); Alkaline Phosphatase 59 U/L (45-117); Anion Gap 7.5 mEq/L (5.0-15.0); BUN Blood Urea Nitrogen 13 mg/dL (7-18); Bicarbonate 29 mEq/L (21-32); Bilirubin Total 0.5 mg/dL (0.2-1.0); Globulin 4.5 g/dL (2.3-3.5); Glomerular Filtration Rate 83 ml/min (=/>90); Glucose Level 126 mg/dL (74-106); Lipase 25 U/L (13-75); Potassium 3.5 mEq/L (3.5-5.1); Protein, Total 7.9 g/dL (6.4-8.2); Sodium Level 138 mEq/L (136-145)
[2024-04-05 11:50] LABS: ALT/SGPT < 14 U/L (13-56)
[2024-04-05] MEDS ORDERED: DICYCLOMINE HCL 20 MG/2 ML AMP IM ONE (11:57)
--- NOTE | 2024-04-05 13:07 | RAD REPORT ---
EXAMINATION: CT Abdomen Pelvis W Contrast CLINICAL INDICATION: Female, 28 years old. lower abdomen pain TECHNIQUE: CT abdomen and pelvis was performed, after the administration of IV contrast, as per [facility] protocol. Axial, sagittal and coronal reconstructions were obtained. One or more of the following dose reduction techniques were used: Automated exposure control, adjustment of the mA and k V according to patient size, and iterative reconstruction. Unless otherwise specified, incidental findings do not require dedicated imaging follow-up. COMPARISON: 03/12/2019. FINDINGS: LOWER CHEST: The visualized lung bases are clear. LIVER: Normal in size and contour. No focal lesion. BILIARY SYSTEM: Gallbladder is decompressed limiting evaluation. No other suspicious abnormalities. SPLEEN: Normal size. No focal lesion. PANCREAS: No mass, ductal dilation, or jovon-pancreatic fluid. ADRENALS: Normal; no mass. KIDNEYS: Normal size and contour. No hydronephrosis. URINARY BLADDER: Unremarkable. GASTROINTESTINAL TRACT: No evidence of free air, significant intra-abdominal free fluid, bowel obstru ction or abscess. APPENDIX: Normal appendix. LYMPH NODES: No lymphadenopathy. MUSCULOSKELETAL: Erosions with underlying subchondral sclerosis along the inferior aspect of the righ t sacroiliac joint. No other acute or suspicious osseous abnormality. ADDITIONAL FINDINGS: Small enhancing posterior wall uterine fibroid. Nonspecific fluid filling of the upper endometrial cavity, measuring up to 1.4 cm in thickness. IMPRESSION: No acute or concerning abnormalities seen in the abdomen or pelvis. Erosions with underlying subchondral sclerosis along the inferior aspect of the right sacroiliac join t, could relate to inflammatory arthritis given patient's young age. Please correlate clinically. Incidental findings as above.
--- NOTE | 2024-04-05 13:54 | ER ---
Nurse's Notes [facility] Name: Roro Heredia Age: 28 yrs Sex: Female : 1995 Arrival Date: 04/05/2024 Time: 10:45 Bed 19 Private MD: Diagnosis: Nausea with vomiting, unspecified;Diarrhea, unspecified Presentation: 04/05 11:04 Chief complaint: Patient states: abd pain, N/V/D that began 2 days ago. Coronavirus ss screen: Client denies travel out of the [place] in the last 14 days. Ebola Screen: Patient denies exposure to infectious person. Patient denies travel to an Ebola-affected area in the 21 days before illness onset. Initial Sepsis Screen: Does the patient meet any 2 criteria? No. Patient's initial sepsis screen is negative. Does the patient have a suspected source of infection? No. Patient's initial sepsis screen is negative. Risk Assessment: Do you want to hurt yourself or someone else? Patient reports no desire to harm self or others. Onset of symptoms was April 03, 2024. 11:04 Method Of Arrival: Ambulatory ss 11:04 Acuity: JULIET 3 ss HOUSE MOTHER: 11:25 LMP 03/14/2024, unknown kc6 Historical: - Allergies: 11:08 No Known Allergies; ss - Home Meds: 11:08 None [Active]; ss - PMHx: 11:08 None; ss - PSHx: 11:08 None; ss - Immunization history:: Client reports having NOT received the Covid vaccine. - Infectious Disease History:: Denies. - Social history:: Smoking status: Patient denies any tobacco usage or history of. Screenin:25 [facility] ED Fall Risk Assessment (Adult) History of falling in the last 3 months, kc6 including since admission No falls in past 3 months (0 pts) Confusion or Disorientation No (0 pts) Intoxicated or Sedated No (0 pts) Impaired Gait No (0 pts) Mobility Assist Device Used No (0 pt) Altered Elimination No (0 pt) Score/Fall Risk Level 0 - 2 = Low Risk Oriented to surroundings, Maintained a safe environment. Abuse screen: Denies threats or abuse. Denies injuries from another. Nutritional screening: No deficits noted. Tuberculosis screening: No symptoms or risk factors identified. Assessment: 11:24 General: Appears in no apparent distress. comfortable, well groomed, well developed, kc6 Behavior is calm, cooperative, appropriate for age. Pain: Complains of pain in suprapubic area and pelvis. Neuro: Level of Consciousness is awake, alert, obeys commands, Oriented to person, place, time, situation, Appropriate for age. Cardiovascular: Capillary refill < 3 seconds. Respiratory: Airway is patent Trachea midline Respiratory effort is even, unlabored, Respiratory pattern is regular, symmetrical. GI: Abdomen is round non-distended, Bowel sounds present X 4 quads. Abd is soft X 4 quads Abdomen is tender to palpation in suprapubic area Reports lower abdominal pain, cramping, diarrhea, nausea, vomiting. : No signs and/or symptoms were reported regarding the genitourinary system. Urine is clear, Denies burning with urination, vaginal bleeding. EENT: No signs and/or symptoms were reported regarding the EENT system. Derm: No signs and/or symptoms reported regarding the dermatologic system. Skin is intact, is healthy with good turgor, Skin is pink, warm \T\ dry. Musculoskeletal: No signs and/or symptoms reported regarding the musculoskeletal system. Circulation, motion, and sensation intact. Capillary refill < 3 seconds, Range of motion: intact in all extremities. 12:58 Reassessment: Patient appears in no apparent distress at this time. No changes from kc6 previously documented assessment. Patient and/or family updated on plan of care and expected duration. Pain level reassessed. Patient is alert, oriented x 3, equal unlabored respirations, skin warm/dry/pink. 14:08 Reassessment: Patient appears in no apparent distress at this time. No changes from kc6 previously documented assessment. Patient and/or family updated on plan of care and expected duration. Pain level reassessed. Patient is alert, oriented x 3, equal unlabored respirations, skin warm/dry/pink. Patient states feeling better. Patient states symptoms have improved. Vital Signs: 11:04 BP 110 / 76; Pulse 86; Resp 14; Temp 98.6(O); Pulse Ox 98% on R/A; Weight 85.73 kg; ss Height 5 ft. 3 in. ; Pain 5/10; 12:01 BP 100 / 63; Pulse 76; Resp 16 S; Pulse Ox 100% on R/A; kc6 13:19 BP 117 / 75; Pulse 80; Resp 17 S; Pulse Ox 99% on R/A; kc6 11:04 Body Mass Index 33.48 (85.73 kg, 160.02 cm) ss 11:04 Pain Scale: Adult ss ED Course: 10:47 Patient arrived in ED. mr 10:47 John Sevilla MD is Attending Physician. bailee 10:47 John Palacios PA is PHCP. cp 10:47 Attending Physician role handed off by John Sevilla MD cp 10:47 Omer Gross MD is Attending Physician. cp 10:49 Jayshree Tejada RN is Primary Nurse. kc6 11:07 Triage completed. ss 11:08 Arm band placed on right wrist. ss 11:17 Inserted saline lock: 22 gauge in right forearm, using aseptic technique. Blood kc6 collected. Flushed with 10 mL NS. Patient maintains SpO2 saturation greater than 95% on room air. 11:25 Patient has correct armband on for positive identification. Bed in low position. Call kc6 light in reach. Side rails up X 1. Pulse ox on. NIBP on. Door closed. Noise minimized. Lights dimmed. Pillow given. 12:01 Warm blanket given. kc6 12:30 CT Abd/Pelvis - IV Contrast Only In Process Unspecified. EDMS 13:19 Diet: Patient given snack. Patient given water. kc6 14:09 No provider procedures requiring assistance completed. IV discontinued, intact, kc6 bleeding controlled, No redness/swelling at site. Pressure dressing applied. Administered Medications: 11:17 Drug: Ondansetron IVP 4 mg IVP once; over 2 minutes Route: IVP; Site: right forearm; kc6 12:01 Follow up: Response: No adverse reaction; Nausea is decreased kc6 11:17 Drug: NS 0.9% IV 1000 ml IV at 1 bolus Per protocol; to be given as a bolus over 60 kc6 minutes Route: IV; Rate: 1 bolus; Site: right forearm; 13:05 Follow up: Response: No adverse reaction; IV Status: Completed infusion; IV Intake: kc6 1000ml 11:20 Drug: TORadol - Ketorolac IVP 15 mg IVP once; may give if test negative kc6 Route: IVP; Site: right forearm; 12:00 Follow up: Response: No adverse reaction; Pain is decreased kc6 12:00 Drug: Dicyclomine IM 20 mg IM once Route: IM; Site: left deltoid; kc6 12:59 Follow up: Response: No adverse reaction kc6 Medication: 14:09 VIS not applicable for this client. kc6 Intake: 13:05 IV: 1000ml; Total: 1000ml. kc6 Outcome: 13:54 Discharge ordered by . kosta 14:09 Discharged to home ambulatory, kc6 14:09 Condition: good 14:09 Discharge instructions given to patient, Instructed on discharge instructions, follow up and referral plans. medication usage, Demonstrated understanding of instructions, follow-up care, medications, Prescriptions given X 2, 14:10 Patient left the ED. kc6 Signatures: Dispatcher [employer] EDMS John Sevilla MD MD cha Rivera Mag, Reg Reg mr Ledyi Arreola, RN RN John Dang, Jayshree Cortes cp RN RN kc6
--- NOTE | 2024-04-05 13:54 | EDPHYS ---
Physician Documentation [facility] Name: Roro Heredia Age: 28 yrs Sex: Female : 1995 Arrival Date: 04/05/2024 Time: 10:45 Bed 19 Private MD: ED Physician Omer Gross HPI: 04/05 10:50 This 28 yrs old Black Female presents to ER via Unassigned with complaints of Abdominal cp Pain, Nausea/Vomiting/Diarrhea. 10:50 The patient presents with abdominal pain in the lower abdomen. cp 10:50 Onset: The symptoms/episode began/occurred 2 day(s) ago. cp 10:50 Associated signs and symptoms: Pertinent negatives: constipation, fever, headache, cp vomiting blood. Severity of pain: in the emergency department the pain is unchanged despite home interventions. 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 - Infectious Disease History:: Denies. - Social history:: Smoking status: Patient denies any tobacco usage or history of. ROS: 11:00 Constitutional: Negative for body aches, chills, fever, cp 11:00 Eyes: Negative for injury, pain, redness, and discharge, cp 11:00 ENT: Negative for drainage from ear(s), ear pain, sore throat, difficulty swallowing, difficulty handling secretions, 11:00 Cardiovascular: Negative for chest pain, 11:00 Respiratory: Negative for cough, shortness of breath, wheezing, 11:00 Abdomen/GI: Positive for abdominal pain, nausea and vomiting, diarrhea, Negative for constipation, black/tarry stool, rectal bleeding, 11:00 : Negative for urinary symptoms, vaginal bleeding, 11:00 Neuro: Negative for altered mental status, dizziness, headache, weakness, 11:00 All other systems are negative, Exam: 11:05 Constitutional: The patient appears in no acute distress, alert, awake, non-toxic, well cp developed, well nourished, 11:05 Head/Face: Normocephalic, atraumatic. cp 11:05 Eyes: Periorbital structures: appear normal, Conjunctiva: normal, no exudate, no injection, Sclera: no appreciated abnormality, Lids and lashes: appear normal, bilaterally, 11:05 ENT: External ear(s): are unremarkable, Nose: is normal, Mouth: Lips: moist, Oral mucosa: moist, Posterior pharynx: Airway: no evidence of obstruction, patent, 11:05 Chest/axilla: Inspection: normal, 11:05 Cardiovascular: Rate: normal, Rhythm: regular, 11:05 Respiratory: the patient does not display signs of respiratory distress, Respirations: normal, no use of accessory muscles, no retractions, labored breathing, is not present, 11:05 Abdomen/GI: Inspection: abdomen appears normal, Bowel sounds: active, all quadrants, Palpation: soft, in all quadrants, moderate abdominal tenderness, in the right lower quadrant and left lower quadrant, rebound tenderness, is not appreciated, involuntary guarding, is not appreciated, 11:05 Back: CVA tenderness, is absent, Vital Signs: 11:04 BP 110 / 76; Pulse 86; Resp 14; Temp 98.6(O); Pulse Ox 98% on R/A; Weight 85.73 kg; ss Height 5 ft. 3 in. ; Pain 5/10; 12:01 BP 100 / 63; Pulse 76; Resp 16 S; Pulse Ox 100% on R/A; kc6 13:19 BP 117 / 75; Pulse 80; Resp 17 S; Pulse Ox 99% on R/A; kc6 11:04 Body Mass Index 33.48 (85.73 kg, 160.02 cm) ss 11:04 Pain Scale: Adult ss MDM: 10:48 Medical Screening Exam initiated 11:15 Differential diagnosis: appendicitis, cholecystitis, Cholelithiasis, diverticulitis, cp gastritis, Ovarian Torsion, Pelvic Inflammatory Disease, Pyelonephritis, Ureterolithiasis, urinary tract infection. 13:53 Data reviewed: vital signs, nurses notes, lab test result(s), radiologic studies, CT cp scan, and as a result, I will discharge patient. 13:53 I considered the following discharge prescriptions or medication management in the emergency department Medications were administered in the Emergency Department. See MAR. Counseling: I had a detailed discussion with the patient and/or guardian regarding the historical points, exam findings, and any diagnostic results supporting the discharge/admit diagnosis, lab results, radiology results, to return to the emergency department if symptoms worsen or persist or if there are any questions or concerns that arise at home. Response to treatment: the patient's symptoms have markedly improved after treatment, and as a result, I will discharge patient. Special discussion: Based on the patient's Hx, exam, and Dx evaluation, there is no indication for emergent surgery or inpatient Tx. It is understood by the patient/guardian that if the Sx's persist or worsen they need to return immediately for re-evaluation. 04/05 10:55 Order name: CBC with Diff; Complete Time: 11:51 04/05 11:51 Interpretation: Normal except: HGB 11.7; MCH 26.5. 04/05 10:55 Order name: CMP; Complete Time: 11:51 04/05 13:16 Interpretation: Normal except: GLUC 126; GFR 83; GLOB 4.5; A/G 0.8. 04/05 10:55 Order name: Lipase; Complete Time: 11:51 04/05 10:55 Order name: Test, Urine; Complete Time: 11:51 04/05 10:55 Order name: Urinalysis w/ reflexes; Complete Time: 11:51 04/05 13:16 Interpretation: Normal except: [facility] Extremely Turbid. 04/05 11:52 Order name: CT Abd/Pelvis - IV Contrast Only; Complete Time: 13:14 04/05 13:15 Interpretation: Report reviewed. 04/05 10:55 Order name: IV Saline Lock; Complete Time: 11:17 04/05 10:55 Order name: Labs collected and sent; Complete Time: 11:17 04/05 13:16 Order name: PO challenge; Complete Time: 13:19 cp Administered Medications: 11:17 Drug: Ondansetron IVP 4 mg IVP once; over 2 minutes Route: IVP; Site: right forearm; kc6 12:01 Follow up: Response: No adverse reaction; Nausea is decreased kc6 11:17 Drug: NS 0.9% IV 1000 ml IV at 1 bolus Per protocol; to be given as a bolus over 60 kc6 minutes Route: IV; Rate: 1 bolus; Site: right forearm; 13:05 Follow up: Response: No adverse reaction; IV Status: Completed infusion; IV Intake: kc6 1000ml 11:20 Drug: TORadol - Ketorolac IVP 15 mg IVP once; may give if test negative kc6 Route: IVP; Site: right forearm; 12:00 Follow up: Response: No adverse reaction; Pain is decreased kc6 12:00 Drug: Dicyclomine IM 20 mg IM once Route: IM; Site: left deltoid; kc6 12:59 Follow up: Response: No adverse reaction kc6 Disposition: 18:11 Co-signature as Attending Physician, Omer Gross MD I reviewed the patient's care rn provided by the Advanced Practice Provider and agree with the diagnosis and treatment plan. Disposition Summary: 04/05/24 13:54 Discharge Ordered Notes: Location: Home cp Problem: new cp Symptoms: have improved cp Condition: Stable cp Diagnosis - Nausea with vomiting, unspecified cp - Diarrhea, unspecified cp Followup: cp - With: Private Physician - When: As needed - Reason: Worsening of condition Discharge Instructions: - Food Choices to Help Relieve Diarrhea, Adult cp - Diarrhea, Adult cp - Nausea and Vomiting, Adult cp - Discharge Summary Sheet kc6 Forms: - Medication Reconciliation Form cp - Antibiotic Education cp - Prescription Opioid Use cp - Patient Portal Instructions cp - Leadership Thank You Letter cp - Work release form kc6 Prescriptions: - Zofran 4 mg Oral Tablet - take 1 tablet ORAL route every 12 hours As needed; 20 tablet; Refills: 0, cp Product Selection Permitted - dicyclomine 20 mg Oral tablet - take 1 tablet ORAL route 3-4 times daily; 20 tablet; Refills: 0, Product cp Selection Permitted Signatures: Dispatcher [employer] Omer Valdez MD MD rn Blanchard, Shelby, RN RN John Dang PA PA cp Jayshree Tejada RN RN kc6 Corrections: (The following items were deleted from the chart) 10:55 10:55 CBC+H.LAB.BRZ ordered. EDMS EDMS 10:55 10:55 COMPREHENSIVE METABOLIC PANEL+C.LAB.BRZ ordered. EDMS EDMS 10:55 10:55 LIPASE+C.LAB.BRZ ordered. EDMS EDMS 10:55 10:55 Test, Urine+UC.LAB.BRZ ordered. EDMS EDMS 10:55 10:55 Urinalysis+U.LAB.BRZ ordered. EDMS EDMS 11:52 11:52 Abdomen Pelvis W Con+CT.RAD.BRZ ordered. EDMS EDMS
[2024-04-05 14:28] VITALS: TEMP 98.6
[2024-04-05 14:40] VITALS: BP 117/75; O2SAT 99
== END 2024-04-05 14:10 | disposition home or self-care (01) ==
LOC: ER 10:45
DX: R11.2 Nausea with vomiting, unspecified (principal); R19.7 Diarrhea, unspecified
CPT/HCPCS: 36415; 74177; 80053; 81001; 81025; 83690; 85025; 96361; 96372; 96374; 96375; 99284; J0500; J2405; J7030; Q9967

== ENCOUNTER 2024-04-19 12:29 | Emergency (ER) | payer SELFPAY ==
--- OUTSIDE RECORDS SUMMARY | 2024-04-19 12:35 | XMS REPORT | Continuity of Care Document ---
Author Name Unknown Address [address] [facility] [address] [place] [address] [facility] thconnect Address [address] [facility] [address] [place] [address] Care Team Providers Care Special Class Welder Name Role Phone Patric Carreon Primary Care Physician Un available SO MANLEY Attending Clinician Unavailable SO MANLEY Attending Clinician Unavailable MANOLO DIXON Attending Clinician UnavailMANOLO Carlisle Attending Clinician UnavailSo Valle MD Attending Clinician [phone] Estefanía Naranjo MD Attending Clinician [phone] ESTEFANÍA NARANJO Attending Clinician Unavailable ESTEFANÍA NARANJO Attending Clinician Unavailable Ultrasound, Ang-Mfm Attending Clinician UnavailAnastasiya Zhang MD Attending Clinician [phone] ANASTASIYA LEZAMA Attending Clinician Unavailable Doctor Unassigned, [place] Attending Clinician U navailstefan Pob, [facility] Attending Clinician UnavailRose Yeboah Attending Clinician UnavailOTF Dupree Attending Clinician Unavail able ABBEY JEAN Attending Clinician Unavailable TALHA SOMERS Attending Clinician Unavailable Talha Somers MD Attending Clinician [phone] Abbey Jean MD Attending Clinician [phone] Yasmin Pérez MD Attending Clinician + YASMIN PÉREZ Attending Clinician Unav ailable Nurse, [facility] Attending Clinician Unavailable SHEREE MIGUEL Attending Clinician Unavail able SO MANLEY Admitting Clinician Unavailable Estefanía Naranjo MD Admitting Clinician [phone] ESTEFANÍA NARANJO Admitting Clinician Unavailable TALHA SOMERS Admitting Clinician Unavailable Talha Somers MD Admitting Clinician Payers Payer Name Policy Type Policy Number Effective Date Expirati on Date Source [facility] [id number] 2015 00:00:00 2022 00:00:00 [employer] [id number] 2017 00:00:00 Problems Condition Name Condition Details Condition Category Status Onset Date Resolution Date Last Treatment Date Treating Clinician Comments Source 23 weeks gestation of 23 weeks gestation of Disease Active 3-29 00:00: 00 [facility] IUFD at 20 weeks or more of gestation IUFD at 20 weeks or more of gestation Disease Active -29 00:00: 00 [facility] Alpha thalassemi a silent carrier Alpha thalassemi a silent carrier Disease Active 3-14 00:00: 00 [facility] Screening declined by patient Screening declined by patient Disease Active 1-31 00:00: 00 [facility] Zellweger' s syndrome Zellweger' s syndrome Disease Active 2021-04 2-20 00:00: 00 [facility] 9 weeks gestation of 9 weeks gestation of Disease Active 2021-04 2-20 00:00: 00 [facility] Normal labor Normal labor Disease Active 5-15 00:00: 00 [facility] Positive GBS test Positive GBS test Disease Active 5-15 00:00: 00 [facility] Depression affecting in third trimester, antepartum Depression affecting in third trimester, antepartum Disease Active - 00:00: 00 [facility] Noncomplia nt patient in third trimester Noncomplia nt patient in third trimester Disease Active 4-04 00:00: 00 [facility] Anxiety Anxiety Disease Active 2018-04 00:00: 00 [facility] 38 weeks gestation of 38 weeks gestation of Disease Active 1 00:00: 00 [facility] Atypical squamous cells of undetermin ed significan ce (ASCUS) on Papanicola ou smear of cervix Atypical squamous cells of undetermin ed significan ce (ASCUS) on Papanicola ou smear of cervix Disease Active 2016-04 0-06 00:00: 00 Overview: Formattin g of this note might be different from the original. Needs repeat colpo PP-see [place] note on 01/17/16 [facility] Sickle cell trait Sickle cell trait Disease Active 10-31 00:00: 00 [facility] Missed menses Missed menses Disease Active 10-28 00:00: 00 [facility] Obesity in Obesity in Disease Active 10-28 00:00: 00 [facility] Liveborn infant, of samuels , born in hospital by vaginal delivery Liveborn , of samuels , born in hospital by vaginal delivery Disease Active 05-19 00:00: 00 [facility] Multiparit y Multiparit y Disease Active 11-20 00:00: 00 [facility] Supervisio n of other high risk pregnancie s, first trimester Supervisio n of other high risk pregnancie s, first trimester Disease Active 11-20 00:00: 00 [facility] with inconclusi ve viability, single or unspecifie d fetus with inconclusi ve viability, single or unspecifie d fetus Disease Active 11-20 00:00: 00 [facility] Allergies, Adverse Reactions, Alerts Allergy Name Allergy Type Status Severity Reaction(s) Onset Date Inactive Date Treating Clinician Comments Source NO KNOWN ALLERGIE S Drug Class Active [facility] Social History Social Habit Start Date Stop Date Quantity Comments Source ASSERTION 2022-02-17 00:00:00 [facility] to SARS-CoV-2 (event) 2022-07-19 00:00:00 2022-07-29 13:54:00 Not sure [facility] History of Social function 2021-08-16 00:00:00 2021-08-16 00:00:00 [facility] Alcohol intake 2021-03-30 00:00:00 2021-03-30 00:00:00 Current non-drinker of alcohol (finding) [facility] Tobacco use and exposure 2012-09-08 00:00:00 2012-09-08 00:00:00 Smokeless tobacco non-user [facility] Sex Assigned At 1995 00:00:00 1995 00:00:00 [facility] Smoking Status Start Date Stop Date Source Never smoked tobacco [facility] Medications Ordered Medication Name Filled Medication Name Start Date Stop Date Current Medication? Ordering Clinician Indication Dosage Frequency Signature (SIG) Comments Components Source rho(D) immune globulin (RHOGAM) syringe 300 mcg 07-18 15:33: 32 Yes 300ug 300 mcg, Intramuscu lar, ONCE, For 1 dose, Conditiona l, Routine [facility] human papillomav vac,9-luz(P F) (GARDASIL-9 ) syringe 0.5 mL 07-18 15:33: 26 Yes .5mL 0.5 mL, Intramuscu lar, ONCE-PRIOR TO DISCHARGE, 1 dose, Starting on Liz 07/18/22 at 1033, Until Discontinu ed, Routine, Give vaccine prior to discharge [facility] HYDROcodone -acetaminop hen (NORCO 5) 5-325 mg tablet 1 tablet 07-18 15:33: 26 Yes 1{tbl} 1 tablet, Oral, Q6HPRN, Starting on Liz 07/18/22 at 1033, Until Discontinu ed, Routine, Pain (scale 7-10) [facility] ibuprofen (IBU) tablet 600 mg 07-18 15:33: 26 Yes 600mg 600 mg, Oral, Q6HPRN, Starting on Liz 07/18/22 at 1033, Until Discontinu ed, Routine, Pain (scale 4-6) [facility] acetaminoph en (TYLENOL) tablet 650 mg 07-18 15:33: 26 Yes 650mg 650 mg, Oral, Q6HPRN, Starting on Fri07/18/22 at 1033, Until Discontinu ed, Routine, Pain (scale 1-3) [facility] diphenhydrA MINE (BENADRYL) tablet 25 mg 07-18 15:33: 26 Yes 25mg 25 mg, Oral, Q6HPRN, Starting on Fri07/18/22 at 1033, Until Discontinu ed, Routine, Sleep, Itching [facility] ondansetron (ZOFRAN (PF)) injection 4 mg 07-18 15:33: 26 Yes 4mg 4 mg, Slow IV Push, Q8HPRN, Starting on Fri07/18/22 at 1033, Until Discontinu ed, Routine, Nausea and Vomiting (N/V) [facility] simethicone (GAS RELIEF (SIMETHICON E)) chewable tablet 160 mg 07-18 15:33: 26 Yes 160mg 160 mg, Oral, PC+HSPRN, Starting on Fri07/18/22 at 1033, Until Discontinu ed, Routine, Gas [facility] docusate (COLACE) capsule 200 mg 07-18 15:33: 26 Yes 200mg 200 mg, Oral, QDAILYPRN, Starting on Fri07/18/22 at 1033, Until Discontinu ed, Routine, Constipati on [facility] magnesium hydroxide (MILK OF MAGNESIA) 400 mg/5 mL suspension 30 mL 07-18 15:33: 26 Yes 30mL 30 mL, Oral, QDAILYPRN, Starting on Fri07/18/22 at 1033, Until Discontinu ed, Routine, Constipati on [facility] benzocaine- menthol (DERMOPLAST ) 20-0.5 % topical spray 07-18 15:33: 26 Yes Topical, PRN, Starting on Fri07/18/22 at 1033, Until Discontinu ed, Routine, Perineum discomfort [facility] ibuprofen (IBU) tablet 600 mg 07-18 14:28: 10 07-18 15:33 :30 No 600mg 600 mg, Oral, Q6HPRN, Starting on Fri07/18/22 at 0928, Until Fri07/18/22 at 1033, Routine, Pain (scale 1-3) [facility] morpHINE 30 mg/30 mL (fixed dose) ACCOUNTS RECEIVABLE ASSOCIATE injection 07-18 06:15: 00 07-18 15:33 :30 No Patient Bolus Dose: 1 mg
Lock out Interval: 10 Minutes
Basal Rate: 0 mg/hr
F our Hour Dose Limit: 32 mg
Intr avenous, 30 mL, CONTINUOUS , Starting on Fri07/18/22 at 0115, Until Fri07/18/22 at 1033 [facility] morpHINE 2 mg/mL LOAD & RESCUE INJECTION SYRG 07-18 05:02: 15 07-18 15:33 :30 No Slow IV Push, Routine [facility] miSOPROStoL (CYTOTEC) tablet 400 mcg 07-18 04:45: 00 07-18 11:56 :00 No 400ug 400 mcg, Vaginal, Q3H FEED, 4 doses, First dose (after last modificati on) on Fri07/17/22 at 2345, Last dose on Fri07/18/22 at 0845, Routine [facility] butorphanol (STADOL) injection 1 mg 07-18 04:30: 00 07-18 03:35 :00 No 1mg 1 mg, IV Push, ONCE, 1 dose, On Fri07/17/22 at 2330, [facility]ine [facility] 1,000 mL 07-18 00:35: 36 07-18 15:33 :30 No 1000mL at 1-125 mL/hr, IV Infusion, TITRATE, Starting on Fri07/17/22 at 1935, Until Fri07/18/22 at 1033, Routine [facility] ibuprofen 600 mg tablet 07-18 00:00: 00 Yes [id number] 600mg Take 1 tablet by mouth every 6 (six) hours as needed for Pain (scale 4-6). [facility] acetaminoph en 325 mg tablet 3-30 00:00: 00 07-18 04:59 :00 No [id number] 650mg Take 2 tablets by mouth every 6 (six) hours as needed for Pain (scale 1-3). [facility] vit 33-iron-fol ic-dha (SELECT-OB + DHA) 29 mg iron-1 mg -250 mg combo pack 1-31 00:00: 00 08-04 00:00 :00 No [id number] 1{packe t} Take 1 Packet by mouth in the morning. [facility] vitamin w/FA tablet 2021-04- 00:00: 00 08-04 00:00 :00 No [id number] 1{tbl} Take 1 tablet by mouth in the morning. [facility] docusate 100 mg capsule 09-03 00:00: 00 08-04 00:00 :00 No [id number] 200mg Take 2 capsules by mouth once daily as needed for Constipati on. [facility] ferrous sulfate 325 mg (65 mg iron) tablet 09-03 00:00: 00 08-04 00:00 :00 No [id number] 325mg Take 1 tablet by mouth 2 (two) times daily. [facility] vitamin w/FA tablet 09-03 00:00: 00 04-09 00:00 :00 No [id number] 1{tbl} Take 1 tablet by mouth daily. [facility] ibuprofen 600 mg tablet 16 00:00: 00 04-09 00:00 :00 No [id number] 600mg Take 1 tablet by mouth every 6 (six) hours as needed (Pain). Take with food or milk. [facility] rho(D) immune globulin (RHOGAM) syringe 300 mcg 15 08:56: 41 Yes 300ug 300 mcg, Intramuscu lar, ONCE, For 1 dose, Conditiona l, Routine [facility] witch Gasper (TUCKS) 50 % topical pad 09-02 08:56: 40 Yes Topical, Q4HPRN, Starting on Fri09/02/21 at 0356, Until Discontinu ed, Routine, rectal/hem orrhoidal pain [facility] HYDROcodone -acetaminop hen (NORCO 5) 5-325 mg tablet 1 tablet 09-02 08:56: 40 Yes 1{tbl} 1 tablet, Oral, Q6HPRN, Starting on 09/02/21 at 0356, Until Discontinu ed, Routine, Pain (scale 7-10) [facility] ibuprofen (IBU) tablet 600 mg 09-02 08:56: 40 Yes 600mg 600 mg, Oral, Q6HPRN, Starting on 09/02/21 at 035, Until Discontinu ed, Routine, Pain (scale 4-6) [facility] acetaminoph en (TYLENOL) tablet 650 mg 09-02 08:56: 40 Yes 650mg 650 mg, Oral, Q6HPRN, Starting on 09/02/21 at 035, Until Discontinu ed, Routine, Pain (scale 1-3) [facility] diphenhydrA MINE (BENADRYL) tablet 25 mg 09-02 08:56: 40 Yes 25mg 25 mg, Oral, Q6HPRN, Starting on Fri09/02/21 at 035, Until Discontinu ed, Routine, Sleep, Itching [facility] ondansetron (ZOFRAN (PF)) injection 4 mg 09-02 08:56: 40 Yes 4mg 4 mg, Slow IV Push, Q8HPRN, Starting on Fri09/02/21 at 035, Until Discontinu ed, Routine, Nausea and Vomiting (N/V) [facility] simethicone (GAS RELIEF (SIMETHICON E)) chewable tablet 160 mg 09-02 08:56: 40 Yes 160mg 160 mg, Oral, PC+HSPRN, Starting on Fri09/02/21 at 0356, Until Discontinu ed, Routine, Gas [facility] docusate (COLACE) capsule 200 mg 09-02 08:56: 40 Yes 200mg 200 mg, Oral, QDAILYPRN, Starting on 09/02/21 at 0356, Until Discontinu ed, Routine, Constipati on [facility] magnesium hydroxide (MILK OF MAGNESIA) 400 mg/5 mL suspension 30 mL 09-02 08:56: 40 Yes 30mL 30 mL, Oral, QDAILYPRN, Starting on 09/02/21 at 0356, Until Discontinu ed, Routine, Constipati on [facility] benzocaine- menthol (DERMOPLAST ) 20-0.5 % topical spray 09-02 08:56: 40 Yes Topical, PRN, Starting on 09/02/21 at 0356, Until Discontinu ed, Routine, Perineum discomfort [facility] oxytocin (PITOCIN) 30 units in NS 500 mL IV infusion 09-02 08:28: 55 09-02 08:56 :42 No 300mL/h 300 mL/hr, IV Infusion, SEE-INSTRU CTIONS, Starting on Fri09/02/[address] at 300 mL/hr for 1 hr then 150 mL/hr for 1 hr. & nbsp; For post delivery uterotonic
[facility] D5W-LR IV infusion 1,000 mL 09-02 08:15: 00 09-02 08:56 :42 No 1000mL at 125 mL/hr, IV Infusion, CONTINUOUS , Starting on Fri09/02/21 at 0315, Until 09/02/21 at 0356, Routine [facility] FENTanyl PF (SUBLIMAZE (PF)) injection 50 mcg 09-02 08:10: 00 09-02 08:12 :00 No 50ug 50 mcg, Slow IV Push, ONCE, 1 dose, On [place] 09/02/21 at 0315, Routine [facility] vit 33-iron-fol ic-dha (SELECT-OB + DHA) 29 mg iron-1 mg -250 mg combo pack 07-26 00:00: 00 09-03 00:00 :00 No [id number] 1{packe t} Take 1 Packet by mouth daily. [facility] ferrous fumarate-b1 2-vitamic C-folic acid (FEROCON) 110-0.5 mg capsule 07-26 00:00: 00 09-03 00:00 :00 No [id number] 1{capsu le} Take 1 capsule by mouth daily with breakfast. [facility] cephALEXin 500 mg capsule 07-26 00:00: 00 08-03 04:59 :00 No [id number] 500mg Take 1 capsule by mouth every 6 (six) hours for 7 days. [facility] PNV NO.95/FLYNN US FUM/FOLIC AC ( ORAL) 06-01 15:45: 54 06-01 00:00 :00 No Take by mouth. [facility] 78-iron-fol ate 1-dha 18 mg iron-1 mg -300 mg Cap 06-01 00:00: 00 08-03 00:00 :00 No [id number] 1{tbl} Take 1 tablet by mouth daily. [facility] terconazole 0.8 % vaginal cream 06-01 00:00: 00 06-05 05:59 :00 No [id number] 1{appli cator} Insert 1 Applicator into vagina at bedtime for 3 days. [facility] cephALEXin 500 mg capsule 05-30 00:00: 00 07-26 00:00 :00 No 500mg Take 500 mg by mouth every 6 (six) hours. [facility] metroNIDAZO LE 500 mg tablet 05-30 00:00: 00 07-26 00:00 :00 No TAKE 1 TABLET BY MOUTH EVERY 12 HOURS FOR 7 DAYS. DO NOT DRINK ALCOHOL WHILE TAKING THIS MEDICATION [facility] cephALEXin 500 mg capsule 2020-04 00:00: 00 03-07 05:59 :00 No [id number] 500mg Take 1 capsule by mouth every 6 (six) hours for 7 days. [facility] metroNIDAZO LE 500 mg tablet 2020-04 00:00: 00 03-03 05:59 :00 No [id number] 500mg Take 1 tablet by mouth every 12 (twelve) hours for 7 days. [facility] Immunizations Ordered Immunization Name Filled Immunization Name Date Status Comments Source TDAP 2016-03-13 00:00:00 Completed [facility] TDAP 2016-03-13 00:00:00 Completed [facility] TDAP 2016-03-13 00:00:00 Completed [facility] TDAP 2016-03-13 00:00:00 Completed [facility] TDAP 2016-03-13 00:00:00 Completed [facility] TDAP 2016-03-13 00:00:00 Completed [facility] TDAP 2016-03-13 00:00:00 Completed [facility] TDAP 2016-03-13 00:00:00 Completed [facility] TDAP 2016-03-13 00:00:00 Completed [facility] TDAP 2016-03-13 00:00:00 Completed [facility] TDAP 2016-03-13 00:00:00 Completed [facility] TDAP 2016-03-13 00:00:00 Completed [facility] TDAP 2016-03-13 00:00:00 Completed [facility] TDAP 2016-03-13 00:00:00 Completed [facility] TDAP 2016-03-13 00:00:00 Completed [facility] TDAP 2016-03-13 00:00:00 Completed [facility] TDAP 2016-03-13 00:00:00 Completed [facility] TDAP 2016-03-13 00:00:00 Completed [facility] TDAP 2016-03-13 00:00:00 Completed [facility] TDAP 2016-03-13 00:00:00 Completed [facility] TDAP 2016-03-13 00:00:00 Completed [facility] TDAP 2016-03-13 00:00:00 Completed [facility] TDAP 2016-03-13 00:00:00 Completed [facility] TDAP 2016-03-13 00:00:00 Completed [facility] TDAP 2016-03-13 00:00:00 Completed [facility] TDAP 2016-03-13 00:00:00 Completed [facility] TDAP 2016-03-13 00:00:00 Completed [facility] TDAP 2016-03-13 00:00:00 Completed [facility] TDAP 2016-03-13 00:00:00 Completed [facility] TDAP 2016-03-13 00:00:00 Completed [facility] TDAP 2016-03-13 00:00:00 Completed [facility] TDAP 2016-03-13 00:00:00 Completed [facility] TDAP 2013-10-21 00:00:00 Completed [facility] TDAP 2013-10-21 00:00:00 Completed [facility] TDAP 2013-10-21 00:00:00 Completed [facility] TDAP 2013-10-21 00:00:00 Completed [facility] TDAP 2013-10-21 00:00:00 Completed [facility] TDAP 2013-10-21 00:00:00 Completed [facility] TDAP 2013-10-21 00:00:00 Completed [facility] TDAP 2013-10-21 00:00:00 Completed [facility] TDAP 2013-10-21 00:00:00 Completed [facility] TDAP 2013-10-21 00:00:00 Completed [facility] TDAP 2013-10-21 00:00:00 Completed [facility] TDAP 2013-10-21 00:00:00 Completed [facility] TDAP 2013-10-21 00:00:00 Completed [facility] TDAP 2013-10-21 00:00:00 Completed [facility] TDAP 2013-10-21 00:00:00 Completed [facility] TDAP 2013-10-21 00:00:00 Completed [facility] TDAP 2013-10-21 00:00:00 Completed [facility] TDAP 2013-10-21 00:00:00 Completed [facility] TDAP 2013-10-21 00:00:00 Completed [facility] TDAP 2013-10-21 00:00:00 Completed [facility] TDAP 2013-10-21 00:00:00 Completed [facility] TDAP 2013-10-21 00:00:00 Completed [facility] TDAP 2013-10-21 00:00:00 Completed [facility] TDAP 2013-10-21 00:00:00 Completed [facility] TDAP 2013-10-21 00:00:00 Completed [facility] TDAP 2013-10-21 00:00:00 Completed [facility] TDAP 2013-10-21 00:00:00 Completed [facility] TDAP 2013-10-21 00:00:00 Completed [facility] TDAP 2013-10-21 00:00:00 Completed [facility] TDAP 2013-10-21 00:00:00 Completed [facility] TDAP 2013-10-21 00:00:00 Completed [facility] TDAP 2013-10-21 00:00:00 Completed [facility] Influenza Virus Vaccine 2013-01-06 00:00:00 Completed [facility] Influenza Virus Vaccine 2013-01-06 00:00:00 Completed [facility] Influenza Virus Vaccine 2013-01-06 00:00:00 Completed [facility] Influenza Virus Vaccine 2013-01-06 00:00:00 Completed [facility] Influenza Virus Vaccine 2013-01-06 00:00:00 Completed [facility] Influenza Virus Vaccine 2013-01-06 00:00:00 Completed [facility] Influenza Virus Vaccine 2013-01-06 00:00:00 Completed [facility] Influenza Virus Vaccine 2013-01-06 00:00:00 Completed [facility] Influenza Virus Vaccine 2013-01-06 00:00:00 Completed [facility] Influenza Virus Vaccine 2013-01-06 00:00:00 Completed [facility] Influenza Virus Vaccine 2013-01-06 00:00:00 Completed [facility] Influenza Virus Vaccine 2013-01-06 00:00:00 Completed [facility] Influenza Virus Vaccine 2013-01-06 00:00:00 Completed [facility] Influenza Virus Vaccine 2013-01-06 00:00:00 Completed [facility] Influenza Virus Vaccine 2013-01-06 00:00:00 Completed [facility] Influenza Virus Vaccine 2013-01-06 00:00:00 Completed [facility] Influenza Virus Vaccine 2013-01-06 00:00:00 Completed [facility] Influenza Virus Vaccine 2013-01-06 00:00:00 Completed [facility] Influenza Virus Vaccine 2013-01-06 00:00:00 Completed [facility] Influenza Virus Vaccine 2013-01-06 00:00:00 Completed [facility] Influenza Virus Vaccine 2013-01-06 00:00:00 Completed [facility] Influenza Virus Vaccine 2013-01-06 00:00:00 Completed [facility] Influenza Virus Vaccine 2013-01-06 00:00:00 Completed [facility] Influenza Virus Vaccine 2013-01-06 00:00:00 Completed [facility] Influenza Virus Vaccine 2013-01-06 00:00:00 Completed [facility] Influenza Virus Vaccine 2013-01-06 00:00:00 Completed [facility] Influenza Virus Vaccine 2013-01-06 00:00:00 Completed [facility] Influenza Virus Vaccine 2013-01-06 00:00:00 Completed [facility] Influenza Virus Vaccine 2013-01-06 00:00:00 Completed [facility] Influenza Virus Vaccine 2013-01-06 00:00:00 Completed [facility] Influenza Virus Vaccine 2013-01-06 00:00:00 Completed [facility] Influenza Virus Vaccine 2013-01-06 00:00:00 Completed [facility] TDAP 2012-11-24 00:00:00 Completed [facility] TDAP 2012-11-24 00:00:00 Completed [facility] TDAP 2012-11-24 00:00:00 Completed [facility] TDAP 2012-11-24 00:00:00 Completed [facility] TDAP 2012-11-24 00:00:00 Completed [facility] TDAP 2012-11-24 00:00:00 Completed [facility] TDAP 2012-11-24 00:00:00 Completed [facility] TDAP 2012-11-24 00:00:00 Completed [facility] TDAP 2012-11-24 00:00:00 Completed [facility] TDAP 2012-11-24 00:00:00 Completed [facility] TDAP 2012-11-24 00:00:00 Completed [facility] TDAP 2012-11-24 00:00:00 Completed [facility] TDAP 2012-11-24 00:00:00 Completed [facility] TDAP 2012-11-24 00:00:00 Completed [facility] TDAP 2012-11-24 00:00:00 Completed [facility] TDAP 2012-11-24 00:00:00 Completed [facility] TDAP 2012-11-24 00:00:00 Completed [facility] TDAP 2012-11-24 00:00:00 Completed [facility] TDAP 2012-11-24 00:00:00 Completed [facility] TDAP 2012-11-24 00:00:00 Completed [facility] TDAP 2012-11-24 00:00:00 Completed [facility] TDAP 2012-11-24 00:00:00 Completed [facility] TDAP 2012-11-24 00:00:00 Completed [facility] TDAP 2012-11-24 00:00:00 Completed [facility] TDAP 2012-11-24 00:00:00 Completed [facility] TDAP 2012-11-24 00:00:00 Completed [facility] TDAP 2012-11-24 00:00:00 Completed [facility] TDAP 2012-11-24 00:00:00 Completed [facility] TDAP 2012-11-24 00:00:00 Completed [facility] TDAP 2012-11-24 00:00:00 Completed [facility] TDAP 2012-11-24 00:00:00 Completed [facility] TDAP 2012-11-24 00:00:00 Completed [facility] Rubella 2012-09-08 00:00:00 Completed [facility] Rubella 2012-09-08 00:00:00 Completed [facility] Rubella 2012-09-08 00:00:00 Completed [facility] Rubella 2012-09-08 00:00:00 Completed [facility] Rubella 2012-09-08 00:00:00 Completed [facility] Rubella 2012-09-08 00:00:00 Completed [facility] Rubella 2012-09-08 00:00:00 Completed [facility] Rubella 2012-09-08 00:00:00 Completed [facility] Rubella 2012-09-08 00:00:00 Completed [facility] Rubella 2012-09-08 00:00:00 Completed [facility] Rubella 2012-09-08 00:00:00 Completed [facility] Rubella 2012-09-08 00:00:00 Completed [facility] Rubella 2012-09-08 00:00:00 Completed [facility] Rubella 2012-09-08 00:00:00 Completed [facility] Rubella 2012-09-08 00:00:00 Completed [facility] Rubella 2012-09-08 00:00:00 Completed [facility] Rubella 2012-09-08 00:00:00 Completed [facility] Rubella 2012-09-08 00:00:00 Completed [facility] Rubella 2012-09-08 00:00:00 Completed [facility] Rubella 2012-09-08 00:00:00 Completed [facility] Rubella 2012-09-08 00:00:00 Completed [facility] Rubella 2012-09-08 00:00:00 Completed [facility] Rubella 2012-09-08 00:00:00 Completed [facility] Rubella 2012-09-08 00:00:00 Completed [facility] Rubella 2012-09-08 00:00:00 Completed [facility] Rubella 2012-09-08 00:00:00 Completed [facility] Rubella 2012-09-08 00:00:00 Completed [facility] Rubella 2012-09-08 00:00:00 Completed [facility] Rubella 2012-09-08 00:00:00 Completed [facility] Rubella 2012-09-08 00:00:00 Completed [facility] Rubella 2012-09-08 00:00:00 Completed [facility] Rubella 2012-09-08 00:00:00 Completed [facility] TDAP 2012-01-10 00:00:00 Completed [facility] TDAP 2012-01-10 00:00:00 Completed [facility] TDAP 2012-01-10 00:00:00 Completed [facility] TDAP 2012-01-10 00:00:00 Completed [facility] TDAP 2012-01-10 00:00:00 Completed [facility] TDAP 2012-01-10 00:00:00 Completed [facility] TDAP 2012-01-10 00:00:00 Completed [facility] TDAP 2012-01-10 00:00:00 Completed [facility] TDAP 2012-01-10 00:00:00 Completed [facility] TDAP 2012-01-10 00:00:00 Completed [facility] TDAP 2012-01-10 00:00:00 Completed [facility] TDAP 2012-01-10 00:00:00 Completed [facility] TDAP 2012-01-10 00:00:00 Completed [facility] TDAP 2012-01-10 00:00:00 Completed [facility] TDAP 2012-01-10 00:00:00 Completed [facility] TDAP 2012-01-10 00:00:00 Completed [facility] TDAP 2012-01-10 00:00:00 Completed [facility] TDAP 2012-01-10 00:00:00 Completed [facility] TDAP 2012-01-10 00:00:00 Completed [facility] TDAP 2012-01-10 00:00:00 Completed [facility] TDAP 2012-01-10 00:00:00 Completed [facility] TDAP 2012-01-10 00:00:00 Completed [facility] TDAP 2012-01-10 00:00:00 Completed [facility] TDAP 2012-01-10 00:00:00 Completed [facility] TDAP 2012-01-10 00:00:00 Completed [facility] TDAP 2012-01-10 00:00:00 Completed [facility] TDAP 2012-01-10 00:00:00 Completed [facility] TDAP 2012-01-10 00:00:00 Completed [facility] TDAP 2012-01-10 00:00:00 Completed [facility] TDAP 2012-01-10 00:00:00 Completed [facility] TDAP 2012-01-10 00:00:00 Completed [facility] TDAP 2012-01-10 00:00:00 Completed [facility] TDAP Unknown Completed [facility] Influenza Virus Vaccine Unknown Completed [facility] Rubella Unknown Completed [facility] TDAP Unknown Completed [facility] Influenza Virus Vaccine Unknown Completed [facility] Rubella Unknown Completed [facility] Vital Signs Vital Name Observation Time Observation Value Comments S ource Systolic blood pressure 2022-07-31 16:43:00 115 [facility] Di[facility] 2022-07-31 16:43:00 59 mm[Hg[facility] Heart rate 2022-07-31 16:43:00 75 /min [facility] Respiratory rate 2022-07-31 16:43:00 18 /min [facility] Body height 2022-07-31 16:43:00 162.6 cm [facility] Body weight 2022-07-31 16:43:00 81.647 [facility] BMI 2022-07-31 16:43:00 30.90 kg/m2 [facility] Systolic blood pressure 2022-07-18 13:30:00 103 mm[Hg[facility] Diastolic blood pressure 2022-07-18 13:30:00 63 mm[Hg[facility] Heart rate 2022-07-18 13:30:00 72 /min [facility] Body temperature 2022-07-18 13:30:00 37.39 Cori [facility] Respiratory rate 2022-07-18 13:30:00 18 /min [facility] Oxygen saturation in Arterial blood by Pulse oximetry 2022-07-18 13:30:00 100 /min [facility] Body height 2022-07-17 23:22:00 157.5 cm [facility] Body weight 2022-07-17 23:22:00 83 kg [facility] BMI 2022-07-17 23:22:00 33.46 kg/m2 [facility] Systolic blood pressure 2022-07-01 21:22:00 101 mm[Hg] [facility] Diastolic blood pressure 2022-07-01 21:22:00 67 mm[Hg] [facility] Heart rate 2022-07-01 21:22:00 84 /min [facility] Body temperature 2022-07-01 21:22:00 36.78 Cori [facility] Respiratory rate 2022-07-01 21:22:00 16 /min [facility] Body height 2022-07-01 21:22:00 157.5 cm [facility] Body weight 2022-07-01 21:22:00 83.643 kg [facility] BMI 2022-07-01 21:22:00 33.73 kg/m2 [facility] Systolic blood pressure 2022-05-21 19:04:00 112 mm[Hg] [facility] Diastolic blood pressure 2022-05-21 19:04:00 73 mm[Hg] [facility] Heart rate 2022-05-21 19:04:00 91 /min [facility] Body temperature 2022-05-21 19:04:00 36.72 Cori [facility] Respiratory rate 2022-05-21 19:04:00 16 /min [facility] Body height 2022-05-21 19:04:00 157.5 cm [facility] Body weight 2022-05-21 19:04:00 83.961 kg [facility] BMI 2022-05-21 19:04:00 33.86 kg/m2 [facility] Oxygen saturation in Arterial blood by Pulse oximetry 2022-05-21 19:04:00 100 /min [facility] Systolic blood pressure 2022-04-23 19:13:00 111 mm[Hg] [facility] Diastolic blood pressure 2022-04-23 19:13:00 76 mm[Hg] [facility] Heart rate 2022-04-23 19:13:00 73 /min [facility] Body temperature 2022-04-23 19:13:00 37 Cori [facility] Respiratory rate 2022-04-23 19:13:00 18 /min [facility] Body height 2022-04-23 19:13:00 157.5 cm [facility] Body weight 2022-04-23 19:13:00 85.73 kg [facility] BMI 2022-04-23 19:13:00 34.57 kg/m2 [facility] Systolic blood pressure 2022-04-09 18:56:00 104 mm[Hg] [facility] Diastolic blood pressure 2022-04-09 18:56:00 71 mm[Hg] [facility] Heart rate 2022-04-09 18:56:00 79 /min [facility] Body temperature 2022-04-09 18:56:00 36.72 Cori [facility] Respiratory rate 2022-04-09 18:56:00 16 /min [facility] Body height 2022-04-09 18:56:00 157.5 cm [facility] Body weight 2022-04-09 18:56:00 85.276 kg [facility] BMI 2022-04-09 18:56:00 34.39 kg/m2 [facility] Oxygen saturation in Arterial blood by Pulse oximetry 2022-04-09 18:56:00 100 /min [facility] Systolic blood pressure 2021-09-03 12:23:00 121 mm[Hg] [facility] Diastolic blood pressure 2021-09-03 12:23:00 80 mm[Hg] [facility] Heart rate 2021-09-03 12:23:00 83 /min [facility] Body temperature 2021-09-03 12:23:00 36.56 Cori [facility] Respiratory rate 2021-09-03 12:23:00 18 /min [facility] Oxygen saturation in Arterial blood by Pulse oximetry 2021-09-03 12:23:00 100 /min [facility] Body height 2021-09-02 10:12:00 157.5 cm [facility] 2021-09-02 10:12:00 76.295 kg [facility] BMI 2021-09-02 10:12:00 30.76 kg/m2 [facility] Systolic blood pressure 2021-08-27 19:39:00 109 mm[Hg[facility] Diastolic blood pressure 2021-08-27 19:39:00 75 mm[Hg] [facility] Heart rate 2021-08-27 19:39:00 86 /min [facility] Body temperature 2021-08-27 19:39:00 36.78 Cori [facility] Respiratory rate 2021-08-27 19:39:00 16 /min [facility] Body height 2021-08-27 19:39:00 157.5 cm [facility] Body weight 2021-08-27 19:39:00 79.742 kg [facility] BMI 2021-08-27 19:39:00 32.15 kg/m2 [facility] Systolic blood pressure 2021-08-16 19:34:00 120 mm[Hg[facility] Di[facility] blood pressure 2021-08-16 19:34:00 80 mm[Hg] [facility] Heart rate 2021-08-16 19:34:00 100 /min [facility] Body temperature 2021-08-16 19:34:00 36.83 Cori [facility] Respiratory rate 2021-08-16 19:34:00 18 /min [facility] Body height 2021-08-16 19:34:00 162.6 cm [facility] weight 2021-08-16 19:34:00 79.153 kg [facility] BMI 2021-08-16 19:34:00 29.95 kg/m2 [facility] Systolic blood pressure 2021-08-02 20:47:00 105 mm[Hg[facility] Diastolic blood pressure 2021-08-02 20:47:00 69 mm[Hg] [facility] Heart rate 2021-08-02 20:47:00 99 /min [facility] Body temperature 2021-08-02 20:47:00 36.72 Cori [facility] Respiratory rate 2021-08-02 20:47:00 18 /min [facility] Body height 2021-08-02 20:47:00 157.5 cm [facility] weight 2021-08-02 20:47:00 78.16 kg [facility] BMI 2021-08-02 20:47:00 31.52 kg/m2 [facility] Heart rate 2021-07-26 17:00:00 86 /min [facility] Oxygen saturation in Arterial blood by Pulse oximetry 2021-07-26 17:00:00 99 /min [facility] Systolic blood pressure 2021-07-26 15:12:00 120 mm[Hg] [facility] Diastolic blood pressure 2021-07-26 15:12:00 72 mm[Hg] [facility] Body temperature 2021-07-26 15:12:00 36.78 Cori [facility] Respiratory rate 2021-07-26 15:12:00 16 /min [facility] Body weight 2021-07-26 14:59:00 78.926 kg [facility] BMI 2021-07-26 14:59:00 31.83 kg/m2 [facility] Systolic blood pressure 2021-07-20 21:40:00 113 mm[Hg] [facility] Diastolic blood pressure 2021-07-20 21:40:00 74 mm[Hg] [facility] Heart rate 2021-07-20 21:40:00 128 /min [facility] Respiratory rate 2021-07-20 21:40:00 18 /min [facility] Body height 2021-07-20 21:40:00 157.5 cm [facility] Body weight 2021-07-20 21:40:00 78.926 kg [facility] BMI 2021-07-20 21:40:00 31.83 kg/m2 [facility] Systolic blood pressure 2021-06-01 21:23:00 107 mm[Hg] [place] [facility] Diastolic blood pressure 2021-06-01 21:23:00 69 mm[Hg] [place] [facility] Heart rate 2021-06-01 21:23:00 97 /min [facility] Body temperature 2021-06-01 21:23:00 36.89 Cori [facility] Respiratory rate 2021-06-01 21:23:00 18 /min [facility] Body height 2021-06-01 21:23:00 162.6 cm [facility] Body weight 2021-06-01 21:23:00 76.204 kg [facility] BMI 2021-06-01 21:23:00 28.84 kg/m2 [facility] Procedures Procedure Date / Time Performed Performing Clinician Source CBC WITH DIFF 2022-07-18 03:31:00 Carrie Gresham [facility] PROTHROMBIN TIME / INR 2022-07-18 01:27:00 Bong Xavier [facility] ACTIVATED PARTIAL THRMPLAS LORNA 2022-07-18 01:27:00 Nevaeh Xavier [facility] FIBRINOGEN 2022-07-18 01:27:00 Nevaeh [facility] HEPATITIS B SURFACE ANTIGEN 2022-07-18 01:27:00 Nevaeh Xavier [facility] HB ABO GROUPING 2022-07-18 01:27:00 Nevaeh Xavier [facility] RHO (D) IMMUNE GLOBULIN 2022-07-18 01:27:00 Sonja Falk [facility] SYPHILIS IGG/IGM 2022-07-18 01:27:00 [facility]h [facility] SECOND AND THIRD TRIMESTER ULTRASOUND 2022-07-17 19:41:00 Manolo Dixon [facility] PATIENT FINANCIAL POLICY 2022-07-01 21:17:48 Doctor Unassigned, [place] [facility] POCT URINALYSIS W/O SPECIFIC GRAVITY 2022-07-01 00:00:00 [facility] 2022-04-26 16:07:45 Docto r Unassigned, [place] [facility] POCT URINALYSIS W/O SPECIFIC GRAVITY 2022-04-23 00:00:00 Manolo Dixon [facility] ASSIGNMENT OF BENEFITS 2022-04-09 18:39:36 Docto r Unassigned, [place] [facility] POCT TEST 2022-04-09 00:00:00 [facility] 2021-09-03 08:39:00 Dev [facility] VENOUS CORD GAS 2021-09-02 08:28:00 [facility] CBC WITH DIFF 2021-09-02 08:24[facility] 2021-09-02 08:23:00 [facility] HEPATITIS B SURFACE ANTIGEN 2021-09-02 08:23:00 Talha Somers [facility] ADC OR ABEL ONLY - RPR 2021-09-02 08:23:00 Erin Somers [facility] HIV 1/2 AG-AB WITH REFLEX 2021-09-02 08:23:00 Erin Somers [facility] COVID-19 (ID NOW RAPID TESTING) 2021-09-02 08:23:00 Talha Somers [facility] LAB ONLY COVID INTERPRETATION 2021-09-02 08:23:00 Talha Somers [facility] HB ABO GROUPING 2021-09-02 08:00:00 Dev [facility] RHO (D) IMMUNE GLOBULIN 2021-09-02 08:00[facility] W/O SPECIFIC GRAVITY 2021-08-27 00:00:00 [facility] 2021-08-10 16:45:24 Docto r Unassigned, [place] [facility] POCT URINALYSIS W/O SPECIFIC GRAVITY 2021-08-02 00:00:00 Ted, Abbey [facility] HIV 1/2 AG-AB WITH REFLEX 2021-07-26 16:16:00 Fish, Ms emanuel [facility] COVID-19 (ID NOW RAPID TESTING) 2021-07-26 16:16:00 Fish, [facility] CBC WITH DIFF 2021-07-26 16:15:00 Fish, Abbey [facility] URINALYSIS 2021-07-26 16:15:00 Fish, Abbey [facility] HB ABO GROUPING 2021-07-26 16:15:00 Fish, [facility] ADC CLC OR LCC ONLY - WET PREP 2021-07-26 16:15:00 Ted [facility] POCT URINALYSIS W/O SPECIFIC GRAVITY 2021-07-20 21:41:00 Manolo Dixon [facility] POCT URINALYSIS W/O SPECIFIC GRAVITY 2021-06-01 00:00:00 Ted [facility] Encounters Start Date/Time End Date/Time Encounter Type Admission Type Attending [facility] Care Facility Care Department Encounter ID Source 2021-07-26 13:44:50 Outpatient SO KHAN SHANNON [facility] NEL [id number] [facility] 2022-07-31 11:45:00 2022-07-31 11:48:42 Outpatient R MANOLO DIXON CHERYAL [facility] [id number] [facility] 2022-07-31 11:45:00 2022-07-31 11:48:42 Routine Visit Manolo Dixon [facility] [id number] [id number] [facility] 2022-07-29 15:00:00 2022-07-29 15:00:00 Outpatient R MANOLO DIXON CHERYAL [facility] [id number] [facility] 2022-07-17 17:57:00 2022-07-18 12:55:00 Hospital Encounter Abdulaziz So Joey Naranjo, [facility] [id number] [id number] [id number] [id number] [facility] 2022-07-17 17:57:00 2022-07-18 12:55:00 Inpatient P NARANJOJORDANAESTEFANÍA JAIN, [facility] NEL [id number] [facility] 2022-07-17 14:45:00 2022-07-17 15:45:00 Collar Trimmer Visit Ultrasound, Anastasiya De La Rosa [facility] SPLICING MACHINE OPERATOR [facility] [id number] [id number] [id number] [id number] [facility] 2022-07-17 14:45:00 2022-07-17 14:45:00 Outpatient ANASTASIYA PHIPPS [facility] [id number] [facility] 2022-07-09 00:00:00 2022-07-09 00:00:00 Patient Secure Msg Doctor Unassigned, [place] [facility] SPLICING MACHINE OPERATOR [facility] [id number] [id number] [id number] [id number] [facility] 2022-07-01 16:30:00 2022-07-01 16:37:01 Outpatient R MANOLO DIXON CHERYAL [facility] [id number] [facility] 2022-07-01 16:30:00 2022-07-01 16:37:01 Routine Visit Manolo Dixon [facility] [id number] 350.1.13.10 4.2.7.2.686 [id number] [facility] 2022-07-01 00:00:00 2022-07-01 00:00:00 Orders Only Doctor Unassigned, [place] [facility] [id number] 350.1.13.10 4.2.7.2.686 [id number] [facility] 2022-06-28 13:45:00 2022-06-28 13:45:00 Outpatient R MANOLO DIXON CHERYAL [facility] [id number] [facility] 2022-06-21 10:15:00 2022-06-21 10:15:00 Outpatient P [facility] [id number] [facility] 2022-06-18 13:00:00 2022-06-18 13:00:00 Outpatient R MANOLO DIXON CHERYAL [facility] [id number] [facility] 2022-05-21 13:00:00 2022-05-21 13:25:38 Routine Visit Sebastian [facility] 1.20.114 350.1.13.10 4.2.7.2.686 [id number] [facility] 2022-05-21 13:00:00 2022-05-21 13:25:38 Outpatient R MANOLO DIXON CHERYAL [facility] [id number] [facility] 2022-05-21 00:00:00 2022-05-21 00:00:00 Letter (Out) Sebastian [facility] 1.20.114 350.1.13.10 4.2.7.2.686 [id number] [facility] 2022-05-08 00:00:00 2022-05-08 00:00:00 Telephone Chadwickluis manuel [facility] [id number] 350.1.13.10 4.2.7.2.686 [id number] [facility] 2022-05-03 00:00:00 2022-05-03 00:00:00 Telephone Manolo Dixon [facility] [id number] 350.1.13.10 4.2.7.2.686 [id number] [facility] 2022-05-02 00:00:00 2022-05-02 00:00:00 Telephone Manolo Dixon [facility] 1.2.840.114 350.1.13.10 4.2.7.2.686 [id number] 134 [id number] [facility] 2022-04-26 12:45:00 2022-04-26 13:00:00 Collar Trimmer Visit Pofrancy, [facility] 1.2840.114 350.1.13.10 4.2.7.2.686 [id number] [facility] 2022-04-26 11:15:00 2022-04-26 11:39:04 Outpatient R MANOLO DIXON [facility] [id number] [facility] 2022-04-26 11:15:00 2022-04-26 11:39:04 Telemedici ne [facility] SPLICING MACHINE OPERATOR [facility] 1.20.114 350.1.13.10 4.2.7.2.686 [id number] [facility] 2022-04-26 00:00:00 2022-04-26 00:00:00 Orders Only Doctor Unassigned, [place] [facility] 1.2.840.114 350.1.13.10 4.2.7.2.686 [id number] [facility] 2022-04-23 13:15:00 2022-04-23 13:36:40 Outpatient R MANOLO DIXON CHERYAL [facility] [id number] [facility] 2022-04-23 13:15:00 2022-04-23 13:36:40 Routine Visit Manolo Dixon [facility] 1.2.840.114 350.1.13.10 4.2.7.2.686 [id number] 134 [id number] [facility] 2022-04-10 09:30:00 2022-04-10 09:30:00 Outpatient R OTF NÚÑEZ [facility] [id number] [facility] 2022-04-09 13:00:00 2022-04-09 13:20:19 [facility] [id number] [facility] 2022-04-09 13:00:00 2022-04-09 13:20:19 [facility] 1.2.840.114 350.1.13.10 4.2.7.2.686 [id number] [facility] 2022-04-09 00:00:00 2022-04-09 00:00:00 Orders Only Doctor Unassigned, [place] [facility] 1.2.840.114 350.1.13.10 4.2.7.2.686 [id number] [facility] 2022-04-09 00:00:00 2022-04-09 00:00:00 [facility] 1.2.840.114 350.1.13.10 4.2.7.2.686 [id number] 134 [id number] [facility] 2021-09-06 13:00:00 2021-09-06 13:00:00 Outpatient R ABBEY JEAN [facility] [id number] [facility] 2021-09-06 00:00:00 2021-09-06 00:00:00 Encounter 1.2.840.1 92503.1.1 3.104.2.7 .[id number] 1.2.840.114 350.1.13.10 4.2.7.2.696 [id number] [facility] 2021-09-02 02:41:00 2021-09-03 18:05:00 Inpatient X TALHA SOMERS [facility] NEL [id number] [facility] 2021-09-02 02:41:00 2021-09-03 18:05:00 Hospital Encounter Talha Somers [facility] 1.2.840.114 350.1.13.10 4.2.7.2.686 [id number] [facility] 2021-08-27 14:00:00 2021-08-27 14:54:41 Outpatient R MANOLO DIXON CHERYAL [facility] [id number] [facility] 2021-08-27 14:00:00 2021-08-27 14:54:41 Routine Visit Manolo Dixon [facility] 1.2.840.114 350.1.13.10 4.2.7.2.686 [id number] 134 [id number] [facility] 2021-08-22 11:00:00 2021-08-22 11:00:00 Outpatient R MANOLO DIXON CHERYAL [facility] [id number] [facility] 2021-08-16 13:45:00 2021-08-16 14:47:34 Outpatient R ABBEY JEAN [facility] [id number] [facility] 2021-08-16 13:45:00 2021-08-16 14:47:34 Routine Visit Abbey Jean [facility] 1.0.114 350.1.13.10 4.2.7.2.686 [id number] 134 [id number] [facility] 2021-08-10 11:45:00 2021-08-10 12:00:00 Collar Trimmer Visit Pob, Adc Lab Main Abbey Jean [facility] 1.0.114 350.1.13.10 4.2.7.2.686 [id number] [facility] 2021-08-10 11:45:00 2021-08-10 11:45:00 Outpatient R ABBEY JEAN [facility] [id number] [facility] 2021-08-10 00:00:00 2021-08-10 00:00:00 Orders Only Doctor Unassigned, [place] [facility] 1.840.114 350.1.13.10 4.2.7.2.686 [id number] [id number] [facility] 2021-08-02 15:15:00 2021-08-02 16:09:15 Outpatient R ABBEY JEAN [facility] [id number] [facility] 2021-08-02 15:15:00 2021-08-02 16:09:15 Routine Visit Abbey Jean [facility] 1.0.114 350.1.13.10 4.2.7.2.686 [id number] 134 [id number] [facility] 2021-07-27 00:00:00 2021-07-27 00:00:00 Telephone Abbey Jean [facility] 1..114 350.1.13.10 4.2.7.2.686 [id number] 134 [id number] [facility] 2021-07-26 10:08:00 2021-07-26 12:30:00 Outpatient P ABBEY JEAN [facility] NEL [id number] [facility] 2021-07-26 10:08:00 2021-07-26 12:30:00 Hospital Encounter Talha Somers Abbey Jean [facility] 1.2.840.114 350.1.13.10 4.2.7.2.686 [id number] [facility] 2021-07-26 00:00:00 2021-07-26 00:00:00 Trung Ted Abbey [facility] 1.2.840.114 350.1.13.10 4.2.7.2.686 [id number] 134 [id number] [facility] 2021-07-20 16:30:00 2021-07-20 16:51:55 Outpatient R MANOLO DIXON CHERYAL [facility] [id number] [facility] 2021-07-20 16:30:00 2021-07-20 16:51:55 Routine Visit Manolo Dixon [facility] 1.2.840.114 350.1.13.10 4.2.7.2.686 [id number] 134 [id number] [facility] 2021-07-18 14:30:00 2021-07-18 14:30:00 Outpatient R MANOLO DIXON CHERYAL [facility] [id number] [facility] 2021-06-27 14:00:00 2021-06-27 14:00:00 Outpatient R MANOLO DIXON CHERYAL [facility] [id number] [facility] 2021-06-26 16:15:00 2021-06-26 16:15:00 Outpatient ABBEY TIMMONS [facility] [id number] [facility] 2021-06-12 08:15:00 2021-06-12 08:15:00 Outpatient R ABBEY JEAN [facility] [id number] [facility] 2021-06-06 00:00:00 2021-06-06 00:00:[address] [facility] 1.2840.114 350.1.13.10 4.2.7.2.686 [id number] 134 [id number] [facility] 2021-06-01 15:00:00 2021-06-01 15:53:36 Outpatient R ABBEY JEAN [facility] [id number] [facility] 2021-06-01 15:00:00 2021-06-01 15:53:36 Routine Visit Ted Abbey [facility] 1..840.114 350.1.13.10 4.2.7.2.686 [id number] 134 [id number] [facility] 2021-05-30 00:00:00 2021-05-30 00:00:[address] [facility] 1.2840.114 350.1.13.10 4.2.7.2.686 [id number] 134 [id number] [facility] 2021-05-15 16:15:00 2021-05-15 16:15:00 Outpatient R ABBEY JEAN [facility] [id number] [facility] 2021-05-09 14:30:00 2021-05-09 15:30:00 Collar Trimmer Visit Ultrasound, [facility] Yasmin Krishnan [facility] SPLICING MACHINE OPERATOR [facility] 1..840.114 350.1.13.10 4.2.7.2.686 [id number] [facility] 2021-05-09 14:30:00 2021-05-09 14:30:00 Outpatient P YASMIN KRISHNAN [facility] [id number] [facility] 2021-05-02 13:30:00 2021-05-02 13:30:00 Outpatient P [facility] [id number] [facility] 2021-05-01 16:00:00 2021-05-01 16:00:00 Outpatient R ABBEY JEAN [facility] [id number] [facility] 2021-04-19 16:00:00 2021-04-19 16:00:00 Outpatient R ABBEY JEAN [facility] [id number] [facility] 2021-04-16 00:00:00 2021-04-16 00:00:00 Patient Secure Msg Doctor Unassigned, [place] [facility] 1.0.114 350.1.13.10 4.2.7.2.686 [id number] 134 [id number] [facility] 2021-04-16 00:00:00 2021-04-16 00:00:00 Telephone Ted Abbey [facility] 1..114 350.1.13.10 4.2.7.2.686 [id number] 134 [id number] [facility] 2021-03-29 16:00:00 2021-03-29 16:56:21 Outpatient R ABBEY JEAN [facility] [id number] [facility] 2021-03-29 15:55:48 2021-03-29 16:56:21 Routine Visit Ted Abbey [facility] 1.0.114 350.1.13.10 4.2.7.2.686 [id number] 134 [id number] [facility] 2021-03-29 16:00:00 2021-03-29 16:00:00 Outpatient R ABBEY JEAN [facility] [id number] [facility] 2021-03-09 00:00:00 2021-03-09 00:00:00 Orders Only Doctor Unassigned, [place] [facility] 1.0.114 350.1.13.10 4.2.7.2.686 [id number] [facility] 2021-03-07 00:00:00 2021-03-07 00:00:00 Telephone Abbey Jean [facility] 1.20.114 350.1.13.10 4.2.7.2.686 [id number] 134 [id number] [facility] 2021-03-01 13:00:40 2021-03-01 13:46:57 Routine Visit Abbey Jean [facility] 1.20.114 350.1.13.10 4.2.7.2.686 [id number] 134 [id number] [facility] 2021-03-01 13:00:00 2021-03-01 13:46:57 Outpatient R ABBEY JEAN [facility] [id number] [facility] 2021-03-01 00:00:00 2021-03-01 00:00:00 Letter (Out) Nurse, [facility] 1.0.114 350.1.13.10 4.2.7.2.686 [id number] 134 [id number] [facility] 2021-02-27 00:00:00 2021-02-27 00:00:[address] Ted Abbey [facility] 1.2840.114 350.1.13.10 4.2.7.2.686 [id number] 134 [id number] [facility] 2021-02-26 11:00:00 2021-02-26 11:00:00 Outpatient R ABBEY JEAN [facility] [id number] [facility] 2021-02-26 10:25:15 2021-02-26 10:40:15 Collar Trimmer Visit Pob, Heather Lab Main Abbey Jean [facility] 1.2840.114 350.1.13.10 4.2.7.2.686 [id number] [facility] [id number] [facility] 2021-02-26 00:00:00 2021-02-26 00:00:00 Telephone Abbey Jean [facility] 1.2.840.114 350.1.13.10 4.2.7.2.686 [id number] 134 [id number] [facility] 2021-02-23 10:53:48 2021-02-23 12:23:35 Routine Visit Abbey [facility] 1.2.840.114 350.1.13.10 4.2.7.2.686 [id number] 134 [id number] [facility] 2021-02-23 10:45:00 2021-02-23 12:23:35 Outpatient R ABBEY JEAN [facility] [id number] [facility] 2021-02-23 00:00:00 2021-02-23 00:00:00 Telephone Ted Abbey [facility] 1.2.840.114 350.1.13.10 4.2.7.2.686 [id number] 134 [id number] [facility] 2021-02-23 00:00:00 2021-02-23 00:00:00 Orders Only Doctor Unassigned, [place] [facility] 1.2.840.114 350.1.13.10 4.2.7.2.686 [id number] [facility] 2021-02-23 00:00:00 2021-02-23 00:00:00 Case Management Abbey Jean [facility] 1.2840.114 350.1.13.10 4.2.7.2.686 [id number] 134 [id number] [facility] 2021-02-08 14:39:11 2021-02-08 15:51:23 Initial Visit Abbey Jean [facility][1] 1.2.840.114 350.1.13.10 4.2.7.2.686 [id number] 134 [id number] [facility] 2021-02-08 14:30:00 2021-02-08 15:51:23 Outpatient ABBEY TIMMONS [facility] [id number] [facility] 2021-02-08 14:30:00 2021-02-08 15:51:23 Outpatient ABBEY TIMMONS [facility] [id number] [facility] 2021-02-08 00:00:00 2021-02-08 00:00:00 Orders Only Doctor Unassigned, [place] [facility] 1.2.840.114 350.1.13.10 4.2.7.2.686 [id number] [facility] 2021-01-25 09:45:00 2021-01-25 09:45:00 Outpatient Srinath HARRISONMYRIAMSHEREE [facility] [id number] [facility] 2021-01-25 09:45:00 2021-01-25 09:45:00 Outpatient SHEREE HOLLEY [facility] [id number] [facility] 2017-12-04 00:00:00 2017-12-06 00:00:00 Outpatient [facility] [id number] [facility] Results Test Description Test Time Test Comments Results Result Co mments Source [facility] - SYPHILIS IGG/[id number] 16:04:47* Test Item Value Reference Range Interpretation Comme nts Syphilis IgG/IgM (test code = 35524-0) Non-reactive Non-reactive GLADYS (test code = GLADYS) Non-reactive - No serologic evidence of T. pallidum infection. Cannot exclude incubating or early syphilis. Submit a second specimen in 2-4 weeks if syphilis is clinically suspected. Equivocal - Further testing to follow. Reactive - Further testing to follow. Lab Interpretation (test code = 36458-9) Normal [facility]anoCB WITH [id number] 03:56:31* Test Item Value Reference Range Interpretation Comme nts WBC (test code = 6690-2) 11.13 See_Comment H [Automated messa ge] The system which generated this result transmitted reference range: 4.30 - 11.10 10*3/?L. The reference range was not used to interpret this result as normal/abnormal. RBC (test code = 789-8) 3.93 See_Comment [[employer] ge] The system which generated this result [...] 33.8 g/dL 31.6-35.1 RDW-SD (test code = 37361-0) 37.6 fL 39.0-49.9 L RDW-CV (test code = 788-0) 13.2 % 12.0-15.5 PLT (test code = 777-3) 288 See_Comment [[employer] ge] The system which generated this result transmitted reference range: 166 - 358 10*3/?L. The reference range was not used to interpret this result as normal/abnormal. MPV (test code = 98158-2) 11.0 fL 9.5-12.9 NRBC/100 WBC (test code = 7892092535) 0.0 See_Comment [Automated [employer] ssage] The system which generated this result transmitted reference range: 0.0 - 10.0 /100 WBCs. The reference range was not used to interpret this result as normal/abnormal. NRBC x10^3 (test code = 5498370749) See_Comment [[employer] ge] The system which generated this result transmitted reference range: 10*3/?L. The reference range was not used to interpret this result as normal/abnormal. GRAN MAT (NEUT) % (test code = 770-8) 65.5 % IMM GRAN % (test code = 2052960795) 0.60 % LYMPH % (test code = 736-9) 26.3 % MONO % (test code = 5905-5) 5.8 % EOS % (test code = 713-8) 1.6 % BASO % (test code = 706-2) 0.2 % GRAN MAT x10^3(ANC) (test code = 4954620974) 7.28 10*3/uL 1.88-7.09 H IMM GRAN x10^3 (test code = 9621911185) 0.07 10*3/uL 0.00-0.06 H LYMPH x10^3 (test code = 731-0) 2.93 10*3/uL 1.32-3.29 MONO x10^3 (test code = 742-7) 0.65 10*3/uL 0.33-0.92 EOS x10^3 (test code = 711-2) 0.18 10*3/uL 0.03-0.39 BASO x10^3 (test code = 704-7) 0.01-0.07 Lab Interpretation (test code = 18784-5) Abnormal [facility]ano[facility]atitis B Surface [id number] 03:38:08 * Test Item Value Reference Range Interpretation Comme nts HBsAg Semi-Quantitative (irina t code = 5195-3) 0.15 Negative [facility]anoProthrombin Time / [id number] 02:11:18* Test Item Value Reference Range Interpretation Comme nts PROTIME PATIENT (test code = 5964-2) 11.1 See_Comment [[employer] Trutap] The system which generated this result transmitted reference range: 10.1 - 12.6 Seconds. The reference range was not used to interpret this result as normal/abnormal. INR (test code = 6301-6) 1.0 Normal INR <1.1; Warfarin Therapeutic range 2.0 to 3.0 or 2.5 to 3.5, depending upon the indications. Lab Interpretation (test code = 43016-7) Normal [facility]anoaPTT2023-03-30 02:11:18* Test Item Value Reference Range Interpretation Comme nts APTT Patient (test code = 3173-2) 25 See_Comment L [[employer]ap] The system which generated this result transmitted reference range: 26 - 36 Seconds. The reference range was not used to interpret this result as normal/abnormal. Lab Interpretation (test code = 87173-5) Abnormal [facility]anoFIBRINOGEN2023-03-30 02:11:18* Test Item Value Reference Range Interpretation Comme nts Fibrinogen (test code = 0498068926) 383 mg/dL 167-453 Lab Interpretation (test cod e = 51123-0) Normal [facility]anoType and Screen - ONCE [id number] 01:35:00 * Test Item Value Reference Range Interpretation Comme nts ABO & RH (test code = 20) B POSITIVE IAT (test code = 1185) Negative [facility]anoPOIA URINALYSIS W/O SPECIFIC [id number] 21:21:00* Test Item Value Reference Range Interpretation [...] = 3257) n/a Negative - Negati ve [facility] URINALYSIS W/O SPECIFIC [id number] 19:11:00* Test Item Value Reference Range Interpretation [...] = 3257) n/a Negative - Negati ve [facility]anoPOCT [id number] 19:18:00* Test Item Value Reference Range Interpretation Comme nts POCT PREG (test code = 1605) Positive On board controls acceptable with C Line (test code = 3574) Yes POCT PREG LOT # (test code = 3575) POCT PREG TEST DATE ( test code = 3576) [facility] with Eipqjaukubpc7288-49-64 09:17:16* Test Item Value Reference Range Interpretation [...] 32.3 g/dL 31.6-35.1 RDW-SD (test code = 58795-7) 50.6 fL 39.0-49.9 H RDW-CV (test code = 788-0) 17.5 % 12.0-15.5 H PLT (test code = 777-3) See_Comment [Automated messa ge] The system which generated this result transmitted reference range: 166 - 358 10*3/?L. The reference range was not used to interpret this result as normal/abnormal. MPV (test code = 36230-6) 11.7 fL 9.5-12.9 NRBC/100 WBC (test code = 7708723651) See_Comment [[employer] ssage] The system which generated this result transmitted reference range: 0.0 - 10.0 /100 WBCs. The reference range was not used to interpret this result as normal/abnormal. NRBC x10^3 (test code = 6622341326) <0.01 See_Comment [Automated messa ge] The system which generated this result transmitted reference range: 10*3/?L. The reference range was not used to interpret this result as normal/abnormal. GRAN MAT (NEUT) % (test code = 770-8) 64.6 % IMM GRAN % (test code = 6004870602) 0.40 % LYMPH % (test code = 736-9) 25.3 % MONO % (test code = 5905-5) 7.5 % EOS % (test code = 713-8) 1.7 % BASO % (test code = 706-2) 0.5 % GRAN MAT x10^3(ANC) (test code = 6954628728) 7.51 10*3/uL 1.88-7.09 H IMM GRAN x10^3 (test code = 7668521058) 0.05 10*3/uL 0.00-0.06 LYMPH x10^3 (test code = 731-0) 2.95 10*3/uL 1.32-3.29 MONO x10^3 (test code = 742-7) 0.87 10*3/uL 0.33-0.92 EOS x10^3 (test code = 711-2) 0.20 10*3/uL 0.03-0.39 BASO x10^3 (test code = 704-7) 0.06 10*3/uL 0.01-0.07 Lab Interpretation (test code = 52387-8) Abnormal [facility] OR ABEL ONLY - [id number] 03:59:13* Test Item Value Reference Range Interpretation Comme nts RPR (Qualitative) (test code = 38386-0) Nonreactive Nonreactive Lab Interpretation (test cod e = 70457-0) Normal [facility] PlanoRubella Screen (JERSON) [id number] 18:51:00 * Test Item Value Reference Range Interpretation Comme nts Rubella screen IgG (test code = 7288152493) Positive Negative GLADYS (test code = GLADYS) Positive - Indicat es the patient was exposed to Rubella through infection or vaccination.Negative - Indicates the patient could be susceptible to Rubella infection.Equivocal - A second specimen should be sent. [facility]anoHepatitis B Surface Peqmdhi3656-92-23 17:05:37 * Test Item Value Reference Range Interpretation Comme nts HBsAg Semi-Quantitative (irina t code = 5195-3) Negative Negative [facility] PlanoHIV 1/2 AG-AB WITH [id number] 11:27:21* Test Item Value Reference Range Interpretation Comme nts HIV Semi-quantitative (test code = 87962-4) Negative Negative GLADYS (test code = GLADYS) Non-reactive for HIV-1 antigen and HIV-1/HIV-2 antibodies. ?No laboratory evidence of HIV infection. ?Repeat in 2-4 weeks if acute HIV infection is suspected. [facility] PlanoRHO (D) IMMUNE [id number] 09:09:42* Test Item Value Reference Range Interpretation Comme nts RHIG CANDIDATE? (test code = 5055) No- see comment Patient is not a candidate for RhIg- Patient is Rh Positive.Performed at [facility] Laboratory Services - [facility] Blood [address] [place] [address] Free: [phone] No. [id number] [facility] PlanoType and Screen - ONCE [id number] 09:08:33 * Test Item Value Reference Range Interpretation Comme nts ABO & RH (test code = 20) B Positive Performed at [facility] Laboratory [facility] Blood [address] Free: [phone] No. [id number] IAT (test code = 1185) Negative Performed at [facility] Laboratory [facility] Blood [address] [place], [place] [address]Toll Free: [phone] No. [id number] [facility] PlanoVENOUS CORD [id number] 08:51:38* Test Item Value Reference Range Interpretation Comme nts VENOUS BASE EXCESS, CORD (test code = 9142552568) mEq/L VENOUS PH, CORD (test code = 8871732417) 7.25-7.45 L VENOUS PC02, CORD (test code = 0626755027) See_Comment H [Automated me ssage] The system which generated this result transmitted reference range: 27 - 49 mmHg. The reference range was not used to interpret this result as normal/abnormal. VENOUS PO2, CORD (test code = 5536522117) See_Comment [Automated me ssage] The system which generated this result transmitted reference range: 17 - 41 mmHg. The reference range was not used to interpret this result as normal/abnormal. VENOUS BICARBONATE, CORD (test code = 8115813618) See_Comment [Automa tato message] The system which generated this result transmitted reference range: 12 - 29 mEq/L. The reference range was not used to interpret this result as normal/abnormal. Lab Interpretation (test code = 72568-6) Abnormal [facility]anoARTERIAL CORD [id number] 08:48:28* Test Item Value Reference Range Interpretation Comme nts BASE EXCESS, CORD (test code = 3605719558) mEq/L AC PH, CORD (BEAKER) (test code = 4251469673) 7.18-7.38 PC02, CORD (test code = 6040400290) See_Comment [Automated messa ge] The system which generated this result transmitted reference range: 32 - 66 mmHg. The reference range was not used to interpret this result as normal/abnormal. PO2, CORD (test code = 8103592294) See_Comment [Automated messa ge] The system which generated this result transmitted reference range: 10 - 30 mmHg. The reference range was not used to interpret this result as normal/abnormal. BICARBONATE, CORD (test code = [id number]) See_Comment [Automated messa ge] The system which generated this result transmitted reference range: 17 - 27 mEq/L. The reference range was not used to interpret this result as normal/abnormal. [facility] [id number] 08:33:11* Test Item Value Reference Range Interpretation [...] 32.0 g/dL 31.6-35.1 RDW-SD (test code = 51714-4) 49.8 fL 39.0-49.9 RDW-CV (test code = 788-0) 17.4 % 12.0-15.5 H PLT (test code = 777-3) See_Comment [Automated messa ge] The system which generated this result transmitted reference range: 166 - 358 10*3/?L. The reference range was not used to interpret this result as normal/abnormal. MPV (test code = 71817-3) 11.3 fL 9.5-12.9 NRBC/100 WBC (test code = [id number]) See_Comment [Automated [employer] ssage] The system which generated this result transmitted reference range: 0.0 - 10.0 /100 WBCs. The reference range was not used to interpret this result as normal/abnormal. NRBC x10^3 (test code = [id number]) <0.01 See_Comment [Automated messa ge] The system which generated this result transmitted reference range: 10*3/?L. The reference range was not used to interpret this result as normal/abnormal. GRAN MAT (NEUT) % (test code = 770-8) 72.5 % IMM GRAN % (test code = 4905153101) 0.40 % LYMPH % (test code = 736-9) 16.7 % MONO % (test code = 5905-5) 9.4 % EOS % (test code = 713-8) 0.8 % BASO % (test code = 706-2) 0.2 % GRAN MAT x10^3(ANC) (test code = 9856021529) 8.85 10*3/uL 1.88-7.09 H IMM GRAN x10^3 (test code = 1232456861) 0.05 10*3/uL 0.00-0.06 LYMPH x10^3 (test code = 731-0) 2.03 10*3/uL 1.32-3.29 MONO x10^3 (test code = 742-7) 1.14 10*3/uL 0.33-0.92 H EOS x10^3 (test code = 711-2) 0.10 10*3/uL 0.03-0.39 BASO x10^3 (test code = 704-7) <0.03 0.01-0.07 Lab Interpretation (test code = 21493-1) Abnormal [facility] URINALYSIS W/O SPECIFIC [id number] 19:39:00* Test Item Value Reference Range Interpretation [...] = 3257) n/a Negative - Negati ve [facility] URINALYSIS W/O SPECIFIC [id number] 20:47:00* Test Item Value Reference Range Interpretation [...] = 3257) n/a Negative - Negati ve [facility] /2 AG-AB WITH [id number] 17:26:44* Test Item Value Reference Range Interpretation Comme nts HIV Semi-quantitative (test code = 82255-0) Negative Negative GLADYS (test code = GLADYS) Non-reactive for HIV-1 antigen and HIV-1/HIV-2 antibodies. ?No laboratory evidence of HIV infection. ?Repeat in 2-4 weeks if acute HIV infection is suspected. [facility]LOOD [id number] 17:01:59 * Test Item Value Reference Range Interpretation Comme nts ABO & RH (test code = 20) B Positive Performed at [facility] Laboratory [facility] Blood [address] [place], [place] [id number] Free: [phone] No. [id number] IAT (test code = 1185) Negative Performed at [facility] Laboratory [facility] Blood [address] [place], [place] [id number] Free: [phone] No. [id number] [facility] WITH [id number] 16:30:16* Test Item Value Reference Range Interpretation [...] 31.6 g/dL 31.6-35.1 RDW-SD (test code = 97570-3) 38.5 fL 39.0-49.9 L RDW-CV (test code = 788-0) 13.7 % 12.0-15.5 PLT (test code = 777-3) See_Comment [Automated messa ge] The system which generated this result transmitted reference range: 166 - 358 10*3/?L. The reference range was not used to interpret this result as normal/abnormal. MPV (test code = 42779-0) 10.3 fL 9.5-12.9 NRBC/100 WBC (test code = 8671122238) See_Comment [Automated [employer] ssage] The system which generated this result transmitted reference range: 0.0 - 10.0 /100 WBCs. The reference range was not used to interpret this result as normal/abnormal. NRBC x10^3 (test code = 1149144586) <0.01 See_Comment [Automated messa ge] The system which generated this result transmitted reference range: 10*3/?L. The reference range was not used to interpret this result as normal/abnormal. GRAN MAT (NEUT) % (test code = 770-8) 73.8 % IMM GRAN % (test code = 3339033150) 0.70 % LYMPH % (test code = 736-9) 16.9 % MONO % (test code = 5905-5) 6.7 % EOS % (test code = 713-8) 1.6 % BASO % (test code = 706-2) 0.3 % GRAN MAT x10^3(ANC) (test code = 1943506770) 7.66 10*3/uL 1.88-7.09 H IMM GRAN x10^3 (test code = 3259779584) 0.07 10*3/uL 0.00-0.06 H LYMPH x10^3 (test code = 731-0) 1.75 10*3/uL 1.32-3.29 MONO x10^3 (test code = 742-7) 0.69 10*3/uL 0.33-0.92 EOS x10^3 (test code = 711-2) 0.17 10*3/uL 0.03-0.39 BASO x10^3 (test code = 704-7) 0.03 10*3/uL 0.01-0.07 Lab Interpretation (test code = 51048-5) [facility]normal [facility] W/O SPECIFIC [id number] 21:41:00* Test Item Value Reference Range Interpretation [...] ve Lab Interpretation (test cod e = 06348-6) Normal [facility] W/O SPECIFIC [id number] 21:23:00* Test Item Value Reference Range Interpretation [...] = 3257) N/A Negative - Negati ve [facility]
--- NOTE | 2024-04-19 15:42 | RAD REPORT ---
EXAM: Chest Single View HISTORY: CHEST PAIN COMPARISON: 06/19/2019 FINDINGS: LUNGS/PLEURA: The lungs are clear. No pleural effusions or pneumothorax. No pulmonary edema. MEDIASTINUM: The mediastinal silhouette is within normal limits. CARDIAC: The cardiac silhouette is within normal limits. UPPER ABDOMEN: No significant abnormality. BONES: No acute abnormality. LINES/TUBES/OTHER: N/A IMPRESSION: No evidence of acute cardiopulmonary disease.
--- NOTE | 2024-04-19 16:16 | EDPHYS ---
Physician Documentation [facility] Name: Rachelle Heredia Age: 29 yrs Sex: Female : 1995 Arrival Date: 04/19/2024 Time: 12:29 Bed DX1 Private MD: ED Physician Adelita Villalpando HPI: 04/19 15:55 This 29 yrs old Black Female presents to ER via Ambulatory with complaints of chest gb1 "soreness". 15:55 29-year-old female that is been coughing with left upper chest pain that is tender to gb1 touch. She rates her pain 7 out of 10. 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 - Infectious Disease History:: Denies. - Social history:: Smoking status: Patient denies any tobacco usage or history of. Exam: 15:55 Constitutional: This is a well developed, well nourished patient who is awake, alert, gb1 and in no acute distress. Head/Face: Normocephalic, atraumatic. Eyes: Pupils equal round and reactive to light, extra-ocular motions intact. Lids and lashes normal. Conjunctiva and sclera are non-icteric and not injected. Cornea within normal limits. Periorbital areas with no swelling, redness, or edema. ENT: Nares patent. No nasal discharge, no septal abnormalities noted. Tympanic membranes are normal and external auditory canals are clear. Oropharynx with no redness, swelling, or masses, exudates, or evidence of obstruction, uvula midline. Mucous membranes moist. Neck: Trachea midline, no thyromegaly or masses palpated, and no cervical lymphadenopathy. Supple, full range of motion without nuchal rigidity, or vertebral point tenderness. No Meningismus. Chest/axilla: Normal chest wall appearance and motion. Nontender with no deformity. No lesions are appreciated. Cardiovascular: Regular rate and rhythm with a normal S1 and S2. No gallops, murmurs, or rubs. Normal PMI, no JVD. No pulse deficits. Respiratory: Lungs have equal breath sounds bilaterally, clear to auscultation and percussion. No rales, rhonchi or wheezes noted. No increased work of breathing, no retractions or nasal flaring. Vital Signs: 12:54 BP 121 / 77; Pulse 88; Resp 17; Temp 97.9; Pulse Ox 98% ; Weight 85.73 kg; Height 5 ft. jl7 3 in. ; Pain 710; 12:54 Body Mass Index 33.48 (85.73 kg, 160.02 cm) jl7 12:54 Pain Scale: Adult jl7 MDM: 13:00 Medical Screening Exam initiated gb1 04/19 15:19 Order name: Chest Single View XRAY; Complete Time: 15:46 gb1 Administered Medications: 16:43 Not Given (Patient Refused): [id number] mg IM once ss Disposition Summary: 04/19/24 16:15 Discharge Ordered Notes: Location: Home gb1 Problem: new gb1 Symptoms: have improved gb1 Condition: Stable gb1 Diagnosis - Chest pain on breathing gb1 Followup: gb1 - With: Private Physician - When: - Reason: Recheck today's complaints Discharge Instructions: - Discharge Summary Sheet gb1 - Chest Wall Pain gb1 Forms: - Work release form ss - Medication Reconciliation Form gb1 - Antibiotic Education gb1 - Prescription Opioid Use gb1 - Patient Portal Instructions gb1 - Leadership Thank You Letter gb1 Prescriptions: - Ibuprofen 800 mg Oral Tablet - take 1 tablet ORAL route every 8 hours As needed take with food; 30 tablet; gb1 Refills: 0, Product Selection Permitted Signatures: Dispatcher [employer] EDWalter Shannon RN RN jl7 Adelita Villalpando MD MD gb1 Leydi Arreola RN ss Corrections: (The following items were deleted from the chart) 15:19 15:19 Chest Single View+RAD.RAD.BRZ ordered. EDMT EDMS
--- NOTE | 2024-04-19 16:16 | ER ---
Nurse's Notes [facility] Name: Rachelle Heredia Age: 29 yrs Sex: Female : 1995 Arrival Date: 04/19/2024 Time: 12:29 Bed DX1 Private MD: Diagnosis: Chest pain on breathing Presentation: 04/19 12:54 Chief complaint: Patient states: Chest soreness when lifting arms x 2 days, denies jl7 trauma. Coronavirus screen: At this time, the client does not indicate any symptoms associated with coronavirus-19. Ebola Screen: No symptoms or risks identified at this time. Initial Sepsis Screen: Does the patient meet any 2 criteria? No. Patient's initial sepsis screen is negative. Does the patient have a suspected source of infection? No. Patient's initial sepsis screen is negative. Risk Assessment: Do you want to hurt yourself or someone else? Patient reports no desire to harm self or others. Onset of symptoms was April 16, 2024. 12:54 Method Of Arrival: Ambulatory jl7 12:54 Acuity: JULIET 4 jl7 Triage Assessment: 12:55 General: Appears in no apparent distress. uncomfortable, Behavior is calm, cooperative, jl7 appropriate for age. Pain: Complains of pain in chest Pain currently is 0 out of 10 on a pain scale. at worst was 7 out of 10 on a pain scale. 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 - Infectious Disease History:: Denies. - Social history:: Smoking status: Patient denies any tobacco usage or history of. Vital Signs: 12:54 BP 121 / 77; Pulse 88; Resp 17; Temp 97.9; Pulse Ox 98% ; Weight 85.73 kg; Height 5 ft. jl7 3 in. ; Pain 7/10; 12:54 Body Mass Index 33.48 (85.73 kg, 160.02 cm) jl7 12:54 Pain Scale: Adult jl7 ED Course: 12:31 Patient arrived in ED. ra3 12:40 Kwasi, Adelita, MD is Attending Physician. gb1 12:55 Triage completed. jl7 12:55 Arm band placed on right wrist. jl7 15:40 Chest Single View XRAY In Process Unspecified. EDMS 16:43 Leydi Arreola, RN is Primary Nurse. ss 16:43 No provider procedures requiring assistance completed. Patient did not have IV access ss during this emergency room visit. Administered Medications: 16:43 Not Given (Patient Refused): [id number] mg IM once ss Outcome: 16:15 Discharge ordered by . gb1 16:43 Discharged to home ambulatory, ss 16:43 Condition: good 16:43 Discharge instructions given to patient, family, Instructed on discharge instructions, follow up and referral plans. medication usage, Demonstrated understanding of instructions, follow-up care, medications, Prescriptions given X 1, 16:44 Patient left the ED. ss Signatures: Dispatcher [employer] EDIN Leydi Arreola RN RN Walter Thomson RN RN [email or web address] Adelita Villalpando MD MD gb1 Layla Wu ra3
[2024-04-19 19:52] VITALS: BP 121/77; TEMP 97.9; O2SAT 98
== END 2024-04-19 16:44 | disposition home or self-care (01) ==
LOC: ER 12:29
DX: R07.1 Chest pain on breathing (principal)
CPT/HCPCS: 71045; 99283

== ENCOUNTER 2024-06-04 06:17 | Emergency (ER) | payer SELFPAY ==
--- OUTSIDE RECORDS SUMMARY | 2024-06-04 06:22 | XMS REPORT | Continuity of Care Document ---
Author Name Unknown Address [address] [facility] [address] [place] [address] [facility] thconnect Address [address] [facility] 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 Name Role Phone Patric Carreon Primary Care Physician Un available SO MANLEY Attending Clinician Unavailable SO MANLEY Attending Clinician Unavailable MANOLO DIXON Attending Clinician UnavailMANOLO Carlisle Attending Clinician UnavailSo Valle MD Attending Clinician [phone] Estefanía Naranjo MD Attending Clinician [phone] ESTEFANÍA NARANJO Attending Clinician Unavailable ESTEFANÍA NARANJO Attending Clinician Unavailable Ultrasound, Ang[facility] Attending Clinician UnavailAnastasiya Zhang MD Attending Clinician [phone] ANASTASIYA LEZAMA Attending Clinician Unavailable Doctor Unassigned, [place] Attending Clinician U navailstefan Pob, [facility] Attending Clinician UnavailRose Yeboah Attending Clinician UnavailOTF Dupree Attending Clinician Unavail able ABBEY JEAN Attending Clinician Unavailable TALHA SOMERS Attending Clinician Unavailable Talha Somers MD Attending Clinician [phone] Abbey Jean MD Attending Clinician [phone] Yasmin Pérez MD Attending Clinician + YASMIN PÉREZ Attending Clinician Unav ailable Nurse, [facility] Attending Clinician Unavailable SHEREE MIGUEL Attending Clinician Unavail able SO MANLEY Admitting Clinician Unavailable Estefanía Naranjo MD Admitting Clinician [phone] ESTEFANÍA NARANJO Admitting Clinician Unavailable TALHA SOMERS Admitting Clinician Unavailable Talha Somers MD Admitting Clinician [phone] Payers Payer Name Policy Type Policy Number Effective Date Expirati on Date Source [facility] [id number] 2015 00:00:00 2022 00:00:00 [employer] [id number] 2017 00:00:00 Problems Condition Name Condition Details Condition Category Status Onset Date Resolution Date Last Treatment Date Treating Clinician Comments Source 23 weeks gestation of 23 weeks gestation of Disease Active - 00:00: 00 [facility] IUFD at 20 weeks or more of gestation IUFD at 20 weeks or more of gestation Disease Active -29 00:00: 00 [facility] Alpha thalassemi a silent carrier Alpha thalassemi a silent carrier Disease Active 3-14 00:00: 00 [facility] Screening declined by patient Screening declined by patient Disease Active 1-31 00:00: 00 [facility] Zellweger' s syndrome Zellweger' s syndrome Disease Active 2021-04 2-20 00:00: 00 [facility] 9 weeks gestation of 9 weeks gestation of Disease Active 2021-04 2-20 00:00: 00 [facility] Normal labor Normal labor Disease Active 5-15 00:00: 00 [facility] Positive GBS test Positive GBS test Disease Active 5-15 00:00: 00 [facility] Depression affecting in third trimester, antepartum Depression affecting in third trimester, antepartum Disease Active - 00:00: 00 [facility] Noncomplia nt patient in third trimester Noncomplia nt patient in third trimester Disease Active 4-04 00:00: 00 [facility] Anxiety Anxiety Disease Active 2018-04 00:00: 00 [facility] 38 weeks gestation of 38 weeks gestation of Disease Active 1- 00:00: 00 [facility] Atypical squamous cells of undetermin ed significan ce (ASCUS) on Papanicola ou smear of cervix Atypical squamous cells of undetermin ed significan ce (ASCUS) on Papanicola ou smear of cervix Disease Active 2016-04 0-06 00:00: 00 Overview: Formattin g of this note might be different from the original. Needs repeat colpo PP-see [place] note on 01/17/16 [facility] Sickle cell trait Sickle cell trait Disease Active 10-31 00:00: 00 [facility] Missed menses Missed menses Disease Active 10-28 00:00: 00 [facility] Obesity in Obesity in Disease Active 10-28 00:00: 00 [facility] Liveborn , of samuels , born in hospital by vaginal delivery Liveborn infant, of samuels , born in hospital by vaginal delivery Disease Active 05-19 00:00: 00 [facility] Multiparit y Multiparit y Disease Active 11-20 00:00: 00 [facility] Supervisio n of other high risk pregnancie s, first trimester Supervisio n of other high risk pregnancie s, first trimester Disease Active 11-20 00:00: 00 [facility] with inconclusi ve viability, single or unspecifie d fetus with inconclusi ve viability, single or unspecifie d fetus Disease Active 11-20 00:00: 00 [facility] Allergies, Adverse Reactions, Alerts Allergy Name Allergy Type Status Severity Reaction(s) Onset Date Inactive Date Treating Clinician Comments Source NO KNOWN ALLERGIE S Drug Class Active [facility] Social History Social Habit Start Date Stop Date Quantity Comments Source ASSERTION 2022-02-17 00:00:00 [facility] to SARS-CoV-2 (event) 2022-07-19 00:00:00 2022-07-29 13:54:00 Not sure [facility] History of Social function 2021-08-16 00:00:00 2021-08-16 00:00:00 [facility] Alcohol intake 2021-03-30 00:00:00 2021-03-30 00:00:00 Current non-drinker of alcohol (finding) [facility] Tobacco use and exposure 2012-09-08 00:00:00 2012-09-08 00:00:00 Smokeless tobacco non-user [facility] Sex Assigned At 1995 00:00:00 1995 00:00:00 [facility] Smoking Status Start Date Stop Date Source Never smoked tobacco [facility] Medications Ordered Medication Name Filled Medication Name Start Date Stop Date Current Medication? Ordering Clinician Indication Dosage Frequency Signature (SIG) Comments Components Source rho(D) immune globulin (RHOGAM) syringe 300 mcg 07-18 15:33: 32 Yes 300ug 300 mcg, Intramuscu lar, ONCE, For 1 dose, Conditiona l, Routine [facility] human papillomav vac,9-luz(P F) (GARDASIL-9 ) syringe 0.5 mL 07-18 15:33: 26 Yes .5mL 0.5 mL, Intramuscu lar, ONCE-PRIOR TO DISCHARGE, 1 dose, Starting on Liz 07/18/22 at 1033, Until Discontinu ed, Routine, Give vaccine prior to discharge [facility] HYDROcodone -acetaminop hen (NORCO 5) 5-325 mg tablet 1 tablet 07-18 15:33: 26 Yes 1{tbl} 1 tablet, Oral, Q6HPRN, Starting on Liz 07/18/22 at 1033, Until Discontinu ed, Routine, Pain (scale 7-10) [facility] ibuprofen (IBU) tablet 600 mg 07-18 15:33: 26 Yes 600mg 600 mg, Oral, Q6HPRN, Starting on Liz 07/18/22 at 1033, Until Discontinu ed, Routine, Pain (scale 4-6) [facility] acetaminoph en (TYLENOL) tablet 650 mg 07-18 15:33: 26 Yes 650mg 650 mg, Oral, Q6HPRN, Starting on Fri07/18/22 at 1033, Until Discontinu ed, Routine, Pain (scale 1-3) [facility] diphenhydrA MINE (BENADRYL) tablet 25 mg 07-18 15:33: 26 Yes 25mg 25 mg, Oral, Q6HPRN, Starting on Fri07/18/22 at 1033, Until Discontinu ed, Routine, Sleep, Itching [facility] ondansetron (ZOFRAN (PF)) injection 4 mg 07-18 15:33: 26 Yes 4mg 4 mg, Slow IV Push, Q8HPRN, Starting on Fri07/18/22 at 1033, Until Discontinu ed, Routine, Nausea and Vomiting (N/V) [facility] simethicone (GAS RELIEF (SIMETHICON E)) chewable tablet 160 mg 07-18 15:33: 26 Yes 160mg 160 mg, Oral, PC+HSPRN, Starting on Fri07/18/22 at 1033, Until Discontinu ed, Routine, Gas [facility] docusate (COLACE) capsule 200 mg 07-18 15:33: 26 Yes 200mg 200 mg, Oral, QDAILYPRN, Starting on Fri07/18/22 at 1033, Until Discontinu ed, Routine, Constipati on [facility] magnesium hydroxide (MILK OF MAGNESIA) 400 mg/5 mL suspension 30 mL 07-18 15:33: 26 Yes 30mL 30 mL, Oral, QDAILYPRN, Starting on Fri07/18/22 at 1033, Until Discontinu ed, Routine, Constipati on [facility] benzocaine- menthol (DERMOPLAST ) 20-0.5 % topical spray 07-18 15:33: 26 Yes Topical, PRN, Starting on Fri07/18/22 at 1033, Until Discontinu ed, Routine, Perineum discomfort [facility] ibuprofen (IBU) tablet 600 mg 07-18 14:28: 10 07-18 15:33 :30 No 600mg 600 mg, Oral, Q6HPRN, Starting on Fri07/18/22 at 0928, Until Fri07/18/22 at 1033, Routine, Pain (scale 1-3) [facility] morpHINE 30 mg/30 mL (fixed dose) [employer] injection 07-18 06:15: 00 07-18 15:33 :30 No Patient Bolus Dose: 1 mg
Lock out Interval: 10 Minutes
Basal Rate: 0 mg/hr
F our Hour Dose Limit: 32 mg
Intr avenous, 30 mL, CONTINUOUS , Starting on Fri07/18/22 at 0115, Until Fri07/18/22 at 1033 [facility] morpHINE 2 mg/mL LOAD & RESCUE INJECTION SYRG 07-18 05:02: 15 07-18 15:33 :30 No Slow IV Push, Routine [facility] miSOPROStoL (CYTOTEC) tablet 400 mcg 07-18 04:45: 00 07-18 11:56 :00 No 400ug 400 mcg, Vaginal, Q3H FEED, 4 doses, First dose (after last modificati on) on Fri07/17/22 at 2345, Last dose on Fri07/18/22 at 0845, Routine [facility] butorphanol (STADOL) injection 1 mg 07-18 04:30: 00 07-18 03:35 :00 No 1mg 1 mg, IV Push, ONCE, 1 dose, On Fri07/17/22 at 2330, Routine [facility] D5W-LR IV infusion 1,000 mL 07-18 00:35: 36 07-18 15:33 :30 No 1000mL at 1-125 mL/hr, IV Infusion, TITRATE, Starting on Fri07/17/22 at 1935, Until Fri07/18/22 at 1033, Routine [facility] ibuprofen 600 mg tablet 07-18 00:00: 00 Yes [id number] 600mg Take 1 tablet by mouth every 6 (six) hours as needed for Pain (scale 4-6). [facility] acetaminoph en 325 mg tablet 3-30 00:00: 00 07-18 04:59 :00 No [id number] 650mg Take 2 tablets by mouth every 6 (six) hours as needed for Pain (scale 1-3). [facility] vit 33-iron-fol ic-dha (SELECT-OB + DHA) 29 mg iron-1 mg -250 mg combo pack 1-31 00:00: 00 08-04 00:00 :00 No [id number] 1{packe t} Take 1 Packet by mouth in the morning. [facility] vitamin w/FA tablet 2021-04- 00:00: 00 08-04 00:00 :00 No [id number] 1{tbl} Take 1 tablet by mouth in the morning. [facility] docusate 100 mg capsule 09-03 00:00: 00 08-04 00:00 :00 No [id number] 200mg Take 2 capsules by mouth once daily as needed for Constipati on. [facility] ferrous sulfate 325 mg (65 mg iron) tablet 09-03 00:00: 00 08-04 00:00 :00 No [id number] 325mg Take 1 tablet by mouth 2 (two) times daily. [facility] vitamin w/FA tablet 09-03 00:00: 00 04-09 00:00 :00 No [id number] 1{tbl} Take 1 tablet by mouth daily. [facility] ibuprofen 600 mg tablet 16 00:00: 00 04-09 00:00 :00 No [id number] 600mg Take 1 tablet by mouth every 6 (six) hours as needed (Pain). Take with food or milk. [facility] rho(D) immune globulin (RHOGAM) syringe 300 mcg 15 08:56: 41 Yes 300ug 300 mcg, Intramuscu lar, ONCE, For 1 dose, Conditiona l, Routine [facility] [place] Gasper (TUCKS) 50 % topical pad 09-02 08:56: 40 Yes Topical, Q4HPRN, Starting on 09/02/21 at 0356, Until Discontinu ed, Routine, rectal/hem orrhoidal pain [facility] HYDROcodone -acetaminop hen (NORCO 5) 5-325 mg tablet 1 tablet 09-02 08:56: 40 Yes 1{tbl} 1 tablet, Oral, Q6HPRN, Starting on 09/02/21 at 0356, Until Discontinu ed, Routine, Pain (scale 7-10) [facility] ibuprofen (IBU) tablet 600 mg 09-02 08:56: 40 Yes 600mg 600 mg, Oral, Q6HPRN, Starting on 09/02/21 at 035, Until Discontinu ed, Routine, Pain (scale 4-6) [facility] acetaminoph en (TYLENOL) tablet 650 mg 09-02 08:56: 40 Yes 650mg 650 mg, Oral, Q6HPRN, Starting on 09/02/21 at 035, Until Discontinu ed, Routine, Pain (scale 1-3) [facility] diphenhydrA MINE (BENADRYL) tablet 25 mg 09-02 08:56: 40 Yes 25mg 25 mg, Oral, Q6HPRN, Starting on Fri09/02/21 at 035, Until Discontinu ed, Routine, Sleep, Itching [facility] ondansetron (ZOFRAN (PF)) injection 4 mg 09-02 08:56: 40 Yes 4mg 4 mg, Slow IV Push, Q8HPRN, Starting on Fri09/02/21 at 035, Until Discontinu ed, Routine, Nausea and Vomiting (N/V) [facility] simethicone (GAS RELIEF (SIMETHICON E)) chewable tablet 160 mg 09-02 08:56: 40 Yes 160mg 160 mg, Oral, PC+HSPRN, Starting on Fri09/02/21 at 0356, Until Discontinu ed, Routine, Gas [facility] docusate (COLACE) capsule 200 mg 09-02 08:56: 40 Yes 200mg 200 mg, Oral, QDAILYPRN, Starting on 09/02/21 at 0356, Until Discontinu ed, Routine, Constipati on [facility] magnesium hydroxide (MILK OF MAGNESIA) 400 mg/5 mL suspension 30 mL 09-02 08:56: 40 Yes 30mL 30 mL, Oral, QDAILYPRN, Starting on 09/02/21 at 0356, Until Discontinu ed, Routine, Constipati on [facility] benzocaine- menthol (DERMOPLAST ) 20-0.5 % topical spray 09-02 08:56: 40 Yes Topical, PRN, Starting on 09/02/21 at 0356, Until Discontinu ed, Routine, Perineum discomfort [facility] oxytocin (PITOCIN) 30 units in NS 500 mL IV infusion 09-02 08:28: 55 09-02 08:56 :42 No 300mL/h 300 mL/hr, IV Infusion, SEE-INSTRU CTIONS, Starting on Fri09/02/[address] art at 300 mL/hr for 1 hr then 150 mL/hr for 1 hr. & nbsp; For post delivery uterotonic
[facility] D5W-LR IV infusion 1,000 mL 09-02 08:15: 00 09-02 08:56 :42 No 1000mL at 125 mL/hr, IV Infusion, CONTINUOUS , Starting on Fri09/02/21 at 0315, Until 09/02/21 at 0356, Routine [facility] FENTanyl PF (SUBLIMAZE (PF)) injection 50 mcg 09-02 08:10: 00 09-02 08:12 :00 No 50ug 50 mcg, Slow IV Push, ONCE, 1 dose, On 09/02/21 at 0315, Routine [facility] vit 33-iron-fol ic-dha (SELECT-OB + DHA) 29 mg iron-1 mg -250 mg combo pack 07-26 00:00: 00 09-03 00:00 :00 No [id number] 1{packe t} Take 1 Packet by mouth daily. [facility] ferrous fumarate-b1 2-vitamic C-folic acid (FEROCON) 110-0.5 mg capsule 07-26 00:00: 00 09-03 00:00 :00 No [id number] 1{capsu le} Take 1 capsule by mouth daily with breakfast. [facility] cephALEXin 500 mg capsule 07-26 00:00: 00 08-03 04:59 :00 No [id number] 500mg Take 1 capsule by mouth every 6 (six) hours for 7 days. [facility] PNV NO.95/FLYNN US FUM/FOLIC AC ( ORAL) 06-01 15:45: 54 06-01 00:00 :00 No Take by mouth. [facility] 78-iron-fol ate 1-dha 18 mg iron-1 mg -300 mg Cap 06-01 00:00: 00 08-03 00:00 :00 No [id number] 1{tbl} Take 1 tablet by mouth daily. [facility] terconazole 0.8 % vaginal cream 06-01 00:00: 00 06-05 05:59 :00 No [id number] 1{appli cator} Insert 1 Applicator into vagina at bedtime for 3 days. [facility] cephALEXin 500 mg capsule 05-30 00:00: 00 07-26 00:00 :00 No 500mg Take 500 mg by mouth every 6 (six) hours. [facility] metroNIDAZO LE 500 mg tablet 05-30 00:00: 00 07-26 00:00 :00 No TAKE 1 TABLET BY MOUTH EVERY 12 HOURS FOR 7 DAYS. DO NOT DRINK ALCOHOL WHILE TAKING THIS MEDICATION [facility] cephALEXin 500 mg capsule 2020-04 00:00: 00 03-07 05:59 :00 No [id number] 500mg Take 1 capsule by mouth every 6 (six) hours for 7 days. [facility] metroNIDAZO LE 500 mg tablet 2020-04 00:00: 00 03-03 05:59 :00 No [id number] 500mg Take 1 tablet by mouth every 12 (twelve) hours for 7 days. [facility] Immunizations Ordered Immunization Name Filled Immunization Name Date Status Comments Source TDAP 2016-03-13 00:00:00 Completed [facility] TDAP 2016-03-13 00:00:00 Completed [facility] TDAP 2016-03-13 00:00:00 Completed [facility] TDAP 2016-03-13 00:00:00 Completed [facility] TDAP 2016-03-13 00:00:00 Completed [facility] TDAP 2016-03-13 00:00:00 Completed [facility] TDAP 2016-03-13 00:00:00 Completed [facility] TDAP 2016-03-13 00:00:00 Completed [facility] TDAP 2016-03-13 00:00:00 Completed [facility] TDAP 2016-03-13 00:00:00 Completed [facility] TDAP 2016-03-13 00:00:00 Completed [facility] TDAP 2016-03-13 00:00:00 Completed [facility] TDAP 2016-03-13 00:00:00 Completed [facility] TDAP 2016-03-13 00:00:00 Completed [facility] TDAP 2016-03-13 00:00:00 Completed [facility] TDAP 2016-03-13 00:00:00 Completed [facility] TDAP 2016-03-13 00:00:00 Completed [facility] TDAP 2016-03-13 00:00:00 Completed [facility] TDAP 2016-03-13 00:00:00 Completed [facility] TDAP 2016-03-13 00:00:00 Completed [facility] TDAP 2016-03-13 00:00:00 Completed [facility] TDAP 2016-03-13 00:00:00 Completed [facility] TDAP 2016-03-13 00:00:00 Completed [facility] TDAP 2016-03-13 00:00:00 Completed [facility] TDAP 2016-03-13 00:00:00 Completed [facility] TDAP 2016-03-13 00:00:00 Completed [facility] TDAP 2016-03-13 00:00:00 Completed [facility] TDAP 2016-03-13 00:00:00 Completed [facility] TDAP 2016-03-13 00:00:00 Completed [facility] TDAP 2016-03-13 00:00:00 Completed [facility] TDAP 2016-03-13 00:00:00 Completed [facility] TDAP 2016-03-13 00:00:00 Completed [facility] TDAP 2013-10-21 00:00:00 Completed [facility] TDAP 2013-10-21 00:00:00 Completed [facility] TDAP 2013-10-21 00:00:00 Completed [facility] TDAP 2013-10-21 00:00:00 Completed [facility] TDAP 2013-10-21 00:00:00 Completed [facility] TDAP 2013-10-21 00:00:00 Completed [facility] TDAP 2013-10-21 00:00:00 Completed [facility] TDAP 2013-10-21 00:00:00 Completed [facility] TDAP 2013-10-21 00:00:00 Completed [facility] TDAP 2013-10-21 00:00:00 Completed [facility] TDAP 2013-10-21 00:00:00 Completed [facility] TDAP 2013-10-21 00:00:00 Completed [facility] TDAP 2013-10-21 00:00:00 Completed [facility] TDAP 2013-10-21 00:00:00 Completed [facility] TDAP 2013-10-21 00:00:00 Completed [facility] TDAP 2013-10-21 00:00:00 Completed [facility] TDAP 2013-10-21 00:00:00 Completed [facility] TDAP 2013-10-21 00:00:00 Completed [facility] TDAP 2013-10-21 00:00:00 Completed [facility] TDAP 2013-10-21 00:00:00 Completed [facility] TDAP 2013-10-21 00:00:00 Completed [facility] TDAP 2013-10-21 00:00:00 Completed [facility] TDAP 2013-10-21 00:00:00 Completed [facility] TDAP 2013-10-21 00:00:00 Completed [facility] TDAP 2013-10-21 00:00:00 Completed [facility] TDAP 2013-10-21 00:00:00 Completed [facility] TDAP 2013-10-21 00:00:00 Completed [facility] TDAP 2013-10-21 00:00:00 Completed [facility] TDAP 2013-10-21 00:00:00 Completed [facility] TDAP 2013-10-21 00:00:00 Completed [facility] TDAP 2013-10-21 00:00:00 Completed [facility] TDAP 2013-10-21 00:00:00 Completed [facility] Influenza Virus Vaccine 2013-01-06 00:00:00 Completed [facility] Influenza Virus Vaccine 2013-01-06 00:00:00 Completed [facility] Influenza Virus Vaccine 2013-01-06 00:00:00 Completed [facility] Influenza Virus Vaccine 2013-01-06 00:00:00 Completed [facility] Influenza Virus Vaccine 2013-01-06 00:00:00 Completed [facility] Influenza Virus Vaccine 2013-01-06 00:00:00 Completed [facility] Influenza Virus Vaccine 2013-01-06 00:00:00 Completed [facility] Influenza Virus Vaccine 2013-01-06 00:00:00 Completed [facility] Influenza Virus Vaccine 2013-01-06 00:00:00 Completed [facility] Influenza Virus Vaccine 2013-01-06 00:00:00 Completed [facility] Influenza Virus Vaccine 2013-01-06 00:00:00 Completed [facility] Influenza Virus Vaccine 2013-01-06 00:00:00 Completed [facility] Influenza Virus Vaccine 2013-01-06 00:00:00 Completed [facility] Influenza Virus Vaccine 2013-01-06 00:00:00 Completed [facility] Influenza Virus Vaccine 2013-01-06 00:00:00 Completed [facility] Influenza Virus Vaccine 2013-01-06 00:00:00 Completed [facility] Influenza Virus Vaccine 2013-01-06 00:00:00 Completed [facility] Influenza Virus Vaccine 2013-01-06 00:00:00 Completed [facility] Influenza Virus Vaccine 2013-01-06 00:00:00 Completed [facility] Influenza Virus Vaccine 2013-01-06 00:00:00 Completed [facility] Influenza Virus Vaccine 2013-01-06 00:00:00 Completed [facility] Influenza Virus Vaccine 2013-01-06 00:00:00 Completed [facility] Influenza Virus Vaccine 2013-01-06 00:00:00 Completed [facility] Influenza Virus Vaccine 2013-01-06 00:00:00 Completed [facility] Influenza Virus Vaccine 2013-01-06 00:00:00 Completed [facility] Influenza Virus Vaccine 2013-01-06 00:00:00 Completed [facility] Influenza Virus Vaccine 2013-01-06 00:00:00 Completed [facility] Influenza Virus Vaccine 2013-01-06 00:00:00 Completed [facility] Influenza Virus Vaccine 2013-01-06 00:00:00 Completed [facility] Influenza Virus Vaccine 2013-01-06 00:00:00 Completed [facility] Influenza Virus Vaccine 2013-01-06 00:00:00 Completed [facility] Influenza Virus Vaccine 2013-01-06 00:00:00 Completed [facility] TDAP 2012-11-24 00:00:00 Completed [facility] TDAP 2012-11-24 00:00:00 Completed [facility] TDAP 2012-11-24 00:00:00 Completed [facility] TDAP 2012-11-24 00:00:00 Completed [facility] TDAP 2012-11-24 00:00:00 Completed [facility] TDAP 2012-11-24 00:00:00 Completed [facility] TDAP 2012-11-24 00:00:00 Completed [facility] TDAP 2012-11-24 00:00:00 Completed [facility] TDAP 2012-11-24 00:00:00 Completed [facility] TDAP 2012-11-24 00:00:00 Completed [facility] TDAP 2012-11-24 00:00:00 Completed [facility] TDAP 2012-11-24 00:00:00 Completed [facility] TDAP 2012-11-24 00:00:00 Completed [facility] TDAP 2012-11-24 00:00:00 Completed [facility] TDAP 2012-11-24 00:00:00 Completed [facility] TDAP 2012-11-24 00:00:00 Completed [facility] TDAP 2012-11-24 00:00:00 Completed [facility] TDAP 2012-11-24 00:00:00 Completed [facility] TDAP 2012-11-24 00:00:00 Completed [facility] TDAP 2012-11-24 00:00:00 Completed [facility] TDAP 2012-11-24 00:00:00 Completed [facility] TDAP 2012-11-24 00:00:00 Completed [facility] TDAP 2012-11-24 00:00:00 Completed [facility] TDAP 2012-11-24 00:00:00 Completed [facility] TDAP 2012-11-24 00:00:00 Completed [facility] TDAP 2012-11-24 00:00:00 Completed [facility] TDAP 2012-11-24 00:00:00 Completed [facility] TDAP 2012-11-24 00:00:00 Completed [facility] TDAP 2012-11-24 00:00:00 Completed [facility] TDAP 2012-11-24 00:00:00 Completed [facility] TDAP 2012-11-24 00:00:00 Completed [facility] TDAP 2012-11-24 00:00:00 Completed [facility] Rubella 2012-09-08 00:00:00 Completed [facility] Rubella 2012-09-08 00:00:00 Completed [facility] Rubella 2012-09-08 00:00:00 Completed [facility] Rubella 2012-09-08 00:00:00 Completed [facility] Rubella 2012-09-08 00:00:00 Completed [facility] Rubella 2012-09-08 00:00:00 Completed [facility] Rubella 2012-09-08 00:00:00 Completed [facility] Rubella 2012-09-08 00:00:00 Completed [facility] Rubella 2012-09-08 00:00:00 Completed [facility] Rubella 2012-09-08 00:00:00 Completed [facility] Rubella 2012-09-08 00:00:00 Completed [facility] Rubella 2012-09-08 00:00:00 Completed [facility] Rubella 2012-09-08 00:00:00 Completed [facility] Rubella 2012-09-08 00:00:00 Completed [facility] Rubella 2012-09-08 00:00:00 Completed [facility] Rubella 2012-09-08 00:00:00 Completed [facility] Rubella 2012-09-08 00:00:00 Completed [facility] Rubella 2012-09-08 00:00:00 Completed [facility] Rubella 2012-09-08 00:00:00 Completed [facility] Rubella 2012-09-08 00:00:00 Completed [facility] Rubella 2012-09-08 00:00:00 Completed [facility] Rubella 2012-09-08 00:00:00 Completed [facility] Rubella 2012-09-08 00:00:00 Completed [facility] Rubella 2012-09-08 00:00:00 Completed [facility] Rubella 2012-09-08 00:00:00 Completed [facility] Rubella 2012-09-08 00:00:00 Completed [facility] Rubella 2012-09-08 00:00:00 Completed [facility] Rubella 2012-09-08 00:00:00 Completed [facility] Rubella 2012-09-08 00:00:00 Completed [facility] Rubella 2012-09-08 00:00:00 Completed [facility] Rubella 2012-09-08 00:00:00 Completed [facility] Rubella 2012-09-08 00:00:00 Completed [facility] TDAP 2012-01-10 00:00:00 Completed [facility] TDAP 2012-01-10 00:00:00 Completed [facility] TDAP 2012-01-10 00:00:00 Completed [facility] TDAP 2012-01-10 00:00:00 Completed [facility] TDAP 2012-01-10 00:00:00 Completed [facility] TDAP 2012-01-10 00:00:00 Completed [facility] TDAP 2012-01-10 00:00:00 Completed [facility] TDAP 2012-01-10 00:00:00 Completed [facility] TDAP 2012-01-10 00:00:00 Completed [facility] TDAP 2012-01-10 00:00:00 Completed [facility] TDAP 2012-01-10 00:00:00 Completed [facility] TDAP 2012-01-10 00:00:00 Completed [facility] TDAP 2012-01-10 00:00:00 Completed [facility] TDAP 2012-01-10 00:00:00 Completed [facility] TDAP 2012-01-10 00:00:00 Completed [facility] TDAP 2012-01-10 00:00:00 Completed [facility] TDAP 2012-01-10 00:00:00 Completed [facility] TDAP 2012-01-10 00:00:00 Completed [facility] TDAP 2012-01-10 00:00:00 Completed [facility] TDAP 2012-01-10 00:00:00 Completed [facility] TDAP 2012-01-10 00:00:00 Completed [facility] TDAP 2012-01-10 00:00:00 Completed [facility] TDAP 2012-01-10 00:00:00 Completed [facility] TDAP 2012-01-10 00:00:00 Completed [facility] TDAP 2012-01-10 00:00:00 Completed [facility] TDAP 2012-01-10 00:00:00 Completed [facility] TDAP 2012-01-10 00:00:00 Completed [facility] TDAP 2012-01-10 00:00:00 Completed [facility] TDAP 2012-01-10 00:00:00 Completed [facility] TDAP 2012-01-10 00:00:00 Completed [facility] TDAP 2012-01-10 00:00:00 Completed [facility] TDAP 2012-01-10 00:00:00 Completed [facility] TDAP Unknown Completed [facility] Influenza Virus Vaccine Unknown Completed [facility] Rubella Unknown Completed [facility] TDAP Unknown Completed [facility] Influenza Virus Vaccine Unknown Completed [facility] Rubella Unknown Completed [facility] Vital Signs Vital Name Observation Time Observation Value Comments S ource Systolic blood pressure 2022-07-31 16:43:00 115 mm[Hg] [facility] Diastolic blood pressure 2022-07-31 16:43:00 59 mm[Hg] [facility] Heart rate 2022-07-31 16:43:00 75 /min [facility] Respiratory rate 2022-07-31 16:43:00 18 /min [facility] Body height 2022-07-31 16:43:00 162.6 cm [facility] Body weight 2022-07-31 16:43:00 81.647 kg [facility] BMI 2022-07-31 16:43:00 30.90 kg/m2 [facility] Systolic blood pressure 2022-07-18 13:30:00 103 mm[Hg] [facility] Diastolic blood pressure 2022-07-18 13:30:00 63 mm[Hg] [facility] Heart rate 2022-07-18 13:30:00 72 /min [facility] Body temperature 2022-07-18 13:30:00 37.39 Cori [facility] Respiratory rate 2022-07-18 13:30:00 18 /min [facility] Oxygen saturation in Arterial blood by Pulse oximetry 2022-07-18 13:30:00 100 /min [facility] Body height 2022-07-17 23:22:00 157.5 cm [facility] Body weight 2022-07-17 23:22:00 83 kg [facility] BMI 2022-07-17 23:22:00 33.46 kg/m2 [facility] Systolic blood pressure 2022-07-01 21:22:00 101 mm[Hg] [facility] Diastolic blood pressure 2022-07-01 21:22:00 67 mm[Hg] [facility] Heart rate 2022-07-01 21:22:00 84 /min [facility] Body temperature 2022-07-01 21:22:00 36.78 Cori [facility] Respiratory rate 2022-07-01 21:22:00 16 /min [facility] Body height 2022-07-01 21:22:00 157.5 cm [facility] Body weight 2022-07-01 21:22:00 83.643 kg [facility] BMI 2022-07-01 21:22:00 33.73 kg/m2 [facility] Systolic blood pressure 2022-05-21 19:04:00 112 mm[Hg] [facility] Diastolic blood pressure 2022-05-21 19:04:00 73 mm[Hg] [facility] Heart rate 2022-05-21 19:04:00 91 [facility] Body temperature 2022-05-21 19:04:00 36.72 Cori [facility] Respiratory rate 2022-05-21 19:04:00 16 /min [facility] Body height 2022-05-21 19:04:00 157.5 cm [facility] Body weight 2022-05-21 19:04:00 83.961 kg [facility] BMI 2022-05-21 19:04:00 33.86 kg/m2 [facility] Oxygen saturation in Arterial blood by Pulse oximetry 2022-05-21 19:04:00 100 /min [facility] Systolic blood pressure 2022-04-23 19:13:00 111 mm[Hg] [facility] Diastolic blood pressure 2022-04-23 19:13:00 76 mm[Hg] [facility] Heart rate 2022-04-23 19:13:00 73 /min [facility] Body temperature 2022-04-23 19:13:00 37 Cori [facility] Respiratory rate 2022-04-23 19:13:00 18 /min [facility] Body height 2022-04-23 19:13:00 157.5 cm [facility] Body weight 2022-04-23 19:13:00 85.73 kg [facility] BMI 2022-04-23 19:13:00 34.57 kg/m2 [facility] Systolic blood pressure 2022-04-09 18:56:00 104 mm[Hg] [facility] Diastolic blood pressure 2022-04-09 18:56:00 71 mm[Hg] [facility] Heart rate 2022-04-09 18:56:00 79 /min [facility] Body temperature 2022-04-09 18:56:00 36.72 Cori [facility] Respiratory rate 2022-04-09 18:56:00 16 /min [facility] Body height 2022-04-09 18:56:00 157.5 cm [facility] Body weight 2022-04-09 18:56:00 85.276 kg [facility] BMI 2022-04-09 18:56:00 34.39 kg/m2 [facility] Oxygen saturation in Arterial blood by Pulse oximetry 2022-04-09 18:56:00 100 /min [facility] Systolic blood pressure 2021-09-03 12:23:00 121 mm[Hg] [facility] Diastolic blood pressure 2021-09-03 12:23:00 80 mm[Hg] [facility] Heart rate 2021-09-03 12:23:00 83 /min [facility] Body temperature 2021-09-03 12:23:00 36.56 Cori [facility] Respiratory rate 2021-09-03 12:23:00 18 /min [facility] Oxygen saturation in Arterial blood by Pulse oximetry 2021-09-03 12:23:00 100 /min [facility] Body height 2021-09-02 10:12:00 157.5 cm [facility] Body weight 2021-09-02 10:12:00 76.295 kg [facility] BMI 2021-09-02 10:12:00 30.76 kg/m2 [facility] Systolic blood pressure 2021-08-27 19:39:00 109 mm[Hg] [facility] Diastolic blood pressure 2021-08-27 19:39:00 75 mm[Hg] [facility] Heart rate 2021-08-27 19:39:00 86 /min [facility] Body temperature 2021-08-27 19:39:00 36.78 Cori [facility] Respiratory rate 2021-08-27 19:39:00 16 /min [facility] Body height 2021-08-27 19:39:00 157.5 cm [facility] Body weight 2021-08-27 19:39:00 79.742 kg [facility] BMI 2021-08-27 19:39:00 32.15 kg/m2 [facility] Systolic blood pressure 2021-08-16 19:34:00 120 mm[Hg] [facility] Diastolic blood pressure 2021-08-16 19:34:00 80 mm[Hg] [facility] Heart rate 2021-08-16 19:34:00 100 /min [facility] Body temperature 2021-08-16 19:34:00 36.83 Cori [facility] Respiratory rate 2021-08-16 19:34:00 18 /min [facility] Body height 2021-08-16 19:34:00 162.6 cm [facility] Body weight 2021-08-16 19:34:00 79.153 kg [facility] BMI 2021-08-16 19:34:00 29.95 kg/m2 [facility] Systolic blood pressure 2021-08-02 20:47:00 105 mm[Hg] [facility] Diastolic blood pressure 2021-08-02 20:47:00 69 mm[Hg] [facility] Heart rate 2021-08-02 20:47:00 99 /min [facility] Body temperature 2021-08-02 20:47:00 36.72 Cori [facility] Respiratory rate 2021-08-02 20:47:00 18 /min [facility] Body height 2021-08-02 20:47:00 157.5 cm [facility] 2021-08-02 20:47:00 78.16 kg [facility] BMI 2021-08-02 20:47:00 31.52 kg/m2 [facility] Heart rate 2021-07-26 17:00:00 86 /min [facility] Oxygen saturation in Arterial blood by Pulse oximetry 2021-07-26 17:00:00 99 /min [facility] Systolic blood pressure 2021-07-26 15:12:00 120 mm[Hg] [facility] Diastolic blood pressure 2021-07-26 15:12:00 72 mm[Hg] [facility] Body temperature 2021-07-26 15:12:00 36.78 Cori [facility] Respiratory rate 2021-07-26 15:12:00 16 /min [facility] Body weight 2021-07-26 14:59:00 78.926 kg [facility] BMI 2021-07-26 14:59:00 31.83 kg/m2 [facility] Systolic blood pressure 2021-07-20 21:40:00 113 mm[Hg] [facility] Diastolic blood pressure 2021-07-20 21:40:00 74 mm[Hg] [facility] Heart rate 2021-07-20 21:40:00 128 /min [facility] Respiratory rate 2021-07-20 21:40:00 18 /min [facility] Body height 2021-07-20 21:40:00 157.5 cm [facility] Body weight 2021-07-20 21:40:00 78.926 kg [facility] BMI 2021-07-20 21:40:00 31.83 kg/m2 [facility] Systolic blood pressure 2021-06-01 21:23:00 107 mm[Hg] [place] [facility] Diastolic blood pressure 2021-06-01 21:23:00 69 mm[Hg] [place] [facility] Heart rate 2021-06-01 21:23:00 97 /min [facility] Body temperature 2021-06-01 21:23:00 36.89 Cori [facility] Respiratory rate 2021-06-01 21:23:00 18 /min [facility] Body height 2021-06-01 21:23:00 162.6 cm [facility] Body weight 2021-06-01 21:23:00 76.204 kg [facility] BMI 2021-06-01 21:23:00 28.84 kg/m2 [facility] Procedures Procedure Date / Time Performed Performing Clinician Source CBC WITH DIFF 2022-07-18 03:31:00 Carrie Gresham [facility] PROTHROMBIN TIME / INR 2022-07-18 01:27:00 Bong Xavier [facility] ACTIVATED PARTIAL THRMPLAS LORNA 2022-07-18 01:27:00 Nevaeh Xavier [facility] FIBRINOGEN 2022-07-18 01:27:00 [facility] HE[facility]IS B SURFACE ANTIGEN 2022-07-18 01:27:00 Nevaeh Xavier [facility] HB ABO GROUPING 2022-07-18 01:27:00 Nevaeh Xavier [facility] RHO (D) IMMUNE GLOBULIN 2022-07-18 01:27:00 Sonja Falk [facility] SYPHILIS IGG/IGM 2022-07-18 01:27:00 Nevaeh [facility] THIRD TRIMESTER ULTRASOUND 2022-07-17 19:41:00 Manolo Dixon [facility] PATIENT FINANCIAL POLICY 2022-07-01 21:17:48 Doctor Unassigned, [place] [facility] POCT URINALYSIS W/O SPECIFIC GRAVITY 2022-07-01 00:00:00 [facility] 2022-04-26 16:07:45 Docto r Unassigned, [place] [facility] POCT URINALYSIS W/O SPECIFIC GRAVITY 2022-04-23 00:00:00 Manolo Dixon [facility] ASSIGNMENT OF BENEFITS 2022-04-09 18:39:36 Docto r Unassigned, [place] [facility] POCT TEST 2022-04-09 00:00:00 [facility] WITH DIFF 2021-09-03 08:39:00 Dev [facility] VENOUS CORD GAS 2021-09-02 08:28:00 Dev [facility] CBC WITH DIFF 2021-09-02 08:24:00 Dev [facility] RUBELLA SCREEN IGG 2021-09-02 08:23:00 Talha [facility] HEPATITIS B SURFACE ANTIGEN 2021-09-02 08:23[facility] - R[facility] 2021-09-02 08:23:00 Erin Somers [facility] HIV 1/2 AG-AB WITH REFLEX 2021-09-02 08:23:00 Erin Somers [facility] COVID-19 (ID NOW RAPID TESTING) 2021-09-02 08:23:00 Talha Somers [facility] LAB ONLY COVID INTERPRETATION 2021-09-02 08:23:00 Talha Somers [facility] HB ABO GROUPING 2021-09-02 08:00:00 Dev [facility] RHO (D) IMMUNE GLOBULIN 2021-09-02 08:00:00 [facility] W/O SPECIFIC GRAVITY 2021-08-27 00:00:00 [facility]ENEFITS 2021-08-10 16:45:24 Docto r Unassigned, [place] [facility] POCT URINALYSIS W/O SPECIFIC GRAVITY 2021-08-02 00:00:00 Fish, Abbey [facility] HIV 1/2 AG-AB WITH REFLEX 2021-07-26 16:16:00 Fish, Mo emanuel [facility] COVID-19 (ID NOW RAPID TESTING) 2021-07-26 16:16:00 Fish, [facility] CBC WITH DIFF 2021-07-26 16:15:00 Fish, Abbey [facility] URINALYSIS 2021-07-26 16:15:00 Fish, Abbey [facility] HB ABO GROUPING 2021-07-26 16:15:00 Fish[facility] ADC CLC OR LCC ONLY - WET PREP 2021-07-26 16:15:00 Ted [facility] POCT URINALYSIS W/O SPECIFIC GRAVITY 2021-07-20 21:41:00 Manolo Dixon [facility] POCT URINALYSIS W/O SPECIFIC GRAVITY 2021-06-01 00:00:00 Ted [facility] Encounters Start Date/Time End Date/Time Encounter Type Admission Type Attending [facility] Care Facility Care Department Encounter ID Source 2021-07-26 13:44:50 Outpatient SO KHAN SHANNON [facility] NEL [id number] [facility] 2022-07-31 11:45:00 2022-07-31 11:48:42 Outpatient R MANOLO IDXON CHERYAL [facility] [id number] [facility] 2022-07-31 11:45:00 2022-07-31 11:48:42 Routine Visit Manolo Dixon [facility] [id number] 350.1.13.10 4.2.7.2.686 [id number] [facility] 2022-07-29 15:00:00 2022-07-29 15:00:00 Outpatient R MANOLO DIXON CHERYAL [facility] [id number] [facility] 2022-07-17 17:57:00 2022-07-18 12:55:00 Hospital Encounter AbdulazizSo Naranjo, [facility] 1.840.114 350.1.13.10 4.2.7.2.686 [id number] [facility] 2022-07-17 17:57:00 2022-07-18 12:55:00 Inpatient P DARYL NARANJOMICHAEL NARANJO, [facility] NEL [id number] [facility] 2022-07-17 14:45:00 2022-07-17 15:45:00 Supervisor Mail Carriers Visit Ultrasound, Anastasiya De La Rosa [facility] FACILITIES ADMINISTRATOR [facility] & CHILD [facility] 1.840.114 350.1.13.10 4.2.7.2.686 [id number] [facility] 2022-07-17 14:45:00 2022-07-17 14:45:00 Outpatient ANASTASIYA PHIPPS [facility] [id number] [facility] 2022-07-09 00:00:00 2022-07-09 00:00:00 Patient Secure Msg Doctor Unassigned, [place] [facility] FACILITIES ADMINISTRATOR [facility] & CHILD [facility] 1..840.114 350.1.13.10 4.2.7.2.686 [id number] [facility] 2022-07-01 16:30:00 2022-07-01 16:37:01 Outpatient R MANOLO DIXON CHERYAL [facility] [id number] [facility] 2022-07-01 16:30:00 2022-07-01 16:37:01 Routine Visit Manolo Dixon [facility] 1.840.114 350.1.13.10 4.2.7.2.686 [id number] [facility] 2022-07-01 00:00:00 2022-07-01 00:00:00 Orders Only Doctor Unassigned, [place] [facility] 1.2840.114 350.1.13.10 4.2.7.2.686 [id number] [facility] 2022-06-28 13:45:00 2022-06-28 13:45:00 Outpatient R MANOLO DIXON CHERYAL [facility] [id number] [facility] 2022-06-21 10:15:00 2022-06-21 10:15:00 Outpatient P [facility] [id number] [facility] 2022-06-18 13:00:00 2022-06-18 13:00:00 Outpatient R CARLOSMANOLO GONZALES CHERYAL [facility] [id number] [facility] 2022-05-21 13:00:00 2022-05-21 13:25:38 Routine Visit Sebastian [facility] 1.0.114 350.1.13.10 4.2.7.2.686 [id number] [facility] 2022-05-21 13:00:00 2022-05-21 13:25:38 Outpatient R MANOLO DIXON CHERYAL [facility] [id number] [facility] 2022-05-21 00:00:00 2022-05-21 00:00:00 Letter (Out) Sebastian [facility] 1.20.114 350.1.13.10 4.2.7.2.686 [id number] [facility] 2022-05-08 00:00:00 2022-05-08 00:00:00 Telephone Sebastian [facility] 1.2840.114 350.1.13.10 4.2.7.2.686 [id number] [facility] 2022-05-03 00:00:00 2022-05-03 00:00:00 Telephone Manolo Dixon [facility] 1.2.840.114 350.1.13.10 4.2.7.2.686 [id number] [facility] 2022-05-02 00:00:00 2022-05-02 00:00:00 Telephone Manolo Dixon [facility] 1.20.114 350.1.13.10 4.2.7.2.686 [id number] [facility] 2022-04-26 12:45:00 2022-04-26 13:00:00 Supervisor Mail Carriers Visit Pob, Adc Lab Main Manolo Dixon [facility] 1.20.114 350.1.13.10 4.2.7.2.686 [id number] [facility] 2022-04-26 11:15:00 2022-04-26 11:39:04 Out[facility] [id number] [facility] 2022-04-26 11:15:00 2022-04-26 11:39:04 Telemedici ne Visit Rose Simon Cheryal [facility] FACILITIES ADMINISTRATOR [facility] 1.2.114 350.1.13.10 4.2.7.2.686 [id number] [facility] 2022-04-26 00:00:00 2022-04-26 00:00:00 Orders Only Doctor Unassigned, [place] [facility] [id number] 350.1.13.10 4.2.7.2.686 [id number] [facility] 2022-04-23 13:15:00 2022-04-23 13:36:40 Outpatient R MANOLO DIXON [facility] [id number] [facility] 2022-04-23 13:15:00 2022-04-23 13:36:40 [facility] 1.2.840.114 350.1.13.10 4.2.7.2.686 [id number] 134 [id number] [facility] 2022-04-10 09:30:00 2022-04-10 09:30:00 Outpatient R OTF NÚÑEZ [facility] [id number] [facility] 2022-04-09 13:00:00 2022-04-09 13:20:19 [facility] [id number] [facility] 2022-04-09 13:00:00 2022-04-09 13:20:19 [facility] 1.2.840.114 350.1.13.10 4.2.7.2.686 [id number] 134 [id number] [facility] 2022-04-09 00:00:00 2022-04-09 00:00:00 Orders Only Doctor Unassigned, High Rolls [facility] 1.2.840.114 350.1.13.10 4.2.7.2.686 [id number] [facility] 2022-04-09 00:00:00 2022-04-09 00:00:00 [facility] 1.2.840.114 350.1.13.10 4.2.7.2.686 [id number] 134 [id number] [facility] 2021-09-06 13:00:00 2021-09-06 13:00:00 Outpatient R ABBEY JEAN [facility] [id number] [facility] 2021-09-06 00:00:00 2021-09-06 00:00:00 Encounter 1.2.840.1 83692.1.1 3.104.2.7 .[id number] 1.2840.114 350.1.13.10 4.2.7.2.696 [id number] [facility] 2021-09-02 02:41:00 2021-09-03 18:05:00 Inpatient X TALHA SOMERS [facility] NEL [id number] [facility] 2021-09-02 02:41:00 2021-09-03 18:05:00 Hospital Encounter Talha Somers [facility] 1.2840.114 350.1.13.10 4.2.7.2.686 [id number] [facility] 2021-08-27 14:00:00 2021-08-27 14:54:41 Outpatient R MANOLO DIXON CHERYAL [facility] [id number] [facility] 2021-08-27 14:00:00 2021-08-27 14:54:41 Routine Visit Manolo Dixon [facility] 1.2840.114 350.1.13.10 4.2.7.2.686 [id number] 134 [id number] [facility] 2021-08-22 11:00:00 2021-08-22 11:00:00 Outpatient R MANOLO DIXON CHERYAL [facility] [id number] [facility] 2021-08-16 13:45:00 2021-08-16 14:47:34 Outpatient R ABBEY JEAN [facility] [id number] [facility] 2021-08-16 13:45:00 2021-08-16 14:47:34 Routine Visit Abbey Jean [facility] 1.2840.114 350.1.13.10 4.2.7.2.686 [id number] 134 [id number] [facility] 2021-08-10 11:45:00 2021-08-10 12:00:00 Supervisor Mail Carriers Visit Milvia, [facility] Abbey Jean [facility] 1.840.114 350.1.13.10 4.2.7.2.686 [id number] [facility] 2021-08-10 11:45:00 2021-08-10 11:45:00 Outpatient R ABBEY JEAN [facility] [id number] [facility] 2021-08-10 00:00:00 2021-08-10 00:00:00 Orders Only Doctor Unassigned, High Rolls [facility] 1.840.114 350.1.13.10 4.2.7.2.686 [id number] [id number] [facility] 2021-08-02 15:15:00 2021-08-02 16:09:15 Outpatient R ABBEY JEAN [facility] [id number] [facility] 2021-08-02 15:15:00 2021-08-02 16:09:15 Routine Visit Abbey Jean [facility] 1.840.114 350.1.13.10 4.2.7.2.686 [id number] 134 [id number] [facility] 2021-07-27 00:00:00 2021-07-27 00:00:00 Telephone Abbey Jean [facility] 1.2.114 350.1.13.10 4.2.7.2.686 [id number] 134 [id number] [facility] 2021-07-26 10:08:00 2021-07-26 12:30:00 Outpatient P ABBEY JEAN [facility] NEL [id number] [facility] 2021-07-26 10:08:00 2021-07-26 12:30:00 Hospital Encounter Talha Somers Megan [facility] 1.2.840.114 350.1.13.10 4.2.7.2.686 [id number] [facility] 2021-07-26 00:00:00 2021-07-26 00:00:00 Telephone Jose Jeann [facility] 1.2.840.114 350.1.13.10 4.2.7.2.686 [id number] 134 [id number] [facility] 2021-07-20 16:30:00 2021-07-20 16:51:55 Outpatient R MANOLO DIXON CHERYAL [facility] [id number] [facility] 2021-07-20 16:30:00 2021-07-20 16:51:55 Routine Visit Manolo Dixon [facility] 1.2.840.114 350.1.13.10 4.2.7.2.686 [id number] 134 [id number] [facility] 2021-07-18 14:30:00 2021-07-18 14:30:00 Outpatient MANOLO CAO CHERYAL [facility] [id number] [facility] 2021-06-27 14:00:00 2021-06-27 14:00:00 Outpatient R MANOLO DIXON CHERYAL [facility] [id number] [facility] 2021-06-26 16:15:00 2021-06-26 16:15:00 Outpatient ABBEY TIMMONS [facility] [id number] [facility] 2021-06-12 08:15:00 2021-06-12 08:15:00 Outpatient R ABBEY JEAN [facility] [id number] [facility] 2021-06-06 00:00:00 2021-06-06 00:00:00 Telephone Abbey Jean [facility] 1.2840.114 350.1.13.10 4.2.7.2.686 [id number] 134 [id number] [facility] 2021-06-01 15:00:00 2021-06-01 15:53:36 Outpatient R ABBEY JEAN [facility] [id number] [facility] 2021-06-01 15:00:00 2021-06-01 15:53:36 Routine Visit Jose Jeann [facility] 1..840.114 350.1.13.10 4.2.7.2.686 [id number] 134 [id number] [facility] 2021-05-30 00:00:00 2021-05-30 00:00:00 Telephone Abbey Jean [facility] 1.2840.114 350.1.13.10 4.2.7.2.686 [id number] 134 [id number] [facility] 2021-05-15 16:15:00 2021-05-15 16:15:00 Outpatient R ABBEY JEAN [facility] [id number] [facility] 2021-05-09 14:30:00 2021-05-09 15:30:00 Supervisor Mail Carriers Visit Ultrasound, [facility] Yasmin Krishnan [facility] FACILITIES ADMINISTRATOR [facility] 1..840.114 350.1.13.10 4.2.7.2.686 [id number] [facility] 2021-05-09 14:30:00 2021-05-09 14:30:00 Outpatient P YASMIN KRISHNAN [facility] [id number] [facility] 2021-05-02 13:30:00 2021-05-02 13:30:00 Outpatient P [facility] [id number] [facility] 2021-05-01 16:00:00 2021-05-01 16:00:00 Outpatient R ABBEY JEAN [facility] [id number] [facility] 2021-04-19 16:00:00 2021-04-19 16:00:00 Outpatient R ABBEY JEAN [facility] [id number] [facility] 2021-04-16 00:00:00 2021-04-16 00:00:00 Patient Secure Msg Doctor Unassigned, High Rolls [facility] 1.0.114 350.1.13.10 4.2.7.2.686 [id number] 134 [id number] [facility] 2021-04-16 00:00:00 2021-04-16 00:00:00 Telephone Ted Abbey [facility] 1..114 350.1.13.10 4.2.7.2.686 [id number] 134 [id number] [facility] 2021-03-29 16:00:00 2021-03-29 16:56:21 Outpatient R ABBEY JEAN [facility] [id number] [facility] 2021-03-29 15:55:48 2021-03-29 16:56:21 Routine Visit Ted Abbey [facility] 1.0.114 350.1.13.10 4.2.7.2.686 [id number] 134 [id number] [facility] 2021-03-29 16:00:00 2021-03-29 16:00:00 Outpatient R ABBEY JEAN [facility] [id number] [facility] 2021-03-09 00:00:00 2021-03-09 00:00:00 Orders Only Doctor Unassigned, High Rolls [facility] 1.2840.114 350.1.13.10 4.2.7.2.686 [id number] [id number] [facility] 2021-03-07 00:00:00 2021-03-07 00:00:00 Telephone Abbey Jean [facility] 1.2840.114 350.1.13.10 4.2.7.2.686 [id number] 134 [id number] [facility] 2021-03-01 13:00:40 2021-03-01 13:46:57 Routine Visit Abbey Jean [facility] 1.2840.114 350.1.13.10 4.2.7.2.686 [id number] 134 [id number] [facility] 2021-03-01 13:00:00 2021-03-01 13:46:57 Outpatient R ABBEY JEAN [facility] [id number] [facility] 2021-03-01 00:00:00 2021-03-01 00:00:00 Letter (Out) Nurse, Daily [facility] 1.0.114 350.1.13.10 4.2.7.2.686 [id number] 134 [id number] [facility] 2021-02-27 00:00:00 2021-02-27 00:00:00 Case Management Abbey Jean [facility] 1.2840.114 350.1.13.10 4.2.7.2.686 [id number] 134 [id number] [facility] 2021-02-26 11:00:00 2021-02-26 11:00:00 Outpatient R ABBEY JEAN [facility] [id number] [facility] 2021-02-26 10:25:15 2021-02-26 10:40:15 Supervisor Mail Carriers Visit Pob, Heather [facility] Main Abbey Jean [facility] 1.2840.114 350.1.13.10 4.2.7.2.686 [id number] [facility] [id number] [facility] 2021-02-26 00:00:00 2021-02-26 00:00:00 Telephone Abbey Jean [facility] 1.2.840.114 350.1.13.10 4.2.7.2.686 [id number] 134 [id number] [facility] 2021-02-23 10:53:48 2021-02-23 12:23:35 [facility] 1.2.840.114 350.1.13.10 4.2.7.2.686 [id number] 134 [id number] [facility] 2021-02-23 10:45:00 2021-02-23 12:23:35 Outpatient R ABBEY JEAN [facility] [id number] [facility] 2021-02-23 00:00:00 2021-02-23 00:00:00 Telephone Ted [facility] 1.2840.114 350.1.13.10 4.2.7.2.686 [id number] 134 [id number] [facility] 2021-02-23 00:00:00 2021-02-23 00:00:00 Orders Only Doctor Unassigned, High Rolls [facility] 1.2.840.114 350.1.13.10 4.2.7.2.686 [id number] [id number] [facility] 2021-02-23 00:00:00 2021-02-23 00:00:00 Case Management Abbey Jean [facility] 1.2840.114 350.1.13.10 4.2.7.2.686 [id number] 134 [id number] [facility] 2021-02-08 14:39:11 2021-02-08 15:51:23 Initial Visit Abbey Jean [facility] 1.2840.114 350.1.13.10 4.2.7.2.686 [id number] 134 [id number] [facility] 2021-02-08 14:30:00 2021-02-08 15:51:23 Outpatient ABBEY TIMMONS [facility] [id number] [facility] 2021-02-08 14:30:00 2021-02-08 15:51:23 Outpatient ABBEY TIMMONS [facility] [id number] [facility] 2021-02-08 00:00:00 2021-02-08 00:00:00 Orders Only Doctor Unassigned, High Rolls [facility] 1.2.840.114 350.1.13.10 4.2.7.2.686 [id number] [id number] [facility] 2021-01-25 09:45:00 2021-01-25 09:45:00 Outpatient SHEREE HOLLEY [facility] [id number] [facility] 2021-01-25 09:45:00 2021-01-25 09:45:00 Outpatient SHEREE HOLLEY [facility] [id number] [facility] 2017-12-04 00:00:00 2017-12-06 00:00:00 Outpatient [facility] [id number] [facility] Results Test Description Test Time Test Comments Results Result Co mments Source [facility] - SYPHILIS IGG/[id number] 16:04:47* Test Item Value Reference Range Interpretation Comme nts Syphilis IgG/IgM (test code = 74297-7) Non-reactive Non-reactive GLADYS (test code = GLADYS) Non-reactive - No serologic evidence of T. pallidum infection. Cannot exclude incubating or early syphilis. Submit a second specimen in 2-4 weeks if syphilis is clinically suspected. Equivocal - Further testing to follow. Reactive - Further testing to follow. Lab Interpretation (test code = 76868-2) Normal [facility] SystemCB WITH [id number] 03:56:31* Test Item Value Reference Range Interpretation Comme nts WBC (test code = 6690-2) 11.13 See_Comment H [Automated messa ge] The system which generated this result transmitted reference range: 4.30 - 11.10 10*3/?L. The reference range was not used to interpret this result as normal/abnormal. RBC (test code = 789-8) 3.93 See_Comment [Automated [employer] ge] The system which generated this result [...] 33.8 g/dL 31.6-35.1 RDW-SD (test code = 63509-2) 37.6 fL 39.0-49.9 L RDW-CV (test code = 788-0) 13.2 % 12.0-15.5 PLT (test code = 777-3) 288 See_Comment [Automated [employer] ge] The system which generated this result transmitted reference range: 166 - 358 10*3/?L. The reference range was not used to interpret this result as normal/abnormal. MPV (test code = 88401-0) 11.0 fL 9.5-12.9 NRBC/100 WBC (test code = 9260376052) 0.0 See_Comment [Automated [employer] ssage] The system which generated this result transmitted reference range: 0.0 - 10.0 /100 WBCs. The reference range was not used to interpret this result as normal/abnormal. NRBC x10^3 (test code = 2564512176) See_Comment [Automated [employer] ge] The system which generated this result transmitted reference range: 10*3/?L. The reference range was not used to interpret this result as normal/abnormal. GRAN MAT (NEUT) % (test code = 770-8) 65.5 % IMM GRAN % (test code = 0764096947) 0.60 % LYMPH % (test code = 736-9) 26.3 % MONO % (test code = 5905-5) 5.8 % EOS % (test code = 713-8) 1.6 % BASO % (test code = 706-2) 0.2 % GRAN MAT x10^3(ANC) (test code = 2937279701) 7.28 10*3/uL 1.88-7.09 H IMM GRAN x10^3 (test code = 0395959315) 0.07 10*3/uL 0.00-0.06 H LYMPH x10^3 (test code = 731-0) 2.93 10*3/uL 1.32-3.29 MONO x10^3 (test code = 742-7) 0.65 10*3/uL 0.33-0.92 EOS x10^3 (test code = 711-2) 0.18 10*3/uL 0.03-0.39 BASO x10^3 (test code = 704-7) 0.01-0.07 Lab Interpretation (test code = 29631-8) Abnormal [facility] SystemHepatitis B Surface [id number] 03:38:08 * Test Item Value Reference Range Interpretation Comme [facility] HBsAg Semi-Quantitative (irina t code = 5195-3) 0.15 Negative [facility] SystemProthrombin Time / [id number] 02:11:18* Test Item Value Reference Range Interpretation Comme nts PROTIME PATIENT (test code = 5964-2) 11.1 See_Comment [Automated [email or web address]] The system which generated this result transmitted reference range: 10.1 - 12.6 Seconds. The reference range was not used to interpret this result as normal/abnormal. INR (test code = 6301-6) 1.0 Normal INR <1.1; Warfarin Therapeutic range 2.0 to 3.0 or 2.5 to 3.5, depending upon the indications. Lab Interpretation (test code = 43050-5) Normal [facility] SystemaPTT2023-03-30 02:11:18* Test Item Value Reference Range Interpretation Comme nts APTT Patient (test code = 3173-2) 25 See_Comment L [Automated [employer] ge] The system which generated this result transmitted reference range: 26 - 36 Seconds. The reference range was not used to interpret this result as normal/abnormal. Lab Interpretation (test code = 05569-7) Abnormal [facility] SystemFIBRINOGEN2023-03-30 02:11:18* Test Item Value Reference Range Interpretation Comme nts Fibrinogen (test code = 7663171956) 383 mg/dL 167-453 Lab Interpretation (test cod e = 29506-4) Normal [facility] SystemType and Screen - ONCE [id number] 01:35:00 * Test Item Value Reference Range Interpretation Comme nts ABO & RH (test code = 20) B POSITIVE IAT (test code = 1185) Negative [facility] SystemPOAK URINALYSIS W/O SPECIFIC [id number] 21:21:00* Test Item Value Reference Range Interpretation [...] = 3257) n/a Negative - Negati ve [facility] URINALYSIS W/O SPECIFIC [id number] 19:11:00* Test Item Value Reference Range Interpretation [...] = 3257) n/a Negative - Negati ve [facility] SystemPOCT [id number] 19:18:00* Test Item Value Reference Range Interpretation Comme nts POCT PREG (test code = 1605) Positive On board controls acceptable with C Line (test code = 3574) Yes POCT PREG LOT # (test code = 3575) POCT PREG TEST DATE ( test code = 3576) [facility] with Lhbgbriymsjd1817-46-04 09:17:16* Test Item Value Reference Range Interpretation [...] 32.3 g/dL 31.6-35.1 RDW-SD (test code = 65743-8) 50.6 fL 39.0-49.9 H RDW-CV (test code = 788-0) 17.5 % 12.0-15.5 H PLT (test code = 777-3) See_Comment [Automated messa ge] The system which generated this result transmitted reference range: 166 - 358 10*3/?L. The reference range was not used to interpret this result as normal/abnormal. MPV (test code = 40207-3) 11.7 fL 9.5-12.9 NRBC/100 WBC (test code = 5275917714) See_Comment [Automated me ssage] The system which generated this result transmitted reference range: 0.0 - 10.0 /100 WBCs. The reference range was not used to interpret this result as normal/abnormal. NRBC x10^3 (test code = 8818837529) <0.01 See_Comment [Automated messa ge] The system which generated this result transmitted reference range: 10*3/?L. The reference range was not used to interpret this result as normal/abnormal. GRAN MAT (NEUT) % (test code = 770-8) 64.6 % IMM GRAN % (test code = 8052024722) 0.40 % LYMPH % (test code = 736-9) 25.3 % MONO % (test code = 5905-5) 7.5 % EOS % (test code = 713-8) 1.7 % BASO % (test code = 706-2) 0.5 % GRAN MAT x10^3(ANC) (test code = 9734514366) 7.51 10*3/uL 1.88-7.09 H IMM GRAN x10^3 (test code = 0329790036) 0.05 10*3/uL 0.00-0.06 LYMPH x10^3 (test code = 731-0) 2.95 10*3/uL 1.32-3.29 MONO x10^3 (test code = 742-7) 0.87 10*3/uL 0.33-0.92 EOS x10^3 (test code = 711-2) 0.20 10*3/uL 0.03-0.39 BASO x10^3 (test code = 704-7) 0.06 10*3/uL 0.01-0.07 Lab Interpretation (test code = 15595-4) Abnormal [facility] OR ABEL ONLY - [id number] 03:59:13* Test Item Value Reference Range Interpretation Comme nts RPR (Qualitative) (test code = 68632-3) Nonreactive Nonreactive Lab Interpretation (test cod e = 22069-4) Normal [facility] SystemRubella Screen (JERSON) [id number] 18:51:00 * Test Item Value Reference Range Interpretation Comme nts Rubella screen IgG (test code = 2089787699) Positive Negative GLADYS (test code = GLAYDS) Positive - Indicat es the patient was exposed to Rubella through infection or vaccination.Negative - Indicates the patient could be susceptible to Rubella infection.Equivocal - A second specimen should be sent. [facility] SystemHepatitis B Surface Fmwnucz3700-47-89 17:05:37 * Test Item Value Reference Range Interpretation Comme nts HBsAg Semi-Quantitative (irina t code = 5195-3) Negative Negative [facility] SystemHIV 1/2 AG-AB WITH [id number] 11:27:21* Test Item Value Reference Range Interpretation Comme nts HIV Semi-quantitative (test code = 66403-6) Negative Negative GLADYS (test code = GLADYS) Non-reactive for HIV-1 antigen and HIV-1/HIV-2 antibodies. ?No laboratory evidence of HIV infection. ?Repeat in 2-4 weeks if acute HIV infection is suspected. [facility] SystemRHO (D) IMMUNE [id number] 09:09:42* Test Item Value Reference Range Interpretation Comme nts RHIG CANDIDATE? (test code = 5055) No- see comment Patient is not a candidate for RhIg- Patient is Rh Positive.Performed at [facility] Laboratory Services - [facility] Blood [address] [place] [address] Free: [phone] No. [id number] [facility] SystemType and Screen - ONCE [id number] 09:08:33 * Test Item Value Reference Range Interpretation Comme nts ABO & RH (test code = 20) B Positive Performed at [facility] Laboratory [facility] Blood [address] Free: [phone] No. [id number] IAT (test code = 1185) Negative Performed at [facility] Laboratory [facility] Blood [address] [place], [place] [address]Toll Free: [phone] No. [id number] [facility] SystemVENOUS CORD [id number] 08:51:38* Test Item Value Reference Range Interpretation Comme nts VENOUS BASE EXCESS, CORD (test code = 3603854067) mEq/L VENOUS PH, CORD (test code = 0270304660) 7.25-7.45 L VENOUS PC02, CORD (test code = 4849294009) See_Comment H [Automated me ssage] The system which generated this result transmitted reference range: 27 - 49 mmHg. The reference range was not used to interpret this result as normal/abnormal. VENOUS PO2, CORD (test code = 2616185023) See_Comment [Automated me ssage] The system which generated this result transmitted reference range: 17 - 41 mmHg. The reference range was not used to interpret this result as normal/abnormal. VENOUS BICARBONATE, CORD (test code = 5274306570) See_Comment [Automa tato message] The system which generated this result transmitted reference range: 12 - 29 mEq/L. The reference range was not used to interpret this result as normal/abnormal. Lab Interpretation (test code = 51185-7) Abnormal [facility] SystemARTERIAL CORD [id number] 08:48:28* Test Item Value Reference Range Interpretation Comme nts BASE EXCESS, CORD (test code = 6034111465) mEq/L AC PH, CORD (BEAKER) (test code = 2165668406) 7.18-7.38 PC02, CORD (test code = 9910390290) See_Comment [Automated messa ge] The system which generated this result transmitted reference range: 32 - 66 mmHg. The reference range was not used to interpret this result as normal/abnormal. PO2, CORD (test code = 7997266909) See_Comment [Automated messa ge] The system which generated this result transmitted reference range: 10 - 30 mmHg. The reference range was not used to interpret this result as normal/abnormal. BICARBONATE, CORD (test code = 2468241148) See_Comment [Automated messa ge] The system which generated this result transmitted reference range: 17 - 27 mEq/L. The reference range was not used to interpret this result as normal/abnormal. [facility] SystemCB with Rkkdawdktalw5198-29-32 08:33:11* Test Item Value Reference Range Interpretation [...] 32.0 g/dL 31.6-35.1 RDW-SD (test code = 19382-1) 49.8 fL 39.0-49.9 RDW-CV (test code = 788-0) 17.4 % 12.0-15.5 H PLT (test code = 777-3) See_Comment [Automated messa ge] The system which generated this result transmitted reference range: 166 - 358 10*3/?L. The reference range was not used to interpret this result as normal/abnormal. MPV (test code = 67055-2) 11.3 fL 9.5-12.9 NRBC/100 WBC (test code = 1249562877) See_Comment [Automated [employer] ssage] The system which generated this result transmitted reference range: 0.0 - 10.0 /100 WBCs. The reference range was not used to interpret this result as normal/abnormal. NRBC x10^3 (test code = 2976624174) <0.01 See_Comment [Automated messa ge] The system which generated this result transmitted reference range: 10*3/?L. The reference range was not used to interpret this result as normal/abnormal. GRAN MAT (NEUT) % (test code = 770-8) 72.5 % IMM GRAN % (test code = 2472583754) 0.40 % LYMPH % (test code = 736-9) 16.7 % MONO % (test code = 5905-5) 9.4 % EOS % (test code = 713-8) 0.8 % BASO % (test code = 706-2) 0.2 % GRAN MAT x10^3(ANC) (test code = 0649996849) 8.85 10*3/uL 1.88-7.09 H IMM GRAN x10^3 (test code = 5339742224) 0.05 10*3/uL 0.00-0.06 LYMPH x10^3 (test code = 731-0) 2.03 10*3/uL 1.32-3.29 MONO x10^3 (test code = 742-7) 1.14 10*3/uL 0.33-0.92 H EOS x10^3 (test code = 711-2) 0.10 10*3/uL 0.03-0.39 BASO x10^3 (test code = 704-7) <0.03 0.01-0.07 Lab Interpretation (test code = 04349-4) Abnormal [facility] URINALYSIS W/O SPECIFIC [id number] 19:39:00* Test Item Value Reference Range Interpretation [...] = 3257) n/a Negative - Negati ve [facility] [facility]IN[facility] W/O SPECIFIC [id number] 20:47:00* Test Item Value Reference Range Interpretation [...] = 3257) n/a Negative - Negati ve [facility] /2 AG-AB WITH [id number] 17:26:44* Test Item Value Reference Range Interpretation Comme nts HIV Semi-quantitative (test code = 43450-2) Negative Negative GLADYS (test code = GLADYS) Non-reactive for HIV-1 antigen and HIV-1/HIV-2 antibodies. ?No laboratory evidence of HIV infection. ?Repeat in 2-4 weeks if acute HIV infection is suspected. [facility]OD [id number] 17:01:59 * Test Item Value Reference Range Interpretation Comme nts ABO & RH (test code = 20) B Positive Performed at [facility] Laboratory [facility] Blood [address] [place], [place] [id number] Free: [phone] No. [id number] IAT (test code = 1185) Negative Performed at [facility] Laboratory [facility] Blood [address] [place], [place] [id number] Free: [phone] No. [id number] [facility] WITH [id number] 16:30:16* Test Item Value Reference Range Interpretation [...] 31.6 g/dL 31.6-35.1 RDW-SD (test code = 49096-5) 38.5 fL 39.0-49.9 L RDW-CV (test code = 788-0) 13.7 % 12.0-15.5 PLT (test code = 777-3) See_Comment [Automated messa ge] The system which generated this result transmitted reference range: 166 - 358 10*3/?L. The reference range was not used to interpret this result as normal/abnormal. MPV (test code = 36975-4) 10.3 fL 9.5-12.9 NRBC/100 WBC (test code = 8431827045) See_Comment [Automated TellApart ssage] The system which generated this result transmitted reference range: 0.0 - 10.0 /100 WBCs. The reference range was not used to interpret this result as normal/abnormal. NRBC x10^3 (test code = 7879364760) <0.01 See_Comment [Automated messa ge] The system which generated this result transmitted reference range: 10*3/?L. The reference range was not used to interpret this result as normal/abnormal. GRAN MAT (NEUT) % (test code = 770-8) 73.8 % IMM GRAN % (test code = 2048483906) 0.70 % LYMPH % (test code = 736-9) 16.9 % MONO % (test code = 5905-5) 6.7 % EOS % (test code = 713-8) 1.6 % BASO % (test code = 706-2) 0.3 % GRAN MAT x10^3(ANC) (test code = 9609101648) 7.66 10*3/uL 1.88-7.09 H IMM GRAN x10^3 (test code = 5274639579) 0.07 10*3/uL 0.00-0.06 H LYMPH x10^3 (test code = 731-0) 1.75 10*3/uL 1.32-3.29 MONO x10^3 (test code = 742-7) 0.69 10*3/uL 0.33-0.92 EOS x10^3 (test code = 711-2) 0.17 10*3/uL 0.03-0.39 BASO x10^3 (test code = 704-7) 0.03 10*3/uL 0.01-0.07 Lab Interpretation (test code = 25123-9) Abnormal [facility]/O SPECIFIC [id number] 21:41:00* Test Item Value Reference Range Interpretation [...] ve Lab Interpretation (test cod e = 46375-0) Normal [facility] W/O SPECIFIC [id number] 21:23:00* Test Item Value Reference Range Interpretation [...] = 3257) N/A Negative - Negati ve [facility]
[2024-06-04 08:12] LABS: Absolute Eosinophils 0.2 K/uL (0-0.5); Absolute Monocytes 0.6 K/uL (0.1-1.3); Absolute Neutrophil 7.6 K/uL (1.8-8.0); Basophils % 0.4 % (0-1.3); Hematocrit 36.8 % (36.0-45.0); Lymphocytes % 19.4 % (15.3-44.8); MCH 26.9 pg (27.0-35.0); MCHC 32.6 g/dL (32.0-36.0); MCV 82.6 fL (80-100); MPV 8.9 fL (7.6-11.3); Monocytes % 5.7 % (3.3-12.3); Neutrophils % 72.5 % (41.7-73.7); Platelets 347 thou/uL (152-406); RBC Red Blood Cell Count 4.46 M/uL (3.86-4.86); Red Cell Distribution Width 14.2 % (12.1-15.2)
[2024-06-04 08:15] LABS: Specific Gravity 1.014 (1.005-1.030); Urine Bacteria <20 /HPF (<20); Urine Bilirubin NEGATIVE (Negative); Urine Blood Negative (Negative); Urine Clarity Turbid (Clear); Urine Color Colorless (Yellow); Urine Culture Reflex Order NOT NEEDED; Urine Glucose NEGATIVE (Negative); Urine Ketones NEGATIVE (Negative); Urine Micro Reflex YN NO BILL MICROSCOPIC; Urine Mucus Slight /HPF (None Seen); Urine Nitrite NEGATIVE (Negative); Urine Protein NEGATIVE (Negative); Urine RBC <5 /HPF (None Seen); Urine Urobilinogen Normal (Normal); Urine WBC <5 /HPF (<5); Urine pH 5.5 (5.0-7.0)
--- NOTE | 2024-06-04 08:39 | RAD REPORT ---
EXAMINATION: US Transvaginal OB COMPARISON: None. HISTORY: [facility] MAIN vaginal bleedinbg, preg Bed Name: 13 TECHNIQUE: Real-time ultrasound was performed through the pelvis. A transvaginal scan was performed t o better visualize the intrauterine contents and adnexa. FINDINGS: There is a single living intrauterine . There is no visible subchorionic hemorrhage. Small yolk sac was visualized. Both ovaries are not visualized. There is no free fluid in the cul-de-sac. Measurements and Calculations: Edie rump length: 3.6 mm, consistent with a sonographic age of 6 weeks, 0 days. The patient's LMP da te is not stated. heart rate: 117 bpm. IMPRESSION: Single living intrauterine , with a composite sonographic age of 6 weeks, 0 days.
[2024-06-04 08:46] LABS: Anion Gap 7.7 mEq/L (5.0-15.0); Potassium 3.7 mEq/L (3.5-5.1)
--- NOTE | 2024-06-04 08:50 | ER ---
Nurse's Notes [facility] Name: Rachelle Heredia Age: 29 yrs Sex: Female : 1995 Arrival Date: 06/04/2024 Time: 06:17 Bed 13 Private MD: Diagnosis: Abnormal uterine and vaginal bleeding, unspecified;6 weeks Presentation: 06/04 06:30 Chief complaint: Patient states: 6-8 week gestation vaginal spotting since yesterday. ha1 Denies any pain. 06:30 Coronavirus screen: Client denies travel out of the [place] in the last 14 days. Ebola ha1 Screen: No symptoms or risks identified at this time. Initial Sepsis Screen: Does the patient meet any 2 criteria? No. Patient's initial sepsis screen is negative. Does the patient have a suspected source of infection? No. Patient's initial sepsis screen is negative. Risk Assessment: Do you want to hurt yourself or someone else? Patient reports no desire to harm self or others. Onset of symptoms was June 04, 2024. 06:30 Method Of Arrival: Ambulatory ha1 06:30 Acuity: JULIET 3 ha1 Triage Assessment: 06:30 General: Appears comfortable, Behavior is calm, cooperative. Pain: Denies pain. Neuro: ha1 Level of Consciousness is awake, alert, obeys commands, Oriented to person, place, time, situation. Cardiovascular: Capillary refill < 3 seconds Patient's skin is warm and dry. Respiratory: Airway is patent Respiratory effort is even, unlabored, Respiratory pattern is regular, symmetrical. GI: Abdomen is round non-distended. : Reports vaginal bleeding that is spotty. Derm: Skin is normal. Musculoskeletal: Circulation, motion, and sensation intact. Range of motion: intact in all extremities. 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 - Infectious Disease History:: Denies. - Social history:: Smoking status: Patient denies any tobacco usage or history of. Screenin:54 [facility] ED Fall Risk Assessment (Adult) History of falling in the last 3 months, ha1 including since admission No falls in past 3 months (0 pts) Confusion or Disorientation No (0 pts) Intoxicated or Sedated No (0 pts) Impaired Gait No (0 pts) Mobility Assist Device Used No (0 pt) Altered Elimination No (0 pt) Score/Fall Risk Level 0 - 2 = Low Risk Oriented to surroundings, Maintained a safe environment, Educated pt \T\ family on fall prevention, incl call for assistance when getting out of bed, Hourly rounding (assess needs \T\ fall precautionary measures) done. Abuse screen: Denies threats or abuse. Denies injuries from another. Nutritional screening: No deficits noted. Tuberculosis screening: No symptoms or risk factors identified. Assessment: 07:15 Reassessment: Patient appears in no apparent distress at this time. Patient and/or db family updated on plan of care and expected duration. Pain level reassessed. Patient is alert, oriented x 3, equal unlabored respirations, skin warm/dry/pink. General: Appears in no apparent distress. comfortable, Behavior is calm, cooperative. Neuro: Level of Consciousness is awake, alert, obeys commands, Oriented to person, place, time, situation. Respiratory: Airway is patent Respiratory effort is even, unlabored, Respiratory pattern is regular, symmetrical. : Reports vaginal bleeding that is. 08:15 Reassessment: Patient appears in no apparent distress at this time. Patient and/or db family updated on plan of care and expected duration. Pain level reassessed. Patient is alert, oriented x 3, equal unlabored respirations, skin warm/dry/pink. General: Appears in no apparent distress. comfortable, Behavior is calm, cooperative. Neuro: Level of Consciousness is awake, alert, obeys commands, Oriented to person, place, time, situation. Vital Signs: 06:30 BP 124 / 78; Pulse 85; Resp 16 S; Temp 98.2(O); Pulse Ox 100% on R/A; Weight 90.72 kg; ha1 Height 5 ft. 6 in. ; 07:30 BP 116 / 77; Pulse 78; Resp 18; Pulse Ox 100% on R/A; db 08:15 BP 118 / 87; Pulse 73; Resp 18; Pulse Ox 100% ; db 06:30 Body Mass Index 32.28 (90.72 kg, 167.64 cm) [facility] ED Course: 06:19 Patient arrived in ED. jj6 06:30 Patient has correct armband on for positive identification. Bed in low position. Call ha1 light in reach. Side rails up X 1. 06:52 Triage completed. ha1 07:02 Ryan Moreno MD is Attending Physician. ec2 07:15 Pulse ox on. NIBP on. Warm blanket given. Pillow given. db 07:25 Missed attempt(s): 20 gauge in right antecubital area. Bleeding controlled, band aid db applied, catheter tip intact. 07:42 Initial lab(s) drawn, by me, sent to lab. Urine collected: clean catch specimen. db Inserted saline lock: 22 gauge in left antecubital area, using aseptic technique. Blood collected. Flushed with 10 mL NS. 07:53 Tiffanie Weldon, RN is Primary Nurse. db 08:06 Transvaginal OB US In Process Unspecified. EDMS 09:04 Provided Education on: DISCHARGE AND FOLLOWUP. db 09:04 No provider procedures requiring assistance completed. IV discontinued, intact, db bleeding controlled, No redness/swelling at site. Administered Medications: No medications were administered Medication: 07:15 VIS not applicable for this client. db Outcome: 08:49 Discharge ordered by . ec2 09:04 Discharged to home ambulatory, db 09:04 Condition: stable 09:04 Discharge instructions given to patient, Instructed on discharge instructions, follow up and referral plans. 09:07 Patient left the ED. db Signatures: Dispatcher [employer] [facility] Sayra Enriquez [id number] Herminia Corona RN RN [facility] Tiffanie Weldon, RN RN db Ryan Moreno MD MD 2
--- NOTE | 2024-06-04 08:50 | EDPHYS ---
Physician Documentation [facility] Name: Rachelle Heredia Age: 29 yrs Sex: Female : 1995 Arrival Date: 06/04/2024 Time: 06:17 Bed 13 Private MD: ED Physician Ryan Moreno HPI: 06/04 07:14 This 29 yrs old Black Female presents to ER via Ambulatory with complaints of 6-8 WKS ec2 GESTATION, Vaginal Bleeding. 07:14 Patient arrives today for vaginal spotting. Patient reports that she is approximately 6 ec2 weeks . 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 Patient reports no abdominal pain, nausea vomiting. Reports history of previous miscarriage. Patient reports no significant medical problems or medications daily.. 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 - Infectious Disease History:: Denies. - Social history:: Smoking status: Patient denies any tobacco usage or history of. ROS: 07:14 Constitutional: as per hpi ec2 Exam: 07:14 Constitutional: GEN: NAD Head: atraumatic Eyes: EOMI Ears: External ears are ec2 normal. CV: regular rate LUNGS: no respiratory distress ABD: non-distended SKIN: no evidence of rashes MSK: no evidence of trauma Vital Signs: 06:30 BP 124 / 78; Pulse 85; Resp 16 S; Temp 98.2(O); Pulse Ox 100% on R/A; Weight 90.72 kg; ha1 Height 5 ft. 6 in. ; 07:30 BP 116 / 77; Pulse 78; Resp 18; Pulse Ox 100% on R/A; db 08:15 BP 118 / 87; Pulse 73; Resp 18; Pulse Ox 100% ; db 06:30 Body Mass Index 32.28 (90.72 kg, 167.64 cm) ha1 MDM: 07:02 Medical Screening Exam initiated ec2 07:14 Data reviewed: vital signs, nurses notes. ED course: Patient arrives today for ec2 evaluation of vaginal spotting. Examination is unrevealing. Will obtain lab work, testing as well as ultrasonography. Differential includes normal , miscarriage.. 08:49 ED course: Ultrasound shows 6-week IUP. Patient is B+ based on previous labs on ec2 external record. Will discharge home. Return precautions given.. 06/04 07:02 Order name: HCG-Quantitative; Complete Time: 08:48 ec2 06/04 07:02 Order name: CBC with Diff; Complete Time: 08:17 ec2 06/04 07:02 Order name: BMP; Complete Time: 08:48 ec2 06/04 07:02 Order name: Abo/rh Typing; Complete Time: 09:03 ec2 06/04 07:19 Order name: UAM; Complete Time: 08:17 ec2 06/04 07:02 Order name: Transvaginal OB US; Complete Time: 08:48 ec2 Administered Medications: No medications were administered Disposition Summary: 06/04/24 08:49 Discharge Ordered Notes: Location: Home ec2 Condition: Stable ec2 Diagnosis - Abnormal uterine and vaginal bleeding, unspecified ec2 - 6 weeks ec2 Followup: ec2 - With: Private Physician - When: - Reason: Re-evaluation by your physician Discharge Instructions: - Discharge Summary Sheet ec2 - First Trimester of , [place] ec2 Forms: - Work release form db - Medication Reconciliation Form ec2 - Antibiotic Education ec2 - Prescription Opioid Use ec2 - Patient Portal Instructions ec2 - Leadership Thank You Letter ec2 Signatures: Dispatcher [employer] Herminia Sun RN RN ha1 Tiffanie Weldon RN RN db Ryan Moreno MD MD ec2 Corrections: (The following items were deleted from the chart) 07:03 07:03 QUANTITATIVE HCG+C.LAB.BRZ ordered. EDMS EDMS 07:03 07:03 CBC+H.LAB.BRZ ordered. EDMS EDMS 07:03 07:03 BASIC METABOLIC PANEL+C.LAB.BRZ ordered. EDMS EDMS 07:03 07:03 ABO/RH TYPING+BB.LAB.BRZ ordered. EDMS EDMS
[2024-06-04 09:11] VITALS: TEMP 98.2; O2SAT 100
[2024-06-04 09:13] VITALS: BP 118/87
== END 2024-06-04 09:07 | disposition home or self-care (01) ==
LOC: ER 06:17
DX: O26.851 Spotting complicating pregnancy, first trimester (principal); Z3A.01 Less than 8 weeks gestation of pregnancy
CPT/HCPCS: 36415; 76817; 80048; 81001; 84702; 85025; 86900; 86901; 99284

== ENCOUNTER 2024-06-13 07:16 | Emergency (ER) | payer OTHER, SELFPAY ==
--- OUTSIDE RECORDS SUMMARY | 2024-06-13 07:22 | XMS REPORT | Continuity of Care Document ---
Author Name Unknown Address [address] [facility] [address] [place] [address] [facility]connect Address [address] [facility] [address] [place] [address] Care Team Providers Care Music Rehabilitation Therapist Name Role Phone Patric Carreon Primary Care Physician Un available SO MANLEY Attending Clinician Unavailable SO MANLEY Attending Clinician Unavailable MANOLO DIXON Attending Clinician UnavailMANOLO Carlisle Attending Clinician UnavailSo Valle MD Attending Clinician [phone] Estefanía Naranjo MD Attending Clinician [phone] ESTEFANÍA NARANJO Attending Clinician Unavailable ESTEFANÍA NARANJO Attending Clinician Unavailable Ultrasound, [facility] Attending Clinician UnavailAnastasiya Zhang MD Attending Clinician [phone] ANASTASIYA LEZAMA Attending Clinician Unavailable Doctor Unassigned, [place] Attending Clinician U navailstefan Pob, [facility] Attending Clinician UnavailRose Yeboah Attending Clinician UnavailOTF Dupree Attending Clinician Unavail able ABBEY JEAN Attending Clinician Unavailable TALHA SOMERS Attending Clinician Unavailable Talha Somers MD Attending Clinician [phone] Abbey Jean MD Attending Clinician [phone] Yasmin Pérez MD Attending Clinician + YASMIN PÉREZ Attending Clinician Unav ailable Nurse, [facility] Attending Clinician Unavailable SHEREE MIGUEL Attending Clinician Unavail able SO MANLEY Admitting Clinician Unavailable Estefanía Naranjo MD Admitting Clinician [phone] ESTEFANÍA NARANJO Admitting Clinician Unavailable TALHA SOMERS Admitting Clinician Unavailable Talha Somers MD Admitting Clinician [phone] Payers Payer Name Policy Type Policy Number Effective Date Expirati on Date Source [facility] [id number] 2015 00:00:00 2022 00:00:00 [employer] [id number] 2017 00:00:00 Problems Condition Name Condition Details Condition Category Status Onset Date Resolution Date Last Treatment Date Treating Clinician Comments Source 23 weeks gestation of 23 weeks gestation of Disease Active - 00:00: 00 [facility] IUFD at 20 weeks or more of gestation IUFD at 20 weeks or more of gestation Disease Active -29 00:00: 00 [facility] Alpha thalassemi a silent carrier Alpha thalassemi a silent carrier Disease Active 3-14 00:00: 00 [facility] Screening declined by patient Screening declined by patient Disease Active 1-31 00:00: 00 [facility] Zellweger' s syndrome Zellweger' s syndrome Disease Active 2021-04 2-20 00:00: 00 [facility] 9 weeks gestation of 9 weeks gestation of Disease Active 2021-04 2-20 00:00: 00 [facility] Normal labor Normal labor Disease Active 5-15 00:00: 00 [facility] Positive GBS test Positive GBS test Disease Active 5-15 00:00: 00 [facility] Depression affecting in third trimester, antepartum Depression affecting in third trimester, antepartum Disease Active - 00:00: 00 [facility] Noncomplia nt patient in third trimester Noncomplia nt patient in third trimester Disease Active 4-04 00:00: 00 [facility] Anxiety Anxiety Disease Active 2018-04 00:00: 00 [facility] 38 weeks gestation of 38 weeks gestation of Disease Active 1- 00:00: 00 [facility] Atypical squamous cells of undetermin ed significan ce (ASCUS) on Papanicola ou smear of cervix Atypical squamous cells of undetermin ed significan ce (ASCUS) on Papanicola ou smear of cervix Disease Active 2016-04 0-06 00:00: 00 Overview: Formattin g of this note might be different from the original. Needs repeat colpo PP-see [place] note on 01/17/16 [facility] Sickle cell trait Sickle cell trait Disease Active 10-31 00:00: 00 [facility] Missed menses Missed menses Disease Active 10-28 00:00: 00 [facility] Obesity in Obesity in Disease Active 10-28 00:00: 00 [facility] Liveborn , of samuels , born in hospital by vaginal delivery Liveborn infant, of samuels , born in hospital by vaginal delivery Disease Active 05-19 00:00: 00 [facility] Multiparit y Multiparit y Disease Active 11-20 00:00: 00 [facility] Supervisio n of other high risk pregnancie s, first trimester Supervisio n of other high risk pregnancie s, first trimester Disease Active 11-20 00:00: 00 [facility] with inconclusi ve viability, single or unspecifie d fetus with inconclusi ve viability, single or unspecifie d fetus Disease Active 11-20 00:00: 00 [facility] Allergies, Adverse Reactions, Alerts Allergy Name Allergy Type Status Severity Reaction(s) Onset Date Inactive Date Treating Clinician Comments Source NO KNOWN ALLERGIE S Drug Class Active [facility] Social History Social Habit Start Date Stop Date Quantity Comments Source ASSERTION 2022-02-17 00:00:00 [facility] to SARS-CoV-2 (event) 2022-07-19 00:00:00 2022-07-29 13:54:00 Not sure [facility] History of Social function 2021-08-16 00:00:00 2021-08-16 00:00:00 [facility] Alcohol intake 2021-03-30 00:00:00 2021-03-30 00:00:00 Current non-drinker of alcohol (finding) [facility] Tobacco use and exposure 2012-09-08 00:00:00 2012-09-08 00:00:00 Smokeless tobacco non-user [facility] Sex Assigned At 1995 00:00:00 1995 00:00:00 [facility] Smoking Status Start Date Stop Date Source Never smoked tobacco [facility] Medications Ordered Medication Name Filled Medication Name Start Date Stop Date Current Medication? Ordering Clinician Indication Dosage Frequency Signature (SIG) Comments Components Source rho(D) immune globulin (RHOGAM) syringe 300 mcg 07-18 15:33: 32 Yes 300ug 300 mcg, Intramuscu lar, ONCE, For 1 dose, Conditiona l, Routine [facility] human papillomav vac,9-luz(P F) (GARDASIL-9 ) syringe 0.5 mL 07-18 15:33: 26 Yes .5mL 0.5 mL, Intramuscu lar, ONCE-PRIOR TO DISCHARGE, 1 dose, Starting on Liz 07/18/22 at 1033, Until Discontinu ed, Routine, Give vaccine prior to discharge [facility] HYDROcodone -acetaminop hen (NORCO 5) 5-325 mg tablet 1 tablet 07-18 15:33: 26 Yes 1{tbl} 1 tablet, Oral, Q6HPRN, Starting on Liz 07/18/22 at 1033, Until Discontinu ed, Routine, Pain (scale 7-10) [facility] ibuprofen (IBU) tablet 600 mg 07-18 15:33: 26 Yes 600mg 600 mg, Oral, Q6HPRN, Starting on Liz 07/18/22 at 1033, Until Discontinu ed, Routine, Pain (scale 4-6) [facility] acetaminoph en (TYLENOL) tablet 650 mg 07-18 15:33: 26 Yes 650mg 650 mg, Oral, Q6HPRN, Starting on Fri07/18/22 at 1033, Until Discontinu ed, Routine, Pain (scale 1-3) [facility] diphenhydrA MINE (BENADRYL) tablet 25 mg 07-18 15:33: 26 Yes 25mg 25 mg, Oral, Q6HPRN, Starting on Fri07/18/22 at 1033, Until Discontinu ed, Routine, Sleep, Itching [facility] ondansetron (ZOFRAN (PF)) injection 4 mg 07-18 15:33: 26 Yes 4mg 4 mg, Slow IV Push, Q8HPRN, Starting on Fri07/18/22 at 1033, Until Discontinu ed, Routine, Nausea and Vomiting (N/V) [facility] simethicone (GAS RELIEF (SIMETHICON E)) chewable tablet 160 mg 07-18 15:33: 26 Yes 160mg 160 mg, Oral, PC+HSPRN, Starting on Fri07/18/22 at 1033, Until Discontinu ed, Routine, Gas [facility] docusate (COLACE) capsule 200 mg 07-18 15:33: 26 Yes 200mg 200 mg, Oral, QDAILYPRN, Starting on Fri07/18/22 at 1033, Until Discontinu ed, Routine, Constipati on [facility] magnesium hydroxide (MILK OF MAGNESIA) 400 mg/5 mL suspension 30 mL 07-18 15:33: 26 Yes 30mL 30 mL, Oral, QDAILYPRN, Starting on Fri07/18/22 at 1033, Until Discontinu ed, Routine, Constipati on [facility] benzocaine- menthol (DERMOPLAST ) 20-0.5 % topical spray 07-18 15:33: 26 Yes Topical, PRN, Starting on Fri07/18/22 at 1033, Until Discontinu ed, Routine, Perineum discomfort [facility] ibuprofen (IBU) tablet 600 mg 07-18 14:28: 10 07-18 15:33 :30 No 600mg 600 mg, Oral, Q6HPRN, Starting on Fri07/18/22 at 0928, Until Fri07/18/22 at 1033, Routine, Pain (scale 1-3) [facility] morpHINE 30 mg/30 mL (fixed dose) CLOTH EXAMINER HAND injection 07-18 06:15: 00 07-18 15:33 :30 No Patient Bolus Dose: 1 mg
Lock out Interval: 10 Minutes
Basal Rate: 0 mg/hr
F our Hour Dose Limit: 32 mg
Intr avenous, 30 mL, CONTINUOUS , Starting on Fri07/18/22 at 0115, Until Fri07/18/22 at 1033 [facility] morpHINE 2 mg/mL LOAD & RESCUE INJECTION SYRG 07-18 05:02: 15 07-18 15:33 :30 No Slow IV Push, Routine [facility] miSOPROStoL (CYTOTEC) tablet 400 mcg 07-18 04:45: 00 07-18 11:56 :00 No 400ug 400 mcg, Vaginal, Q3H FEED, 4 doses, First dose (after last modificati on) on Fri07/17/22 at 2345, Last dose on Fri07/18/22 at 0845, Routine [facility] butorphanol (STADOL) injection 1 mg 07-18 04:30: 00 07-18 03:35 :00 No 1mg 1 mg, IV Push, ONCE, 1 dose, On Fri07/17/22 at 2330, Routine [facility] D5W-LR IV infusion 1,000 mL 07-18 00:35: 36 07-18 15:33 :30 No 1000mL at 1-125 mL/hr, IV Infusion, TITRATE, Starting on Fri07/17/22 at 1935, Until Fri07/18/22 at 1033, Routine [facility] ibuprofen 600 mg tablet 07-18 00:00: 00 Yes [id number] 600mg Take 1 tablet by mouth every 6 (six) hours as needed for Pain (scale 4-6). [facility] acetaminoph en 325 mg tablet 3-30 00:00: 00 07-18 04:59 :00 No [id number] 650mg Take 2 tablets by mouth every 6 (six) hours as needed for Pain (scale 1-3). [facility] vit 33-iron-fol ic-dha (SELECT-OB + DHA) 29 mg iron-1 mg -250 mg combo pack 1-31 00:00: 00 08-04 00:00 :00 No [id number] 1{packe t} Take 1 Packet by mouth in the morning. [facility] vitamin w/FA tablet 2021-04- 00:00: 00 08-04 00:00 :00 No [id number] 1{tbl} Take 1 tablet by mouth in the morning. [facility] docusate 100 mg capsule 09-03 00:00: 00 08-04 00:00 :00 No [id number] 200mg Take 2 capsules by mouth once daily as needed for Constipati on. [facility] ferrous sulfate 325 mg (65 mg iron) tablet 09-03 00:00: 00 08-04 00:00 :00 No [id number] 325mg Take 1 tablet by mouth 2 (two) times daily. [facility] vitamin w/FA tablet 09-03 00:00: 00 04-09 00:00 :00 No [id number] 1{tbl} Take 1 tablet by mouth daily. [facility] ibuprofen 600 mg tablet 16 00:00: 00 04-09 00:00 :00 No [id number] 600mg Take 1 tablet by mouth every 6 (six) hours as needed (Pain). Take with food or milk. [facility] rho(D) immune globulin (RHOGAM) syringe 300 mcg 15 08:56: 41 Yes 300ug 300 mcg, Intramuscu lar, ONCE, For 1 dose, Conditiona l, Routine [facility] [place] Gas[place] (TUCKS) 50 % topical pad 09-02 08:56: 40 Yes Topical, Q4HPRN, Starting on 09/02/21 at 0356, Until Discontinu ed, Routine, rectal/hem orrhoidal pain [facility] HYDROcodone -acetaminop hen (NORCO 5) 5-325 mg tablet 1 tablet 09-02 08:56: 40 Yes 1{tbl} 1 tablet, Oral, Q6HPRN, Starting on 09/02/21 at 0356, Until Discontinu ed, Routine, Pain (scale 7-10) [facility] ibuprofen (IBU) tablet 600 mg 09-02 08:56: 40 Yes 600mg 600 mg, Oral, Q6HPRN, Starting on 09/02/21 at 035, Until Discontinu ed, Routine, Pain (scale 4-6) [facility] acetaminoph en (TYLENOL) tablet 650 mg 09-02 08:56: 40 Yes 650mg 650 mg, Oral, Q6HPRN, Starting on 09/02/21 at 035, Until Discontinu ed, Routine, Pain (scale 1-3) [facility] diphenhydrA MINE (BENADRYL) tablet 25 mg 09-02 08:56: 40 Yes 25mg 25 mg, Oral, Q6HPRN, Starting on Fri09/02/21 at 035, Until Discontinu ed, Routine, Sleep, Itching [facility] ondansetron (ZOFRAN (PF)) injection 4 mg 09-02 08:56: 40 Yes 4mg 4 mg, Slow IV Push, Q8HPRN, Starting on Fri09/02/21 at 035, Until Discontinu ed, Routine, Nausea and Vomiting (N/V) [facility] simethicone (GAS RELIEF (SIMETHICON E)) chewable tablet 160 mg 09-02 08:56: 40 Yes 160mg 160 mg, Oral, PC+HSPRN, Starting on Fri09/02/21 at 0356, Until Discontinu ed, Routine, Gas [facility] docusate (COLACE) capsule 200 mg 09-02 08:56: 40 Yes 200mg 200 mg, Oral, QDAILYPRN, Starting on 09/02/21 at 0356, Until Discontinu ed, Routine, Constipati on [facility] magnesium hydroxide (MILK OF MAGNESIA) 400 mg/5 mL suspension 30 mL 09-02 08:56: 40 Yes 30mL 30 mL, Oral, QDAILYPRN, Starting on 09/02/21 at 0356, Until Discontinu ed, Routine, Constipati on [facility] benzocaine- menthol (DERMOPLAST ) 20-0.5 % topical spray 09-02 08:56: 40 Yes Topical, PRN, Starting on 09/02/21 at 0356, Until Discontinu ed, Routine, Perineum discomfort [facility] oxytocin (PITOCIN) 30 units in NS 500 mL IV infusion 09-02 08:28: 55 09-02 08:56 :42 No 300mL/h 300 mL/hr, IV Infusion, SEE-INSTRU CTIONS, Starting on Fri09/02/[address] art at 300 mL/hr for 1 hr then 150 mL/hr for 1 hr. & nbsp; For post delivery uterotonic
[facility] D5W-LR IV infusion 1,000 mL 09-02 08:15: 00 09-02 08:56 :42 No 1000mL at 125 mL/hr, IV Infusion, CONTINUOUS , Starting on Fri09/02/21 at 0315, Until 09/02/21 at 0356, Routine [facility] FENTanyl PF (SUBLIMAZE (PF)) injection 50 mcg 09-02 08:10: 00 09-02 08:12 :00 No 50ug 50 mcg, Slow IV Push, ONCE, 1 dose, On 09/02/21 at 0315, Routine [facility] vit 33-iron-fol ic-dha (SELECT-OB + DHA) 29 mg iron-1 mg -250 mg combo pack 07-26 00:00: 00 09-03 00:00 :00 No [id number] 1{packe t} Take 1 Packet by mouth daily. [facility] ferrous fumarate-b1 2-vitamic C-folic acid (FEROCON) 110-0.5 mg capsule 07-26 00:00: 00 09-03 00:00 :00 No [id number] 1{capsu le} Take 1 capsule by mouth daily with breakfast. [facility] cephALEXin 500 mg capsule 07-26 00:00: 00 08-03 04:59 :00 No [id number] 500mg Take 1 capsule by mouth every 6 (six) hours for 7 days. [facility] PNV NO.95/FLYNN US FUM/FOLIC AC ( ORAL) 06-01 15:45: 54 06-01 00:00 :00 No Take by mouth. [facility] 78-iron-fol ate 1-dha 18 mg iron-1 mg -300 mg Cap 06-01 00:00: 00 08-03 00:00 :00 No [id number] 1{tbl} Take 1 tablet by mouth daily. [facility] terconazole 0.8 % vaginal cream 06-01 00:00: 00 06-05 05:59 :00 No [id number] 1{appli cator} Insert 1 Applicator into vagina at bedtime for 3 days. [facility] cephALEXin 500 mg capsule 05-30 00:00: 00 07-26 00:00 :00 No 500mg Take 500 mg by mouth every 6 (six) hours. [facility] metroNIDAZO LE 500 mg tablet 05-30 00:00: 00 07-26 00:00 :00 No TAKE 1 TABLET BY MOUTH EVERY 12 HOURS FOR 7 DAYS. DO NOT DRINK ALCOHOL WHILE TAKING THIS MEDICATION [facility] cephALEXin 500 mg capsule 2020-04 00:00: 00 03-07 05:59 :00 No [id number] 500mg Take 1 capsule by mouth every 6 (six) hours for 7 days. [facility] metroNIDAZO LE 500 mg tablet 2020-04 00:00: 00 03-03 05:59 :00 No [id number] 500mg Take 1 tablet by mouth every 12 (twelve) hours for 7 days. [facility] Immunizations Ordered Immunization Name Filled Immunization Name Date Status Comments Source TDAP 2016-03-13 00:00:00 Completed [facility] TDAP 2016-03-13 00:00:00 Completed [facility] TDAP 2016-03-13 00:00:00 Completed [facility] TDAP 2016-03-13 00:00:00 Completed [facility] TDAP 2016-03-13 00:00:00 Completed [facility] TDAP 2016-03-13 00:00:00 Completed [facility] TDAP 2016-03-13 00:00:00 Completed [facility] TDAP 2016-03-13 00:00:00 Completed [facility] TDAP 2016-03-13 00:00:00 Completed [facility] TDAP 2016-03-13 00:00:00 Completed [facility] TDAP 2016-03-13 00:00:00 Completed [facility] TDAP 2016-03-13 00:00:00 Completed [facility] TDAP 2016-03-13 00:00:00 Completed [facility] TDAP 2016-03-13 00:00:00 Completed [facility] TDAP 2016-03-13 00:00:00 Completed [facility] TDAP 2016-03-13 00:00:00 Completed [facility] TDAP 2016-03-13 00:00:00 Completed [facility] TDAP 2016-03-13 00:00:00 Completed [facility] TDAP 2016-03-13 00:00:00 Completed [facility] TDAP 2016-03-13 00:00:00 Completed [facility] TDAP 2016-03-13 00:00:00 Completed [facility] TDAP 2016-03-13 00:00:00 Completed [facility] TDAP 2016-03-13 00:00:00 Completed [facility] TDAP 2016-03-13 00:00:00 Completed [facility] TDAP 2016-03-13 00:00:00 Completed [facility] TDAP 2016-03-13 00:00:00 Completed [facility] TDAP 2016-03-13 00:00:00 Completed [facility] TDAP 2016-03-13 00:00:00 Completed [facility] TDAP 2016-03-13 00:00:00 Completed [facility] TDAP 2016-03-13 00:00:00 Completed [facility] TDAP 2016-03-13 00:00:00 Completed [facility] TDAP 2016-03-13 00:00:00 Completed [facility] TDAP 2013-10-21 00:00:00 Completed [facility] TDAP 2013-10-21 00:00:00 Completed [facility] TDAP 2013-10-21 00:00:00 Completed [facility] TDAP 2013-10-21 00:00:00 Completed [facility] TDAP 2013-10-21 00:00:00 Completed [facility] TDAP 2013-10-21 00:00:00 Completed [facility] TDAP 2013-10-21 00:00:00 Completed [facility] TDAP 2013-10-21 00:00:00 Completed [facility] TDAP 2013-10-21 00:00:00 Completed [facility] TDAP 2013-10-21 00:00:00 Completed [facility] TDAP 2013-10-21 00:00:00 Completed [facility] TDAP 2013-10-21 00:00:00 Completed [facility] TDAP 2013-10-21 00:00:00 Completed [facility] TDAP 2013-10-21 00:00:00 Completed [facility] TDAP 2013-10-21 00:00:00 Completed [facility] TDAP 2013-10-21 00:00:00 Completed [facility] TDAP 2013-10-21 00:00:00 Completed [facility] TDAP 2013-10-21 00:00:00 Completed [facility] TDAP 2013-10-21 00:00:00 Completed [facility] TDAP 2013-10-21 00:00:00 Completed [facility] TDAP 2013-10-21 00:00:00 Completed [facility] TDAP 2013-10-21 00:00:00 Completed [facility] TDAP 2013-10-21 00:00:00 Completed [facility] TDAP 2013-10-21 00:00:00 Completed [facility] TDAP 2013-10-21 00:00:00 Completed [facility] TDAP 2013-10-21 00:00:00 Completed [facility] TDAP 2013-10-21 00:00:00 Completed [facility] TDAP 2013-10-21 00:00:00 Completed [facility] TDAP 2013-10-21 00:00:00 Completed [facility] TDAP 2013-10-21 00:00:00 Completed [facility] TDAP 2013-10-21 00:00:00 Completed [facility] TDAP 2013-10-21 00:00:00 Completed [facility] Influenza Virus Vaccine 2013-01-06 00:00:00 Completed [facility] Influenza Virus Vaccine 2013-01-06 00:00:00 Completed [facility] Influenza Virus Vaccine 2013-01-06 00:00:00 Completed [facility] Influenza Virus Vaccine 2013-01-06 00:00:00 Completed [facility] Influenza Virus Vaccine 2013-01-06 00:00:00 Completed [facility] Influenza Virus Vaccine 2013-01-06 00:00:00 Completed [facility] Influenza Virus Vaccine 2013-01-06 00:00:00 Completed [facility] Influenza Virus Vaccine 2013-01-06 00:00:00 Completed [facility] Influenza Virus Vaccine 2013-01-06 00:00:00 Completed [facility] Influenza Virus Vaccine 2013-01-06 00:00:00 Completed [facility] Influenza Virus Vaccine 2013-01-06 00:00:00 Completed [facility] Influenza Virus Vaccine 2013-01-06 00:00:00 Completed [facility] Influenza Virus Vaccine 2013-01-06 00:00:00 Completed [facility] Influenza Virus Vaccine 2013-01-06 00:00:00 Completed [facility] Influenza Virus Vaccine 2013-01-06 00:00:00 Completed [facility] Influenza Virus Vaccine 2013-01-06 00:00:00 Completed [facility] Influenza Virus Vaccine 2013-01-06 00:00:00 Completed [facility] Influenza Virus Vaccine 2013-01-06 00:00:00 Completed [facility] Influenza Virus Vaccine 2013-01-06 00:00:00 Completed [facility] Influenza Virus Vaccine 2013-01-06 00:00:00 Completed [facility] Influenza Virus Vaccine 2013-01-06 00:00:00 Completed [facility] Influenza Virus Vaccine 2013-01-06 00:00:00 Completed [facility] Influenza Virus Vaccine 2013-01-06 00:00:00 Completed [facility] Influenza Virus Vaccine 2013-01-06 00:00:00 Completed [facility] Influenza Virus Vaccine 2013-01-06 00:00:00 Completed [facility] Influenza Virus Vaccine 2013-01-06 00:00:00 Completed [facility] Influenza Virus Vaccine 2013-01-06 00:00:00 Completed [facility] Influenza Virus Vaccine 2013-01-06 00:00:00 Completed [facility] Influenza Virus Vaccine 2013-01-06 00:00:00 Completed [facility] Influenza Virus Vaccine 2013-01-06 00:00:00 Completed [facility] Influenza Virus Vaccine 2013-01-06 00:00:00 Completed [facility] Influenza Virus Vaccine 2013-01-06 00:00:00 Completed [facility] TDAP 2012-11-24 00:00:00 Completed [facility] TDAP 2012-11-24 00:00:00 Completed [facility] TDAP 2012-11-24 00:00:00 Completed [facility] TDAP 2012-11-24 00:00:00 Completed [facility] TDAP 2012-11-24 00:00:00 Completed [facility] TDAP 2012-11-24 00:00:00 Completed [facility] TDAP 2012-11-24 00:00:00 Completed [facility] TDAP 2012-11-24 00:00:00 Completed [facility] TDAP 2012-11-24 00:00:00 Completed [facility] TDAP 2012-11-24 00:00:00 Completed [facility] TDAP 2012-11-24 00:00:00 Completed [facility] TDAP 2012-11-24 00:00:00 Completed [facility] TDAP 2012-11-24 00:00:00 Completed [facility] TDAP 2012-11-24 00:00:00 Completed [facility] TDAP 2012-11-24 00:00:00 Completed [facility] TDAP 2012-11-24 00:00:00 Completed [facility] TDAP 2012-11-24 00:00:00 Completed [facility] TDAP 2012-11-24 00:00:00 Completed [facility] TDAP 2012-11-24 00:00:00 Completed [facility] TDAP 2012-11-24 00:00:00 Completed [facility] TDAP 2012-11-24 00:00:00 Completed [facility] TDAP 2012-11-24 00:00:00 Completed [facility] TDAP 2012-11-24 00:00:00 Completed [facility] TDAP 2012-11-24 00:00:00 Completed [facility] TDAP 2012-11-24 00:00:00 Completed [facility] TDAP 2012-11-24 00:00:00 Completed [facility] TDAP 2012-11-24 00:00:00 Completed [facility] TDAP 2012-11-24 00:00:00 Completed [facility] TDAP 2012-11-24 00:00:00 Completed [facility] TDAP 2012-11-24 00:00:00 Completed [facility] TDAP 2012-11-24 00:00:00 Completed [facility] TDAP 2012-11-24 00:00:00 Completed [facility] Rubella 2012-09-08 00:00:00 Completed [facility] Rubella 2012-09-08 00:00:00 Completed [facility] Rubella 2012-09-08 00:00:00 Completed [facility] Rubella 2012-09-08 00:00:00 Completed [facility] Rubella 2012-09-08 00:00:00 Completed [facility] Rubella 2012-09-08 00:00:00 Completed [facility] Rubella 2012-09-08 00:00:00 Completed [facility] Rubella 2012-09-08 00:00:00 Completed [facility] Rubella 2012-09-08 00:00:00 Completed [facility] Rubella 2012-09-08 00:00:00 Completed [facility] Rubella 2012-09-08 00:00:00 Completed [facility] Rubella 2012-09-08 00:00:00 Completed [facility] Rubella 2012-09-08 00:00:00 Completed [facility] Rubella 2012-09-08 00:00:00 Completed [facility] Rubella 2012-09-08 00:00:00 Completed [facility] Rubella 2012-09-08 00:00:00 Completed [facility] Rubella 2012-09-08 00:00:00 Completed [facility] Rubella 2012-09-08 00:00:00 Completed [facility] Rubella 2012-09-08 00:00:00 Completed [facility] Rubella 2012-09-08 00:00:00 Completed [facility] Rubella 2012-09-08 00:00:00 Completed [facility] Rubella 2012-09-08 00:00:00 Completed [facility] Rubella 2012-09-08 00:00:00 Completed [facility] Rubella 2012-09-08 00:00:00 Completed [facility] Rubella 2012-09-08 00:00:00 Completed [facility] Rubella 2012-09-08 00:00:00 Completed [facility] Rubella 2012-09-08 00:00:00 Completed [facility] Rubella 2012-09-08 00:00:00 Completed [facility] Rubella 2012-09-08 00:00:00 Completed [facility] Rubella 2012-09-08 00:00:00 Completed [facility] Rubella 2012-09-08 00:00:00 Completed [facility] Rubella 2012-09-08 00:00:00 Completed [facility] TDAP 2012-01-10 00:00:00 Completed [facility] TDAP 2012-01-10 00:00:00 Completed [facility] TDAP 2012-01-10 00:00:00 Completed [facility] TDAP 2012-01-10 00:00:00 Completed [facility] TDAP 2012-01-10 00:00:00 Completed [facility] TDAP 2012-01-10 00:00:00 Completed [facility] TDAP 2012-01-10 00:00:00 Completed [facility] TDAP 2012-01-10 00:00:00 Completed [facility] TDAP 2012-01-10 00:00:00 Completed [facility] TDAP 2012-01-10 00:00:00 Completed [facility] TDAP 2012-01-10 00:00:00 Completed [facility] TDAP 2012-01-10 00:00:00 Completed [facility] TDAP 2012-01-10 00:00:00 Completed [facility] TDAP 2012-01-10 00:00:00 Completed [facility] TDAP 2012-01-10 00:00:00 Completed [facility] TDAP 2012-01-10 00:00:00 Completed [facility] TDAP 2012-01-10 00:00:00 Completed [facility] TDAP 2012-01-10 00:00:00 Completed [facility] TDAP 2012-01-10 00:00:00 Completed [facility] TDAP 2012-01-10 00:00:00 Completed [facility] TDAP 2012-01-10 00:00:00 Completed [facility] TDAP 2012-01-10 00:00:00 Completed [facility] TDAP 2012-01-10 00:00:00 Completed [facility] TDAP 2012-01-10 00:00:00 Completed [facility] TDAP 2012-01-10 00:00:00 Completed [facility] TDAP 2012-01-10 00:00:00 Completed [facility] TDAP 2012-01-10 00:00:00 Completed [facility] TDAP 2012-01-10 00:00:00 Completed [facility] TDAP 2012-01-10 00:00:00 Completed [facility] TDAP 2012-01-10 00:00:00 Completed [facility] TDAP 2012-01-10 00:00:00 Completed [facility] TDAP 2012-01-10 00:00:00 Completed [facility] TDAP Unknown Completed [facility] Influenza Virus Vaccine Unknown Completed [facility] Rubella Unknown Completed [facility] TDAP Unknown Completed [facility] Influenza Virus Vaccine Unknown Completed [facility] Rubella Unknown Completed [facility] Vital Signs Vital Name Observation Time Observation Value Comments S ource Systolic blood pressure 2022-07-31 16:43:00 115 mm[Hg] [facility] Diastolic blood pressure 2022-07-31 16:43:00 59 mm[Hg] [facility] Heart rate 2022-07-31 16:43:00 75 /min Unive [facility] Respiratory rate 2022-07-31 16:43:00 18 /min [facility] Body height 2022-07-31 16:43:00 162.6 cm [facility] Body weight 2022-07-31 16:43:00 81.647 kg [facility] BMI 2022-07-31 16:43:00 30.90 kg/m2 [facility] Systolic blood pressure 2022-07-18 13:30:00 103 mm[Hg] [facility] Diastolic blood pressure 2022-07-18 13:30:00 63 mm[Hg] [facility] Heart rate 2022-07-18 13:30:00 72 /min [facility] Body temperature 2022-07-18 13:30:00 37.39 Cori [facility] Respiratory rate 2022-07-18 13:30:00 18 /min [facility] Oxygen saturation in Arterial blood by Pulse oximetry 2022-07-18 13:30:00 100 /min [facility] Body height 2022-07-17 23:22:00 157.5 cm [facility] Body weight 2022-07-17 23:22:00 83 kg Univ [facility] BMI 2022-07-17 23:22:00 33.46 kg/m2 [facility] Systolic blood pressure 2022-07-01 21:22:00 101 mm[Hg] [facility] Diastolic blood pressure 2022-07-01 21:22:00 67 mm[Hg] [facility] Heart rate 2022-07-01 21:22:00 84 /min Unive [facility] Body temperature 2022-07-01 21:22:00 36.78 Cori [facility] Respiratory rate 2022-07-01 21:22:00 16 /min [facility] Body height 2022-07-01 21:22:00 157.5 cm [facility] Body weight 2022-07-01 21:22:00 83.643 kg [facility] BMI 2022-07-01 21:22:00 33.73 kg/m2 [facility] Systolic blood pressure 2022-05-21 19:04:00 112 mm[Hg] [facility] Diastolic blood pressure 2022-05-21 19:04:00 73 mm[Hg] [facility] Heart rate 2022-05-21 19:04:00 91 /[facility] Body temperature 2022-05-21 19:04:00 36.72 Cori [facility] Respiratory rate 2022-05-21 19:04:00 16 /min [facility] Body height 2022-05-21 19:04:00 157.5 cm [facility] Body weight 2022-05-21 19:04:00 83.961 kg [facility] BMI 2022-05-21 19:04:00 33.86 kg/m2 [facility] Oxygen saturation in Arterial blood by Pulse oximetry 2022-05-21 19:04:00 100 /min [facility] Systolic blood pressure 2022-04-23 19:13:00 111 mm[Hg] [facility] Diastolic blood pressure 2022-04-23 19:13:00 76 mm[Hg] [facility] Heart rate 2022-04-23 19:13:00 73 /min Unive [facility] Body temperature 2022-04-23 19:13:00 37 Cori [facility] Respiratory rate 2022-04-23 19:13:00 18 /min [facility] Body height 2022-04-23 19:13:00 157.5 cm [facility] Body weight 2022-04-23 19:13:00 85.73 kg [facility] BMI 2022-04-23 19:13:00 34.57 kg/m2 [facility] Systolic blood pressure 2022-04-09 18:56:00 104 mm[Hg] [facility] Diastolic blood pressure 2022-04-09 18:56:00 71 mm[Hg] [facility] Heart rate 2022-04-09 18:56:00 79 /min Unive [facility] Body temperature 2022-04-09 18:56:00 36.72 Cori [facility] Respiratory rate 2022-04-09 18:56:00 16 /min [facility] Body height 2022-04-09 18:56:00 157.5 cm [facility] Body weight 2022-04-09 18:56:00 85.276 kg [facility] BMI 2022-04-09 18:56:00 34.39 kg/m2 [facility] Oxygen saturation in Arterial blood by Pulse oximetry 2022-04-09 18:56:00 100 /min [facility] Systolic blood pressure 2021-09-03 12:23:00 121 mm[Hg] [facility] Diastolic blood pressure 2021-09-03 12:23:00 80 mm[Hg] [facility] Heart rate 2021-09-03 12:23:00 83 /min Unive [facility] Body temperature 2021-09-03 12:23:00 36.56 Cori [facility] Respiratory rate 2021-09-03 12:23:00 18 /min [facility] Oxygen saturation in Arterial blood by Pulse oximetry 2021-09-03 12:23:00 100 /min [facility] Body height 2021-09-02 10:12:00 157.5 cm [facility] Body weight 2021-09-02 10:12:00 76.295 kg [facility] BMI 2021-09-02 10:12:00 30.76 kg/m2 [facility] Systolic blood pressure 2021-08-27 19:39:00 109 mm[Hg] [facility] Diastolic blood pressure 2021-08-27 19:39:00 75 mm[Hg] [facility] Heart rate 2021-08-27 19:39:00 86 /min Unive [facility] Body temperature 2021-08-27 19:39:00 36.78 Cori [facility] Respiratory rate 2021-08-27 19:39:00 16 /min [facility] Body height 2021-08-27 19:39:00 157.5 cm [facility] Body weight 2021-08-27 19:39:00 79.742 kg [facility] BMI 2021-08-27 19:39:00 32.15 kg/m2 [facility] Systolic blood pressure 2021-08-16 19:34:00 120 mm[Hg] [facility] Diastolic blood pressure 2021-08-16 19:34:00 80 mm[Hg] [facility] Heart rate 2021-08-16 19:34:00 100 /min Unive [facility] Body temperature 2021-08-16 19:34:00 36.83 Cori [facility] Respiratory rate 2021-08-16 19:34:00 18 /min [facility] Body height 2021-08-16 19:34:00 162.6 cm [facility] Body weight 2021-08-16 19:34:00 79.153 kg [facility] BMI 2021-08-16 19:34:00 29.95 kg/m2 [facility] Systolic blood pressure 2021-08-02 20:47:00 105 mm[Hg] [facility] Diastolic blood pressure 2021-08-02 20:47:00 69 mm[Hg] [facility] Heart rate 2021-08-02 20:47:00 99 /min Unive [facility] Body temperature 2021-08-02 20:47:00 36.72 Cori [facility] Respiratory rate 2021-08-02 20:47:00 18 /min [facility] Body height 2021-08-02 20:47:00 157.5 cm [facility] weight 2021-08-02 20:47:00 78.16 kg [facility] BMI 2021-08-02 20:47:00 31.52 kg/m2 [facility] Heart rate 2021-07-26 17:00:00 86 /min Unive [facility] Oxygen saturation in Arterial blood by Pulse oximetry 2021-07-26 17:00:00 99 /min [facility] Systolic blood pressure 2021-07-26 15:12:00 120 mm[Hg] [facility] Diastolic blood pressure 2021-07-26 15:12:00 72 mm[Hg] [facility] Body temperature 2021-07-26 15:12:00 36.78 Cori [facility] Respiratory rate 2021-07-26 15:12:00 16 /min [facility] Body weight 2021-07-26 14:59:00 78.926 kg [facility] BMI 2021-07-26 14:59:00 31.83 kg/m2 [facility] Systolic blood pressure 2021-07-20 21:40:00 113 mm[Hg] [facility] Diastolic blood pressure 2021-07-20 21:40:00 74 mm[Hg] [facility] Heart rate 2021-07-20 21:40:00 128 /min Unive [facility] Respiratory rate 2021-07-20 21:40:00 18 /min [facility] Body height 2021-07-20 21:40:00 157.5 cm [facility] Body weight 2021-07-20 21:40:00 78.926 kg [facility] BMI 2021-07-20 21:40:00 31.83 kg/m2 [facility] Systolic blood pressure 2021-06-01 21:23:00 107 mm[Hg] [place] o [facility] Diastolic blood pressure 2021-06-01 21:23:00 69 mm[Hg] [place] [facility] Heart rate 2021-06-01 21:23:00 97 /min [facility] Body temperature 2021-06-01 21:23:00 36.89 Cori [facility] Respiratory rate 2021-06-01 21:23:00 18 /min [facility] Body height 2021-06-01 21:23:00 162.6 cm [facility] Body weight 2021-06-01 21:23:00 76.204 kg [facility] BMI 2021-06-01 21:23:00 28.84 kg/m2 [facility] Procedures Procedure Date / Time Performed Performing Clinician Source CBC WITH DIFF 2022-07-18 03:31:00 Carrie Gresham [facility] PROTHROMBIN TIME / INR 2022-07-18 01:27:00 Bong Xavier [facility] ACTIVATED PARTIAL THRMPLAS LORNA 2022-07-18 01:27:00 Nevaeh Xavier [facility] FIBRINOGEN 2022-07-18 01:27:00 [facility] HEPATITIS B SURFACE ANTIGEN 2022-07-18 01:27:00 Nevaeh Xavier [facility] HB ABO GROUPING 2022-07-18 01:27:00 Nevaeh Xavier [facility] RHO (D) IMMUNE GLOBULIN 2022-07-18 01:27:00 Sonja Falk [facility] SYPHILIS IGG/IGM 2022-07-18 01:27:00 [facility]aeh [facility] THIRD TRIMESTER ULTRASOUND 2022-07-17 19:41:00 Manolo Dixon [facility] PATIENT FINANCIAL POLICY 2022-07-01 21:17:48 Doctor Unassigned, [place] [facility] POCT URINALYSIS W/O SPECIFIC GRAVITY 2022-07-01 00:00:00 [facility] 2022-04-26 16:07:45 Docto r Unassigned, [place] [facility] POCT URINALYSIS W/O SPECIFIC GRAVITY 2022-04-23 00:00:00 Manolo Dixon [facility] ASSIGNMENT OF BENEFITS 2022-04-09 18:39:36 Docto r Unassigned, [place] [facility] POCT TEST 2022-04-09 00:00[facility]FF 2021-09-03 08:39:00 Dev [facility] VENOUS CORD GAS 2021-09-02 08:28:00 Dev [facility] CBC WITH DIFF 2021-09-02 08:24:00 Dev [facility] RUBELLA SCREEN IGG 2021-09-02 08:23:00 [facility]FACE ANTIGEN 2021-09-02 [facility] - [facility] 2021-09-02 08:23:00 [facility] HIV 1/2 AG-AB WITH REFLEX 2021-09-02 08:23:00 Erin [facility] COVID-19 (ID NOW RAPID TESTING) 2021-09-02 08:23:00 Talha [facility] LAB ONLY COVID INTERPRETATION 2021-09-02 08:23:00 Talha [facility] HB ABO GROUPING 2021-09-02 08:00:00 Dev [facility] RHO (D) IMMUNE GLOBULIN 2021-09-02 08:00[facility] W/O SPECIFIC GRAVITY 2021-08-27 00:00:00 [facility] 2021-08-10 16:45:24 Docto r Unassigned, [place] [facility] POCT URINALYSIS W/O SPECIFIC GRAVITY 2021-08-02 00:00:00 Fish, Abbey [facility] HIV 1/2 AG-AB WITH REFLEX 2021-07-26 16:16:00 Fish, [place] emanuel [facility] COVID-19 (ID NOW RAPID TESTING) 2021-07-26 16:16:00 Fish, [facility] CBC WITH DIFF 2021-07-26 16:15:00 Fish, Abbey [facility] URINALYSIS 2021-07-26 16:15:00 Fish, Abbey [facility] HB ABO GROUPING 2021-07-26 16:15:00 Fish, [facility] ADC CLC OR LCC ONLY - WET PREP 2021-07-26 16:15:00 Ted [facility] POCT URINALYSIS W/O SPECIFIC GRAVITY 2021-07-20 21:41:00 Manolo Dixon [facility] POCT URINALYSIS W/O SPECIFIC GRAVITY 2021-06-01 00:00:00 Ted [facility] Encounters Start Date/Time End Date/Time Encounter Type Admission Type Attending [facility] Care Facility Care Department Encounter ID Source 2021-07-26 13:44:50 Outpatient SO KHAN SHANNON [facility] NEL [id number] [facility] 2022-07-31 11:45:00 2022-07-31 11:48:42 Outpatient R MANOLO DIXON [facility] [id number] [facility] 2022-07-31 11:45:00 2022-07-31 11:48:42 Routine Visit Manolo [facility] [id number] 350.1.13.10 4.2.7.2.686 [id number] [facility] 2022-07-29 15:00:00 2022-07-29 15:00:00 Outpatient R MANOLO DIXON [facility] [id number] [facility] 2022-07-17 17:57:00 2022-07-18 12:55:00 Hospital Encounter BadulazizSo Naranjo, [facility] 1.840.114 350.1.13.10 4.2.7.2.686 [id number] [facility] 2022-07-17 17:57:00 2022-07-18 12:55:00 Inpatient P DARYL NARANJOMICHAEL NARANJO, [facility] NEL [id number] [facility] 2022-07-17 14:45:00 2022-07-17 15:45:00 Billet Straightener Visit Ultrasound, Anastasiya De La Rosa [facility] 1.840.114 350.1.13.10 4.2.7.2.686 [id number] [facility] 2022-07-17 14:45:00 2022-07-17 14:45:00 Outpatient ANASTASIYA PHPIPS [facility] [id number] [facility] 2022-07-09 00:00:00 2022-07-09 00:00:00 Patient Secure Msg Doctor Unassigned, [place] [facility] 1..840.114 350.1.13.10 4.2.7.2.686 [id number] [facility] 2022-07-01 16:30:00 2022-07-01 16:37:01 Outpatient R MANOLO DIXON [facility] [id number] [facility] 2022-07-01 16:30:00 2022-07-01 16:37:01 Routine Visit Manolo Dixon [facility] 1.840.114 350.1.13.10 4.2.7.2.686 [id number] [facility] 2022-07-01 00:00:00 2022-07-01 00:00:00 Orders Only Doctor Unassigned, [place] [facility] 1.2840.114 350.1.13.10 4.2.7.2.686 [id number] [facility] 2022-06-28 13:45:00 2022-06-28 13:45:00 Outpatient R MANOLO DIXON [facility] [id number] [facility] 2022-06-21 10:15:00 2022-06-21 10:15:00 Outpatient P [facility] [id number] [facility] 2022-06-18 13:00:00 2022-06-18 13:00:00 Outpatient R CARLOSMANOLO GONZALES [facility] [id number] [facility] 2022-05-21 13:00:00 2022-05-21 13:25:38 Routine Visit Sebastian [facility] 1.0.114 350.1.13.10 4.2.7.2.686 [id number] [facility] 2022-05-21 13:00:00 2022-05-21 13:25:38 Outpatient R MANOLO DIXON [facility] [id number] [facility] 2022-05-21 00:00:00 2022-05-21 00:00:00 Letter (Out) Sebastian [facility] 1.20.114 350.1.13.10 4.2.7.2.686 [id number] [facility] 2022-05-08 00:00:00 2022-05-08 00:00:[address] [facility] 1.2840.114 350.1.13.10 4.2.7.2.686 [id number] [facility] 2022-05-03 00:00:00 2022-05-03 00:00:00 Telephone Manolo Dixon [facility] 1.2.840.114 350.1.13.10 4.2.7.2.686 [id number] [facility] 2022-05-02 00:00:00 2022-05-02 00:00:00 Telephone Manolo Dixon [facility] 1.20.114 350.1.13.10 4.2.7.2.686 [id number] [facility] 2022-04-26 12:45:00 2022-04-26 13:00:00 Billet Straightener Visit Pob, Adc Lab Main Manolo Dixon [facility] 1.20.114 350.1.13.10 4.2.7.2.686 [id number] [facility] 2022-04-26 11:15:00 2022-04-26 11:39:04 Outpatient R MANOLO DIXON [facility] [id number] [facility] 2022-04-26 11:15:00 2022-04-26 11:39:04 Telemedici ne Visit Rose Simon Cheryal [facility] PA[facility] 1.2.114 350.1.13.10 4.2.7.2.686 [id number] [facility] 2022-04-26 00:00:00 2022-04-26 00:00:00 Orders Only Doctor Unassigned, [place] [facility] 1.2.840.114 350.1.13.10 4.2.7.2.686 [id number] [facility] 2022-04-23 13:15:00 2022-04-23 13:36:40 Outpatient R MANOLO DIXON [facility] [id number] [facility] 2022-04-23 13:15:00 2022-04-23 13:36:40 [facility] 1.2.840.114 350.1.13.10 4.2.7.2.686 [id number] [facility] 2022-04-10 09:30:00 2022-04-10 09:30:00 Outpatient R OTF NÚÑEZ [facility] [id number] [facility] 2022-04-09 13:00:00 2022-04-09 13:20:19 Outpatient [facility] [id number] [facility] 2022-04-09 13:00:00 2022-04-09 13:20:19 [facility] 1.2.840.114 350.1.13.10 4.2.7.2.686 [id number] [facility] 2022-04-09 00:00:00 2022-04-09 00:00:00 Orders Only Doctor Unassigned, [place] [facility] 1.2.840.114 350.1.13.10 4.2.7.2.686 [id number] [facility] 2022-04-09 00:00:00 2022-04-09 00:00:00 [facility] 1.2.840.114 350.1.13.10 4.2.7.2.686 [id number] [facility] 2021-09-06 13:00:00 2021-09-06 13:00:00 Outpatient R ABBEY JEAN [facility] [id number] [facility] 2021-09-06 00:00:00 2021-09-06 00:00:00 Encounter 1.2.840.1 [id number] 350.1.13.10 4.2.7.2.696 [id number] [facility] 2021-09-02 02:41:00 2021-09-03 18:05:00 Inpatient X TALHA SOMERS [facility] NEL [id number] [facility] 2021-09-02 02:41:00 2021-09-03 18:05:00 Hospital Encounter Talha Somers [facility] 1.2840.114 350.1.13.10 4.2.7.2.686 [id number] [id number] [facility] 2021-08-27 14:00:00 2021-08-27 14:54:41 Outpatient R MANOLO DIXON [facility] [id number] [facility] 2021-08-27 14:00:00 2021-08-27 14:54:41 Routine Visit Manolo Dixon [facility] 1.2840.114 350.1.13.10 4.2.7.2.686 [id number] 134 [id number] [facility] 2021-08-22 11:00:00 2021-08-22 11:00:00 Outpatient R MANOLO DIXON [facility] [id number] [facility] 2021-08-16 13:45:00 2021-08-16 14:47:34 Outpatient R ABBEY JEAN [facility] [id number] [facility] 2021-08-16 13:45:00 2021-08-16 14:47:34 Routine Visit Abbey Jean [facility] 1.2840.114 350.1.13.10 4.2.7.2.686 [id number] 134 [id number] [facility] 2021-08-10 11:45:00 2021-08-10 12:00:00 Billet Straightener Visit Milvia, Heather [facility] Main Abbey Jean [facility] 1.840.114 350.1.13.10 4.2.7.2.686 [id number] [facility] 2021-08-10 11:45:00 2021-08-10 11:45:00 Outpatient R ABBEY JEAN [facility] [id number] [facility] 2021-08-10 00:00:00 2021-08-10 00:00:00 Orders Only Doctor Unassigned, [place] [facility] 1.840.114 350.1.13.10 4.2.7.2.686 [id number] 009 [id number] [facility] 2021-08-02 15:15:00 2021-08-02 16:09:15 Outpatient R ABBEY JEAN [facility] [id number] [facility] 2021-08-02 15:15:00 2021-08-02 16:09:15 Routine Visit Abbey Jean [facility] 1.840.114 350.1.13.10 4.2.7.2.686 [id number] 134 [id number] [facility] 2021-07-27 00:00:00 2021-07-27 00:00:00 Telephone Abbey Jean [facility] 1.2.114 350.1.13.10 4.2.7.2.686 [id number] 134 [id number] [facility] 2021-07-26 10:08:00 2021-07-26 12:30:00 Outpatient P ABBEY JEAN [facility] NEL [id number] [facility] 2021-07-26 10:08:00 2021-07-26 12:30:00 Hospital Encounter Talha Somers [facility] 1.2.840.114 350.1.13.10 4.2.7.2.686 [id number] 083 [id number] [facility] 2021-07-26 00:00:00 2021-07-26 00:00:00 Telephone Jose Jeann [facility] 1.2.840.114 350.1.13.10 4.2.7.2.686 [id number] 134 [id number] [facility] 2021-07-20 16:30:00 2021-07-20 16:51:55 Outpatient R MANOLO DIXON [facility] [id number] [facility] 2021-07-20 16:30:00 2021-07-20 16:51:55 Routine Visit Manolo Dixon [facility] 1.2.840.114 350.1.13.10 4.2.7.2.686 [id number] 134 [id number] [facility] 2021-07-18 14:30:00 2021-07-18 14:30:00 Outpatient MANOLO CAO [facility] [id number] [facility] 2021-06-27 14:00:00 2021-06-27 14:00:00 Outpatient R MANOLO DIXON [facility] [id number] [facility] 2021-06-26 16:15:00 2021-06-26 16:15:00 Outpatient ABBEY TIMMONS [facility] [id number] [facility] 2021-06-12 08:15:00 2021-06-12 08:15:00 Outpatient R ABBEY JEAN [facility] [id number] [facility] 2021-06-06 00:00:00 2021-06-06 00:00:00 Telephone Abbey Jean [facility] 1.2840.114 350.1.13.10 4.2.7.2.686 [id number] 134 [id number] [facility] 2021-06-01 15:00:00 2021-06-01 15:53:36 Outpatient R ABBEY JEAN [facility] [id number] [facility] 2021-06-01 15:00:00 2021-06-01 15:53:36 Routine Visit Jose Jeann [facility] 1..840.114 350.1.13.10 4.2.7.2.686 [id number] 134 [id number] [facility] 2021-05-30 00:00:00 2021-05-30 00:00:00 Telephone Abbey Jean [facility] 1.2840.114 350.1.13.10 4.2.7.2.686 [id number] 134 [id number] [facility] 2021-05-15 16:15:00 2021-05-15 16:15:00 Outpatient R ABBEY JEAN [facility] [id number] [facility] 2021-05-09 14:30:00 2021-05-09 15:30:00 Billet Straightener Visit Ultrasound, [facility] Yasmin Krishnan [facility] FACILIT[facility] PA[facility] 1..840.114 350.1.13.10 4.2.7.2.686 [id number] [facility] 2021-05-09 14:30:00 2021-05-09 14:30:00 Outpatient P YASMIN [facility]ISHNAN [facility] [id number] [facility] 2021-05-02 13:30:00 2021-05-02 13:30:00 [facility] [id number] [facility] 2021-05-01 16:00:00 2021-05-01 16:00:00 Outpatient R [facility]Y [facility]AN [facility] [id number] [facility] 2021-04-19 16:00:00 2021-04-19 16:00:00 Outpatient R [facility]Y JEAN [facility] [id number] [facility] 2021-04-16 00:00:00 2021-04-16 00:00:00 Patient Secure Msg Doctor Unassigned, [place] [facility] 1.0.114 350.1.13.10 4.2.7.2.686 [id number] 134 [id number] [facility] 2021-04-16 00:00:00 2021-04-16 00:00:00 Telephone Ted Abbey [facility] 1..114 350.1.13.10 4.2.7.2.686 [id number] 134 [id number] [facility] 2021-03-29 16:00:00 2021-03-29 16:56:21 Outpatient R ABBEY JEAN [facility] [id number] [facility] 2021-03-29 15:55:48 2021-03-29 16:56:21 Routine Visit Ted Abbey [facility] 1.0.114 350.1.13.10 4.2.7.2.686 [id number] 134 [id number] [facility] 2021-03-29 16:00:00 2021-03-29 16:00:00 Outpatient R ABBEY JEAN [facility] [id number] [facility] 2021-03-09 00:00:00 2021-03-09 00:00:00 Orders Only Doctor Unassigned, [place] [facility] 1.2840.114 350.1.13.10 4.2.7.2.686 [id number] [id number] [facility] 2021-03-07 00:00:00 2021-03-07 00:00:00 Telephone Abbey Jean [facility] 1.2840.114 350.1.13.10 4.2.7.2.686 [id number] 134 [id number] [facility] 2021-03-01 13:00:40 2021-03-01 13:46:57 Routine Visit Abbey Jean [facility] 1.2840.114 350.1.13.10 4.2.7.2.686 [id number] 134 [id number] [facility] 2021-03-01 13:00:00 2021-03-01 13:46:57 Outpatient R ABBEY JEAN [facility] [id number] [facility] 2021-03-01 00:00:00 2021-03-01 00:00:00 Letter (Out) Nurse, Daily [facility] 1.0.114 350.1.13.10 4.2.7.2.686 [id number] 134 [id number] [facility] 2021-02-27 00:00:00 2021-02-27 00:00:00 Case Management Abbey Jean [facility] 1.2840.114 350.1.13.10 4.2.7.2.686 [id number] 134 [id number] [facility] 2021-02-26 11:00:00 2021-02-26 11:00:00 Outpatient R ABBEY JEAN [facility] [id number] [facility] 2021-02-26 10:25:15 2021-02-26 10:40:15 Billet Straightener Visit Pob, Heather [facility] Main Abbey Jean [facility] 1.2840.114 350.1.13.10 4.2.7.2.686 [id number] [facility] [id number] [facility] 2021-02-26 00:00:00 2021-02-26 00:00:00 Telephone Abbey Jean [facility] 1.2.840.114 350.1.13.10 4.2.7.2.686 [id number] 134 [id number] [facility] 2021-02-23 10:53:48 2021-02-23 12:23:35 Routine Visit Abbey Jean [facility] 1.2.840.114 350.1.13.10 4.2.7.2.686 [id number] 134 [id number] [facility] 2021-02-23 10:45:00 2021-02-23 12:23:35 Outpatient R ABBEY JEAN [facility] [id number] [facility] 2021-02-23 00:00:00 2021-02-23 00:00:00 Telephone Ted [facility] 1.2840.114 350.1.13.10 4.2.7.2.686 [id number] 134 [id number] [facility] 2021-02-23 00:00:00 2021-02-23 00:00:00 Orders Only Doctor Unassigned, [place] [facility] 1.2.840.114 350.1.13.10 4.2.7.2.686 [id number] [id number] [facility] 2021-02-23 00:00:00 2021-02-23 00:00:00 Case Management Abbey Jean [facility] 1.2840.114 350.1.13.10 4.2.7.2.686 [id number] 134 [id number] [facility] 2021-02-08 14:39:11 2021-02-08 15:51:23 Initial Visit Abbey Jean [facility] 1.2840.114 350.1.13.10 4.2.7.2.686 [id number] 134 [id number] [facility] 2021-02-08 14:30:00 2021-02-08 15:51:23 Outpatient ABBEY TIMMONS [facility] [id number] [facility] 2021-02-08 14:30:00 2021-02-08 15:51:23 Outpatient ABBEY TIMMONS [facility] [id number] [facility] 2021-02-08 00:00:00 2021-02-08 00:00:00 Orders Only Doctor Unassigned, [place] [facility] 1.2.840.114 350.1.13.10 4.2.7.2.686 [id number] 009 [id number] [facility] 2021-01-25 09:45:00 2021-01-25 09:45:00 Outpatient SHEREE HOLLEY [facility] [id number] [facility] 2021-01-25 09:45:00 2021-01-25 09:45:00 Outpatient SHEREE HOLLEY [facility] [id number] [facility] 2017-12-04 00:00:00 2017-12-06 00:00:00 Outpatient [facility] [id number] [facility] Results Test Description Test Time Test Comments Results Result Co mments Source [facility] SY[facility]IL[facility] IGG/[id number] 16:04:47* Test Item Value Reference Range Interpretation Comme nts Syphilis IgG/IgM (test code = 83964-1) Non-reactive Non-reactive GLADYS (test code = GLADYS) Non-reactive - No serologic evidence of T. pallidum infection. Cannot exclude incubating or early syphilis. Submit a second specimen in 2-4 weeks if syphilis is clinically suspected. Equivocal - Further testing to follow. Reactive - Further testing to follow. Lab Interpretation (test code = 78411-6) Normal [facility] WITH [id number] 03:56:31* Test Item Value Reference Range Interpretation Comme nts WBC (test code = 6690-2) 11.13 See_Comment H [Automated messa ge] The system which generated this result transmitted reference range: 4.30 - 11.10 10*3/?L. The reference range was not used to interpret this result as normal/abnormal. RBC (test code = 789-8) 3.93 See_Comment [Automated [employer] ge] The system which generated this result [...] 33.8 g/dL 31.6-35.1 RDW-SD (test code = 91869-4) 37.6 fL 39.0-49.9 L RDW-CV (test code = 788-0) 13.2 % 12.0-15.5 PLT (test code = 777-3) 288 See_Comment [Automated [employer] ge] The system which generated this result transmitted reference range: 166 - 358 10*3/?L. The reference range was not used to interpret this result as normal/abnormal. MPV (test code = 83300-4) 11.0 fL 9.5-12.9 NRBC/100 WBC (test code = 8338458003) 0.0 See_Comment [Automated C[employer] ssage] The system which generated this result transmitted reference range: 0.0 - 10.0 /100 WBCs. The reference range was not used to interpret this result as normal/abnormal. NRBC x10^3 (test code = 3767072917) See_Comment [Automated [employer] ge] The system which generated this result transmitted reference range: 10*3/?L. The reference range was not used to interpret this result as normal/abnormal. GRAN MAT (NEUT) % (test code = 770-8) 65.5 % IMM GRAN % (test code = 8111070939) 0.60 % LYMPH % (test code = 736-9) 26.3 % MONO % (test code = 5905-5) 5.8 % EOS % (test code = 713-8) 1.6 % BASO % (test code = 706-2) 0.2 % GRAN MAT x10^3(ANC) (test code = 3690470917) 7.28 10*3/uL 1.88-7.09 H IMM GRAN x10^3 (test code = 6524041731) 0.07 10*3/uL 0.00-0.06 H LYMPH x10^3 (test code = 731-0) 2.93 10*3/uL 1.32-3.29 MONO x10^3 (test code = 742-7) 0.65 10*3/uL 0.33-0.92 EOS x10^3 (test code = 711-2) 0.18 10*3/uL 0.03-0.39 BASO x10^3 (test code = 704-7) 0.01-0.07 Lab Interpretation (test code = 44905-1) Abnormal [facility] Surface [id number] 03:38:08 * Test Item Value Reference Range Interpretation Comme [facility] HBsAg Semi-Quantitative (irina t code = 5195-3) 0.15 Negative [facility]fieldProthrombin Time / [id number] 02:11:18* Test Item Value Reference Range Interpretation Comme nts PROTIME PATIENT (test code = 5964-2) 11.1 See_Comment [Automated [employer]] The system which generated this result transmitted reference range: 10.1 - 12.6 Seconds. The reference range was not used to interpret this result as normal/abnormal. INR (test code = 6301-6) 1.0 Normal INR <1.1; Warfarin Therapeutic range 2.0 to 3.0 or 2.5 to 3.5, depending upon the indications. Lab Interpretation (test code = 45830-2) Normal [facility]fieldaPTT2023-03-30 02:11:18* Test Item Value Reference Range Interpretation Comme nts APTT Patient (test code = 3173-2) 25 See_Comment L [Automated We [employer]ribute[employer] ge] The system which generated this result transmitted reference range: 26 - 36 Seconds. The reference range was not used to interpret this result as normal/abnormal. Lab Interpretation (test code = 78800-0) Abnormal [facility]fieldFIBRINOGEN2023-03-30 02:11:18* Test Item Value Reference Range Interpretation Comme nts Fibrinogen (test code = 0302075636) 383 mg/dL 167-453 Lab Interpretation (test cod e = 06010-2) Normal [facility]fieldType and Screen - ONCE [id number] 01:35:00 * Test Item Value Reference Range Interpretation Comme nts ABO & RH (test code = 20) B POSITIVE IAT (test code = 1185) Negative [facility]fieldPOP[facility] URINALYSIS W/O SPECIFIC [id number] 21:21:00* Test Item Value Reference Range Interpretation [...] ve [facility] URINALYSIS W/O SPECIFIC [id number] 19:11:00* Test Item Value Reference Range Interpretation [...] = 3257) n/a Negative - Negati ve [facility]fieldPOCT [id number] 19:18:00* Test Item Value Reference Range Interpretation Comme nts POCT PREG (test code = 1605) Positive On board controls acceptable with C Line (test code = 3574) Yes POCT PREG LOT # (test code = 3575) POCT PREG TEST DATE ( test code = 3576) [facility] with Grdhhlaaakjc0847-91-51 09:17:16* Test Item Value Reference Range Interpretation [...] 32.3 g/dL 31.6-35.1 RDW-SD (test code = 54270-8) 50.6 fL 39.0-49.9 H RDW-CV (test code = 788-0) 17.5 % 12.0-15.5 H PLT (test code = 777-3) See_Comment [Automated messa ge] The system which generated this result transmitted reference range: 166 - 358 10*3/?L. The reference range was not used to interpret this result as normal/abnormal. MPV (test code = 43460-7) 11.7 fL 9.5-12.9 NRBC/100 WBC (test code = 9888907577) See_Comment [Automated me ssage] The system which generated this result transmitted reference range: 0.0 - 10.0 /100 WBCs. The reference range was not used to interpret this result as normal/abnormal. NRBC x10^3 (test code = 1830960802) <0.01 See_Comment [Automated messa ge] The system which generated this result transmitted reference range: 10*3/?L. The reference range was not used to interpret this result as normal/abnormal. GRAN MAT (NEUT) % (test code = 770-8) 64.6 % IMM GRAN % (test code = 2896464755) 0.40 % LYMPH % (test code = 736-9) 25.3 % MONO % (test code = 5905-5) 7.5 % EOS % (test code = 713-8) 1.7 % BASO % (test code = 706-2) 0.5 % GRAN MAT x10^3(ANC) (test code = 4033457074) 7.51 10*3/uL 1.88-7.09 H IMM GRAN x10^3 (test code = 8453624542) 0.05 10*3/uL 0.00-0.06 LYMPH x10^3 (test code = 731-0) 2.95 10*3/uL 1.32-3.29 MONO x10^3 (test code = 742-7) 0.87 10*3/uL 0.33-0.92 EOS x10^3 (test code = 711-2) 0.20 10*3/uL 0.03-0.39 BASO x10^3 (test code = 704-7) 0.06 10*3/uL 0.01-0.07 Lab Interpretation (test code = 87070-5) Abnormal [facility] OR ABEL ONLY - [id number] 03:59:13* Test Item Value Reference Range Interpretation Comme nts RPR (Qualitative) (test code = 66686-2) Nonreactive Nonreactive Lab Interpretation (test cod e = 11821-7) Normal [facility]fieldRubella Screen (JERSON) [id number] 18:51:00 * Test Item Value Reference Range Interpretation Comme nts Rubella screen IgG (test code = 0872158598) Positive Negative GLADYS (test code = GLADYS) Positive - Indicat es the patient was exposed to Rubella through infection or vaccination.Negative - Indicates the patient could be susceptible to Rubella infection.Equivocal - A second specimen should be sent. [facility]fieldHepatitis B Surface [id number] 17:05:37 * Test Item Value Reference Range Interpretation Comme nts HBsAg Semi-Quantitative (irina t code = 5195-3) Negative Negative [facility]fieldHIV [facility]/2 AG-AB WITH [id number] 11:27:21* Test Item Value Reference Range Interpretation Comme nts HIV Semi-quantitative (test code = 17300-7) Negative Negative GLADYS (test code = GLADYS) Non-reactive for HIV-1 antigen and HIV-1/HIV-2 antibodies. ?No laboratory evidence of HIV infection. ?Repeat in 2-4 weeks if acute HIV infection is suspected. [facility]fieldRHO (D) IMMUNE [id number] 09:09:42* Test Item Value Reference Range Interpretation Comme nts RHIG CANDIDATE? (test code = 5055) No- see comment Patient is not a candidate for RhIg- Patient is Rh Positive.Performed at [facility] Laboratory Services - [facility] Blood [address] [place] [address] Free: [phone] No. [id number] [facility]fieldType and Screen - ONCE [id number] 09:08:33 * Test Item Value Reference Range Interpretation Comme nts ABO & RH (test code = 20) B Positive Performed at [facility] Laboratory [facility] Blood [address] Free: [phone] No. [id number] IAT (test code = 1185) Negative Performed at [facility] Laboratory [facility] Blood [address] [place], [place] [address]Toll Free: [phone] No. [id number] [facility]fieldVENOUS CORD [id number] 08:51:38* Test Item Value Reference Range Interpretation Comme nts VENOUS BASE EXCESS, CORD (test code = 0593688118) mEq/L VENOUS PH, CORD (test code = 4900801168) 7.25-7.45 L VENOUS PC02, CORD (test code = 1071934600) See_Comment H [Automated me ssage] The system which generated this result transmitted reference range: 27 - 49 mmHg. The reference range was not used to interpret this result as normal/abnormal. VENOUS PO2, CORD (test code = 9093816147) See_Comment [Automated me ssage] The system which generated this result transmitted reference range: 17 - 41 mmHg. The reference range was not used to interpret this result as normal/abnormal. VENOUS BICARBONATE, CORD (test code = 2381683873) See_Comment [Automa tato message] The system which generated this result transmitted reference range: 12 - 29 mEq/L. The reference range was not used to interpret this result as normal/abnormal. Lab Interpretation (test code = 55340-3) Abnormal [facility]fieldARTERIAL CORD [id number] 08:48:28* Test Item Value Reference Range Interpretation Comme nts BASE EXCESS, CORD (test code = 2191200468) mEq/L AC PH, CORD (BEAKER) (test code = 9403125306) 7.18-7.38 PC02, CORD (test code = 8393165784) See_Comment [Automated messa ge] The system which generated this result transmitted reference range: 32 - 66 mmHg. The reference range was not used to interpret this result as normal/abnormal. PO2, CORD (test code = 3787132013) See_Comment [Automated messa ge] The system which generated this result transmitted reference range: 10 - 30 mmHg. The reference range was not used to interpret this result as normal/abnormal. BICARBONATE, CORD (test code = 4757486770) See_Comment [Automated messa ge] The system which generated this result transmitted reference range: 17 - 27 mEq/L. The reference range was not used to interpret this result as normal/abnormal. [facility] with Zpnjfbsqtjri9007-34-71 08:33:11* Test Item Value Reference Range Interpretation [...] 32.0 g/dL 31.6-35.1 RDW-SD (test code = 78564-7) 49.8 fL 39.0-49.9 RDW-CV (test code = 788-0) 17.4 % 12.0-15.5 H PLT (test code = 777-3) See_Comment [Automated messa ge] The system which generated this result transmitted reference range: 166 - 358 10*3/?L. The reference range was not used to interpret this result as normal/abnormal. MPV (test code = 41392-0) 11.3 fL 9.5-12.9 NRBC/100 WBC (test code = 8999686027) See_Comment [Automated [employer] ssage] The system which generated this result transmitted reference range: 0.0 - 10.0 /100 WBCs. The reference range was not used to interpret this result as normal/abnormal. NRBC x10^3 (test code = 2069804130) <0.01 See_Comment [Automated messa ge] The system which generated this result transmitted reference range: 10*3/?L. The reference range was not used to interpret this result as normal/abnormal. GRAN MAT (NEUT) % (test code = 770-8) 72.5 % IMM GRAN % (test code = 0654350529) 0.40 % LYMPH % (test code = 736-9) 16.7 % MONO % (test code = 5905-5) 9.4 % EOS % (test code = 713-8) 0.8 % BASO % (test code = 706-2) 0.2 % GRAN MAT x10^3(ANC) (test code = 3868266353) 8.85 10*3/uL 1.88-7.09 H IMM GRAN x10^3 (test code = 4176807267) 0.05 10*3/uL 0.00-0.06 LYMPH x10^3 (test code = 731-0) 2.03 10*3/uL 1.32-3.29 MONO x10^3 (test code = 742-7) 1.14 10*3/uL 0.33-0.92 H EOS x10^3 (test code = 711-2) 0.10 10*3/uL 0.03-0.39 BASO x10^3 (test code = 704-7) <0.03 0.01-0.07 Lab Interpretation (test code = 09087-5) Abnormal [facility] URINALYSIS W/O SPECIFIC [id number] 19:39:00* Test Item Value Reference Range Interpretation [...] ve [facility] URINALYSIS W/O SPECIFIC [id number] 20:47:00* Test Item Value Reference Range Interpretation [...] = 3257) n/a Negative - Negati ve [facility] /2 AG-AB WITH [id number] 17:26:44* Test Item Value Reference Range Interpretation Comme nts HIV Semi-quantitative (test code = 44071-4) Negative Negative GLADYS (test code = GLADYS) Non-reactive for HIV-1 antigen and HIV-1/HIV-2 antibodies. ?No laboratory evidence of HIV infection. ?Repeat in 2-4 weeks if acute HIV infection is suspected. [facility]field[facility]ENATAL WORKUP, BLOOD [id number] 17:01:59 * Test Item Value Reference Range Interpretation Comme nts ABO & RH (test code = 20) B Positive Performed at [facility] Laboratory [facility] Blood [address] [place], [place] [id number] Free: [phone] No. [id number] IAT (test code = 1185) Negative Performed at [facility] Laboratory [facility] Blood [address] [place], [place] [id number] Free: [phone] No. [id number] [facility]fieldCBC WITH [id number] 16:30:16* Test Item Value Reference Range Interpretation [...] 31.6 g/dL 31.6-35.1 RDW-SD (test code = 46332-3) 38.5 fL 39.0-49.9 L RDW-CV (test code = 788-0) 13.7 % 12.0-15.5 PLT (test code = 777-3) See_Comment [Automated messa ge] The system which generated this result transmitted reference range: 166 - 358 10*3/?L. The reference range was not used to interpret this result as normal/abnormal. MPV (test code = 75638-9) 10.3 fL 9.5-12.9 NRBC/100 WBC (test code = 8460292361) See_Comment [Automated [employer] ssage] The system which generated this result transmitted reference range: 0.0 - 10.0 /100 WBCs. The reference range was not used to interpret this result as normal/abnormal. NRBC x10^3 (test code = 5444470830) <0.01 See_Comment [Automated messa ge] The system which generated this result transmitted reference range: 10*3/?L. The reference range was not used to interpret this result as normal/abnormal. GRAN MAT (NEUT) % (test code = 770-8) 73.8 % IMM GRAN % (test code = [id number]) 0.70 % LYMPH % (test code = 736-9) 16.9 % MONO % (test code = 5905-5) 6.7 % EOS % (test code = 713-8) 1.6 % BASO % (test code = 706-2) 0.3 % GRAN MAT x10^3(ANC) (test code = [id number]) 7.66 10*3/uL 1.88-7.09 H IMM GRAN x10^3 (test code = [id number]) 0.07 10*3/uL 0.00-0.06 H LYMPH x10^3 (test code = 731-0) 1.75 10*3/uL 1.32-3.29 MONO x10^3 (test code = 742-7) 0.69 10*3/uL 0.33-0.92 EOS x10^3 (test code = 711-2) 0.17 10*3/uL 0.03-0.39 BASO x10^3 (test code = 704-7) 0.03 10*3/uL 0.01-0.07 Lab Interpretation (test code = 98053-8) [facility] [id number] 21:41:00* Test Item Value Reference Range Interpretation [...] ve Lab Interpretation (test cod e = 47720-9) [facility]/O SPECIFIC [id number] 21:23:00* Test Item Value Reference Range Interpretation [...] = 3257) N/A Negative - Negati ve [facility]
--- NOTE | 2024-06-13 08:42 | RAD REPORT ---
EXAM:TRANSVAG OB CLINICAL HISTORY: with pelvic pain TECHNIQUE: Endovaginal sonography performed. Spectral and color Doppler performed. COMPARISON: June 04, 2023 FINDINGS: The uterus measures 11 x 5 x 5 cm. The endometrial stripe 7 mm. Gestational sac is not. 1.7 cm hypoec hoic structure within the uterine body fibroid. Right ovary normal in size and echotexture. It contains a 2.2 cm cyst. No follow-up. Left ovary not seen secondary to overlying bowel gas The right and left adnexa unremarkable. No significant free fluid IMPRESSION: Nonvisualization of a gestational sac within the endometrium. The patient has had a complete since the prior exam.
[2024-06-13 08:49] LABS: Specific Gravity 1.017 (1.005-1.030)
[2024-06-13 08:52] LABS: Absolute Basophils 0.1 K/uL (0-0.5); Absolute Eosinophils 0.3 K/uL (0-0.5); Absolute Monocytes 0.5 K/uL (0.1-1.3); Basophils % 0.5 % (0-1.3); Eosinophils % 3.1 % (0-4.4); Hematocrit 34.1 % (36.0-45.0); Lymphocytes % 20.2 % (15.3-44.8); MCH 26.8 pg (27.0-35.0); MCHC 32.4 g/dL (32.0-36.0); MCV 82.9 fL (80-100); MPV 8.6 fL (7.6-11.3); Monocytes % 5.5 % (3.3-12.3); Neutrophils % 70.7 % (41.7-73.7); Nucleated Red Blood Cells % 0.1 % (0-0); Platelets 346 thou/uL (152-406); RBC Red Blood Cell Count 4.12 M/uL (3.86-4.86); Red Cell Distribution Width 13.7 % (12.1-15.2)
[2024-06-13] MEDS ORDERED: ONDANSETRON 4 MG/2 ML VIAL ONE (08:52)
[2024-06-13] MEDS ORDERED: MORPHINE 4 MG/ML SYR ONE (08:53)
[2024-06-13] MEDS ORDERED: FAMOTIDINE 20 MG/2 ML VIAL IV ONE (08:53)
[2024-06-13] MEDS ORDERED: NA CHLORIDE 0.9% 1,000 ML ONE (08:53)
[2024-06-13 09:08] LABS: AST/SGOT 12 U/L (15-37); Albumin 3.5 g/dL (3.4-5.0); Albumin/Globulin Ratio 0.8 (1.1-1.8); Alkaline Phosphatase 53 U/L (45-117); Anion Gap 9.6 mEq/L (5.0-15.0); BUN Blood Urea Nitrogen 8 mg/dL (7-18); Bicarbonate 27 mEq/L (21-32); Bilirubin Total 0.4 mg/dL (0.2-1.0); Globulin 4.4 g/dL (2.3-3.5); Glomerular Filtration Rate 111 ml/min (=/>90); Glucose Level 102 mg/dL (74-106); Potassium 3.6 mEq/L (3.5-5.1); Protein, Total 7.9 g/dL (6.4-8.2); Sodium Level 139 mEq/L (136-145)
[2024-06-13 09:09] LABS: ALT/SGPT < 14 U/L (13-56)
--- NOTE | 2024-06-13 09:21 | ER ---
Nurse's Notes [facility] Name: Rachelle Heredia Age: 29 yrs Sex: Female : 1995 Arrival Date: 06/13/2024 Time: 07:16 Bed 18 Private MD: Diagnosis: Abnormal uterine and vaginal bleeding, unspecified-sp spontaneous miscarriage;Complete or unspecified spontaneous without complication Presentation: 06/13 08:46 Chief complaint: Patient states: SUPRA-PUBIC AND LUMBAR PAIN WITH VAGINAL BLEEDING bp SINCE LAST WEEK. Coronavirus screen: At this time, the client does not indicate any symptoms associated with coronavirus-19. Ebola Screen: No symptoms or risks identified at this time. Initial Sepsis Screen: Does the patient meet any 2 criteria? No. Patient's initial sepsis screen is negative. Does the patient have a suspected source of infection? No. Patient's initial sepsis screen is negative. Risk Assessment: Do you want to hurt yourself or someone else? Patient reports no desire to harm self or others. Onset of symptoms is unknown. 08:46 Method Of Arrival: Ambulatory bp 08:46 Acuity: JULIET 3 bp Triage Assessment: 08:47 General: Appears in no apparent distress. uncomfortable, Behavior is calm, cooperative, bp appropriate for age. Pain: Complains of pain in pelvis. EENT: No deficits noted. Neuro: No deficits noted. Cardiovascular: No deficits noted. Respiratory: No deficits noted. GI: Reports nausea. : Reports pain in suprapubic area in lower back. Derm: No deficits noted. Musculoskeletal: No deficits noted. Historical: - Allergies: 08:47 No Known Allergies; bp - Home Meds: 08:47 None [Active]; bp - PMHx: 08:47 None; bp - Immunization history:: Adult Immunizations up to date. - Infectious Disease History:: Denies. - Social history:: Smoking status: unknown. Screenin:48 [facility] ED Fall Risk Assessment (Adult) History of falling in the last 3 months, bp including since admission No falls in past 3 months (0 pts) Confusion or Disorientation No (0 pts) Intoxicated or Sedated No (0 pts) Impaired Gait No (0 pts) Mobility Assist Device Used No (0 pt) Altered Elimination No (0 pt) Score/Fall Risk Level 0 - 2 = Low Risk Oriented to surroundings. Abuse screen: Denies threats or abuse. Denies injuries from another. Nutritional screening: No deficits noted. Tuberculosis screening: No symptoms or risk factors identified. Assessment: 07:42 Reassessment: PT CURRENTLY IN U/S. bp 08:48 General: Appears in no apparent distress. uncomfortable, Behavior is calm, cooperative, bp appropriate for age, PT RETURNED FROM U/S. 10:01 GI: Bowel sounds present X 4 quads. Abd is soft and non tender X 4 quads. bp Vital Signs: 08:46 BP 123 / 86; Pulse 63; Resp 16; Temp 98; Pulse Ox 100% ; Weight 89.36 kg; Height 5 ft. bp 2 in. ; 10:00 BP 125 / 93; Pulse 74; Resp 16; Pulse Ox 97% ; bp 08:46 Body Mass Index 36.03 (89.36 kg, 157.48 cm) bp ED Course: 07:17 Patient arrived in ED. mr 07:18 John Sevilla MD is Attending Physician. bailee 07:43 Martin Langston, SARAH is Primary Nurse. bp 08:29 TRANSVAG OB In Process Unspecified. EDMS 08:42 Initial lab(s) drawn, by me, sent to lab. Inserted saline lock: 20 gauge in left em1 antecubital area, using aseptic technique. Blood collected. Flushed with 10 mL NS. 08:42 Abo/rh Typing Sent. em1 08:42 Quantitative Hcg Sent. em1 08:42 CBC with Diff Sent. em1 08:42 CMP Sent. em1 08:42 Test, Urine Sent. em1 08:47 Triage completed. bp 08:47 Arm band placed on. bp 08:48 Patient has correct armband on for positive identification. bp 10:00 No provider procedures requiring assistance completed. IV discontinued, intact, bp bleeding controlled, No redness/swelling at site. Pressure dressing applied. Administered Medications: 09:02 Drug: Famotidine IVP 20 mg IVP once; dilute with 10 mL 0.9% NaCl; give over 2 minutes bp Route: IVP; Site: left antecubital; 10:02 Follow up: Response: No adverse reaction bp 09:02 Drug: Ondansetron IVP 4 mg IVP once; over 2 minutes Route: IVP; Site: left antecubital; bp 10:04 Follow up: Response: No adverse reaction bp 09:02 Drug: NS 0.9% IV 1000 ml IV at 1 bolus Per protocol; to be given as a bolus over 60 bp minutes Route: IV; Rate: 1 bolus; Site: left antecubital; 10:04 Follow up: IV Status: Completed infusion; IV Intake: 1000ml bp 09:03 Drug: morphine IVP or IV 4 mg IVP once over 4 mins Route: IVP; Infused Over: 4 mins; bp Site: left antecubital; 10:03 Follow up: Response: No adverse reaction bp Medication: 08:48 VIS not applicable for this client. bp Intake: 10:04 IV: 1000ml; Total: 1000ml. bp Outcome: 09:20 Discharge ordered by . bailee 10:00 Discharged to home ambulatory, bp 10:00 Condition: stable 10:00 Discharge instructions given to patient, Instructed on discharge instructions, follow up and referral plans. Demonstrated understanding of instructions, follow-up care, 10:04 Patient left the ED. bp Signatures: Dispatcher [employer] EDMS John Sevilla MD MD cha Rivera, Mary, Reg Reg Fabian Leon em1 Martin Langston, RN RN bp
--- NOTE | 2024-06-13 09:21 | EDPHYS ---
[facility] Name: Rachelle Heredia Age: 29 yrs Sex: Female : 1995 Arrival Date: 06/13/2024 Time: 07:16 Bed 18 Private MD: ED Physician John Sevilla HPI: 06/13 08:10 This 29 yrs old Black Female presents to ER via Unassigned with complaints of Abdominal ms3 Pain. 08:10 29-year-old female presents to the emergency department for lower abdominal pain. ms3 Patient states she was seen on June 04 and she was at that time with vaginal bleeding. She was told she may be having a miscarriage. Patient states this morning the pain became worse and she awoke crying. She denies any alleviating or inciting factors.. Historical: - Allergies: 08:47 No Known Allergies; bp - Home Meds: 08:47 None [Active]; bp - PMHx: 08:47 None; bp - Immunization history:: Adult Immunizations up to date. - Infectious Disease History:: Denies. - Social history:: Smoking status: unknown. ROS: 08:10 Constitutional: Negative for fever, and chills. Cardiovascular: Negative for chest ms3 pain, and palpitations. Respiratory: Negative for shortness of breath, cough, wheezing, and pleuritic chest pain, 08:10 Skin: Negative for injury, rash, and discoloration, 08:10 Abdomen/GI: Positive for abdominal pain, 08:10 : Positive for vaginal bleeding, Exam: 08:10 Constitutional: This is a well developed, well nourished patient who is awake, alert, ms3 and in no acute distress. Cardiovascular: Regular rate and rhythm with a normal S1 and S2. No gallops, murmurs, or rubs. Normal PMI, no JVD. No pulse deficits. Respiratory: Lungs have equal breath sounds bilaterally, clear to auscultation and percussion. No rales, rhonchi or wheezes noted. No increased work of breathing, no retractions or nasal flaring. 08:10 Abdomen/GI: Inspection: abdomen appears normal, Bowel sounds: normal, Palpation: moderate abdominal tenderness, in the suprapubic area, Vital Signs: 08:46 BP 123 / 86; Pulse 63; Resp 16; Temp 98; Pulse Ox 100% ; Weight 89.36 kg; Height 5 ft. bp 2 in. ; 10:00 BP 125 / 93; Pulse 74; Resp 16; Pulse Ox 97% ; bp 08:46 Body Mass Index 36.03 (89.36 kg, 157.48 cm) bp MDM: 07:18 Medical Screening Exam initiated bailee 08:07 Medical Screening Exam initiated bailee 08:10 Differential diagnosis: threatened Ab, complete Ab, missed Ab, ectopic . ms3 08:11 Transition of care: After a detail discussion of the patient's case, care is ms3 transferred to John Sevilla MD. 06/13 07:19 Order name: CBC with Diff; Complete Time: 08:58 [facility] 06/13 07:19 Order name: CMP; Complete Time: 09:17 [facility] 06/13 07:19 Order name: Test, Urine; Complete Time: 08:58 [facility] 06/13 08:06 Order name: Abo/rh Typing ms3 06/13 08:06 Order name: Quantitative Hcg; Complete Time: 09:17 ms3 06/13 07:51 Order name: TRANSVAG OB; Complete Time: 08:58 [facility] 06/13 07:19 Order name: IV Saline Lock; Complete Time: 08:42 [facility] 06/13 07:19 Order name: Labs collected and sent; Complete Time: 08:42 [facility] 06/13 08:06 Order name: NPO; Complete Time: 08:45 ms3 Administered Medications: 09:02 Drug: Famotidine IVP 20 mg IVP once; dilute with 10 mL 0.9% NaCl; give over 2 minutes bp Route: IVP; Site: left antecubital; 10:02 Follow up: Response: No adverse reaction bp 09:02 Drug: Ondansetron IVP 4 mg IVP once; over 2 minutes Route: IVP; Site: left antecubital; bp 10:04 Follow up: Response: No adverse reaction bp 09:02 Drug: NS 0.9% IV 1000 ml IV at 1 bolus Per protocol; to be given as a bolus over 60 bp minutes Route: IV; Rate: 1 bolus; Site: left antecubital; 10:04 Follow up: IV Status: Completed infusion; IV Intake: 1000ml bp 09:03 Drug: morphine IVP or IV 4 mg IVP once over 4 mins Route: IVP; Infused Over: 4 mins; bp Site: left antecubital; 10:03 Follow up: Response: No adverse reaction bp Disposition Summary: 06/13/24 09:20 Discharge Ordered Notes: Location: Home bailee Problem: new bailee Symptoms: have improved bailee Condition: Stable bailee Diagnosis - Abnormal uterine and vaginal bleeding, unspecified - sp spontaneous miscarriage bailee - Complete or unspecified spontaneous without complication bailee Followup: bailee - With: Private Physician - When: 2 - 3 days - Reason: Recheck today's complaints, Continuance of care, Re-evaluation by your physician Discharge Instructions: - Discharge Summary Sheet bailee - Miscarriage bailee - Miscarriage, [id number] bailee Forms: - Medication Reconciliation Form bailee - Antibiotic Education bailee - Prescription Opioid Use bailee - Patient Portal Instructions bailee - Leadership Thank You Letter bailee - Work release form hb Signatures: Dispatcher [employer] John Hyman MD MD cha Peltier, Brian, RN RN Chemo Baxter DO DO ms3 Corrections: (The following items were deleted from the chart) 07:20 07:20 CBC+H.LAB.BRZ ordered. EDMS EDMS 07:20 07:20 COMPREHENSIVE METABOLIC PANEL+C.LAB.BRZ ordered. EDMS EDMS 07:20 07:20 Test, Urine+UC.LAB.BRZ ordered. EDMS EDMS 07:20 07:20 Abdomen Limited+US.RAD.BRZ ordered. EDMS EDMS 07:20 07:20 Abdomen Pelvis W Con+CT.RAD.BRZ ordered. EDMS EDMS 07:49 07:48 OB Limited+US.RAD.BRZ ordered. EDMS EDMS 08:08 07:20 LIPASE+C.LAB.BRZ ordered. EDMS EDMS
[2024-06-13 10:33] VITALS: TEMP 98
[2024-06-13 10:35] VITALS: BP 125/93; O2SAT 97
== END 2024-06-13 10:04 | disposition home or self-care (01) ==
LOC: ER 07:16
DX: O03.9 Complete or unspecified spontaneous abortion without complication (principal)
CPT/HCPCS: 96361; 85025; 36415; 86900; 81025; 86901; 84702; 80053; 76813; 96375; 96374; 99284; J2405; J7030